=== PATIENT | male | born 1975 | race African-American/Black ===

== ENCOUNTER 2017-01-20 18:45 | Inpatient (IN) | payer MEDICARE, OTHER ==
[2017-01-20] VITALS (7 sets, daily range): BP systolic 115–130; BP diastolic 58–69; PULSE 110–127; RESP 22–30; TEMP 99–102.4; O2SAT 85–98
[~2017-01-20] VITALS: Ht 188 cm; Wt 56.2 kg
[~2017-01-20 18:45] MED LIST: ALBU8I INH; AMOX875 PO; DICL75 PO; ELVITAB; HYDR-3533 PO; HYDR-3535 PO; LISI2.5T3 PO; MEDR4PAK3 PO; NAPR40TA PO; NEUR300C PO; OFLO.3%A EACH EAR; PREG100; ZITH250T PO
[2017-01-20] MEDS ORDERED: methylPREDNISolone SOD SUCC 125 MG/2 ML VIAL IM ONE (19:30)
--- NOTE | 2017-01-20 19:32 | PD ---
HPI Chief Complaint: Pain: Acute or Chronic Time Seen by Provider: 19:31 Travel History International Travel<30 days: No Contact w/Intl Traveler<30days: No Traveled to known affect area: No History of Present Illness HPI Patient comes in complaining of asthma exacerbation began 2 days ago. Patient states he has not had an inhaler approximately a month. Patient denies anything making it better feels it is getting progressively getting worse. Feels similar previous asthma exacerbations. Patient reports he has been feeling short of breath and coughing up yellow phlegm. Denies any chest pain, headaches, fevers, nausea, vomiting, diarrhea, or abdominal pain. PFSH Past Medical History Asthma: Yes Autoimmune Disease: Yes (HIV) Anxiety: Yes Depression: Yes Cancer: Yes (BRAIN TUMOR RESECTION 2008) Cardiovascular Problems: No Chemotherapy: Yes Cerebrovascular Accident: No Diabetes: No Diminished Hearing: No Gastrointestinal Disorders: No Genitourinary: No Immune Disorder: Yes (HIV/LUPUS) Implanted Vascular Access Dvce: No Musculoskeletal: No Psychiatric: Yes Reproductive: No Respiratory: No Migraines: No Radiation Therapy: Yes Seizures: No Past Surgical History Abdominal Surgery: No Cardiac Surgery: No Ear Surgery: No Endocrine Surgery: No Eye Surgery: No Genitourinary Surgery: No Neurologic Surgery: Yes (CERVICAL BACK 2010,BRAIN TUMOR RESECTION 2008) Thoracic Surgery: No Other Surgery: Yes Social History Alcohol Use: No Tobacco Use: Yes (1/2 ppd) Substance Use: No Allergies-Medications (Allergen,Severity, Reaction): Coded Allergies: No Known Allergies (Verified , 06/11/16) Reported Meds & Prescriptions Reported Meds & Active Scripts Active Naproxen Sodium 550 Mg Tab 550 Mg PO BID Diclofenac Sodium 75 Mg Tab 75 Mg PO BID PRN Floxin (Ofloxacin) 0.3 % Soln 5 Drop EACH EAR BID 7 Days Amoxil (Amoxicillin) 875 Mg Tab 875 Mg PO BID 10 Days Zithromax Z-Chris (Azithromycin) 250 Mg Tab 250 Mg PO DIRECTED 5 Days 500 MG (2 TABLETS) PO ON DAY 1, THEN 250 MG (1 TABLET) PO ON DAYS 2 TO 5. Medrol Dosepak (Methylprednisolone) 4 Mg Chris 4 Mg PO DIRECTED TAKE DIRECTED Ventolin Hfa (Albuterol Sulfate) 8 Gm Aero 1 Puff INH Q4H PRN * SHAKE WELL BEFORE USE * Lortab 5 mg/325 mg (Hydrocodone/Acetaminophen 5 mg/325 mg) 1 Tab 1 Tab PO Q6H PRN Neurontin (Gabapentin) 300 Mg Cap 300 Mg PO TID Reported Lisinopril 2.5 mg (Lisinopril) 2.5 Mg Tab 1 Tab PO DAILY Stribild (Ojljeedflpeq-Zzjuidgsqh-Gqwqyd) Tab Lortab 10 mg/325 mg (Hydrocodone/Acetaminophen 10 mg/325 mg) 1 Tab 1 Tab PO TID PRN Lyrica (Pregabalin) 100 Mg Cap Review of Systems Except as stated in HPI: all other systems reviewed are Neg Physical Exam Narrative GENERAL: Well-developed, well nourished, in no acute distress, and ill appearing , but nontoxic. SKIN: Focused skin assessment warm and dry. HEAD: Atraumatic. Normocephalic. EYES: Pupils equal and round. EOMI. No scleral icterus. No injection or drainage. ENT: No nasal bleeding or discharge. Mucous membranes pink and moist. NECK: Trachea midline. Supple. No nuclear rigidity. CARDIOVASCULAR: Regular rate and rhythm. No murmur appreciated. RESPIRATORY: No accessory muscle use. No respiratory distress. Wheezing and crackles noted throughout greatest in bilateral lower lobes GASTROINTESTINAL: Abdomen soft, non-tender, nondistended, and no guarding. Hepatic and splenic margins not palpable. No pulsatile mass. MUSCULOSKELETAL: No obvious deformities. No clubbing. No cyanosis. No edema. Full range of motion. NEUROLOGICAL: Awake and alert. No obvious cranial nerve deficits. Motor grossly within normal limits. Normal speech. PSYCHIATRIC: Appropriate mood and affect; insight and judgment normal. Data Data Last Documented VS Vital Signs Date Time Temp Pulse Resp B/P Pulse Ox O2 Delivery O2 Flow Rate FiO2 01/20/17 20:05 93 Nasal Cannula 3.00 01/20/17 19:45 127 22 115/58 01/20/17 18:51 102.4 Orders Albuterol-Ipratropium Neb (Duoneb Neb) (01/20/17 19:30) Methylprednisolone So Succ Inj (Solumedr (01/20/17 19:30) Chest, Single Ap (01/20/17 ) Electrocardiogram (01/20/17 19:54) Basic Metabolic Panel (Bmp) (01/20/17 19:54) Complete Blood Count With Diff (01/20/17 19:54) Lactic Acid Sepsis Protocol (01/20/17 19:54) Urinalysis - C+S If Indicated (01/20/17 19:54) Blood Culture (01/20/17 19:54) Iv Access Insert/Monitor (01/20/17 19:54) Oximetry (01/20/17 19:54) Oxygen Administration (01/20/17 19:54) Sodium Chloride 0.9% Flush (Ns Flush) (01/20/17 20:00) Cefepime Inj (Maxipime Inj) (01/20/17 20:00) Azithromycin Inj (Zithromax Inj) (01/20/17 20:00) Shoulder, Complete (>2vws) (01/20/17 ) Sodium Chlor 0.9% 1000 Ml Inj (Ns 1000 M (01/20/17 20:00) Sodium Chlor 0.9% 1000 Ml Inj (Ns 1000 M (01/20/17 21:30) Ibuprofen (Motrin) (01/20/17 21:45) Admit Order (Ed Use Only) (01/20/17 22:01) Labs Laboratory Tests Test 01/20/17 20:30 White Blood Count 18.9 TH/MM3 Red Blood Count 4.46 MIL/MM3 Hemoglobin 13.2 GM/DL Hematocrit 40.1 % Mean Corpuscular Volume 89.8 FL Mean Corpuscular Hemoglobin 29.5 PG Mean Corpuscular Hemoglobin 32.8 % Concent Red Cell Distribution Width 14.1 % Platelet Count 400 TH/MM3 Mean Platelet Volume 7.0 FL Neutrophils (%) (Auto) 94.0 % Lymphocytes (%) (Auto) 3.1 % Monocytes (%) (Auto) 2.8 % Eosinophils (%) (Auto) 0.0 % Basophils (%) (Auto) 0.1 % Neutrophils # (Auto) 17.8 TH/MM3 Lymphocytes # (Auto) 0.6 TH/MM3 Monocytes # (Auto) 0.5 TH/MM3 Eosinophils # (Auto) 0.0 TH/MM3 Basophils # (Auto) 0.0 TH/MM3 CBC Comment DIFF FINAL Differential Comment Urine Color DARK-YELLOW Urine Turbidity CLEAR Urine pH 6.5 Urine Specific [place] 1.028 Urine Protein 30 mg/dL Urine Glucose (UA) NEG mg/dL Urine Ketones 10 mg/dL Urine Occult Blood NEG Urine Nitrite NEG Urine Bilirubin NEG Urine Urobilinogen GREATER THAN 12.0 MG/DL Urine Leukocyte Esterase NEG Urine RBC 2 /hpf Urine WBC 1 /hpf Urine Squamous Epithelial <1 /hpf Cells Urine Mucus FEW /lpf Microscopic Urinalysis Comment CULT NOT INDICATED Sodium Level 132 MEQ/L Potassium Level 3.5 MEQ/L Chloride Level 97 MEQ/L Carbon Dioxide Level 25.4 MEQ/L Anion Gap 10 MEQ/L Blood Urea Nitrogen 8 MG/DL Creatinine 0.90 MG/DL Estimat Glomerular Filtration 114 ML/MIN Rate Random Glucose 134 MG/DL Lactic Acid Level 1.8 mmol/L Calcium Level 9.5 MG/DL MDM Medical Decision Making Medical Screen Exam Complete: Yes Emergency Medical Condition: Yes Interpretation(s) Chest x-ray read by the radiologist shows: 1. Bibasilar consolidation could be atelectasis or pneumonia. 2. Irregularity right humeral head with sclerosis could be avascular necrosis and fracture. Right shoulder x-ray read by the radiologist shows: Avascular necrosis with subchondral fracture. Differential Diagnosis Asthma exacerbation, pneumonia, pneumothorax, electrolyte abnormally, dehydration, other Narrative Course Patient seen and examined. IV was established patient with clinical research monitor. Labs were obtained and reviewed. Patient is given IV fluids, IV antibiotics, ibuprofen. Discussed patient with Dr. Loza, who is agreeable with plan of care and disposition. Discussed all findings plan of care with patient who is agreeable for admission. All questions were answered. Patient remained stable throughout ED course. Sepsis Criteria SIRS Criteria (2 or more): Temp > 100.9 or < 96.8, Heart rate over 90, RR > 20 or PaCO2 < 32, WBC > 42322, < 4000 or > 10% bands Sepsis Criteria (SIRS+source): Infect source susp/known Physician Communication Physician Communication [id number] Shah, who is agreeable to this patient. Diagnosis Primary Impression: Sepsis Qualified Code: A41.9 - Sepsis, due to unspecified organism Additional Impressions: Pneumonia Qualified Code: J18.9 - Pneumonia of both lungs due to infectious organism, unspecified part of lung Avascular necrosis HIV (human immunodeficiency virus infection) Admitting Information Admitting Physician Requests: Admit Condition: Stable Robe Larose Jan 20, 2017 19:32
--- NOTE | 2017-01-20 19:48 | RADRPT ---
EXAM DATE/TIME: 01/20/2017 19:40 [facility] COMPARISON: No previous studies available for comparison. INDICATIONS : Wheezing. MEDICAL HISTORY : None. SURGICAL HISTORY : None. ENCOUNTER: Initial ACUITY: 2 days PAIN SCORE: 0/10 LOCATION: Bilateral chest FINDINGS: A single view of the chest demonstrates bibasilar airspace disease. Heart normal in size.. Osseous s tructures are intact. Irregularity right humeral head. Sclerosis of the humeral head. CONCLUSION: 1. Bibasilar consolidation could be atelectasis or pneumonia. 2. Irregularity right humeral head with sclerosis could be avascular necrosis and fracture. David Jenkins MD on January 20, 2017 at 19:45 Board Certified Radiologist. This report was verified electronically.
[2017-01-20] MEDS ORDERED: AZITHROMYCIN INJ 500 MG in SODIUM CHLOR 0.9% 250 ML INJ 250 ML IV ONE (20:00)
[2017-01-20] MEDS ORDERED: SODIUM CHLOR 0.9% 1000 ML INJ 1,000 ML IV ONE ×2 (20:00→21:30)
[2017-01-20] MEDS ORDERED: CEFEPIME INJ 2,000 MG in SODIUM CHLORIDE 0.9% INJ 100 ML IV ONE (20:00)
[2017-01-20] MEDS ORDERED: SODIUM CHLORIDE 0.9% FLUSH 10 ML FLUSH IVF PRN (20:00)
[2017-01-20] MEDS: RESP: ALBUTEROL 2.5 MG/IPRATROPIUM 0.5 MG NEB (SCH) INH ×2 (20:01→23:26)
--- NOTE | 2017-01-20 21:11 | RADRPT ---
EXAM DATE/TIME: 01/20/2017 20:45 [facility] COMPARISON: No previous studies available for comparison. INDICATIONS : Right shoulder pain after fall. MEDICAL HISTORY : None. SURGICAL HISTORY : None. ENCOUNTER: Initial ACUITY: 1 day PAIN SCORE: 7/10 LOCATION: Right shoulder FINDINGS: Multiple view examination of the right shoulder demonstrates avascular necrosis with subchondral frac ture. The glenohumeral and acromioclavicular joints are maintained. There is normal range of motion between internal and external rotation. Bony mineralization is normal. CONCLUSION: Avascular necrosis with subchondral fracture. David Jenkins MD on January 20, 2017 at 21:06 Board Certified Radiologist. This report was verified electronically.
[2017-01-20 21:18] LABS: AUTOMATED NEUTROPHIL # 17.8 TH/MM3 (1.8-7.7); BASOPHIL % 0.1 % (0.0-2.0); HEMATOCRIT 40.1 % (39.0-51.0); HEMO FLAGS DIFF FINAL; LYMPH % 3.1 % (9.0-44.0); LYMPHOCYTE # 0.6 TH/MM3 (1.0-4.8); MEAN CELL VOLUME 89.8 FL (80.0-100.0); MEAN CORPUSCULAR HEMOGLOBIN 29.5 PG (27.0-34.0); MEAN CORPUSCULAR HGB CONC 32.8 % (32.0-36.0); MONO % 2.8 % (0.0-8.0); PLATELET COUNT 400 TH/MM3 (150-450); RED BLOOD COUNT 4.46 MIL/MM3 (4.50-5.90); RED CELL DISTRIBUTION WIDTH 14.1 % (11.6-17.2); WHITE BLOOD COUNT 18.9 TH/MM3 (4.0-11.0)
[2017-01-20 21:22] LABS: BLOOD, URINE NEG (NEG); COMMENT (UR) CULT NOT INDICATED; CULTURE IF INDICATED CULT NOT INDICATED; GLUCOSE,URINE NEG (NEG); KETONE, URINE 10 mg/dL (NEG); MUCUS URINE FEW /lpf (OCC); NITRITE,URINE NEG (NEG); PH, URINE 6.5 (5.0-8.5); SQUAMOUS EPITHELIAL CELL URINE <1 /hpf (0-5); URINE COLOR DARK-YELLOW (YELLW/STRAW)
[2017-01-20 21:32] LABS: BICARBONATE 25.4 MEQ/L (21.0-32.0); POTASSIUM 3.5 MEQ/L (3.5-5.1)
[2017-01-20] MEDS ORDERED: IBUPROFEN 800 MG TAB PO ONE (21:45)
[2017-01-20] MEDS ORDERED: NALOXONE HCL 0.4 MG/ML AMP IV PRN (22:30)
[2017-01-20] MEDS ORDERED: SODIUM CHLORIDE 0.9% FLUSH 10 ML FLUSH IV FLUSH PRN (22:30)
[2017-01-20 22:57] LABS: BLOOD GAS BASE EXCESS 0.4 mmol/L (-2-2); BLOOD GAS CARBOXYHEMOGLOBIN 1.2 % (0-4); BLOOD GAS HCO3 24 mmol/L (22-26); BLOOD GAS METHEMOGLOBIN 0.6 % (0-2); BLOOD GAS O2 HGB SATURATION 86 % (90-100); BLOOD GAS OXYGEN CONTENT 16.3 Vol % (12.0-20.0); BLOOD GAS PCO2 31 mmHg (38-42); BLOOD GAS PO2 51 mmHG (61-120); BLOOD GAS TOTAL HGB 13.5 G/DL (12.0-16.0); TEMP CORR TO 98.6
[2017-01-20 22:59] LABS: DRAW SITE RT RADIAL; LITER FLOW 3 L/M; NUMBER OF ARTERIAL PUNCTURES 1; OXYGEN DEVICE NASAL CANNULA
[2017-01-20 23:00] LABS: STAT YES; ULNAR PULSE PRESENT
[2017-01-21] VITALS (16 sets, daily range): BP systolic 108–130; BP diastolic 59–76; PULSE 80–108; RESP 15–28; TEMP 97.6–98.2; O2SAT 96–100
[2017-01-21 01:11] LABS: BLOOD GAS BASE EXCESS -0.9 mmol/L (-2-2); BLOOD GAS CARBOXYHEMOGLOBIN 0.9 % (0-4); BLOOD GAS HCO3 23 mmol/L (22-26); BLOOD GAS METHEMOGLOBIN 0.8 % (0-2); BLOOD GAS O2 HGB SATURATION 96 % (90-100); BLOOD GAS OXYGEN CONTENT 19.9 Vol % (12.0-20.0); BLOOD GAS PCO2 34 mmHg (38-42); BLOOD GAS PO2 96 mmHg (61-120); BLOOD GAS TOTAL HGB 14.7 G/DL (12.0-16.0); CRITICAL VALUE NO; DRAW SITE RT RADIAL; FIO2 50 %; NUMBER OF ARTERIAL PUNCTURES 1; OXYGEN DEVICE BiPAP; STAT YES; TEMP CORR TO 98.6; ULNAR PULSE PRESENT; VENT SETTINGS IPAP12/EPAP5
--- NOTE | 2017-01-21 02:03 | HHI.HP ---
[facility] Service [facility] Primary Care Physician Braeden Sands MD Admission Diagnosis sepsis, pneumonia, avascular necrosis, HIV Diagnoses: Travel History International Travel<30 Days: No Contact w/Intl Traveler <30 Da: No Traveled to Known Affected Are: No History of Present Illness hx from patient and ER PA communication and review of medical records. Patient was on BiPAP at the time of my exam. Patient is awake and alert. However is quite tired from his acute illness and would only answer yes or no questions. However he was much more alert prior to my arrival and was given complaining about not having his dinner. He tells me that he came to hospital because he was short of breath. He denies other symptoms though. Specifically, he denies any chest pain/ palpitations/nausea/vomiting/diarrhea/urinary burning or pain on urination. He answers no when asked about cough and sputum production. Again, he seems that he is just not interested in answering questions. He denies fever. He does however have documented fever while in emergency room of 102.4. He denies any blood in his stool or his urine. He does report that he has HIV. He does not know his CD4 count. Does not know his medications names. But tells me that he does take his medications regularly and that he [facility] up with [facility]. When asked about AIDS defining illnesses, he denies everything. Again, patient is quite poor historian. In the emergency room, patient initially arrived with acute respiratory distress and was stating of history of asthma. However on his examination by ER PA, his lungs were sounding more of congestion/ pulmonary edema. He was given nebulizer treatments, steroids, with not much improvement. He was then given antibiotics broad-spectrum. Nursing staff then called me with patient's status because he was not improving much and that his O2 saturations would easily go down and she was requiring nonrebreather. He was again still looking tachycardic, with significant work of breathing. However has placed him on BiPAP prior to my arrival. Review of Systems ROS Limitations: Poor Historian Except as stated in HPI: all other systems reviewed are Neg Past Family Social History Past Medical History Asthma Bronchitis Past Surgical History none Reported Medications hiv meds, but cant remember Allergies: Coded Allergies: No Known Allergies (Verified , 06/11/16) Family History none per patient Social History denies smoking/ etoh abuse/ drug abuse Physical Exam Vital Signs Vital Signs Date Time Temp Pulse Resp B/P Pulse Ox O2 Delivery O2 Flow Rate FiO2 01/20/17 23:58 97 BiPAP 50 01/20/17 23:54 98 50 01/20/17 23:28 98 Partial Rebreather 15.00 01/20/17 22:57 95 Nasal Cannula 2 01/20/17 22:57 95 Nasal Cannula 2 01/20/17 22:57 99.0 115 30 124/69 95 Nasal Cannula 2 01/20/17 20:05 93 Nasal Cannula 3.00 01/20/17 19:45 127 22 115/58 93 3 01/20/17 18:51 102.4 110 28 130/69 85 01/20/17 18:48 102.4 112 28 130/69 85 Room Air Physical Exam GENERAL: This is a well-nourished, well-developed patient, in moderate distress from illness SKIN: No rashes, ecchymoses or lesions. Cool and dry. HEAD: Atraumatic. Normocephalic. No temporal or scalp tenderness. EYES: No scleral icterus. No injection or drainage. ENT: Nose without bleeding, purulent drainage or septal hematoma. Airway patent. NECK: Trachea midline. +JVD CARDIOVASCULAR: tachycardic, regular rhythm without murmurs, gallops, or rubs. RESPIRATORY: bilateral coarse crepitations GASTROINTESTINAL: Abdomen soft, non-tender, nondistended. No hepato-splenomegaly , or palpable masses. No guarding. MUSCULOSKELETAL: Extremities without clubbing, cyanosis, or edema. No calf tenderness. NEUROLOGICAL: Awake and alert. Motor and sensory grossly within normal limits. Normal speech. Laboratory Laboratory Tests Test 01/20/17 01/20/17 01/21/17 20:30 22:43 00:57 White Blood Count 18.9 Red Blood Count 4.46 Hemoglobin 13.2 Hematocrit 40.1 Mean Corpuscular Volume 89.8 Mean Corpuscular Hemoglobin 29.5 Mean Corpuscular Hemoglobin 32.8 Concent Red Cell Distribution Width 14.1 Platelet Count 400 Mean Platelet Volume 7.0 Neutrophils (%) (Auto) 94.0 Lymphocytes (%) (Auto) 3.1 Monocytes (%) (Auto) 2.8 Eosinophils (%) (Auto) 0.0 Basophils (%) (Auto) 0.1 Neutrophils # (Auto) 17.8 Lymphocytes # (Auto) 0.6 Monocytes # (Auto) 0.5 Eosinophils # (Auto) 0.0 Basophils # (Auto) 0.0 CBC Comment DIFF FINAL Differential Comment Urine Color DARK-YELLOW Urine Turbidity CLEAR Urine pH 6.5 Urine Specific [place] 1.028 Urine Protein 30 Urine Glucose (UA) NEG Urine Ketones 10 Urine Occult Blood NEG Urine Nitrite NEG Urine Bilirubin NEG Urine Urobilinogen GREATER THAN 12.0 Urine Leukocyte Esterase NEG Urine RBC 2 Urine WBC 1 Urine Squamous Epithelial <1 Cells Urine Mucus FEW Microscopic Urinalysis Comment CULT NOT INDICATED Sodium Level 132 Potassium Level 3.5 Chloride Level 97 Carbon Dioxide Level 25.4 Anion Gap 10 Blood Urea Nitrogen 8 Creatinine 0.90 Estimat Glomerular Filtration 114 Rate Random Glucose 134 Lactic Acid Level 1.8 Calcium Level 9.5 Lactate Dehydrogenase 211 Blood Gas Puncture Site RT RADIAL RT RADIAL Blood Gas Patient Temperature 98.6 98.6 Blood Gas HCO3 24 23 Blood Gas Base Excess 0.4 -0.9 Blood Gas Oxygen Saturation 86 96 Arterial Blood pH 7.49 7.44 Arterial Blood Partial 31 34 Pressure CO2 Arterial Blood Partial 51 96 Pressure O2 Arterial Blood Oxygen Content 16.3 19.9 Arterial Blood 1.2 0.9 Carboxyhemoglobin Arterial Blood Methemoglobin 0.6 0.8 Blood Gas Hemoglobin 13.5 14.7 Oxygen Delivery Device NASAL CANNULA BiPAP Blood Gas Liter Flow 3 Blood Gas Ventilator Setting [id number] Blood Gas Inspired Oxygen 50 Date/Time Procedure Status Source Growth 01/20/17 20:30 Aerobic Blood Culture Received Blood Peripheral Pending 01/20/17 20:30 Anaerobic Blood Culture Received Blood Peripheral Pending Result Diagram: 01/20/17202901/20/172029 Imaging Last 48 hours Impressions Shoulder X-Ray 01/20/17 0000 Signed Impressions: Service Date/Time: Friday, January 20, 2017 20:45 - CONCLUSION: Avascular necrosis with subchondral fracture. David Jenkins MD Chest X-Ray 01/20/17 0000 Signed Impressions: Service Date/Time: Friday, January 20, 2017 19:40 - CONCLUSION: 1. Bibasilar consolidation could be atelectasis or pneumonia. 2. Irregularity right humeral head with sclerosis could be avascular necrosis and fracture. David Jenkins MD Assessment and Plan Assessment and Plan Impression: Bilateral air space disease - pneumonia in HIV pt possible PCP pneumonia sepsis- with tachycadia, tachypnea, fever hypoxic respiratory failure hx of asthma hx of HIV Plan: bipap to decrease effort of breathing cefepime 2g iv q12hrs bactrim pcp therapeutic dose abg stat - for Aa gradient LDH nebs prn steroids iv ID consult CD4 profile admit to ICU for close monitoring DVT prophylaxis on lovenox critical care time 30min Discussed Condition With Patient, ER PA, ER nurse Physician Certification 2 Midnight Certification Type: Admission for Inpatient Services Order for Inpatient Services The services are ordered in accordance with Medicare regulations or non- Medicare payer requirements, as applicable. In the case of services not specified as inpatient-only, they are appropriately provided as inpatient services in accordance with the 2-midnight benchmark. Estimated LOS (days): 3 days is the estimated time the patient will need to remain in the hospital, assuming treatment plan goals are met and no additional complications. Post-Hospital Plan: Home Salvador Shah MD Jan 21, 2017 02:03
[2017-01-21 02:11] LABS: CRITICAL VALUE YES
[2017-01-21] MEDS: PANTOPRAZOLE SODIUM 40 MG VIAL IV PUSH SCH ×2 (02:16→14:40)
[2017-01-21] MEDS ORDERED: SULFAMETHOX IV SCH ×2 (03:00)
[2017-01-21] MEDS ORDERED: TRIMETHOPRIM IV SCH ×2 (03:00)
[2017-01-21] MEDS ORDERED: WATE IV SCH ×2 (03:00)
[2017-01-21] MEDS ORDERED: DEXTROSE 5% IV SCH ×2 (03:00)
[2017-01-21] MEDS: RESP: ALBUTEROL 2.5 MG/IPRATROPIUM 0.5 MG NEB (SCH) NEB ×4 (03:15→21:33)
[2017-01-21] MEDS: methylPREDNISolone SOD SUCC 40 MG/1 ML VIAL IV PUSH SCH ×4 (05:24→23:46)
[2017-01-21 07:22] LABS: AUTOMATED NEUTROPHIL # 18.1 TH/MM3 (1.8-7.7); HEMATOCRIT 34.4 % (39.0-51.0); HEMO FLAGS DIFF FINAL; LYMPH % 4.8 % (9.0-44.0); LYMPHOCYTE # 0.9 TH/MM3 (1.0-4.8); MEAN CELL VOLUME 88.5 FL (80.0-100.0); MEAN CORPUSCULAR HEMOGLOBIN 30.3 PG (27.0-34.0); MEAN CORPUSCULAR HGB CONC 34.2 % (32.0-36.0); MONO % 3.8 % (0.0-8.0); NEUT % 91.4 % (16.0-70.0); PLATELET COUNT 348 TH/MM3 (150-450); RED BLOOD COUNT 3.89 MIL/MM3 (4.50-5.90); RED CELL DISTRIBUTION WIDTH 14.1 % (11.6-17.2); WHITE BLOOD COUNT 19.8 TH/MM3 (4.0-11.0)
[2017-01-21 07:50] LABS: BICARBONATE 23.1 MEQ/L (21.0-32.0)
[2017-01-21 07:57] LABS: POTASSIUM 2.9 MEQ/L (3.5-5.1)
[2017-01-21] MEDS ORDERED: POTASSIUM CHLOR 20 MEQ PREMIX 100 ML IV PRN ×2 (08:30)
[2017-01-21] MEDS ORDERED: POTASSIUM CHLOR 40 MEQ PREMIX 100 ML IV PRN ×2 (08:30)
[2017-01-21] MEDS ORDERED: POTASSIUM PHOSPHATE MONOBASIC 500 MG TAB PO PRN (08:30)
[2017-01-21] MEDS ORDERED: POTASSIUM PHOSPHATE MONOBASIC 500 MG TAB PO/TUBE PRN (08:30)
[2017-01-21] MEDS ORDERED: POTASSIUM CHLORIDE 25 MEQ EFFERVESCENT TAB PO PRN (08:30)
[2017-01-21] MEDS ORDERED: MAGNESIUM SULFATE INJ 4 GM in SODIUM CHLORIDE 0.9% INJ 92 ML IV PRN (08:30)
[2017-01-21] MEDS ORDERED: MAGNESIUM OXIDE 400 MG TAB PO PRN (08:30)
[2017-01-21] MEDS ORDERED: SODIUM PHOSPHATE INJ 30 MMOL in SODIUM CHLOR 0.9% 250 ML INJ 240 ML IV PRN (08:30)
[2017-01-21] MEDS ORDERED: MAGNESIUM SULFATE INJ 2 GM in SODIUM CHLORIDE 0.9% INJ 96 ML IV PRN (08:30)
[2017-01-21] MEDS ORDERED: POTASSIUM PHOSPHATE INJ 30 MMOL in SODIUM CHLOR 0.9% 250 ML INJ 250 ML IV PRN (08:30)
[2017-01-21] MEDS: SODIUM CHLORIDE 0.9% FLUSH 10 ML FLUSH IV FLUSH SCH ×2 (09:00→21:26)
[2017-01-21] MEDS: CEFEPIME INJ 2,000 MG in SODIUM CHLORIDE 0.9% INJ 100 ML IV SCH ×2 (09:06→20:06)
[2017-01-21] MEDS: ENOXAPARIN SODIUM 40 MG/0.4 ML SYRINGE SQ SCH (09:07)
[2017-01-21] MEDS: SULFAMETHOX IV SCH ×6 (10:13→21:49)
[2017-01-21] MEDS: DEXTROSE 5% IV SCH ×6 (10:13→21:49)
[2017-01-21] MEDS: WATE IV SCH ×6 (10:13→21:49)
[2017-01-21] MEDS: TRIMETHOPRIM IV SCH ×6 (10:13→21:49)
[2017-01-21] MEDS ORDERED: IOHEXOL 350 MG/ML 10 ML VIAL (for RAD DIAG) IV ONE (10:41)
--- NOTE | 2017-01-21 11:02 | RADRPT ---
EXAM DATE/TIME: 01/21/2017 10:30 [facility] COMPARISON: No previous studies available for comparison. INDICATIONS : Short of breath for 3 days. IV CONTRAST: 60 cc Omnipaque 350 (iohexol) IV RADIATION DOSE: 23.19 CTDIvol (mGy) MEDICAL HISTORY : Brain tumor. Asthma. SURGICAL HISTORY : Brain tumor removed. ENCOUNTER: Initial ACUITY: 3 days PAIN SCALE: 2/10 LOCATION: chest TECHNIQUE: Volumetric scanning of the chest was performed using a pulmonary embolism protocol MIP images were re constructed. Using automated exposure control and adjustment of the mA and/or kV according to patien t size, radiation dose was kept as low as reasonably achievable to obtain optimal diagnostic quality images. DICOM format image data is available electronically for review and comparison. Follow-up recommendations for incidentally detected pulmonary nodules are based at a minimum on nodul e size and patient risk factors according to Fleischner Society Guidelines. FINDINGS: Alveolar consolidations are noted within the lower lobes bilaterally and to a much lesser extent left upper lobe. The findings are suggestive of pneumonia until proven otherwise. Clinical correlation is recommended . No pulmonary embolism is noted. No pulmonary nodule or mass is noted. No mediastinal, hilar or axillar y lymphadenopathy is noted. There is a tiny left pleural effusion. Degenerative changes and scoliosis of the thoracic spine are noted CONCLUSION: 1. Alveolar consolidations involving lower lobes bilaterally and to a much lesser extent left upper lobe suggesting probable bilateral pneumonia. Clinical correlation is recommended. 2. No evidence of pulmonary embolism. 3. Tiny left pleural effusion. Alexandre Stewart MD on January 21, 2017 at 10:49 Board Certified Radiologist. This report was verified electronically.
[2017-01-21] MEDS ORDERED: POTASSIUM CHLORIDE 10 MEQ CONTROLLED RELEASE TAB PO ONE (11:15)
[2017-01-21] MEDS ORDERED: POTASSIUM CHLORIDE 20 MEQ CONTROLLED RELEASE TAB PO ONE (11:45)
--- NOTE | 2017-01-21 11:45 | HHI.PR ---
Subjective Remarks f/u B/L PNA and respiratory failure Patient denies any shortness of breathing. He stated that he is doing well. Patient seems to not like to answer questions. He stated that his HIV physician is Dr. Perez. Otherwise he has no complaints. Objective Vitals Vital Signs Date Time Temp Pulse Resp B/P Pulse Ox O2 Delivery O2 Flow Rate FiO2 01/21/17 11:39 100 Nasal Cannula 6.00 01/21/17 10:00 89 01/21/17 08:44 100 40 01/21/17 08:00 82 01/21/17 08:00 97.6 80 22 108/59 100 01/21/17 07:00 100 Bi-Pap 40 01/21/17 06:00 91 01/21/17 06:00 96 Bi-Pap 50 01/21/17 06:00 98.0 91 25 114/68 98 01/21/17 05:36 97 40 01/21/17 04:00 103 18 130/76 98 BiPAP 40 01/21/17 03:17 100 40 01/21/17 03:15 97 BiPAP 40 01/21/17 02:20 97 18 121/75 97 BiPAP 50 01/20/17 23:58 97 BiPAP 50 01/20/17 23:54 98 50 01/20/17 23:28 98 Partial Rebreather 15.00 01/20/17 22:57 95 Nasal Cannula 2 01/20/17 22:57 95 Nasal Cannula 2 01/20/17 22:57 99.0 115 30 124/69 95 Nasal Cannula 2 01/20/17 20:05 93 Nasal Cannula 3.00 01/20/17 19:45 127 22 115/58 93 3 01/20/17 18:51 102.4 110 28 130/69 85 01/20/17 18:48 102.4 112 28 130/69 85 Room Air I/O 01/20/17 01/20/17 01/20/17 01/21/17 01/21/17 01/21/17 07:00 15:00 23:00 07:00 15:00 23:00 Intake Total 0 ml Balance 0 ml Intake Oral 0 ml # Voids 1 Result Diagram: 01/21/17 0652 01/21/17 [address] Angiography 01/21/17 0000 Signed Impressions: Service Date/Time: Saturday, January 21, 2017 10:30 - CONCLUSION: 1. Alveolar consolidations involving lower lobes bilaterally and to a much lesser extent left upper lobe suggesting probable bilateral pneumonia. Clinical correlation is recommended. 2. No evidence of pulmonary embolism. 3. Tiny left pleural effusion. Alexandre Stewart MD Shoulder X-Ray 01/20/17 0000 Signed Impressions: Service Date/Time: Friday, January 20, 2017 20:45 - CONCLUSION: Avascular necrosis with subchondral fracture. David Jenkins MD Chest X-Ray 01/20/17 0000 Signed Impressions: Service Date/Time: Friday, January 20, 2017 19:40 - CONCLUSION: 1. Bibasilar consolidation could be atelectasis or pneumonia. 2. Irregularity right humeral head with sclerosis could be avascular necrosis and fracture. David Jenkins MD Objective Remarks GENERAL: in NAD SKIN: Warm and dry. HEAD: Normocephalic. EYES: No scleral icterus. No injection or drainage. NECK: Supple, trachea midline. No JVD or lymphadenopathy. CARDIOVASCULAR: Regular rate and rhythm without murmurs, gallops, or rubs. RESPIRATORY: Bilateral mid to lower lobe course lung sounds. No accessory muscle use. GASTROINTESTINAL: Abdomen soft, non-tender, nondistended. MUSCULOSKELETAL: No cyanosis, or edema. BACK: Nontender without obvious deformity. No CVA tenderness. Medications and IVs Current Medications Albuterol/ Ipratropium (Duoneb Neb) 1 ampule Q15M INH Last administered on 01/20 23:26; Start 01/20/17 at 19:30; Stop 01/20/17 at 20:01; Status DC Methylprednisolone Sodium Succinate (SoluMEDROL INJ) 125 mg ONCE ONCE IM Last administered on 01/20/17 19:30; Start 01/20/17 at 19:30; Stop 01/20/17 at 19:31 ; Status DC Sodium Chloride 2 ml 2 ml UNSCH PRN IVF FLUSH AFTER USING IV ACCESS; Start at 20:00; Stop 01/20/17 at 22:21; Status DC Cefepime HCl 2000 mg/Sodium Chloride 100 ml @ 200 mls/hr ONCE ONCE IV Last administered on 01/20/17 22:48; Start 01/20/17 at 20:00; Stop 01/20/17 at 20:29 ; Status DC Azithromycin 500 mg/Sodium Chloride 250 ml @ 250 mls/hr ONCE ONCE IV Last administered on 01/20/17 21:40; Start 01/20/17 at 20:00; Stop 01/20/17 at 20:59 ; Status DC Sodium Chloride 1,000 ml @ 999 mls/hr BOLUS ONCE IV Last administered on 01/20 21:40; Start 01/20/17 at 20:00; Stop 01/20/17 at 21:00; Status DC Sodium Chloride (NS 1000 ml Inj) 1,000 ml @ 999 mls/hr BOLUS ONCE IV Last administered on 01/20/17 22:49; Start 01/20/17 at 21:30; Stop 01/20/17 at 22:30 ; Status DC Ibuprofen (Motrin) 800 mg ONCE ONCE PO Last administered on 01/20/17 22:36; Start 01/20/17 at 21:45; Stop 01/20/17 at 21:46; Status DC Sodium Chloride (NS Flush) 2 ml UNSCH PRN IV FLUSH FLUSH AFTER USING IV ACCESS ; Start 01/20/17 at 22:30 Sodium Chloride (NS Flush) 2 ml BID IV FLUSH Last administered on 01/21/17 09: 00; Start 01/21/17 at 09:00 Naloxone HCl (Narcan Inj) 0.4 mg UNSCH PRN IV SEE LABEL COMMENTS; Start at 22:30 Albuterol/ Ipratropium (Duoneb Neb) 1 ampule Q6HR NEB NEB Last administered on 01/21/17 08:48; Start 01/21/17 at 04:00 Albuterol/ Ipratropium 1 ampule 1 ampule Q2HR NEB PRN NEB wheezing; Start 01/20 at 22:30 Cefepime HCl/ Sodium Chloride (Maxipime Inj/NS Inj) 100 ml @ 200 mls/hr Q12H IV Last administered on 01/21/17 09:06; Start 01/21/17 at 09:00 Methylprednisolone Sodium Succinate (SoluMEDROL INJ) 40 mg Q6HR IV PUSH Last administered on 01/21/17 11:52; Start 01/21/17 at 06:00 Pantoprazole Sodium 40 mg 40 mg Q12H IV PUSH Last administered on 01/21/17 02: 16; Start 01/21/17 at 02:00 Trimethoprim/ Sulfamethoxazole 400 mg/Dextrose 525 ml @ 350 mls/hr Q6H IV Last administered on 01/21/17 02:56; Start 01/21/17 at 03:00; Stop 01/21/17 at 08:10; Status DC Trimethoprim/ Sulfamethoxazole/ Dextrose (Bactrim Inj/D5W 500 ml Inj) 499.75 ml @ 333.167 mls/hr Q6H IV Last administered on 01/21/17 10:13; Start 01/21/17 at 10:00 Influenza Virus Vaccine (Flu (Quadrivalent) Vaccine Inj) 0.5 ml ONCE ONCE IM ; Start 01/22/17 at 10:00; Stop 01/22/17 at 10:00; Status DC Enoxaparin Sodium 40 mg 40 mg Q24H SQ Last administered on 01/21/17 09:07; Start 01/21/17 at 09:00 Potassium Chloride 100 ml @ 50 mls/hr Q2H PRN IV For Potassium 2.8 - 3.2 mEq/L ; Start 01/21/17 at 08:30 Potassium Chloride (KCl 20 Meq Premix Inj) 100 ml @ 50 mls/hr Q2H PRN IV For Potassium 2.8 - 3.2 mEq/L; Start 01/21/17 at 08:30 Potassium Bicarb/ Potassium Chloride 50 meq 50 meq UNSCH PRN PO For Potassium 3.3 - 3.5 mEq/L Last administered on 01/21/17 09:09; Start 01/21/17 at 08:30 Potassium Chloride 100 ml @ 25 mls/hr UNSCH PRN IV For Potassium 3.3 - 3.5 mEq /L; Start 01/21/17 at 08:30 Potassium Chloride 100 ml @ 50 mls/hr Q2H PRN IV For Potassium 3.3 - 3.5 mEq/L ; Start 01/21/17 at 08:30 Magnesium Sulfate/ Sodium Chloride (Magnesium Sulfate Inj/NS Inj) 100 ml @ 50 mls/hr UNSCH PRN IV For Magnesium 0.9 - 1.1 mg/dL; Start 01/21/17 at 08:30 Magnesium Oxide 800 mg 800 mg UNSCH PRN PO For Magnesium 1.2 - 1.6 mg/dL; Start 01/21/17 at 08:30 Magnesium Sulfate/ Sodium Chloride (Magnesium Sulfate Inj/NS Inj) 100 ml @ 50 mls/hr UNSCH PRN IV For Magnesium 1.2 - 1.6 mg/dL; Start 01/21/17 at 08:30 Potassium Phosphate 2000 mg 2,000 mg Q4H PRN PO For Phosphorus < 2.5 mg/dL; Start 01/21/17 at 08:30 Sodium Phosphate/ Sodium Chloride (Sodium Phosphate Inj/NS 250 ml Inj) 250 ml @ 42 mls/hr UNSCH PRN IV For Phosphorus < 2.5 mg/dL; Start 01/21/17 at 08:30 Potassium Phosphate 2000 mg 2,000 mg UNSCH PRN PO/TUBE SEE LABEL COMMENTS; Start 01/21/17 at 08:30 Potassium Phosphate/Sodium Chloride (Potassium Phosphate Inj/NS 250 ml Inj) 260 ml @ 42 mls/hr UNSCH PRN IV SEE LABEL COMMENTS; Start 01/21/17 at 08:30 Iohexol (Omnipaque 350 Inj) 60 ml STK-MED ONCE IV Last administered on 10:41; Start 01/21/17 at 10:41; Stop 01/21/17 at 10:42; Status DC Potassium Chloride (KCl) 60 meq ONCE ONCE PO Last administered on 01/21/17 11 :52; Start 01/21/17 at 11:15; Stop 01/21/17 at 11:26; Status DC Potassium Chloride (KCl) 60 meq ONCE ONCE PO ; Start 01/21/17 at 11:45; Stop at 11:46; Status DC A/P Assessment and Plan 41-year-old male with history of HIV Respiratory failure with hypoxia -Chest x-ray to suggest pneumonia. CT scan of chest showed alveolar consolidations involving lower lobes bilaterally and to a much lesser extent left upper lobe suggesting probable bilateral pneumonia. -Improving. Patient is now off of BiPAP. See treatment as below. -Patient was put on steroids. Bilateral pneumonia -Pending CD4 count. -Infectious disease consulted. -Patient on cefepime. He is also on Bactrim. -Continue management per infectious disease. hx of HIV -will have nurse call pharmacy to see what medication he was on. -ID consulted and ff. DVT prophylaxis -TERRIEs Remedios Pavon MD Jan 21, 2017 11:45 Remedios Pavon MD Jan 21, 2017 11:45
--- NOTE | 2017-01-21 11:55 | PD.ID.CON ---
History of Present Illness Service ID Consult Requested By Dr Lacy Reason for Consult HIV /PNA Primary Care Physician Braeden Sands MD Diagnoses: History of Present Illness Pt is non cooperative on interview and refused to answer any questions All history obtained from the chart 41 yo male with HIV dz (apparentlyon HAART, Tribilt, pt of Dr Rodriguez, CD4/VL unknown) presents yday with hypoxia Per chart pt has been haavingf asthma exacerbation began 2 days ago and it is getting progressively getting worse He is c/o short of breath and cough with yellow phlegm. He was foud hypoxic on presentation, with WBC in 18-19 K range and fever of 102.4 He requires BIPAP He was started on IV bactrim, Solumedrol and cefepime He improved clinically and now is on 6 L of NC O2 It also shows on the home meds records that pt was on augentin/ aszithro prior to admission Review of Systems ROS Limitations: Uncooperative Past Family Social History Allergies: Coded Allergies: No Known Allergies (Verified , 06/11/16) Past Medical History HIV dz Asthma Bronchitis Past Surgical History none Reported Medications Elvitegravir, cobicistat, emtricitabine, and tenofovir disoproxil fumarate ( Stribild) augmentin azithro Active Ordered Medications cefepime TS Family History none per patient Social History denies smoking/ etoh abuse/ drug abuse Physical Exam Vital Signs Vital Signs Date Time Temp Pulse Resp B/P Pulse Ox O2 Delivery O2 Flow Rate FiO2 01/21/17 11:39 100 Nasal Cannula 6.00 01/21/17 10:00 89 01/21/17 08:44 100 40 01/21/17 08:00 82 01/21/17 08:00 97.6 80 22 108/59 100 01/21/17 07:00 100 Bi-Pap 40 01/21/17 06:00 91 01/21/17 06:00 96 Bi-Pap 50 01/21/17 06:00 98.0 91 25 114/68 98 01/21/17 05:36 97 40 01/21/17 04:00 103 18 130/76 98 BiPAP 40 01/21/17 03:17 100 40 01/21/17 03:15 97 BiPAP 40 01/21/17 02:20 97 18 121/75 97 BiPAP 50 7/24/17 23:58 97 BiPAP 50 01/20/17 23:54 98 50 01/20/17 23:28 98 Partial Rebreather 15.00 01/20/17 22:57 95 Nasal Cannula 2 01/20/17 22:57 95 Nasal Cannula 2 01/20/17 22:57 99.0 115 30 124/69 95 Nasal Cannula 2 01/20/17 20:05 93 Nasal Cannula 3.00 01/20/17 19:45 127 22 115/58 93 3 01/20/17 18:51 102.4 110 28 130/69 85 01/20/17 18:48 102.4 112 28 130/69 85 Room Air Physical Exam CONSTITUTIONAL/GENERAL: This is a thin young male patient, in no apparent distress. TUBES/LINES/DRAINS: SKIN: No jaundice, rashes, or lesions. Skin temperature appropriate. Not diaphoretic. HEAD: Atraumatic. Normocephalic. EYES: Pupils equal and round and reactive. Extraocular motions intact. No scleral icterus. No injection or drainage. Fundi not examined. ENT: Hearing grossly normal. Oral mucosae without visible erythema, exudates, masses, or lesions. NECK: Trachea midline. Supple, nontender. CARDIOVASCULAR: Regular rate and rhythm without murmurs, gallops, or rubs. No JVD. Peripheral pulses symmetric. RESPIRATORY/CHEST: Symmetric, unlabored respirations. Clear to auscultation. Breath sounds equal bilaterally. No wheezes, rales, or rhonchi. GASTROINTESTINAL: Abdomen soft, non-tender, nondistended. No hepato-splenomegaly , or palpable masses. No guarding. Bowel sounds present. GENITOURINARY: Without palpable bladder distension. condom catheter in place with clear yellow urine MUSCULOSKELETAL: Extremities without clubbing, cyanosis, or edema. No joint tenderness or effusion noted. No calf tenderness. No mottling or clubbing. LYMPHATICS: No palpable cervical or supraclavicular adenopathy. NEUROLOGICAL: Awake and alert. Motor and sensory grossly within normal limits. Follows commands. Speech clear. Moves all extremities. PSYCHIATRIC: No obvious anxiety/depression. no apparent hallucinations or other psychotic thought process. He is uncooperative and refuses to talk to staff Laboratory Laboratory Tests Test 01/20/17 01/20/17 01/21/17 01/21/17 20:30 22:43 00:57 06:52 White Blood Count 18.9 19.8 Red Blood Count 4.46 3.89 Hemoglobin 13.2 11.8 Hematocrit 40.1 34.4 Mean Corpuscular Volume 89.8 88.5 Mean Corpuscular Hemoglobin 29.5 30.3 Mean Corpuscular Hemoglobin 32.8 34.2 Concent Red Cell Distribution Width 14.1 14.1 Platelet Count 400 348 Mean Platelet Volume 7.0 7.1 Neutrophils (%) (Auto) 94.0 91.4 Lymphocytes (%) (Auto) 3.1 4.8 Monocytes (%) (Auto) 2.8 3.8 Eosinophils (%) (Auto) 0.0 0.0 Basophils (%) (Auto) 0.1 0.0 Neutrophils # (Auto) 17.8 18.1 Lymphocytes # (Auto) 0.6 0.9 Monocytes # (Auto) 0.5 0.8 Eosinophils # (Auto) 0.0 0.0 Basophils # (Auto) 0.0 0.0 CBC Comment DIFF FINAL DIFF FINAL Differential Comment Urine Color DARK-YELLOW Urine Turbidity CLEAR Urine pH 6.5 Urine Specific [place] 1.028 Urine Protein 30 Urine Glucose (UA) NEG Urine Ketones 10 Urine Occult Blood NEG Urine Nitrite NEG Urine Bilirubin NEG Urine Urobilinogen GREATER THAN 12.0 Urine Leukocyte Esterase NEG Urine RBC 2 Urine WBC 1 Urine Squamous Epithelial <1 Cells Urine Mucus FEW Microscopic Urinalysis Comment CULT NOT INDICATED Sodium Level 132 136 Potassium Level 3.5 2.9 Chloride Level 97 104 Carbon Dioxide Level 25.4 23.1 Anion Gap 10 9 Blood Urea Nitrogen 8 7 Creatinine 0.90 0.69 Estimat Glomerular Filtration 114 155 Rate Random Glucose 134 178 Lactic Acid Level 1.8 Calcium Level 9.5 9.0 Lactate Dehydrogenase 211 B-Type Natriuretic Peptide 34 Blood Gas Puncture Site RT RADIAL RT RADIAL Blood Gas Patient Temperature 98.6 98.6 Blood Gas HCO3 24 23 Blood Gas Base Excess 0.4 -0.9 Blood Gas Oxygen Saturation 86 96 Arterial Blood pH 7.49 7.44 Arterial Blood Partial 31 34 Pressure CO2 Arterial Blood Partial 51 96 Pressure O2 Arterial Blood Oxygen Content 16.3 19.9 Arterial Blood 1.2 0.9 Carboxyhemoglobin Arterial Blood Methemoglobin 0.6 0.8 Blood Gas Hemoglobin 13.5 14.7 Oxygen Delivery Device NASAL CANNULA BiPAP Blood Gas Liter Flow 3 Blood Gas Ventilator Setting IPAP12/[id number] Blood Gas Inspired Oxygen 50 Date/Time Procedure Status Source Growth 01/20/17 20:30 Aerobic Blood Culture - Preliminary Resulted Blood Peripheral NO GROWTH IN 1 DAY 01/20/17 20:30 Anaerobic Blood Culture - Preliminary Resulted Blood Peripheral NO GROWTH IN 1 DAY Result Diagram: 01/21/17 0652 01/21/17 [address] Angiography 01/21/17 0000 Signed Impressions: Service Date/Time: Saturday, January 21, 2017 10:30 - CONCLUSION: 1. Alveolar consolidations involving lower lobes bilaterally and to a much lesser extent left upper lobe suggesting probable bilateral pneumonia. Clinical correlation is recommended. 2. No evidence of pulmonary embolism. 3. Tiny left pleural effusion. Alexandre Stewart MD Shoulder X-Ray 01/20/17 0000 Signed Impressions: Service Date/Time: Friday, January 20, 2017 20:45 - CONCLUSION: Avascular necrosis with subchondral fracture. David Jenkins MD Chest X-Ray 01/20/17 0000 Signed Impressions: Service Date/Time: Friday, January 20, 2017 19:40 - CONCLUSION: 1. Bibasilar consolidation could be atelectasis or pneumonia. 2. Irregularity right humeral head with sclerosis could be avascular necrosis and fracture. David Jenkins MD Assessment and Plan Assessment and Plan HIV dz, on HAART per records, compliance is unknown - - degree of immunosupression is unknkown PNA (infiltrates, fever, leukocytosis, hypoxia), severe, multilobar - improved on current abx and higfh dose stereroids - pt reports subacute presentation, has bodyn weight deficit REC's; [facility] sputum for [facility]B/ro TB x 3 leg/pneumococcal PNA chk influenza add azithro restart Stribild Discussed Condition With RN Carli Lund MD Jan 21, 2017 11:55
--- NOTE | 2017-01-21 12:13 | EKG ---
Date Performed: 01/20/2017 Time Performed: 23:29:08 PTAGE: 41 years EKG: SINUS TACHYCARDIA Early repolarization in less prominent from the prior tracing ABNORMAL RH YT ECG PREVIOUS TRACING : 05/24/2012 22.39 DOCTOR: Hugo Barcenas Interpretating Date/Time 01/21/2017 12:12:02
[2017-01-21] MEDS ORDERED: ELVI1TAB3 PO (13:14)
[2017-01-21] MEDS: ELVIT/COBI/EMTR/TENOF 150/150/200/300 MG TABLETS PO SCH (13:52)
[2017-01-21] MEDS: IBUPROFEN 600 MG TAB PO PRN (17:54)
[2017-01-21] MEDS: AZITHROMYCIN INJ 500 MG in SODIUM CHLOR 0.9% 250 ML INJ 250 ML IV SCH (20:05)
[2017-01-22] VITALS (8 sets, daily range): BP systolic 111–121; BP diastolic 58–67; PULSE 83–106; RESP 18–24; TEMP 97.8–98.6; O2SAT 93–96
[2017-01-22] MEDS: PANTOPRAZOLE SODIUM 40 MG VIAL IV PUSH SCH ×2 (01:11→13:13)
[2017-01-22] MEDS: SULFAMETHOX IV SCH ×8 (04:37→23:47)
[2017-01-22] MEDS: DEXTROSE 5% IV SCH ×8 (04:37→23:47)
[2017-01-22] MEDS: methylPREDNISolone SOD SUCC 40 MG/1 ML VIAL IV PUSH SCH ×3 (04:37→16:47)
[2017-01-22] MEDS: TRIMETHOPRIM IV SCH ×8 (04:37→23:47)
[2017-01-22] MEDS: WATE IV SCH ×8 (04:37→23:47)
[2017-01-22] MEDS ORDERED: [UNRECOGNIZED DRUG - OTHER] PO SCH (09:00)
[2017-01-22] MEDS ORDERED: GENVOYA PO SCH (09:00)
[2017-01-22] MEDS ORDERED: EMTRICITABINE PO SCH (09:00)
[2017-01-22] MEDS ORDERED: COBICISTAT PO SCH (09:00)
--- NOTE | 2017-01-22 09:13 | MB ---
cc: JOSE CHAN DATE OF CONSULTATION 01/22/2017 CHIEF COMPLAINT Right shoulder pain. HISTORY OF PRESENT ILLNESS The patient is a 41-year-old -[place] male with significant history of HIV, pneumonia, respiratory issues and multiple medical problems. He was admitted through the emergency department on 01/21/2017 for shortness of breath. He was then found to have a bilateral pneumonia and being treated by Infectious Disease and the medical team. He does have a history of HIV. He states his right shoulder has been bothering him for a very long time. He is unable to give me a specific date or time frame. He is a very poor historian. He seems uninterested in answering questions but will communicate with me. He states his shoulder hurts all the time. He states is hurts with any kind of movement. He denies pain in any other joint or body part. He states his elbow and wrist are fine. He states he has not taken anything or sought any treatment for it. Denies any numbness, tingling or radiation of symptoms. REVIEW OF SYSTEMS Positive for shortness of breath and weakness. The remaining review of systems is negative except for what is in the HPI. PAST MEDICAL HISTORY Positive for asthma and bronchitis as well as HIV. PAST SURGICAL HISTORY None. REPORTED MEDICATIONS HIV medications but he cannot remember them. ALLERGIES No known allergies. FAMILY HISTORY None per patient. SOCIAL HISTORY Denies smoking or alcohol abuse or drug abuse. PHYSICAL EXAMINATION VITAL SIGNS: Temperature 98 degrees, pulse 96, respiratory rate 20, blood pressure 112/59. O2 saturation 93 on room air. GENERAL: Slightly underweight, somewhat cachectic-looking -[place] male in no acute distress. D HEAD: Normocephalic, atraumatic. EARS: Hearing intact bilaterally. EYES: Extraocular motions intact. Pupils equal, round, reactive to light. CRANIAL NERVES II-XII: Grossly intact. NECK: Supple with no evidence of lymphadenopathy. LUNGS: No use of accessory muscles while breathing. HEART: No grade 4 murmur appreciated. ABDOMEN: Soft, nontender. MUSCULOSKELETAL: Right shoulder with significant discomfort and pain with movement of the right shoulder. I am able to passively flex him to approximately 50 degrees before he informs me to stop. He has full motion of his elbow, wrist and fingers both passively and actively. He has full sensation of the median and ulnar nerve distribution and good radial nerve function. Left arm with full motion of shoulder, elbow, wrist and fingers and no painful sensation distally. Strength 5/5. Bilateral lower extremities with full motion of the hips, knees, ankles and toes and no pain. Full sensation distally with strength 5/5. IMAGING STUDIES X-rays reviewed from [facility] which showed no acute bony abnormality. No fracture is seen. It does show developing avascular necrosis of the right humeral head. Overall the glenohumeral joint is well reduced. ASSESSMENT 1. Avascular necrosis right humeral head. 2. HIV. 3. Bilateral pneumonia. DISCUSSION AND PLAN I had a discussion with the patient in regards to his treatment options. This is nothing that needs to be dealt with surgically at this time. This is something that can be dealt with on an outpatient basis. This is a chronic condition. I informed him that ultimately his vascular necrosis of the humeral head will likely progress. The only way to definitely treat this would be with surgery for a hemiarthroplasty versus total shoulder arthroplasty. However, given his HIV and multiple medical problems, he is not a surgical candidate. Another possible treatment plan would be a steroid injection of his right shoulder. However, again, with his HIV and multiple medical conditions, I would be hesitant to give him a shoulder injection due to potentially reducing any new bacteria for potential infection. I would defer to Infectious Disease and the medical team to give any kind of clearance before proceeding with any kind of injection due to his significant history of HIV. Otherwise, he can weight-bear as tolerated with no restrictions and is only limited by that of pain. I informed him that, in the future of he every decided that he wanted to get something done about this shoulder, any surgical treatment, that he could follow up with Dr. Moises Davis or Dr. Jhonatan Celaya at the [facility]. Otherwise, orthopedics will be signing off. If any other further developments, please reconsult to orthopedics. Thank you this consultation. The above patient was discussed and reviewed with Dr. Chan and he does agree with the above dictation. Dictated by: Eliazar Skinner PA-C Jose MD BOBBI Bee/ELVIA /7:50 AM /7:56 AM History, past medical history, social history, review of systems, physical exam , radiographs, assessment, and plan were also reviewed. Plan on nonoperative treatment. A mid-level provider in my office (nurse practitioner or physician personalized living assistant) may see this patient on follow-up visits and continue to implement the objectives of this plan including: Starting or adjusting medications, injections, cast application, orthotics, brace application, physical therapy, radiological studies (including x-ray, MRI, CT, ultrasound, bone scan), vascular studies, neurologic studies, specialist consultation, and proceeding with surgical management, as appropriate. UZMA
[2017-01-22] MEDS: CEFEPIME INJ 2,000 MG in SODIUM CHLORIDE 0.9% INJ 100 ML IV SCH ×2 (10:00→21:53)
[2017-01-22] MEDS: ENOXAPARIN SODIUM 40 MG/0.4 ML SYRINGE SQ SCH (10:00)
[2017-01-22] MEDS ORDERED: INFLUENZA VIRUS VACCINE (QUADRIVALENT) 0.5 ML SYR IM ONE (10:00)
[2017-01-22] MEDS: SODIUM CHLORIDE 0.9% FLUSH 10 ML FLUSH IV FLUSH SCH ×2 (10:01→21:54)
[2017-01-22] MEDS: ELVIT/COBI/EMTR/TENOF 150/150/200/300 MG TABLETS PO SCH (10:01)
[2017-01-22] MEDS: IBUPROFEN 600 MG TAB PO PRN (10:03)
[2017-01-22] MEDS: RESP: ALBUTEROL 2.5 MG/IPRATROPIUM 0.5 MG NEB (SCH) NEB ×3 (11:31→20:40)
--- NOTE | 2017-01-22 12:32 | HHI.PR ---
Subjective Remarks in no acute distress. no fever this morning. complaining of generalized bodyache. d/w the RN. Objective Vitals Vital Signs Date Time Temp Pulse Resp B/P Pulse Ox O2 Delivery O2 Flow Rate FiO2 01/22/17 12:00 98.3 86 18 121/64 95 01/22/17 11:31 21 01/22/17 08:00 98.6 83 18 121/67 96 01/22/17 08:00 Room Air 01/22/17 08:00 87 01/22/17 04:00 98.0 96 20 112/59 93 01/22/17 03:42 Room Air 01/22/17 02:00 97 01/22/17 00:00 97.8 106 24 111/63 96 01/22/17 00:00 106 01/22/17 00:00 98.1 101 18 112/59 93 01/21/17 22:00 100 01/21/17 20:00 97.7 100 28 109/63 96 01/21/17 20:00 100 01/21/17 19:00 94 Room Air 01/21/17 18:00 108 01/21/17 16:20 99 Room Air 01/21/17 16:12 96 01/21/17 16:00 98.2 92 16 112/67 98 01/21/17 16:00 86 01/21/17 15:00 100 Nasal Cannula 2.00 01/21/17 14:00 100 Nasal Cannula 3.00 01/21/17 14:00 95 I/O 01/21/17 01/21/17 01/21/17 01/22/17 01/22/17 01/22/17 06:59 14:59 22:59 06:59 14:59 22:59 Intake Total 0 ml 939 ml 909 ml Output Total 500 ml 600 ml Balance 0 ml 439 ml 309 ml Intake Oral 0 ml 320 ml 120 ml IV Total 619 ml 789 ml Output Urine Total 500 ml 600 ml # Voids 1 # Bowel Movements 0 Result Diagram: 01/21/17 0652 01/21/17 [address] Angiography 01/21/17 0000 Signed Impressions: Service Date/Time: Saturday, January 21, 2017 10:30 - CONCLUSION: 1. Alveolar consolidations involving lower lobes bilaterally and to a much lesser extent left upper lobe suggesting probable bilateral pneumonia. Clinical correlation is recommended. 2. No evidence of pulmonary embolism. 3. Tiny left pleural effusion. Alexandre Stewart MD Shoulder X-Ray 01/20/17 0000 Signed Impressions: Service Date/Time: Friday, January 20, 2017 20:45 - CONCLUSION: Avascular necrosis with subchondral fracture. David Jenkins MD Chest X-Ray 01/20/17 0000 Signed Impressions: Service Date/Time: Friday, January 20, 2017 19:40 - CONCLUSION: 1. Bibasilar consolidation could be atelectasis or pneumonia. 2. Irregularity right humeral head with sclerosis could be avascular necrosis and fracture. David Jenkins MD Objective Remarks GENERAL: This is a well-nourished, well-developed patient, in no apparent distress. CARDIOVASCULAR: Regular rate and regular rhythm without murmurs, gallops, or rubs. RESPIRATORY: bilateral rhonchi GASTROINTESTINAL: Abdomen soft, non-tender, nondistended. Normal, active bowel sounds MUSCULOSKELETAL: Extremities without clubbing, cyanosis, or edema. NEURO: Alert & Oriented x4 to person, place, time, situation. Moves all ext x4 Medications and IVs Current Medications Albuterol/ Ipratropium (Duoneb Neb) 1 ampule Q15M INH Last administered on 01/20 23:26; Start 01/20/17 at 19:30; Stop 01/20/17 at 20:01; Status DC Methylprednisolone Sodium Succinate (SoluMEDROL INJ) 125 mg ONCE ONCE IM Last administered on 01/20/17 19:30; Start 01/20/17 at 19:30; Stop 01/20/17 at 19:31 ; Status DC Sodium Chloride 2 ml 2 ml UNSCH PRN IVF FLUSH AFTER USING IV ACCESS; Start at 20:00; Stop 01/20/17 at 22:21; Status DC Cefepime HCl 2000 mg/Sodium Chloride 100 ml @ 200 mls/hr ONCE ONCE IV Last administered on 01/20/17 22:48; Start 01/20/17 at 20:00; Stop 01/20/17 at 20:29 ; Status DC Azithromycin 500 mg/Sodium Chloride 250 ml @ 250 mls/hr ONCE ONCE IV Last administered on 01/20/17 21:40; Start 01/20/17 at 20:00; Stop 01/20/17 at 20:59 ; Status DC Sodium Chloride 1,000 ml @ 999 mls/hr BOLUS ONCE IV Last administered on 01/20 21:40; Start 01/20/17 at 20:00; Stop 01/20/17 at 21:00; Status DC Sodium Chloride (NS 1000 ml Inj) 1,000 ml @ 999 mls/hr BOLUS ONCE IV Last administered on 01/20/17 22:49; Start 01/20/17 at 21:30; Stop 01/20/17 at 22:30 ; Status DC Ibuprofen (Motrin) 800 mg ONCE ONCE PO Last administered on 01/20/17 22:36; Start 01/20/17 at 21:45; Stop 01/20/17 at 21:46; Status DC Sodium Chloride (NS Flush) 2 ml UNSCH PRN IV FLUSH FLUSH AFTER USING IV ACCESS ; Start 01/20/17 at 22:30 Sodium Chloride (NS Flush) 2 ml BID IV FLUSH Last administered on 01/22/17 10: 01; Start 01/21/17 at 09:00 Naloxone HCl (Narcan Inj) 0.4 mg UNSCH PRN IV SEE LABEL COMMENTS; Start at 22:30 Albuterol/ Ipratropium (Duoneb Neb) 1 ampule Q6HR NEB NEB Last administered on 01/22/17 11:31; Start 01/21/17 at 04:00 Albuterol/ Ipratropium 1 ampule 1 ampule Q2HR NEB PRN NEB wheezing; Start 01/20 at 22:30 Cefepime HCl/ Sodium Chloride (Maxipime Inj/NS Inj) 100 ml @ 200 mls/hr Q12H IV Last administered on 01/22/17 10:00; Start 01/21/17 at 09:00 Methylprednisolone Sodium Succinate (SoluMEDROL INJ) 40 mg Q6HR IV PUSH Last administered on 01/22/17 11:46; Start 01/21/17 at 06:00 Pantoprazole Sodium 40 mg 40 mg Q12H IV PUSH Last administered on 01/22/17 01: 11; Start 01/21/17 at 02:00 Trimethoprim/ Sulfamethoxazole 400 mg/Dextrose 525 ml @ 350 mls/hr Q6H IV Last administered on 01/21/17 02:56; Start 01/21/17 at 03:00; Stop 01/21/17 at 08:10; Status DC Trimethoprim/ Sulfamethoxazole/ Dextrose (Bactrim Inj/D5W 500 ml Inj) 499.75 ml @ 333.167 mls/hr Q6H IV Last administered on 01/22/17 11:06; Start 01/21/17 at 10:00 Influenza Virus Vaccine (Flu (Quadrivalent) Vaccine Inj) 0.5 ml ONCE ONCE IM ; Start 01/22/17 at 10:00; Stop 01/22/17 at 10:00; Status DC Enoxaparin Sodium 40 mg 40 mg Q24H SQ Last administered on 01/22/17 10:00; Start 01/21/17 at 09:00 Potassium Chloride 100 ml @ 50 mls/hr Q2H PRN IV For Potassium 2.8 - 3.2 mEq/L ; Start 01/21/17 at 08:30 Potassium Chloride (KCl 20 Meq Premix Inj) 100 ml @ 50 mls/hr Q2H PRN IV For Potassium 2.8 - 3.2 mEq/L; Start 01/21/17 at 08:30 Potassium Bicarb/ Potassium Chloride 50 meq 50 meq UNSCH PRN PO For Potassium 3.3 - 3.5 mEq/L Last administered on 01/21/17 09:09; Start 01/21/17 at 08:30 Potassium Chloride 100 ml @ 25 mls/hr UNSCH PRN IV For Potassium 3.3 - 3.5 mEq /L; Start 01/21/17 at 08:30 Potassium Chloride 100 ml @ 50 mls/hr Q2H PRN IV For Potassium 3.3 - 3.5 mEq/L ; Start 01/21/17 at 08:30 Magnesium Sulfate/ Sodium Chloride (Magnesium Sulfate Inj/NS Inj) 100 ml @ 50 mls/hr UNSCH PRN IV For Magnesium 0.9 - 1.1 mg/dL; Start 01/21/17 at 08:30 Magnesium Oxide 800 mg 800 mg UNSCH PRN PO For Magnesium 1.2 - 1.6 mg/dL; Start 01/21/17 at 08:30 Magnesium Sulfate/ Sodium Chloride (Magnesium Sulfate Inj/NS Inj) 100 ml @ 50 mls/hr UNSCH PRN IV For Magnesium 1.2 - 1.6 mg/dL; Start 01/21/17 at 08:30 Potassium Phosphate 2000 mg 2,000 mg Q4H PRN PO For Phosphorus < 2.5 mg/dL; Start 01/21/17 at 08:30 Sodium Phosphate/ Sodium Chloride (Sodium Phosphate Inj/NS 250 ml Inj) 250 ml @ 42 mls/hr UNSCH PRN IV For Phosphorus < 2.5 mg/dL; Start 01/21/17 at 08:30 Potassium Phosphate 2000 mg 2,000 mg UNSCH PRN PO/TUBE SEE LABEL COMMENTS; Start 01/21/17 at 08:30 Potassium Phosphate/Sodium Chloride (Potassium Phosphate Inj/NS 250 ml Inj) 260 ml @ 42 mls/hr UNSCH PRN IV SEE LABEL COMMENTS; Start 01/21/17 at 08:30 Iohexol (Omnipaque 350 Inj) 60 ml STK-MED ONCE IV Last administered on 10:41; Start 01/21/17 at 10:41; Stop 01/21/17 at 10:42; Status DC Potassium Chloride (KCl) 60 meq ONCE ONCE PO Last administered on 01/21/17 11 :52; Start 01/21/17 at 11:15; Stop 01/21/17 at 11:26; Status DC Potassium Chloride (KCl) 60 meq ONCE ONCE PO ; Start 01/21/17 at 11:45; Stop at 11:46; Status DC Elvitegravir/ Cobicis/Emtricit/ Tenof 1 tab 1 tab DAILY PO Last administered on 01/22/17 10:01; Start 01/21/17 at 14:00 Azithromycin/ Sodium Chloride (Zithromax Inj/ NS 250 ml Inj) 250 ml @ 250 mls/ hr Q24H IV Last administered on 01/21/17 20:05; Start 01/21/17 at 21:00 Patient Own Medication PT OWN MED: GENVOYA (Elvitegrav... DAILY PO ; Start 01/22 at 09:00; Status Hold Ibuprofen (Motrin) 600 mg Q8H PRN PO pain 1-10 Last administered on 01/22/17 10:03; Start 01/21/17 at 17:30 A/P Assessment and Plan A/p Respiratory failure with hypoxia -Chest x-ray to suggest pneumonia. CT scan of chest showed alveolar consolidations involving lower lobes bilaterally and to a much lesser extent left upper lobe suggesting probable bilateral pneumonia. -Improving. See treatment as below. -Patient was put on steroids. Bilateral pneumonia -Pending CD4 count. -Infectious disease consulted. -Patient on cefepime,bactrim and zithromax. -Continue management per infectious disease. hx of HIV -continue Stribild -ID consulted and ff. Edward Baires MD Jan 22, 2017 12:32
--- NOTE | 2017-01-22 12:37 | HHI.PR ---
Addendum to Inpatient Note Additional Information Awaiting records If MTB PCR negative can dc isolation anticipate d/c soon if cont to improve and no TB Carli Card MD Jan 22, 2017 12:37
[2017-01-22] MEDS: oxyCODONE/ACETAMINOPHEN 10 MG/325 MG TAB PO PRN ×2 (13:13→18:40)
[2017-01-22] MEDS: NICOTINE 21 MG/24 HR PATCH T-DERMAL SCH (13:13)
[2017-01-22 15:06] LABS: HEMATOCRIT 33.8 % (39.0-51.0); MEAN CELL VOLUME 88.2 FL (80.0-100.0); MEAN CORPUSCULAR HEMOGLOBIN 31.3 PG (27.0-34.0); MEAN CORPUSCULAR HGB CONC 35.5 % (32.0-36.0); PLATELET COUNT 401 TH/MM3 (150-450); RED BLOOD COUNT 3.83 MIL/MM3 (4.50-5.90); RED CELL DISTRIBUTION WIDTH 14.4 % (11.6-17.2); REVIEW FLAG FINAL
[2017-01-22 15:28] LABS: BICARBONATE 20.7 MEQ/L (21.0-32.0); POTASSIUM 3.8 MEQ/L (3.5-5.1)
[2017-01-22] MEDS: AZITHROMYCIN INJ 500 MG in SODIUM CHLOR 0.9% 250 ML INJ 250 ML IV SCH (21:53)
[2017-01-23] VITALS (10 sets, daily range): BP systolic 111–120; BP diastolic 57–72; PULSE 86–97; RESP 17–19; TEMP 97.7–98.6; O2SAT 93–95
[2017-01-23] MEDS: PANTOPRAZOLE SODIUM 40 MG VIAL IV PUSH SCH ×2 (00:33→13:01)
[2017-01-23] MEDS: methylPREDNISolone SOD SUCC 40 MG/1 ML VIAL IV PUSH SCH ×4 (00:33→23:01)
[2017-01-23] MEDS: diphenhydrAMINE HCL 50 MG CAP PO PRN ×2 (00:38→21:40)
[2017-01-23] MEDS: oxyCODONE/ACETAMINOPHEN 10 MG/325 MG TAB PO PRN ×4 (00:38→21:29)
[2017-01-23 03:49] LABS: CD4/CD8 RATIO 0.4 (0.86-5.00)
[2017-01-23] MEDS: RESP: ALBUTEROL 2.5 MG/IPRATROPIUM 0.5 MG NEB (SCH) NEB ×4 (03:57→19:59)
[2017-01-23] MEDS: TRIMETHOPRIM IV SCH ×8 (05:01→22:59)
[2017-01-23] MEDS: SULFAMETHOX IV SCH ×8 (05:01→22:59)
[2017-01-23] MEDS: WATE IV SCH ×8 (05:01→22:59)
[2017-01-23] MEDS: DEXTROSE 5% IV SCH ×8 (05:01→22:59)
[2017-01-23] MEDS: SODIUM CHLORIDE 0.9% FLUSH 10 ML FLUSH IV FLUSH SCH ×2 (09:00→20:39)
[2017-01-23] MEDS: NICOTINE 21 MG/24 HR PATCH T-DERMAL SCH (09:31)
[2017-01-23] MEDS: ENOXAPARIN SODIUM 40 MG/0.4 ML SYRINGE SQ SCH (09:31)
[2017-01-23] MEDS: ELVIT/COBI/EMTR/TENOF 150/150/200/300 MG TABLETS PO SCH (09:31)
[2017-01-23] MEDS: CEFEPIME INJ 2,000 MG in SODIUM CHLORIDE 0.9% INJ 100 ML IV SCH ×2 (09:31→20:38)
--- NOTE | 2017-01-23 11:37 | HHI.PR ---
Subjective Remarks in no acute distress. pain is better controlled today. afebrile. Objective Vitals Vital Signs Date Time Temp Pulse Resp B/P Pulse Ox O2 Delivery O2 Flow Rate FiO2 01/23/17 10:15 93 01/23/17 10:15 Room Air 01/23/17 08:06 94 01/23/17 08:00 98.1 93 18 113/57 94 01/23/17 04:00 98.0 91 18 111/58 94 01/23/17 03:58 93 21 01/23/17 00:00 98.0 94 18 112/71 93 01/22/17 20:42 96 21 01/22/17 20:00 98.2 99 18 119/58 94 01/22/17 20:00 Room Air 01/22/17 20:00 100 01/22/17 16:00 98.0 105 18 117/65 95 01/22/17 12:00 98.3 86 18 121/64 95 I/O 01/22/17 01/22/17 01/22/17 01/23/17 01/23/17 01/23/17 06:59 14:59 22:59 06:59 14:59 22:59 Intake Total 1850 ml 360 ml 1900 ml Output Total 750 ml 700 ml Balance 1850 ml -390 ml 1200 ml Intake Oral 360 ml 480 ml IV Total 1850 ml 1420 ml Output Urine Total 750 ml 700 ml # Bowel Movements 0 0 Result Diagram: 01/22/17 1252 01/22/17 [address] Angiography 01/21/17 0000 Signed Impressions: Service Date/Time: Saturday, January 21, 2017 10:30 - CONCLUSION: 1. Alveolar consolidations involving lower lobes bilaterally and to a much lesser extent left upper lobe suggesting probable bilateral pneumonia. Clinical correlation is recommended. 2. No evidence of pulmonary embolism. 3. Tiny left pleural effusion. Alexandre Stewart MD Shoulder X-Ray 01/20/17 0000 Signed Impressions: Service Date/Time: Friday, January 20, 2017 20:45 - CONCLUSION: Avascular necrosis with subchondral fracture. David Jenkins MD Chest X-Ray 01/20/17 0000 Signed Impressions: Service Date/Time: Friday, January 20, 2017 19:40 - CONCLUSION: 1. Bibasilar consolidation could be atelectasis or pneumonia. 2. Irregularity right humeral head with sclerosis could be avascular necrosis and fracture. David Jenkins MD Objective Remarks GENERAL: This is a well-nourished, well-developed patient, in no apparent distress. CARDIOVASCULAR: Regular rate and regular rhythm without murmurs, gallops, or rubs. RESPIRATORY: bilateral rhonchi GASTROINTESTINAL: Abdomen soft, non-tender, nondistended. Normal, active bowel sounds MUSCULOSKELETAL: Extremities without clubbing, cyanosis, or edema. NEURO: Alert & Oriented x4 to person, place, time, situation. Moves all ext x4 Medications and IVs Current Medications Albuterol/ Ipratropium (Duoneb Neb) 1 ampule Q15M INH Last administered on 01/20 23:26; Start 01/20/17 at 19:30; Stop 01/20/17 at 20:01; Status DC Methylprednisolone Sodium Succinate (SoluMEDROL INJ) 125 mg ONCE ONCE IM Last administered on 01/20/17 19:30; Start 01/20/17 at 19:30; Stop 01/20/17 at 19:31 ; Status DC Sodium Chloride 2 ml 2 ml UNSCH PRN IVF FLUSH AFTER USING IV ACCESS; Start at 20:00; Stop 01/20/17 at 22:21; Status DC Cefepime HCl 2000 mg/Sodium Chloride 100 ml @ 200 mls/hr ONCE ONCE IV Last administered on 01/20/17 22:48; Start 01/20/17 at 20:00; Stop 01/20/17 at 20:29 ; Status DC Azithromycin 500 mg/Sodium Chloride 250 ml @ 250 mls/hr ONCE ONCE IV Last administered on 01/20/17 21:40; Start 01/20/17 at 20:00; Stop 01/20/17 at 20:59 ; Status DC Sodium Chloride 1,000 ml @ 999 mls/hr BOLUS ONCE IV Last administered on 01/20 21:40; Start 01/20/17 at 20:00; Stop 01/20/17 at 21:00; Status DC Sodium Chloride (NS 1000 ml Inj) 1,000 ml @ 999 mls/hr BOLUS ONCE IV Last administered on 01/20/17 22:49; Start 01/20/17 at 21:30; Stop 01/20/17 at 22:30 ; Status DC Ibuprofen (Motrin) 800 mg ONCE ONCE PO Last administered on 01/20/17 22:36; Start 01/20/17 at 21:45; Stop 01/20/17 at 21:46; Status DC Sodium Chloride (NS Flush) 2 ml UNSCH PRN IV FLUSH FLUSH AFTER USING IV ACCESS ; Start 01/20/17 at 22:30 Sodium Chloride (NS Flush) 2 ml BID IV FLUSH Last administered on 01/22/17 21: 54; Start 01/21/17 at 09:00 Naloxone HCl (Narcan Inj) 0.4 mg UNSCH PRN IV SEE LABEL COMMENTS; Start at 22:30 Albuterol/ Ipratropium (Duoneb Neb) 1 ampule Q6HR NEB NEB Last administered on 01/23/17 08:05; Start 01/21/17 at 04:00 Albuterol/ Ipratropium 1 ampule 1 ampule Q2HR NEB PRN NEB wheezing; Start 01/20 at 22:30 Cefepime HCl/ Sodium Chloride (Maxipime Inj/NS Inj) 100 ml @ 200 mls/hr Q12H IV Last administered on 01/23/17 09:31; Start 01/21/17 at 09:00 Methylprednisolone Sodium Succinate (SoluMEDROL INJ) 40 mg Q6HR IV PUSH Last administered on 01/23/17 05:01; Start 01/21/17 at 06:00 Pantoprazole Sodium 40 mg 40 mg Q12H IV PUSH Last administered on 01/23/17 00: 33; Start 01/21/17 at 02:00 Trimethoprim/ Sulfamethoxazole 400 mg/Dextrose 525 ml @ 350 mls/hr Q6H IV Last administered on 01/21/17 02:56; Start 01/21/17 at 03:00; Stop 01/21/17 at 08:10; Status DC Trimethoprim/ Sulfamethoxazole/ Dextrose (Bactrim Inj/D5W 500 ml Inj) 499.75 ml @ 333.167 mls/hr Q6H IV Last administered on 01/23/17 10:27; Start 01/21/17 at 10:00 Influenza Virus Vaccine (Flu (Quadrivalent) Vaccine Inj) 0.5 ml ONCE ONCE IM ; Start 01/22/17 at 10:00; Stop 01/22/17 at 10:00; Status DC Enoxaparin Sodium 40 mg 40 mg Q24H SQ Last administered on 01/23/17 09:31; Start 01/21/17 at 09:00 Potassium Chloride 100 ml @ 50 mls/hr Q2H PRN IV For Potassium 2.8 - 3.2 mEq/L ; Start 01/21/17 at 08:30 Potassium Chloride (KCl 20 Meq Premix Inj) 100 ml @ 50 mls/hr Q2H PRN IV For Potassium 2.8 - 3.2 mEq/L; Start 01/21/17 at 08:30 Potassium Bicarb/ Potassium Chloride 50 meq 50 meq UNSCH PRN PO For Potassium 3.3 - 3.5 mEq/L Last administered on 01/21/17 09:09; Start 01/21/17 at 08:30 Potassium Chloride 100 ml @ 25 mls/hr UNSCH PRN IV For Potassium 3.3 - 3.5 mEq /L; Start 01/21/17 at 08:30 Potassium Chloride 100 ml @ 50 mls/hr Q2H PRN IV For Potassium 3.3 - 3.5 mEq/L ; Start 01/21/17 at 08:30 Magnesium Sulfate/ Sodium Chloride (Magnesium Sulfate Inj/NS Inj) 100 ml @ 50 mls/hr UNSCH PRN IV For Magnesium 0.9 - 1.1 mg/dL; Start 01/21/17 at 08:30 Magnesium Oxide 800 mg 800 mg UNSCH PRN PO For Magnesium 1.2 - 1.6 mg/dL; Start 01/21/17 at 08:30 Magnesium Sulfate/ Sodium Chloride (Magnesium Sulfate Inj/NS Inj) 100 ml @ 50 mls/hr UNSCH PRN IV For Magnesium 1.2 - 1.6 mg/dL; Start 01/21/17 at 08:30 Potassium Phosphate 2000 mg 2,000 mg Q4H PRN PO For Phosphorus < 2.5 mg/dL; Start 01/21/17 at 08:30 Sodium Phosphate/ Sodium Chloride (Sodium Phosphate Inj/NS 250 ml Inj) 250 ml @ 42 mls/hr UNSCH PRN IV For Phosphorus < 2.5 mg/dL; Start 01/21/17 at 08:30 Potassium Phosphate 2000 mg 2,000 mg UNSCH PRN PO/TUBE SEE LABEL COMMENTS; Start 01/21/17 at 08:30 Potassium Phosphate/Sodium Chloride (Potassium Phosphate Inj/NS 250 ml Inj) 260 ml @ 42 mls/hr UNSCH PRN IV SEE LABEL COMMENTS; Start 01/21/17 at 08:30 Iohexol (Omnipaque 350 Inj) 60 ml STK-MED ONCE IV Last administered on 10:41; Start 01/21/17 at 10:41; Stop 01/21/17 at 10:42; Status DC Potassium Chloride (KCl) 60 meq ONCE ONCE PO Last administered on 01/21/17 11 :52; Start 01/21/17 at 11:15; Stop 01/21/17 at 11:26; Status DC Potassium Chloride (KCl) 60 meq ONCE ONCE PO ; Start 01/21/17 at 11:45; Stop at 11:46; Status DC Elvitegravir/ Cobicis/Emtricit/ Tenof 1 tab 1 tab DAILY PO Last administered on 01/23/17 09:31; Start 01/21/17 at 14:00 Azithromycin/ Sodium Chloride (Zithromax Inj/ NS 250 ml Inj) 250 ml @ 250 mls/ hr Q24H IV Last administered on 01/22/17 21:53; Start 01/21/17 at 21:00 Patient Own Medication PT OWN MED: GENVOYA (Elvitegrav... DAILY PO ; Start 01/22 at 09:00; Status Hold Ibuprofen (Motrin) 600 mg Q8H PRN PO pain 1-10 Last administered on 01/22/17 10:03; Start 01/21/17 at 17:30; Status Hold Oxycodone/ Acetaminophen (Percocet 10-325 Mg) 1 tab Q6H PRN PO PAIN 1-10 Last administered on 01/23/17 09:31; Start 01/22/17 at 12:45 Nicotine (Habitrol 21 Mg Patch.24 Hr) 1 patch DAILY T-DERMAL Last administered on 01/23/17 09:31; Start 01/22/17 at 13:00 Diphenhydramine HCl (Benadryl) 50 mg HS PRN PO INSOMNIA Last administered on 00:38; Start 01/22/17 at 12:45 A/P Assessment and Plan A/p Respiratory failure with hypoxia -Chest x-ray to suggest pneumonia. CT scan of chest showed alveolar consolidations involving lower lobes bilaterally and to a much lesser extent left upper lobe suggesting probable bilateral pneumonia. -Improving. See treatment as below. -Patient was put on steroids; start to taper down the IV steroid. Bilateral pneumonia -CD4 189. -Infectious disease consulted. -Patient on cefepime,bactrim and zithromax. -follow the [facility] PCR. -Continue management per infectious disease. hx of HIV -continue Stribild -ID consulted and ff. Discharge Planning when cleared by ID. Edward Baires MD Jan 23, 2017 11:37
[2017-01-23 12:52] LABS: M. TUBERCULOSIS PCR NOT DETECTED (NOT DETECT)
[2017-01-23] MEDS: RESP: ALBUTEROL 2.5 MG/IPRATROPIUM 0.5 MG NEB (PRN) NEB (18:34)
[2017-01-23] MEDS: AZITHROMYCIN INJ 500 MG in SODIUM CHLOR 0.9% 250 ML INJ 250 ML IV SCH (20:40)
[2017-01-24] VITALS (13 sets, daily range): BP systolic 115–132; BP diastolic 58–82; PULSE 81–98; RESP 18–24; TEMP 97.7–98.5; O2SAT 92–100
[2017-01-24] MEDS: PANTOPRAZOLE SODIUM 40 MG VIAL IV PUSH SCH ×2 (02:08→16:03)
[2017-01-24] MEDS: WATE IV SCH ×8 (04:01→21:56)
[2017-01-24] MEDS: SULFAMETHOX IV SCH ×8 (04:01→21:56)
[2017-01-24] MEDS: DEXTROSE 5% IV SCH ×8 (04:01→21:56)
[2017-01-24] MEDS: oxyCODONE/ACETAMINOPHEN 10 MG/325 MG TAB PO PRN ×4 (04:01→21:55)
[2017-01-24] MEDS: TRIMETHOPRIM IV SCH ×8 (04:01→21:56)
[2017-01-24] MEDS: RESP: ALBUTEROL 2.5 MG/IPRATROPIUM 0.5 MG NEB (SCH) NEB ×3 (05:07→21:14)
[2017-01-24] MEDS: methylPREDNISolone SOD SUCC 40 MG/1 ML VIAL IV PUSH SCH ×3 (05:53→21:56)
[2017-01-24] MEDS: CEFEPIME INJ 2,000 MG in SODIUM CHLORIDE 0.9% INJ 100 ML IV SCH ×2 (09:54→23:28)
[2017-01-24] MEDS: ELVIT/COBI/EMTR/TENOF 150/150/200/300 MG TABLETS PO SCH (09:55)
[2017-01-24] MEDS: ENOXAPARIN SODIUM 40 MG/0.4 ML SYRINGE SQ SCH (09:55)
[2017-01-24] MEDS: SODIUM CHLORIDE 0.9% FLUSH 10 ML FLUSH IV FLUSH SCH ×2 (09:55→21:56)
[2017-01-24] MEDS: NICOTINE 21 MG/24 HR PATCH T-DERMAL SCH (10:04)
--- NOTE | 2017-01-24 12:47 | HHI.PR ---
Subjective Remarks in no acute distress. remains afebrile. pain is controlled. no new complaints. Objective Vitals Vital Signs Date Time Temp Pulse Resp B/P Pulse Ox O2 Delivery O2 Flow Rate FiO2 01/24/17 10:00 87 115/71 01/24/17 09:20 93 Nasal Cannula 2.00 01/24/17 08:00 98.3 90 18 115/58 92 01/24/17 04:00 97.7 81 20 118/74 92 01/24/17 04:00 Room Air 01/24/17 00:00 97.9 88 20 116/71 96 01/24/17 00:00 Room Air 01/23/17 20:03 97.7 97 19 115/72 94 01/23/17 20:00 91 01/23/17 20:00 Room Air 01/23/17 16:00 98.6 86 18 120/69 93 I/O 01/23/17 01/23/17 01/23/17 01/24/17 01/24/17 01/24/17 07:00 15:00 23:00 07:00 15:00 23:00 Intake Total 1900 ml 480 ml 380 ml 220 ml 100 ml Output Total 700 ml 1450 ml 800 ml 1500 ml 300 ml Balance 1200 ml -970 ml -420 ml -1280 ml -200 ml Intake Oral 480 ml 480 ml 380 ml 220 ml IV Total 1420 ml 100 ml Output Urine Total 700 ml 1450 ml 800 ml 1500 ml 300 ml # Bowel Movements 0 0 0 Result Diagram: 01/22/17 1252 01/22/17 [address] Angiography 01/21/17 0000 Signed Impressions: Service Date/Time: Saturday, January 21, 2017 10:30 - CONCLUSION: 1. Alveolar consolidations involving lower lobes bilaterally and to a much lesser extent left upper lobe suggesting probable bilateral pneumonia. Clinical correlation is recommended. 2. No evidence of pulmonary embolism. 3. Tiny left pleural effusion. Alexandre Stewart MD Shoulder X-Ray 01/20/17 0000 Signed Impressions: Service Date/Time: Friday, January 20, 2017 20:45 - CONCLUSION: Avascular necrosis with subchondral fracture. David Jenkins MD Chest X-Ray 01/20/17 0000 Signed Impressions: Service Date/Time: Friday, January 20, 2017 19:40 - CONCLUSION: 1. Bibasilar consolidation could be atelectasis or pneumonia. 2. Irregularity right humeral head with sclerosis could be avascular necrosis and fracture. David Jenkins MD Objective Remarks GENERAL: This is a well-nourished, well-developed patient, in no apparent distress. CARDIOVASCULAR: Regular rate and regular rhythm without murmurs, gallops, or rubs. RESPIRATORY: bilateral rhonchi GASTROINTESTINAL: Abdomen soft, non-tender, nondistended. Normal, active bowel sounds MUSCULOSKELETAL: Extremities without clubbing, cyanosis, or edema. NEURO: Alert & Oriented x4 to person, place, time, situation. Moves all ext x4 Medications and IVs Current Medications Albuterol/ Ipratropium (Duoneb Neb) 1 ampule Q15M INH Last administered on 01/20 23:26; Start 01/20/17 at 19:30; Stop 01/20/17 at 20:01; Status DC Methylprednisolone Sodium Succinate (SoluMEDROL INJ) 125 mg ONCE ONCE IM Last administered on 01/20/17 19:30; Start 01/20/17 at 19:30; Stop 01/20/17 at 19:31 ; Status DC Sodium Chloride 2 ml 2 ml UNSCH PRN IVF FLUSH AFTER USING IV ACCESS; Start at 20:00; Stop 01/20/17 at 22:21; Status DC Cefepime HCl 2000 mg/Sodium Chloride 100 ml @ 200 mls/hr ONCE ONCE IV Last administered on 01/20/17 22:48; Start 01/20/17 at 20:00; Stop 01/20/17 at 20:29 ; Status DC Azithromycin 500 mg/Sodium Chloride 250 ml @ 250 mls/hr ONCE ONCE IV Last administered on 01/20/17 21:40; Start 01/20/17 at 20:00; Stop 01/20/17 at 20:59 ; Status DC Sodium Chloride 1,000 ml @ 999 mls/hr BOLUS ONCE IV Last administered on 01/20 21:40; Start 01/20/17 at 20:00; Stop 01/20/17 at 21:00; Status DC Sodium Chloride (NS 1000 ml Inj) 1,000 ml @ 999 mls/hr BOLUS ONCE IV Last administered on 01/20/17 22:49; Start 01/20/17 at 21:30; Stop 01/20/17 at 22:30 ; Status DC Ibuprofen (Motrin) 800 mg ONCE ONCE PO Last administered on 01/20/17 22:36; Start 01/20/17 at 21:45; Stop 01/20/17 at 21:46; Status DC Sodium Chloride (NS Flush) 2 ml UNSCH PRN IV FLUSH FLUSH AFTER USING IV ACCESS ; Start 01/20/17 at 22:30 Sodium Chloride (NS Flush) 2 ml BID IV FLUSH Last administered on 01/24/17 09: 55; Start 01/21/17 at 09:00 Naloxone HCl (Narcan Inj) 0.4 mg UNSCH PRN IV SEE LABEL COMMENTS; Start at 22:30 Albuterol/ Ipratropium (Duoneb Neb) 1 ampule Q6HR NEB NEB Last administered on 01/24/17 09:19; Start 01/21/17 at 04:00 Albuterol/ Ipratropium 1 ampule 1 ampule Q2HR NEB PRN NEB wheezing Last administered on 01/23/17 18:34; Start 01/20/17 at 22:30 Cefepime HCl/ Sodium Chloride (Maxipime Inj/NS Inj) 100 ml @ 200 mls/hr Q12H IV Last administered on 01/24/17 09:54; Start 01/21/17 at 09:00 Methylprednisolone Sodium Succinate (SoluMEDROL INJ) 40 mg Q6HR IV PUSH Last administered on 01/23/17 05:01; Start 01/21/17 at 06:00; Stop 01/23/17 at 11:39 ; Status DC Pantoprazole Sodium 40 mg 40 mg Q12H IV PUSH Last administered on 01/24/17 02: 08; Start 01/21/17 at 02:00 Trimethoprim/ Sulfamethoxazole 400 mg/Dextrose 525 ml @ 350 mls/hr Q6H IV Last administered on 01/21/17 02:56; Start 01/21/17 at 03:00; Stop 01/21/17 at 08:10; Status DC Trimethoprim/ Sulfamethoxazole/ Dextrose (Bactrim Inj/D5W 500 ml Inj) 499.75 ml @ 333.167 mls/hr Q6H IV Last administered on 01/24/17 11:46; Start 01/21/17 at 10:00 Influenza Virus Vaccine (Flu (Quadrivalent) Vaccine Inj) 0.5 ml ONCE ONCE IM ; Start 01/22/17 at 10:00; Stop 01/22/17 at 10:00; Status DC Enoxaparin Sodium 40 mg 40 mg Q24H SQ Last administered on 01/24/17 09:55; Start 01/21/17 at 09:00 Potassium Chloride 100 ml @ 50 mls/hr Q2H PRN IV For Potassium 2.8 - 3.2 mEq/L ; Start 01/21/17 at 08:30; Stop 01/24/17 at 07:46; Status DC Potassium Chloride (KCl 20 Meq Premix Inj) 100 ml @ 50 mls/hr Q2H PRN IV For Potassium 2.8 - 3.2 mEq/L; Start 01/21/17 at 08:30; Stop 01/24/17 at 07:46; Status DC Potassium Bicarb/ Potassium Chloride 50 meq 50 meq UNSCH PRN PO For Potassium 3.3 - 3.5 mEq/L Last administered on 01/21/17 09:09; Start 01/21/17 at 08:30; Stop 01/24/17 at 07:46; Status DC Potassium Chloride 100 ml @ 25 mls/hr UNSCH PRN IV For Potassium 3.3 - 3.5 mEq /L; Start 01/21/17 at 08:30; Stop 01/24/17 at 07:46; Status DC Potassium Chloride 100 ml @ 50 mls/hr Q2H PRN IV For Potassium 3.3 - 3.5 mEq/L ; Start 01/21/17 at 08:30; Stop 01/24/17 at 07:46; Status DC Magnesium Sulfate/ Sodium Chloride (Magnesium Sulfate Inj/NS Inj) 100 ml @ 50 mls/hr UNSCH PRN IV For Magnesium 0.9 - 1.1 mg/dL; Start 01/21/17 at 08:30; Stop 01/24/17 at 07:46; Status DC Magnesium Oxide 800 mg 800 mg UNSCH PRN PO For Magnesium 1.2 - 1.6 mg/dL; Start 01/21/17 at 08:30; Stop 01/24/17 at 07:46; Status DC Magnesium Sulfate/ Sodium Chloride (Magnesium Sulfate Inj/NS Inj) 100 ml @ 50 mls/hr UNSCH PRN IV For Magnesium 1.2 - 1.6 mg/dL; Start 01/21/17 at 08:30; Stop 01/24/17 at 07:46; Status DC Potassium Phosphate 2000 mg 2,000 mg Q4H PRN PO For Phosphorus < 2.5 mg/dL; Start 01/21/17 at 08:30; Stop 01/24/17 at 07:46; Status DC Sodium Phosphate/ Sodium Chloride (Sodium Phosphate Inj/NS 250 ml Inj) 250 ml @ 42 mls/hr UNSCH PRN IV For Phosphorus < 2.5 mg/dL; Start 01/21/17 at 08:30; Stop 01/24/17 at 07:46; Status DC Potassium Phosphate 2000 mg 2,000 mg UNSCH PRN PO/TUBE SEE LABEL COMMENTS; Start 01/21/17 at 08:30; Stop 01/24/17 at 07:46; Status DC Potassium Phosphate/Sodium Chloride (Potassium Phosphate Inj/NS 250 ml Inj) 260 ml @ 42 mls/hr UNSCH PRN IV SEE LABEL COMMENTS; Start 01/21/17 at 08:30; Stop 01/24/17 at 07:46; Status DC Iohexol (Omnipaque 350 Inj) 60 ml STK-MED ONCE IV Last administered on 10:41; Start 01/21/17 at 10:41; Stop 01/21/17 at 10:42; Status DC Potassium Chloride (KCl) 60 meq ONCE ONCE PO Last administered on 01/21/17 11 :52; Start 01/21/17 at 11:15; Stop 01/21/17 at 11:26; Status DC Potassium Chloride (KCl) 60 meq ONCE ONCE PO ; Start 01/21/17 at 11:45; Stop at 11:46; Status DC Elvitegravir/ Cobicis/Emtricit/ Tenof 1 tab 1 tab DAILY PO Last administered on 01/24/17 09:55; Start 01/21/17 at 14:00 Azithromycin/ Sodium Chloride (Zithromax Inj/ NS 250 ml Inj) 250 ml @ 250 mls/ hr Q24H IV Last administered on 01/23/17 20:40; Start 01/21/17 at 21:00 Patient Own Medication PT OWN MED: GENVOYA (Elvitegrav... DAILY PO ; Start 01/22 at 09:00; Status Hold Ibuprofen (Motrin) 600 mg Q8H PRN PO pain 1-10 Last administered on 01/22/17 10:03; Start 01/21/17 at 17:30; Status Hold Oxycodone/ Acetaminophen (Percocet 10-325 Mg) 1 tab Q6H PRN PO PAIN 1-10 Last administered on 01/24/17 09:55; Start 01/22/17 at 12:45 Nicotine (Habitrol 21 Mg Patch.24 Hr) 1 patch DAILY T-DERMAL Last administered on 01/24/17 10:04; Start 01/22/17 at 13:00 Diphenhydramine HCl (Benadryl) 50 mg HS PRN PO INSOMNIA Last administered on 21:40; Start 01/22/17 at 12:45 Methylprednisolone Sodium Succinate (SoluMEDROL INJ) 20 mg Q8HR IV PUSH Last administered on 01/24/17 05:53; Start 01/23/17 at 14:00 A/P Assessment and Plan A/p Respiratory failure with hypoxia -Chest x-ray to suggest pneumonia. CT scan of chest showed alveolar consolidations involving lower lobes bilaterally and to a much lesser extent left upper lobe suggesting probable bilateral pneumonia. -Improving. See treatment as below. -Patient was put on steroids; continue to taper down the IV steroid. Bilateral pneumonia -CD4 189. -Infectious disease consulted. -Patient on cefepime,bactrim and zithromax. - MTB PCR negative. -Continue management per infectious disease. hx of HIV -continue Stribild -ID consulted and ff. consult PT. Discharge Planning when cleared by ID. Edward Baires MD Jan 24, 2017 12:47
[2017-01-24 14:38] LABS: BLOOD GAS BASE EXCESS -2.9 mmol/L (-2-2); BLOOD GAS HCO3 20 mmol/L (22-26); BLOOD GAS O2 HGB SATURATION 89 % (90-100); BLOOD GAS OXYGEN CONTENT 15.9 Vol % (12.0-20.0); BLOOD GAS PCO2 26 mmHg (38-42); BLOOD GAS PO2 61 mmHg (61-120); BLOOD GAS TOTAL HGB 12.7 G/DL (12.0-16.0); TEMP CORR TO 98.6
[2017-01-24 14:39] LABS: CRITICAL VALUE YES
[2017-01-24 14:40] LABS: DRAW SITE LT RADIAL; LITER FLOW 15 L/M; NUMBER OF ARTERIAL PUNCTURES 1; STAT YES; ULNAR PULSE PRESENT
--- NOTE | 2017-01-24 14:45 | HHI.PR ---
Addendum To [facility] Progress Not Reason for addendum: Additonal documentation (notified by the RN that his O2 sat dropped to 70's- now on oxygen via mask- patient will be transferred to ICU - case was d/w - will consult principal systems engineer.) Edward Baires MD Jan 24, 2017 14:45
--- NOTE | 2017-01-24 14:58 | RADRPT ---
EXAM DATE/TIME: 01/24/2017 14:42 [facility] COMPARISON: CHEST SINGLE AP, January 20, 2017, 19:40. INDICATIONS : Increased shortness of breath. MEDICAL HISTORY : None. SURGICAL HISTORY : None. ENCOUNTER: Initial ACUITY: 1 day PAIN SCORE: 0/10 LOCATION: Bilateral chest FINDINGS: There is collapse of right middle lobe and lower lobe not present previously. There is also slight co nsolidation left lung base, however overall left lung base aeration has improved. There is irregular flattening of the right humeral head may represent avascular necrosis.. CONCLUSION: Right middle lobe and lower lobe collapse not present previously with improvement in aeration of the left lung. Sneha Elizabeth MD on January 24, 2017 at 14:55 Board Certified Radiologist. This report was verified electronically.
--- NOTE | 2017-01-24 15:23 | PD.CONS ---
HPI Service Critical Care Medicine Consult Requested By [facility]. Reason for Consult Respiratory Failure, Hypoxemic Primary Care Physician Braeden Sands MD History of Present Illness 41 y/o patient HIV positive current with antiretroviral medications presented 5 days ago to ED with worsening SOB. Low grade temp initially. CD4 189. Negative for Flu A,B. Neg Strep, Legionella, Mycobacterium. Presently on Cefepime, Azithromycin, Bactrim per ID service. All cults negative so far. CT chest no PE but dense consolidation both lower lobes and RML. Sats 70s during PT walk, now 94% on NRBM. Also has avascular necrosis right humeral head, seen by Dr. Sarabia. No surgery planned due to current medical condition. Eventually may need shoulder surgery. Review of Systems Constitutional: COMPLAINS OF: Weight loss Eyes: DENIES: Blurred vision, Diplopia, Eye inflammation, Eye pain, Vision loss , Photosensitivity, Double Vision Ears, nose, mouth, throat: DENIES: Tinnitus, Hearing loss, Vertigo, Nasal discharge, Oral lesions, Throat pain, Hoarseness, Ear Pain, Running Nose, Epistaxis, Sinus Pain, Toothache, Odynophagia Respiratory: COMPLAINS OF: Cough, Sputum production Cardiovascular: COMPLAINS OF: Dyspnea on Exertion, DENIES: Chest pain, Palpitations, Syncope, PND, Lower Extremity Edema, Orthopnea, Claudication Gastrointestinal: DENIES: Abdominal pain, Black stools, Bloody stools, Constipation, Diarrhea, Nausea, Vomiting, Difficulty Swallowing, Anorexia Genitourinary: DENIES: Sexual dysfunction, Urinary frequency, Urinary incontinence, Urgency, Hematuria, Dysuria, Nocturia, Penile Discharge, Testicular Pain, Testicular Swelling Musculoskeletal: COMPLAINS OF: Joint pain Integumentary: DENIES: Abnormal pigmentation, Nail changes, Pruritus, Rash Past Family Social History Allergies: Coded Allergies: No Known Allergies (Verified , 06/11/16) Past Medical History Past Medical History Asthma Bronchitis Past Surgical History none Reported Medications hiv meds (Genvoya) Allergies: Coded Allergies: No Known Allergies (Verified , 06/11/16) Family History none per patient Social History denies smoking/ etoh abuse/ drug abuse Physical Exam Vital Signs Vital Signs Date Time Temp Pulse Resp B/P Pulse Ox O2 Delivery O2 Flow Rate FiO2 01/24/17 14:20 94 15.00 01/24/17 12:00 98.3 83 18 115/75 92 01/24/17 10:30 Nasal Cannula 2.00 01/24/17 10:00 87 115/71 01/24/17 09:20 93 Nasal Cannula 2.00 01/24/17 08:00 98.3 90 18 115/58 92 01/24/17 04:00 97.7 81 20 118/74 92 01/24/17 04:00 Room Air 01/24/17 00:00 97.9 88 20 116/71 96 01/24/17 00:00 Room Air 01/23/17 20:03 97.7 97 19 115/72 94 01/23/17 20:00 91 01/23/17 20:00 Room Air 01/23/17 16:00 98.6 86 18 120/69 93 Physical Exam Meds: Cefepime Day 4 Azithromycin Day 4 Bactrim Day 4 Genvoya continuous Gen: Ill-appearing, cachectic man Head: Atraumatic. Neck: Supple, very light stridor. No significant obstruction. Several small, nontender lymph nodes anterior triangle neck jaya. Lungs: Diffuse coarse sounds, absent bases. Diffuse crackles and rhonchi. Moderately labored. Heart: NL S1S2, rate 82, no m,r. No JVD. Abdomen: Soft, nontender, no guarding or tenderness. No peritoneal irritation. Extremities: Warm, well perfused. No edema. Neuro: O X 3, alert, pensive/quiet. Moves 4 limbs to command. Laboratory Laboratory Tests Test 01/24/17 14:23 Blood Gas Puncture Site LT RADIAL Blood Gas Patient Temperature 98.6 Blood Gas HCO3 20 Blood Gas Base Excess -2.9 Blood Gas Oxygen Saturation 89 Arterial Blood pH 7.49 Arterial Blood Partial 26 Pressure CO2 Arterial Blood Partial 61 Pressure O2 Arterial Blood Oxygen Content 15.9 Arterial Blood 1.0 Carboxyhemoglobin Arterial Blood Methemoglobin 1.0 Blood Gas Hemoglobin 12.7 Oxygen Delivery Device Non-Rebreathing Mask Blood Gas Liter Flow 15 Date/Time Procedure Status Source Growth 01/22/17 17:08 Gram Stain - Final Complete Sputum Expectorated Sputum 01/22/17 17:08 Sputum Culture - Final Complete Sputum Expectorated Sputum HEAVY GROWTH NORMAL RESPIRATORY JEEVAN 01/22/17 17:08 Acid Fast Stain - Final Resulted Sputum Expectorated Sputum NO ACID FAST BACILLI SEEN 01/22/17 17:08 Mycobacterial Culture Resulted Sputum Expectorated Sputum Pending 01/22/17 12:37 Gram Stain Received Sputum Expectorated Sputum Pending 01/22/17 12:37 Sputum Culture Received Sputum Expectorated Sputum Pending 01/21/17 14:50 Acid Fast Stain Ordered Sputum Expectorated Sputum Pending 01/21/17 14:50 Mycobacterial Culture Ordered Sputum Expectorated Sputum Pending 01/21/17 14:50 Cancelled Sputum Expectorated Sputum 01/21/17 12:40 Influenza Types A,B Antigen (EMANUEL) - Final Complete Nasal Washing NEGATIVE FOR FLU A AND B ANTIGEN.... 01/20/17 20:30 Legionella Antigen - Final Complete Urine Random Urine PRESUMPTIVE NEGATIVE FOR LEGIONELLA P... 01/20/17 20:30 Streptococcus pneumoniae Antigen (M - Final Complete Urine Random Urine PRESUMPTIVE NEGATIVE FOR STREPTOCOCCU... 01/20/17 20:30 Aerobic Blood Culture - Preliminary Resulted Blood Peripheral NO GROWTH IN 4 DAYS 01/20/17 20:30 Anaerobic Blood Culture - Preliminary Resulted Blood Peripheral NO GROWTH IN 4 DAYS Result Diagram: 01/22/17 1252 01/22/17 1252 Assessment and Plan Problem List: (1) Acute hypoxemic respiratory failure ICD Code: J96.01 Status: Acute (2) Pneumonia ICD Code: J18.9 Status: Acute (3) HIV (human immunodeficiency virus infection) ICD Code: B20 Status: Acute (4) Avascular necrosis ICD Code: M87.00 Status: Acute Assessment and Plan Plan: 1. Respiratory Failure -- NRBM -- Bronchodilators -- IS -- CTA chest negative for PE. 2. Pneumonia, bilateral, consolidative -- ID service. --Sputum pending. -- May need bronch for dx. 3. HIV --ARV continued. 4. Prophylaxis --Protonix. --Lovenox Overall impression: Patient is critically ill with deteriorating respiratory function manifesting as severe hypoxemia due to bilateral pneumonia. Critical care 45 mins. Problem Qualifiers (1) Pneumonia: Qualified Code: J18.9 - Pneumonia of both lungs due to infectious organism, unspecified part of lung Delfino Valencia MD Jan 24, 2017 15:23
--- NOTE | 2017-01-24 17:11 | HHI.IDPN ---
Subjective Subjective Remarks events noted Pt was doing well, was on RA, but developped suddent onset hypoxia requiring NRB use and was transferred to + productive cough no fever no chest pain no hemoptysis CD4 189 cytology not available, MTB neg/ AFB smear neg CXR showed Right middle lobe and lower lobe collapse currently on NRB but sats are 100% looks well Antibiotics azithro cefepime TS Allergies: Coded Allergies: No Known Allergies (Verified , 06/11/16) Objective . Vital Signs Date Time Temp Pulse Resp B/P Pulse Ox O2 Delivery O2 Flow Rate FiO2 01/24/17 16:00 98.2 92 24 132/82 100 01/24/17 14:20 94 15.00 01/24/17 12:00 98.3 83 18 115/75 92 01/24/17 10:30 Nasal Cannula 2.00 01/24/17 10:00 87 115/71 01/24/17 09:20 93 Nasal Cannula 2.00 01/24/17 08:05 84 01/24/17 08:00 98.3 90 18 115/58 92 01/24/17 04:00 97.7 81 20 118/74 92 01/24/17 04:00 Room Air 01/24/17 00:00 97.9 88 20 116/71 96 01/24/17 00:00 Room Air 01/23/17 20:03 97.7 97 19 115/72 94 01/23/17 20:00 91 01/23/17 20:00 Room Air 01/23/17 01/23/17 01/24/17 14:59 22:59 06:59 Intake Total 480 ml 380 ml 220 ml Output Total 1450 ml 800 ml 1500 ml Balance -970 ml -420 ml -1280 ml Intake Oral 480 ml 380 ml 220 ml Output Urine Total 1450 ml 800 ml 1500 ml # Bowel Movements 0 0 . Microbiology Date/Time Procedure Status Source Growth 01/22/17 12:37 Gram Stain Received Sputum Expectorated Sputum Pending 01/22/17 12:37 Sputum Culture Received Sputum Expectorated Sputum Pending 01/22/17 17:08 Acid Fast Stain - Final Resulted Sputum Expectorated Sputum NO ACID FAST BACILLI SEEN 01/22/17 17:08 Mycobacterial Culture Resulted Sputum Expectorated Sputum Pending 01/22/17 17:08 Gram Stain - Final Complete Sputum Expectorated Sputum 01/22/17 17:08 Sputum Culture - Final Complete Sputum Expectorated Sputum HEAVY GROWTH NORMAL RESPIRATORY JEEVAN Imaging Last Impressions Chest X-Ray 01/24/17 0000 Signed Impressions: Service Date/Time: Tuesday, January 24, 2017 14:42 - CONCLUSION: Right middle lobe and lower lobe collapse not present previously with improvement in aeration of the left lung. Sneha Elizabeth MD CT Angiography 01/21/17 0000 Signed Impressions: Service Date/Time: Saturday, January 21, 2017 10:30 - CONCLUSION: 1. Alveolar consolidations involving lower lobes bilaterally and to a much lesser extent left upper lobe suggesting probable bilateral pneumonia. Clinical correlation is recommended. 2. No evidence of pulmonary embolism. 3. Tiny left pleural effusion. Alexandre Stewart MD Shoulder X-Ray 01/20/17 0000 Signed Impressions: Service Date/Time: Friday, January 20, 2017 20:45 - CONCLUSION: Avascular necrosis with subchondral fracture. David Jenkins MD Physical Exam CONSTITUTIONAL/GENERAL: This is a thin young male patient, in no apparent distress on MRB TUBES/LINES/DRAINS: SKIN: No jaundice, rashes, or lesions. Skin temperature appropriate. Not diaphoretic. HEAD: Atraumatic. Normocephalic. EYES: Pupils equal and round and reactive. Extraocular motions intact. No scleral icterus. No injection or drainage. Fundi not examined. ENT: Hearing grossly normal. Oral mucosae with thick white patches cw thrush NECK: Trachea midline. Supple, nontender. CARDIOVASCULAR: Regular rate and rhythm without murmurs, gallops, or rubs. No JVD. Peripheral pulses symmetric. RESPIRATORY/CHEST: Symmetric, unlabored respirations. Diffuse rhonchi on R lung filed to auscultation. No wheezes GASTROINTESTINAL: Abdomen soft, non-tender, nondistended. No hepato-splenomegaly , or palpable masses. No guarding. Bowel sounds present. GENITOURINARY: Without palpable bladder distension MUSCULOSKELETAL: Extremities without clubbing, cyanosis, or edema. No joint tenderness or effusion noted. No calf tenderness. No mottling or clubbing. NEUROLOGICAL: Awake and alert. Motor and sensory grossly within normal limits. Follows commands. Speech clear. Moves all extremities. PSYCHIATRIC: No obvious anxiety/depression. no apparent hallucinations or other psychotic thought process. He is uncooperative and refuses to talk to staff Assessment & Plan Remarks HIV dz, on HAART per records, compliance is unknown - - degree of immunosupression is unknkown PNA (infiltrates, fever, leukocytosis, hypoxia), severe, multilobar - now with R lung 2 lobes collapse - MTB PCR neg - improved on current abx and higfh dose stereroids initially - pt reports subacute presentation, has bodyn weight deficit - neg leg/pneumococcal/ influenza antigens oral thrush REC's; [facility] PCP cont azithro add zyvox cont Stribild - repeat sputum clx fluconazole for oral thrush kodi mariee RN Carli Card MD Jan 24, 2017 17:11
[2017-01-24 18:16] LABS: AUTOMATED NEUTROPHIL # 13.3 TH/MM3 (1.8-7.7); BASOPHIL % 0.1 % (0.0-2.0); LYMPH % 10.6 % (9.0-44.0); LYMPHOCYTE # 1.7 TH/MM3 (1.0-4.8); MEAN CELL VOLUME 88.5 FL (80.0-100.0); MEAN CORPUSCULAR HEMOGLOBIN 29.6 PG (27.0-34.0); MEAN CORPUSCULAR HGB CONC 33.5 % (32.0-36.0); NEUT % 82.3 % (16.0-70.0); PLATELET COUNT 505 TH/MM3 (150-450); RED BLOOD COUNT 4.07 MIL/MM3 (4.50-5.90); RED CELL DISTRIBUTION WIDTH 14.4 % (11.6-17.2); WHITE BLOOD COUNT 16.1 TH/MM3 (4.0-11.0)
[2017-01-24 18:28] LABS: HEMO FLAGS AUTO DIFF
[2017-01-24 18:34] LABS: BICARBONATE 20.8 MEQ/L (21.0-32.0); POTASSIUM 4.2 MEQ/L (3.5-5.1)
[2017-01-24 19:06] LABS: BANDS 4 % (0-6); METAMYELOCYTES 3 % (0-1); NEUTROPHIL # MANUAL DIFF 12.1 TH/MM3 (1.8-7.7); POLYS (SEG NEUTROPHILS) 68 % (16-70); WBC DIFF SAMPLE 100
[2017-01-24 19:07] LABS: PLATELET ESTIMATE SMEAR HIGH (NORMAL); PLATELET MORPHOLOGY NORMAL (NORMAL); SCAN/DIFF FINAL DIFF MANUAL
[2017-01-24] MEDS: AZITHROMYCIN INJ 500 MG in SODIUM CHLOR 0.9% 250 ML INJ 250 ML IV SCH (21:55)
[2017-01-24] MEDS: diphenhydrAMINE HCL 50 MG CAP PO PRN (23:28)
[2017-01-25] VITALS (10 sets, daily range): BP systolic 108–126; BP diastolic 67–78; PULSE 73–88; RESP 16–20; TEMP 97.6–98.6; O2SAT 93–96
[2017-01-25] MEDS: PANTOPRAZOLE SODIUM 40 MG VIAL IV PUSH SCH ×2 (02:42→14:42)
[2017-01-25] MEDS: oxyCODONE/ACETAMINOPHEN 10 MG/325 MG TAB PO PRN ×4 (04:08→23:51)
[2017-01-25] MEDS: RESP: ALBUTEROL 2.5 MG/IPRATROPIUM 0.5 MG NEB (PRN) NEB ×3 (04:18→21:43)
[2017-01-25] MEDS: SULFAMETHOX IV SCH ×10 (05:14→22:28)
[2017-01-25] MEDS: DEXTROSE 5% IV SCH ×10 (05:14→22:28)
[2017-01-25] MEDS: TRIMETHOPRIM IV SCH ×10 (05:14→22:28)
[2017-01-25] MEDS: WATE IV SCH ×10 (05:14→22:28)
[2017-01-25] MEDS: methylPREDNISolone SOD SUCC 40 MG/1 ML VIAL IV PUSH SCH ×3 (05:15→21:41)
[2017-01-25] MEDS: ELVIT/COBI/EMTR/TENOF 150/150/200/300 MG TABLETS PO SCH (08:21)
[2017-01-25] MEDS: SODIUM CHLORIDE 0.9% FLUSH 10 ML FLUSH IV FLUSH SCH ×2 (08:21→20:13)
[2017-01-25] MEDS: CEFEPIME INJ 2,000 MG in SODIUM CHLORIDE 0.9% INJ 100 ML IV SCH ×2 (08:21→20:13)
[2017-01-25] MEDS: ENOXAPARIN SODIUM 40 MG/0.4 ML SYRINGE SQ SCH (08:24)
[2017-01-25] MEDS: NICOTINE 21 MG/24 HR PATCH T-DERMAL SCH (08:24)
[2017-01-25] MEDS: FLUCONAZOLE 200 MG TAB PO SCH ×2 (08:24→08:25)
[2017-01-25 10:02] LABS: BASOPHIL # 0.1 TH/MM3 (0-0.2); BASOPHIL % 0.8 % (0.0-2.0); EOSINOPHIL % 0.1 % (0.0-4.0); HEMATOCRIT 35.7 % (39.0-51.0); HEMO FLAGS DIFF FINAL; LYMPH % 9.9 % (9.0-44.0); LYMPHOCYTE # 1.5 TH/MM3 (1.0-4.8); MEAN CELL VOLUME 88.1 FL (80.0-100.0); MEAN CORPUSCULAR HEMOGLOBIN 29.9 PG (27.0-34.0); MEAN CORPUSCULAR HGB CONC 33.9 % (32.0-36.0); MONO % 4.8 % (0.0-8.0); NEUT % 84.4 % (16.0-70.0); PLATELET COUNT 471 TH/MM3 (150-450); RED BLOOD COUNT 4.06 MIL/MM3 (4.50-5.90); RED CELL DISTRIBUTION WIDTH 14.6 % (11.6-17.2); WHITE BLOOD COUNT 15.5 TH/MM3 (4.0-11.0)
--- NOTE | 2017-01-25 11:27 | HHI.PR ---
Subjective Remarks Follow-up for pneumonia Patient denies any shortness of breathing or cough. He stated that he is feeling well and wants to go home. When I asked patient if he can sit up so I can listen to his lungs he stated that he is not able to. When I made a statement that if patient is too weak to sit up how is he supposed to go home, he stated that she is able to go home. He remains afebrile. Patient has no other complaints. Dealt with patient's nurse. Objective Vitals Vital Signs Date Time Temp Pulse Resp B/P Pulse Ox O2 Delivery O2 Flow Rate FiO2 01/25/17 08:00 97.6 79 16 123/69 96 01/25/17 04:15 94 Nasal Cannula 4.00 01/25/17 04:00 98.4 82 16 126/78 96 01/25/17 00:00 98.4 85 16 120/67 95 01/24/17 23:00 Nasal Cannula 4.00 01/24/17 21:14 96 Nasal Cannula 2.00 01/24/17 20:48 98 01/24/17 20:00 98.5 83 18 127/74 96 01/24/17 20:00 92 Nasal Cannula 4.00 01/24/17 18:00 97 01/24/17 16:00 98.2 92 24 132/82 100 01/24/17 16:00 84 01/24/17 14:20 94 15.00 01/24/17 12:00 98.3 83 18 115/75 92 I/O 01/24/17 01/24/17 01/24/17 01/25/17 01/25/17 01/25/17 07:00 15:00 23:00 07:00 15:00 23:00 Intake Total 220 ml 848 ml 320 ml 530 ml Output Total 1500 ml 1700 ml 450 ml 1750 ml Balance -1280 ml -852 ml -130 ml -1220 ml Intake Oral 220 ml 240 ml 320 ml 530 ml IV Total 608 ml Output Urine Total 1500 ml 1700 ml 450 ml 1750 ml # Bowel Movements 0 0 0 Result Diagram: 01/25/17 0820 01/24/17 1637 Imaging Last Impressions Chest X-Ray 01/24/17 0000 Signed Impressions: Service Date/Time: Tuesday, January 24, 2017 14:42 - CONCLUSION: Right middle lobe and lower lobe collapse not present previously with improvement in aeration of the left lung. Sneha Elizabeth MD CT Angiography 01/21/17 0000 Signed Impressions: Service Date/Time: Saturday, January 21, 2017 10:30 - CONCLUSION: 1. Alveolar consolidations involving lower lobes bilaterally and to a much lesser extent left upper lobe suggesting probable bilateral pneumonia. Clinical correlation is recommended. 2. No evidence of pulmonary embolism. 3. Tiny left pleural effusion. Alexandre Stewart MD Shoulder X-Ray 01/20/17 0000 Signed Impressions: Service Date/Time: Friday, January 20, 2017 20:45 - CONCLUSION: Avascular necrosis with subchondral fracture. David Jenkins MD Objective Remarks GENERAL: in NAD SKIN: Warm and dry. HEAD: Normocephalic. EYES: No scleral icterus. No injection or drainage. NECK: Supple, trachea midline. No JVD or lymphadenopathy. CARDIOVASCULAR: Regular rate and rhythm without murmurs, gallops, or rubs. RESPIRATORY: Bilateral diffuse wheezing. Normal respiratory rate. No cough noted during the exam. No accessory muscle use. GASTROINTESTINAL: Abdomen soft, non-tender, nondistended. MUSCULOSKELETAL: No cyanosis, or edema. BACK: Nontender without obvious deformity. No CVA tenderness. Medications and IVs Current Medications Albuterol/ Ipratropium (Duoneb Neb) 1 ampule Q15M INH Last administered on 01/20 23:26; Start 01/20/17 at 19:30; Stop 01/20/17 at 20:01; Status DC Methylprednisolone Sodium Succinate (SoluMEDROL INJ) 125 mg ONCE ONCE IM Last administered on 01/20/17 19:30; Start 01/20/17 at 19:30; Stop 01/20/17 at 19:31 ; Status DC Sodium Chloride 2 ml 2 ml UNSCH PRN IVF FLUSH AFTER USING IV ACCESS; Start at 20:00; Stop 01/20/17 at 22:21; Status DC Cefepime HCl 2000 mg/Sodium Chloride 100 ml @ 200 mls/hr ONCE ONCE IV Last administered on 01/20/17 22:48; Start 01/20/17 at 20:00; Stop 01/20/17 at 20:29 ; Status DC Azithromycin 500 mg/Sodium Chloride 250 ml @ 250 mls/hr ONCE ONCE IV Last administered on 01/20/17 21:40; Start 01/20/17 at 20:00; Stop 01/20/17 at 20:59 ; Status DC Sodium Chloride 1,000 ml @ 999 mls/hr BOLUS ONCE IV Last administered on 01/20 21:40; Start 01/20/17 at 20:00; Stop 01/20/17 at 21:00; Status DC Sodium Chloride (NS 1000 ml Inj) 1,000 ml @ 999 mls/hr BOLUS ONCE IV Last administered on 01/20/17 22:49; Start 01/20/17 at 21:30; Stop 01/20/17 at 22:30 ; Status DC Ibuprofen (Motrin) 800 mg ONCE ONCE PO Last administered on 01/20/17 22:36; Start 01/20/17 at 21:45; Stop 01/20/17 at 21:46; Status DC Sodium Chloride (NS Flush) 2 ml UNSCH PRN IV FLUSH FLUSH AFTER USING IV ACCESS ; Start 01/20/17 at 22:30 Sodium Chloride (NS Flush) 2 ml BID IV FLUSH Last administered on 01/25/17 08: 21; Start 01/21/17 at 09:00 Naloxone HCl (Narcan Inj) 0.4 mg UNSCH PRN IV SEE LABEL COMMENTS; Start at 22:30 Albuterol/ Ipratropium (Duoneb Neb) 1 ampule Q6HR NEB NEB Last administered on 01/24/17 21:14; Start 01/21/17 at 04:00; Stop 01/25/17 at 04:00; Status DC Albuterol/ Ipratropium 1 ampule 1 ampule Q2HR NEB PRN NEB wheezing Last administered on 01/25/17 04:18; Start 01/20/17 at 22:30 Cefepime HCl/ Sodium Chloride (Maxipime Inj/NS Inj) 100 ml @ 200 mls/hr Q12H IV Last administered on 01/25/17 08:21; Start 01/21/17 at 09:00 Methylprednisolone Sodium Succinate (SoluMEDROL INJ) 40 mg Q6HR IV PUSH Last administered on 01/23/17 05:01; Start 01/21/17 at 06:00; Stop 01/23/17 at 11:39 ; Status DC Pantoprazole Sodium 40 mg 40 mg Q12H IV PUSH Last administered on 01/25/17 02: 42; Start 01/21/17 at 02:00 Trimethoprim/ Sulfamethoxazole 400 mg/Dextrose 525 ml @ 350 mls/hr Q6H IV Last administered on 01/21/17 02:56; Start 01/21/17 at 03:00; Stop 01/21/17 at 08:10; Status DC Trimethoprim/ Sulfamethoxazole/ Dextrose (Bactrim Inj/D5W 500 ml Inj) 499.75 ml @ 333.167 mls/hr Q6H IV Last administered on 01/25/17 10:58; Start 01/21/17 at 10:00 Influenza Virus Vaccine (Flu (Quadrivalent) Vaccine Inj) 0.5 ml ONCE ONCE IM ; Start 01/22/17 at 10:00; Stop 01/22/17 at 10:00; Status DC Enoxaparin Sodium 40 mg 40 mg Q24H SQ Last administered on 01/25/17 08:24; Start 01/21/17 at 09:00 Potassium Chloride 100 ml @ 50 mls/hr Q2H PRN IV For Potassium 2.8 - 3.2 mEq/L ; Start 01/21/17 at 08:30; Stop 01/24/17 at 07:46; Status DC Potassium Chloride (KCl 20 Meq Premix Inj) 100 ml @ 50 mls/hr Q2H PRN IV For Potassium 2.8 - 3.2 mEq/L; Start 01/21/17 at 08:30; Stop 01/24/17 at 07:46; Status DC Potassium Bicarb/ Potassium Chloride 50 meq 50 meq UNSCH PRN PO For Potassium 3.3 - 3.5 mEq/L Last administered on 01/21/17 09:09; Start 01/21/17 at 08:30; Stop 01/24/17 at 07:46; Status DC Potassium Chloride 100 ml @ 25 mls/hr UNSCH PRN IV For Potassium 3.3 - 3.5 mEq /L; Start 01/21/17 at 08:30; Stop 01/24/17 at 07:46; Status DC Potassium Chloride 100 ml @ 50 mls/hr Q2H PRN IV For Potassium 3.3 - 3.5 mEq/L ; Start 01/21/17 at 08:30; Stop 01/24/17 at 07:46; Status DC Magnesium Sulfate/ Sodium Chloride (Magnesium Sulfate Inj/NS Inj) 100 ml @ 50 mls/hr UNSCH PRN IV For Magnesium 0.9 - 1.1 mg/dL; Start 01/21/17 at 08:30; Stop 01/24/17 at 07:46; Status DC Magnesium Oxide 800 mg 800 mg UNSCH PRN PO For Magnesium 1.2 - 1.6 mg/dL; Start 01/21/17 at 08:30; Stop 01/24/17 at 07:46; Status DC Magnesium Sulfate/ Sodium Chloride (Magnesium Sulfate Inj/NS Inj) 100 ml @ 50 mls/hr UNSCH PRN IV For Magnesium 1.2 - 1.6 mg/dL; Start 01/21/17 at 08:30; Stop 01/24/17 at 07:46; Status DC Potassium Phosphate 2000 mg 2,000 mg Q4H PRN PO For Phosphorus < 2.5 mg/dL; Start 01/21/17 at 08:30; Stop 01/24/17 at 07:46; Status DC Sodium Phosphate/ Sodium Chloride (Sodium Phosphate Inj/NS 250 ml Inj) 250 ml @ 42 mls/hr UNSCH PRN IV For Phosphorus < 2.5 mg/dL; Start 01/21/17 at 08:30; Stop 01/24/17 at 07:46; Status DC Potassium Phosphate 2000 mg 2,000 mg UNSCH PRN PO/TUBE SEE LABEL COMMENTS; Start 01/21/17 at 08:30; Stop 01/24/17 at 07:46; Status DC Potassium Phosphate/Sodium Chloride (Potassium Phosphate Inj/NS 250 ml Inj) 260 ml @ 42 mls/hr UNSCH PRN IV SEE LABEL COMMENTS; Start 01/21/17 at 08:30; Stop 01/24/17 at 07:46; Status DC Iohexol (Omnipaque 350 Inj) 60 ml STK-MED ONCE IV Last administered on t 10:41; Start 01/21/17 at 10:41; Stop 01/21/17 at 10:42; Status DC Potassium Chloride (KCl) 60 meq ONCE ONCE PO Last administered on 01/21/17 11 :52; Start 01/21/17 at 11:15; Stop 01/21/17 at 11:26; Status DC Potassium Chloride (KCl) 60 meq ONCE ONCE PO ; Start 01/21/17 at 11:45; Stop at 11:46; Status DC Elvitegravir/ Cobicis/Emtricit/ Tenof 1 tab 1 tab DAILY PO Last administered on 01/25/17 08:21; Start 01/21/17 at 14:00 Azithromycin/ Sodium Chloride (Zithromax Inj/ NS 250 ml Inj) 250 ml @ 250 mls/ hr Q24H IV Last administered on 01/24/17 21:55; Start 01/21/17 at 21:00 Patient Own Medication PT OWN MED: GENVOYA (Elvitegrav... DAILY PO ; Start 01/22 at 09:00; Status Hold Ibuprofen (Motrin) 600 mg Q8H PRN PO pain 1-10 Last administered on 01/22/17 10:03; Start 01/21/17 at 17:30; Status Hold Oxycodone/ Acetaminophen (Percocet 10-325 Mg) 1 tab Q6H PRN PO PAIN 1-10 Last administered on 01/25/17 10:58; Start 01/22/17 at 12:45 Nicotine (Habitrol 21 Mg Patch.24 Hr) 1 patch DAILY T-DERMAL Last administered on 01/25/17 08:24; Start 01/22/17 at 13:00 Diphenhydramine HCl (Benadryl) 50 mg HS PRN PO INSOMNIA Last administered on 23:28; Start 01/22/17 at 12:45 Methylprednisolone Sodium Succinate (SoluMEDROL INJ) 20 mg Q8HR IV PUSH Last administered on 01/25/17 05:15; Start 01/23/17 at 14:00 Fluconazole (Diflucan) 200 mg DAILY PO Last administered on 01/25/17 08:25; Start 01/24/17 at 19:30 A/P Assessment and Plan Respiratory failure with hypoxia -Chest x-ray to suggest pneumonia. CT scan of chest showed alveolar consolidations involving lower lobes bilaterally and to a much lesser extent left upper lobe suggesting probable bilateral pneumonia. -Improving. See treatment as below. -Patient was put on steroids; continue to taper down the IV steroid. Bilateral pneumonia -CD4 189. -Infectious disease consulted. -Patient on cefepime,bactrim and zithromax. - MTB PCR negative. -Continue management per infectious disease. hx of HIV -continue Stribild -ID consulted and ff. Decondition -Patient is very weak. He was assessed by physical therapist they recommended acute rehabilitation. Patient decline acute rehabilitation. Discharge Planning The patient was examined by physical therapist and recommend an acute rehabilitation. Patient declined acute rehabilitation and wants to go home. Once patient medically stable can be discharged home with home health. Remedios Pavon MD Jan 25, 2017 11:27
--- NOTE | 2017-01-25 19:56 | HHI.IDPN ---
Subjective Subjective Remarks transferred to floor remains on NC O2 denies SOB' No expectoration: uanbel to submit sputumu No ever Antibiotics azithro cefepime TS Allergies: Coded Allergies: No Known Allergies (Verified , 06/11/16) Objective . Vital Signs Date Time Temp Pulse Resp B/P Pulse Ox O2 Delivery O2 Flow Rate FiO2 01/25/17 16:00 Nasal Cannula 4.00 01/25/17 16:00 98.4 82 18 108/67 93 01/25/17 12:00 98.6 79 18 119/71 95 01/25/17 12:00 Room Air 4.00 01/25/17 09:00 94 Nasal Cannula 4.00 01/25/17 09:00 73 01/25/17 08:00 Nasal Cannula 4.00 01/25/17 08:00 97.6 79 16 123/69 96 01/25/17 08:00 Nasal Cannula 4.00 01/25/17 04:15 94 Nasal Cannula 4.00 01/25/17 04:00 98.4 82 16 126/78 96 01/25/17 00:00 98.4 85 16 120/67 95 01/24/17 23:00 Nasal Cannula 4.00 01/24/17 21:14 96 Nasal Cannula 2.00 01/24/17 20:48 98 01/24/17 20:00 98.5 83 18 127/74 96 01/24/17 20:00 92 Nasal Cannula 4.00 01/24/17 01/24/17 01/25/17 14:59 22:59 06:59 Intake Total 848 ml 320 ml 530 ml Output Total 1700 ml 450 ml 1750 ml Balance -852 ml -130 ml -1220 ml Intake Oral 240 ml 320 ml 530 ml IV Total 608 ml Output Urine Total 1700 ml 450 ml 1750 ml # Bowel Movements 0 0 . Laboratory Tests Test 01/24/17 01/25/17 16:37 08:20 White Blood Count 16.1 TH/MM3 15.5 TH/MM3 Red Blood Count 4.07 MIL/MM3 4.06 MIL/MM3 Hemoglobin 12.0 GM/DL 12.1 GM/DL Hematocrit 36.0 % 35.7 % Mean Corpuscular Volume 88.5 FL 88.1 FL Mean Corpuscular Hemoglobin 29.6 PG 29.9 PG Mean Corpuscular Hemoglobin 33.5 % 33.9 % Concent Red Cell Distribution Width 14.4 % 14.6 % Platelet Count 505 TH/MM3 471 TH/MM3 Mean Platelet Volume 7.6 FL 7.5 FL Neutrophils (%) (Auto) 82.3 % 84.4 % Lymphocytes (%) (Auto) 10.6 % 9.9 % Monocytes (%) (Auto) 7.0 % 4.8 % Eosinophils (%) (Auto) 0.0 % 0.1 % Basophils (%) (Auto) 0.1 % 0.8 % Neutrophils # (Auto) 13.3 TH/MM3 13.0 TH/MM3 Lymphocytes # (Auto) 1.7 TH/MM3 1.5 TH/MM3 Monocytes # (Auto) 1.1 TH/MM3 0.7 TH/MM3 Eosinophils # (Auto) 0.0 TH/MM3 0.0 TH/MM3 Basophils # (Auto) 0.0 TH/MM3 0.1 TH/MM3 CBC Comment AUTO DIFF DIFF FINAL Differential Total Cells 100 Counted Neutrophils % (Manual) 68 % Band Neutrophils % 4 % Lymphocytes % 18 % Monocytes % 7 % Neutrophils # (Manual) 12.1 TH/MM3 Metamyelocytes 3 % Differential Comment FINAL DIFF MANUAL Platelet Estimate HIGH Platelet Morphology Comment NORMAL Laboratory Tests Test 01/24/17 16:37 Sodium Level 133 MEQ/L Potassium Level 4.2 MEQ/L Chloride Level 101 MEQ/L Carbon Dioxide Level 20.8 MEQ/L Anion Gap 11 MEQ/L Blood Urea Nitrogen 8 MG/DL Creatinine 0.82 MG/DL Estimat Glomerular Filtration 127 ML/MIN Rate Random Glucose 104 MG/DL Calcium Level 8.7 MG/DL Imaging Last Impressions Chest X-Ray 01/24/17 0000 Signed Impressions: Service Date/Time: Tuesday, January 24, 2017 14:42 - CONCLUSION: Right middle lobe and lower lobe collapse not present previously with improvement in aeration of the left lung. Sneha Elizabeth MD CT Angiography 01/21/17 0000 Signed Impressions: Service Date/Time: Saturday, January 21, 2017 10:30 - CONCLUSION: 1. Alveolar consolidations involving lower lobes bilaterally and to a much lesser extent left upper lobe suggesting probable bilateral pneumonia. Clinical correlation is recommended. 2. No evidence of pulmonary embolism. 3. Tiny left pleural effusion. Alexandre Stewart MD Shoulder X-Ray 01/20/17 0000 Signed Impressions: Service Date/Time: Friday, January 20, 2017 20:45 - CONCLUSION: Avascular necrosis with subchondral fracture. David Jenkins MD Physical Exam CONSTITUTIONAL/GENERAL: This is a thin young male patient, in no apparent distress on MRB TUBES/LINES/DRAINS: SKIN: No jaundice, rashes, or lesions. Skin temperature appropriate. Not diaphoretic. EYES: Pupils equal and round and reactive. Extraocular motions intact. No scleral icterus. No injection or drainage. Fundi not examined. ENT: Hearing grossly normal. Oral mucosae with thick white patches cw thrush CARDIOVASCULAR: Regular rate and rhythm without murmurs, gallops, or rubs. No JVD. Peripheral pulses symmetric. RESPIRATORY/CHEST: Symmetric, unlabored respirations. Few rhonchi on R lung filed to auscultation. No wheezes GASTROINTESTINAL: Abdomen soft, non-tender, nondistended. No hepato-splenomegaly , or palpable masses. No guarding. Bowel sounds present. MUSCULOSKELETAL: Extremities without clubbing, cyanosis, or edema. No joint tenderness or effusion noted. NEUROLOGICAL: Awake and alert. Motor and sensory grossly within normal limits. Follows commands. Speech clear. Moves all extremities. PSYCHIATRIC: calm and cooperative Assessment & Plan Remarks HIV dz, on HAART per records, compliance is unknown - - degree of immunosupression is unknkown PNA (infiltrates, fever, leukocytosis, hypoxia), severe, multilobar - now with R lung 2 lobes collapse - MTB PCR neg - improved on current abx and higfh dose stereroids initially - pt reports subacute presentation, has bodyn weight deficit - neg leg/pneumococcal/ influenza antigens oral thrush REC's; [facility] - pt is unable to expectorate cont azithro add zyvox if worse and/or MRSA in new sputum specimen cont Stribild - repeat sputum clx cont fluconazole for oral thrush consult facilities operations technician repeat CXR dw Carli Stock MD Jan 25, 2017 19:56
[2017-01-25] MEDS: AZITHROMYCIN INJ 500 MG in SODIUM CHLOR 0.9% 250 ML INJ 250 ML IV SCH (20:13)
[2017-01-25] MEDS: diphenhydrAMINE HCL 50 MG CAP PO PRN (21:48)
[2017-01-26] VITALS (11 sets, daily range): BP systolic 114–130; BP diastolic 68–82; PULSE 71–91; RESP 17–20; TEMP 98.3–99.5; O2SAT 76–100
[2017-01-26] MEDS: PANTOPRAZOLE SODIUM 40 MG VIAL IV PUSH SCH ×2 (01:09→13:42)
[2017-01-26] MEDS: DEXTROSE 5% IV SCH ×8 (03:38→22:17)
[2017-01-26] MEDS: WATE IV SCH ×8 (03:38→22:17)
[2017-01-26] MEDS: TRIMETHOPRIM IV SCH ×8 (03:38→22:17)
[2017-01-26] MEDS: SULFAMETHOX IV SCH ×8 (03:38→22:17)
[2017-01-26] MEDS: oxyCODONE/ACETAMINOPHEN 10 MG/325 MG TAB PO PRN ×3 (05:22→18:26)
[2017-01-26] MEDS: methylPREDNISolone SOD SUCC 40 MG/1 ML VIAL IV PUSH SCH ×3 (05:23→21:12)
--- NOTE | 2017-01-26 06:18 | RADRPT ---
EXAM DATE/TIME: 01/26/2017 05:28 [facility] COMPARISON: CHEST SINGLE AP, January 24, 2017, 14:42. INDICATIONS : Shortness of breath. MEDICAL HISTORY : Brain tumor. Asthma SURGICAL HISTORY : Brain tumor removed ENCOUNTER: Subsequent ACUITY: 4 - 6 days PAIN SCORE: 5/10 LOCATION: Bilateral chest FINDINGS: A single view of the chest demonstrates persistent increased density right lung base better aerated t lazcano on the previous film. Persistent consolidation left lower lobe retrocardiac region unchanged The cardiomediastinal contours are unremarkable. Osseous structures are intact. CONCLUSION: Better aeration the right lung base today's previous study. Retrocardiac infiltrate persists. Yordan Smith MD on January 26, 2017 at 6:16 Board Certified Radiologist. This report was verified electronically.
[2017-01-26] MEDS: SODIUM CHLORIDE 0.9% FLUSH 10 ML FLUSH IV FLUSH SCH ×2 (09:02→20:33)
[2017-01-26] MEDS: ELVIT/COBI/EMTR/TENOF 150/150/200/300 MG TABLETS PO SCH (09:02)
[2017-01-26] MEDS: ENOXAPARIN SODIUM 40 MG/0.4 ML SYRINGE SQ SCH (09:02)
[2017-01-26] MEDS: NICOTINE 21 MG/24 HR PATCH T-DERMAL SCH (09:03)
[2017-01-26] MEDS: FLUCONAZOLE 200 MG TAB PO SCH (09:07)
[2017-01-26] MEDS: CEFEPIME INJ 2,000 MG in SODIUM CHLORIDE 0.9% INJ 100 ML IV SCH ×2 (09:08→20:32)
--- NOTE | 2017-01-26 11:00 | HHI.PR ---
Subjective Remarks Follow-up for pneumonia and generalized weakness Patient was found sleeping and weak. When I woke patient up I asked him if any concerns. He stated no. He denies any shortness of breathing. When I try to ask further question he would go back to sleep. When I would wake him up again , he continued to stated that he has no concerns and that he just wants to sleep. Objective Vitals Vital Signs Date Time Temp Pulse Resp B/P Pulse Ox O2 Delivery O2 Flow Rate FiO2 01/26/17 08:33 94 Nasal Cannula 4.00 01/26/17 08:00 98.4 71 18 124/78 97 01/26/17 04:00 98.3 71 19 127/76 96 01/26/17 04:00 Nasal Cannula 4.00 01/26/17 00:00 Nasal Cannula 4.00 01/26/17 00:00 98.4 81 20 121/74 95 01/25/17 21:44 96 Nasal Cannula 4.00 01/25/17 20:09 88 01/25/17 20:00 Nasal Cannula 4.00 01/25/17 20:00 98.2 88 20 123/74 95 01/25/17 16:00 Nasal Cannula 4.00 01/25/17 16:00 98.4 82 18 108/67 93 01/25/17 12:00 98.6 79 18 119/71 95 01/25/17 12:00 Room Air 4.00 I/O 01/25/17 01/25/17 01/25/17 01/26/17 01/26/17 01/26/17 07:00 15:00 23:00 07:00 15:00 23:00 Intake Total 530 ml 600 ml 250 ml 1258 ml Output Total 1750 ml 1750 ml 550 ml Balance -1220 ml -1150 ml 250 ml 708 ml Intake Oral 530 ml 600 ml 240 ml IV Total 250 ml 1018 ml Output Urine Total 1750 ml 1750 ml 550 ml # Bowel Movements 0 0 Result Diagram: 01/25/17 0820 01/24/17 1637 Imaging Last Impressions Chest X-Ray 01/26/17 0600 Signed Impressions: Service Date/Time: Thursday, January 26, 2017 05:28 - CONCLUSION: Better aeration the right lung base today's previous study. Retrocardiac infiltrate persists. Yordan Smith MD CT Angiography 01/21/17 0000 Signed Impressions: Service Date/Time: Saturday, January 21, 2017 10:30 - CONCLUSION: 1. Alveolar consolidations involving lower lobes bilaterally and to a much lesser extent left upper lobe suggesting probable bilateral pneumonia. Clinical correlation is recommended. 2. No evidence of pulmonary embolism. 3. Tiny left pleural effusion. Alexandre Stewart MD Shoulder X-Ray 01/20/17 0000 Signed Impressions: Service Date/Time: Friday, January 20, 2017 20:45 - CONCLUSION: Avascular necrosis with subchondral fracture. David Jenkins MD Objective Remarks GENERAL: in NAD with wants to sleep and would not stay up for the interview or exam. CARDIOVASCULAR: Regular rate and rhythm without murmurs, gallops, or rubs. RESPIRATORY: Clear to station bilaterally. Normal respiratory rate. No cough noted during the exam. No accessory muscle use. GASTROINTESTINAL: Abdomen soft, non-tender, nondistended. MUSCULOSKELETAL: No cyanosis, or edema. BACK: Nontender without obvious deformity. No CVA tenderness. Medications and IVs Current Medications Albuterol/ Ipratropium (Duoneb Neb) 1 ampule Q15M INH Last administered on 01/20 23:26; Start 01/20/17 at 19:30; Stop 01/20/17 at 20:01; Status DC Methylprednisolone Sodium Succinate (SoluMEDROL INJ) 125 mg ONCE ONCE IM Last administered on 01/20/17 19:30; Start 01/20/17 at 19:30; Stop 01/20/17 at 19:31 ; Status DC Sodium Chloride 2 ml 2 ml UNSCH PRN IVF FLUSH AFTER USING IV ACCESS; Start at 20:00; Stop 01/20/17 at 22:21; Status DC Cefepime HCl 2000 mg/Sodium Chloride 100 ml @ 200 mls/hr ONCE ONCE IV Last administered on 01/20/17 22:48; Start 01/20/17 at 20:00; Stop 01/20/17 at 20:29 ; Status DC Azithromycin 500 mg/Sodium Chloride 250 ml @ 250 mls/hr ONCE ONCE IV Last administered on 01/20/17 21:40; Start 01/20/17 at 20:00; Stop 01/20/17 at 20:59 ; Status DC Sodium Chloride 1,000 ml @ 999 mls/hr BOLUS ONCE IV Last administered on 01/20 21:40; Start 01/20/17 at 20:00; Stop 01/20/17 at 21:00; Status DC Sodium Chloride (NS 1000 ml Inj) 1,000 ml @ 999 mls/hr BOLUS ONCE IV Last administered on 01/20/17 22:49; Start 01/20/17 at 21:30; Stop 01/20/17 at 22:30 ; Status DC Ibuprofen (Motrin) 800 mg ONCE ONCE PO Last administered on 01/20/17 22:36; Start 01/20/17 at 21:45; Stop 01/20/17 at 21:46; Status DC Sodium Chloride (NS Flush) 2 ml UNSCH PRN IV FLUSH FLUSH AFTER USING IV ACCESS ; Start 01/20/17 at 22:30 Sodium Chloride (NS Flush) 2 ml BID IV FLUSH Last administered on 01/26/17 09: 02; Start 01/21/17 at 09:00 Naloxone HCl (Narcan Inj) 0.4 mg UNSCH PRN IV SEE LABEL COMMENTS; Start at 22:30 Albuterol/ Ipratropium (Duoneb Neb) 1 ampule Q6HR NEB NEB Last administered on 01/24/17 21:14; Start 01/21/17 at 04:00; Stop 01/25/17 at 04:00; Status DC Albuterol/ Ipratropium 1 ampule 1 ampule Q2HR NEB PRN NEB wheezing Last administered on 01/25/17 21:43; Start 01/20/17 at 22:30 Cefepime HCl/ Sodium Chloride (Maxipime Inj/NS Inj) 100 ml @ 200 mls/hr Q12H IV Last administered on 01/26/17 09:08; Start 01/21/17 at 09:00 Methylprednisolone Sodium Succinate (SoluMEDROL INJ) 40 mg Q6HR IV PUSH Last administered on 01/23/17 05:01; Start 01/21/17 at 06:00; Stop 01/23/17 at 11:39 ; Status DC Pantoprazole Sodium 40 mg 40 mg Q12H IV PUSH Last administered on 01/26/17 01: 09; Start 01/21/17 at 02:00 Trimethoprim/ Sulfamethoxazole 400 mg/Dextrose 525 ml @ 350 mls/hr Q6H IV Last administered on 01/21/17 02:56; Start 01/21/17 at 03:00; Stop 01/21/17 at 08:10; Status DC Trimethoprim/ Sulfamethoxazole/ Dextrose (Bactrim Inj/D5W 500 ml Inj) 499.75 ml @ 333.167 mls/hr Q6H IV Last administered on 01/26/17 09:03; Start 01/21/17 at 10:00 Influenza Virus Vaccine (Flu (Quadrivalent) Vaccine Inj) 0.5 ml ONCE ONCE IM ; Start 01/22/17 at 10:00; Stop 01/22/17 at 10:00; Status DC Enoxaparin Sodium 40 mg 40 mg Q24H SQ Last administered on 01/26/17 09:02; Start 01/21/17 at 09:00 Potassium Chloride 100 ml @ 50 mls/hr Q2H PRN IV For Potassium 2.8 - 3.2 mEq/L ; Start 01/21/17 at 08:30; Stop 01/24/17 at 07:46; Status DC Potassium Chloride (KCl 20 Meq Premix Inj) 100 ml @ 50 mls/hr Q2H PRN IV For Potassium 2.8 - 3.2 mEq/L; Start 01/21/17 at 08:30; Stop 01/24/17 at 07:46; Status DC Potassium Bicarb/ Potassium Chloride 50 meq 50 meq UNSCH PRN PO For Potassium 3.3 - 3.5 mEq/L Last administered on 01/21/17 09:09; Start 01/21/17 at 08:30; Stop 01/24/17 at 07:46; Status DC Potassium Chloride 100 ml @ 25 mls/hr UNSCH PRN IV For Potassium 3.3 - 3.5 mEq /L; Start 01/21/17 at 08:30; Stop 01/24/17 at 07:46; Status DC Potassium Chloride 100 ml @ 50 mls/hr Q2H PRN IV For Potassium 3.3 - 3.5 mEq/L ; Start 01/21/17 at 08:30; Stop 01/24/17 at 07:46; Status DC Magnesium Sulfate/ Sodium Chloride (Magnesium Sulfate Inj/NS Inj) 100 ml @ 50 mls/hr UNSCH PRN IV For Magnesium 0.9 - 1.1 mg/dL; Start 01/21/17 at 08:30; Stop 01/24/17 at 07:46; Status DC Magnesium Oxide 800 mg 800 mg UNSCH PRN PO For Magnesium 1.2 - 1.6 mg/dL; Start 01/21/17 at 08:30; Stop 01/24/17 at 07:46; Status DC Magnesium Sulfate/ Sodium Chloride (Magnesium Sulfate Inj/NS Inj) 100 ml @ 50 mls/hr UNSCH PRN IV For Magnesium 1.2 - 1.6 mg/dL; Start 01/21/17 at 08:30; Stop 01/24/17 at 07:46; Status DC Potassium Phosphate 2000 mg 2,000 mg Q4H PRN PO For Phosphorus < 2.5 mg/dL; Start 01/21/17 at 08:30; Stop 01/24/17 at 07:46; Status DC Sodium Phosphate/ Sodium Chloride (Sodium Phosphate Inj/NS 250 ml Inj) 250 ml @ 42 mls/hr UNSCH PRN IV For Phosphorus < 2.5 mg/dL; Start 01/21/17 at 08:30; Stop 01/24/17 at 07:46; Status DC Potassium Phosphate 2000 mg 2,000 mg UNSCH PRN PO/TUBE SEE LABEL COMMENTS; Start 01/21/17 at 08:30; Stop 01/24/17 at 07:46; Status DC Potassium Phosphate/Sodium Chloride (Potassium Phosphate Inj/NS 250 ml Inj) 260 ml @ 42 mls/hr UNSCH PRN IV SEE LABEL COMMENTS; Start 01/21/17 at 08:30; Stop 01/24/17 at 07:46; Status DC Iohexol (Omnipaque 350 Inj) 60 ml STK-MED ONCE IV Last administered on t 10:41; Start 01/21/17 at 10:41; Stop 01/21/17 at 10:42; Status DC Potassium Chloride (KCl) 60 meq ONCE ONCE PO Last administered on 01/21/17 11 :52; Start 01/21/17 at 11:15; Stop 01/21/17 at 11:26; Status DC Potassium Chloride (KCl) 60 meq ONCE ONCE PO ; Start 01/21/17 at 11:45; Stop at 11:46; Status DC Elvitegravir/ Cobicis/Emtricit/ Tenof 1 tab 1 tab DAILY PO Last administered on 01/26/17 09:02; Start 01/21/17 at 14:00 Azithromycin/ Sodium Chloride (Zithromax Inj/ NS 250 ml Inj) 250 ml @ 250 mls/ hr Q24H IV Last administered on 01/25/17 20:13; Start 01/21/17 at 21:00 Patient Own Medication PT OWN MED: GENVOYA (Elvitegrav... DAILY PO ; Start 01/22 at 09:00; Status Hold Ibuprofen (Motrin) 600 mg Q8H PRN PO pain 1-10 Last administered on 01/22/17 10:03; Start 01/21/17 at 17:30; Status Hold Oxycodone/ Acetaminophen (Percocet 10-325 Mg) 1 tab Q6H PRN PO PAIN 1-10 Last administered on 01/26/17 05:22; Start 01/22/17 at 12:45 Nicotine (Habitrol 21 Mg Patch.24 Hr) 1 patch DAILY T-DERMAL Last administered on 01/26/17 09:03; Start 01/22/17 at 13:00 Diphenhydramine HCl (Benadryl) 50 mg HS PRN PO INSOMNIA Last administered on 21:48; Start 01/22/17 at 12:45 Methylprednisolone Sodium Succinate (SoluMEDROL INJ) 20 mg Q8HR IV PUSH Last administered on 01/26/17 05:23; Start 01/23/17 at 14:00 Fluconazole (Diflucan) 200 mg DAILY PO Last administered on 01/26/17 09:07; Start 01/24/17 at 19:30 A/P Assessment and Plan Respiratory failure with hypoxia -Chest x-ray to suggest pneumonia. CT scan of chest showed alveolar consolidations involving lower lobes bilaterally and to a much lesser extent left upper lobe suggesting probable bilateral pneumonia. -Improving. See treatment as below. -Patient was put on steroids; continue to taper down the IV steroid. -Sputum culture negative. -Auto Body Painter was consulted. Bilateral pneumonia -CD4 189. -Infectious disease consulted. -Patient on cefepime,bactrim and zithromax. - MTB PCR negative. -Continue management per infectious disease. hx of HIV -continue Stribild -ID consulted and ff. Decondition -Patient is very weak. He was assessed by physical therapist they recommended acute rehabilitation. Patient decline acute rehabilitation. Discharge Planning The patient was examined by physical therapist and recommend an acute rehabilitation. Patient declined acute rehabilitation and wants to go home. Once patient medically stable can be discharged home with home health. Remedios Pavon MD Jan 26, 2017 11:00
--- NOTE | 2017-01-26 13:58 | MB ---
cc: ANIKA PERKINS,SARI Collazo MD DATE OF CONSULTATION: 01/26/2017. REASON FOR CONSULTATION: Lung infiltrate and right middle and lower lobe consolidation. REQUESTING PHYSICIAN: Dr. Sari Card. HISTORY OF PRESENT ILLNESS: This is a 41-year-old -[place] male with history of HIV and AIDS. He follows with Dr. Buchanan. He also has history of bronchial asthma. The patient came to the hospital with worsening of his shortness of breath. He did not have any fever or chills. No chest pain. No nausea or vomiting. He was found to be hypoxic on non-rebreather mask and now he is weaned down to nasal cannula. He had a workup done. His WBC count is 15.5, hemoglobin 12.1, hematocrit 35.7, MCH 88, platelet count 471,000. His sodium is 133, potassium 4.2, chloride 101, carbon dioxide 20.8, BUN 8, creatinine is 0.82. Blood gas done two days ago on a nonrebreather mask showed pH 7.49, pC02 of 26, p02 of 61, now he is weaned down to nasal cannula. His lactic acid level is 1.8. LDH is 211. He had a CTA of the chest done which does not show any pulmonary embolism. He has alveolar consolidation bilaterally, more so in the right middle lobe and right lower lobe. His sputum shows normal growth of heavy john. AFB is negative. Influenza A and B are negative. Pneumococcal antigen and other antigens are negative. Blood cultures so far is negative. PAST MEDICAL HISTORY: His past medical history is significant for: 1. History of bronchial asthma. 2. HIV disease. MEDICATIONS: He is currently takin. Diflucan 200 milligrams a day. 2. Solu-Medrol 20 milligrams q. 8 hours. 3. Nicotine patch. 4. Oxycodone for pain. 5. Zithromax 500 milligrams a day. 6. Stribild one tablet daily. 7. Bactrim q. 6 hours IV. 8. Cefepime 2 grams q. 12 hours. 9. Lovenox 40 milligrams a day. 10. Protonix 40 milligrams a day. 11. Albuterol and Atrovent nebulizer treatments. ALLERGIES: NO KNOWN DRUG ALLERGIES. SOCIAL HISTORY: He is single. 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 He has a history of smoking. No alcohol abuse. He has had homosexual contacts. FAMILY HISTORY: Noncontributory. REVIEW OF SYSTEMS: He has lost weight and feels weak. No fever or chills. No night sweats. No chest pain. PHYSICAL EXAMINATION: GENERAL: A moderately built and moderately nourished male mild shortness of breath. He looks clinically depressed. VITAL SIGNS: Blood pressure 116/68, heart rate 74, respirations 18, temperature 98.4. HEAD, EYES, EARS, NOSE, THROAT: Pupils are equal and reactive. Oral mucosa normal. No thrush. NECK: The neck is supple. JVP not raised. CHEST: Air entry equal bilaterally. He has a few basal rales. CARDIOVASCULAR: S1-S2 normal. ABDOMEN: Abdomen soft and nondistended. Bowel sounds are present. EXTREMITIES: No edema. IMPRESSION: 1. Bronchial asthma. 2. Bilateral dense lung infiltrates, likely pneumonic process, less likely PCP. 3. HIV disease. 4. AIDS. 5. Anxiety and depression. 6. Avascular necrosis of the shoulder. PLAN: I discussed with the patient that we will continue with antibiotics, wean his oxygen, continue aerosol treatments and supplement his oxygen. I will discuss this with Dr. Sari Card. If PCP is still a concern, he will need bronchoscopy. Further treatment will depend on the course in the hospital. Thank you, Dr. Card, for this consult. MD YELITZA Garcia/JCC /1:33 PM /1:39 PM UZMA
--- NOTE | 2017-01-26 16:39 | HHI.FPPN ---
Addendum to progress note ADDENDUM Reason for addendum: Additonal documentation Additional information Subjective: I was called to [facility] and immediately rushed to the pt room alongside senior resident . Upon entering [facility] the patient was sitting in a chair with multiple staff bedside. The patient had an oxygen mask over his face and vitals were being reported. The patient seemed comfortable and did not seem to be in any acute distress. The oxygen saturation was widely variable however remained within the range of 80 and 95. Nurse states that the patient got up to go to the bathroom and started to feel weak. When the nurse put his him on the monitor his oxygen saturation was 78. Patient is talking through his oxygen mask in stating that he is fine and requesting that we not transfer him to a different room. Patient likes this room and he says that we are overreacting Vital Signs Date Time Temp Pulse Resp B/P Pulse Ox O2 Delivery O2 Flow Rate FiO2 01/26/17 17:00 99.5 84 17 130/82 90 01/26/17 12:00 Nasal Cannula 4.00 01/23/17 03:58 21 GENERAL: sitting in chair comfortably, in no acute distress, oxygen mask in place SKIN: Warm and dry. CARDIOVASCULAR: Regular rate and rhythm without murmurs, gallops, or rubs. RESPIRATORY: Breath sounds equal bilaterally. No accessory muscle use. Poor air movement, with wheezing Assessment: 41-year-old male currently being treated for severe COPD is decompensating. Patient is in no acute distress and stable at this time. Physical exam does not indicate any acute pulmonary incidents have occurred. - CXR STAT - EKG STAT - ABG STAT - cont monitor - cont oxygen mask - transfer to ICU - attending of pt is aware and agrees with plan - pt seen and examined with Maribel Villanueva MD Jan 26, 2017 16:39
[2017-01-26] MEDS: RESP: ALBUTEROL 2.5 MG/IPRATROPIUM 0.5 MG NEB (PRN) NEB ×2 (16:42→22:59)
--- NOTE | 2017-01-26 17:02 | RADRPT ---
EXAM DATE/TIME: 01/26/2017 16:40 [facility] COMPARISON: CHEST SINGLE AP, January 26, 2017, 5:28. INDICATIONS : Short of breath MEDICAL HISTORY : Brain tumor. Asthma SURGICAL HISTORY : Brain tumor removed ENCOUNTER: Subsequent ACUITY: 4 - 6 days PAIN SCORE: 0/10 LOCATION: Bilateral chest FINDINGS: Bibasilar alveolar consolidations are noted consistent with atelectasis and/or pneumonia. Clinical c orrelation is recommended. The heart is stable. The pulmonary vascular pattern is normal. Degenera tive changes and scoliosis of the thoracic spine are noted. CONCLUSION: 1. Bibasilar alveolar consolidations consistent with atelectasis and/or pneumonia. Clinical correlat ion is recommended. 2. Degenerative changes and scoliosis of the thoracic spine. Alexandre Stewart MD on January 26, 2017 at 16:47 Board Certified Radiologist. This report was verified electronically.
[2017-01-26 17:03] LABS: BLOOD GAS BASE EXCESS -2.5 mmol/L (-2-2); BLOOD GAS CARBOXYHEMOGLOBIN 0.7 % (0-4); BLOOD GAS HCO3 21 mmol/L (22-26); BLOOD GAS METHEMOGLOBIN 0.9 % (0-2); BLOOD GAS O2 HGB SATURATION 97 % (90-100); BLOOD GAS PCO2 32 mmHg (38-42); BLOOD GAS PO2 139 mmHg (61-120); BLOOD GAS TOTAL HGB 13.8 G/DL (12.0-16.0); CRITICAL VALUE NO; TEMP CORR TO 98.6
[2017-01-26 17:04] LABS: DRAW SITE LT RADIAL; LITER FLOW 15 L/M; NUMBER OF ARTERIAL PUNCTURES 1; STAT YES; ULNAR PULSE PRESENT
--- NOTE | 2017-01-26 17:39 | HHI.FPPN ---
Addendum to progress note ADDENDUM Reason for addendum: Additonal documentation Additional information NOTE entered in error Maribel Jacobson MD Jan 26, 2017 17:39 is concerned that she will suffer from pulmonary edema. He states she does not appear to currently be in pain right now but he is concerned she will be. The pt regularly takes Lortab q6 scheduled at her home. A/P: - We have advised that many of her PO medications are not pertinent at this time, and she can wait until the G-tube is replaced tomorrow to continue them. - Add Maribel Jacobson MD Jan 26, 2017 17:39
--- NOTE | 2017-01-26 17:45 | RADRPT ---
EXAM DATE/TIME: 01/26/2017 17:21 [facility] COMPARISON: CT PULMONARY ANGIOGRAM, January 21, 2017, 10:30. CHEST SINGLE AP, January 24, 2017, 14:42. CHEST SINGLE A P, January 26, 2017, 5:28. CHEST SINGLE AP, January 26, 2017, 16:40. INDICATIONS : Shortness of breath. Cough. MEDICAL HISTORY : Brain tumor. Asthma SURGICAL HISTORY : Brain tumor removed ENCOUNTER: Subsequent ACUITY: 1 week PAIN SCORE: 3/10 LOCATION: Bilateral chest FINDINGS: Persistent consolidation in the lower lungs bilaterally, similar in configuration to prior chest x-ra ys. There is loss of delineation of the Zen[place] of the right hemidiaphragm and the medial one third o f the left hemidiaphragm. In the upper lungs remain clear. The heart is normal in size. CONCLUSION: Stable persistent bilateral lower lobe consolidation. Wicho Grady MD on January 26, 2017 at 17:39 Board Certified Radiologist. This report was verified electronically.
[2017-01-26] MEDS: AZITHROMYCIN INJ 500 MG in SODIUM CHLOR 0.9% 250 ML INJ 250 ML IV SCH (21:11)
[2017-01-26] MEDS: diphenhydrAMINE HCL 50 MG CAP PO PRN (22:19)
[2017-01-27] VITALS (13 sets, daily range): BP systolic 112–138; BP diastolic 63–94; PULSE 69–92; RESP 16–25; TEMP 97.1–98.7; O2SAT 93–100
[2017-01-27] MEDS: oxyCODONE/ACETAMINOPHEN 10 MG/325 MG TAB PO PRN ×4 (00:27→19:47)
[2017-01-27] MEDS: PANTOPRAZOLE SODIUM 40 MG VIAL IV PUSH SCH ×3 (01:30→23:17)
[2017-01-27] MEDS: WATE IV SCH ×4 (04:03→12:19)
[2017-01-27] MEDS: SULFAMETHOX IV SCH ×4 (04:03→12:19)
[2017-01-27] MEDS: DEXTROSE 5% IV SCH ×4 (04:03→12:19)
[2017-01-27] MEDS: TRIMETHOPRIM IV SCH ×4 (04:03→12:19)
[2017-01-27 04:50] LABS: HEMATOCRIT 37.9 % (39.0-51.0); MEAN CELL VOLUME 88.5 FL (80.0-100.0); MEAN CORPUSCULAR HEMOGLOBIN 29.7 PG (27.0-34.0); MEAN CORPUSCULAR HGB CONC 33.6 % (32.0-36.0); PLATELET COUNT 589 TH/MM3 (150-450); RED BLOOD COUNT 4.28 MIL/MM3 (4.50-5.90); RED CELL DISTRIBUTION WIDTH 14.1 % (11.6-17.2); REVIEW FLAG FINAL; WHITE BLOOD COUNT 15.2 TH/MM3 (4.0-11.0)
[2017-01-27 05:14] LABS: BICARBONATE 21.8 MEQ/L (21.0-32.0); POTASSIUM 4.8 MEQ/L (3.5-5.1)
[2017-01-27] MEDS: methylPREDNISolone SOD SUCC 40 MG/1 ML VIAL IV PUSH SCH ×2 (05:47→13:37)
[2017-01-27] MEDS: SODIUM CHLORIDE 0.9% FLUSH 10 ML FLUSH IV FLUSH SCH ×2 (09:00→19:48)
[2017-01-27] MEDS: ENOXAPARIN SODIUM 40 MG/0.4 ML SYRINGE SQ SCH (09:11)
[2017-01-27] MEDS: CEFEPIME INJ 2,000 MG in SODIUM CHLORIDE 0.9% INJ 100 ML IV SCH (09:11)
[2017-01-27] MEDS: ELVIT/COBI/EMTR/TENOF 150/150/200/300 MG TABLETS PO SCH (09:12)
[2017-01-27] MEDS: FLUCONAZOLE 200 MG TAB PO SCH (09:12)
[2017-01-27] MEDS: NICOTINE 21 MG/24 HR PATCH T-DERMAL SCH (09:17)
--- NOTE | 2017-01-27 14:41 | HHI.IDPN ---
Subjective Subjective Remarks ID COVERAGE Notes reviewed Breathing problems earlier - states a little better now On nasal O2 Not bringing up any phlegm Temps ok CD4 189 LDH normal Pulmonary notes reviewed Sputum C/S normal john transferred to floor remains on NC O2 denies SOB' No expectoration: uanbel to submit sputumu No ever Antibiotics azithro cefepime TS Lines PIV Past Medical History Reviewed Allergies: Coded Allergies: No Known Allergies (Verified , 06/11/16) Objective . Vital Signs Date Time Temp Pulse Resp B/P Pulse Ox O2 Delivery O2 Flow Rate FiO2 01/27/17 13:48 100 Nasal Cannula 3.00 01/27/17 12:00 97.1 75 18 138/94 100 01/27/17 10:00 83 01/27/17 08:00 80 01/27/17 08:00 97.7 80 25 112/70 97 01/27/17 07:00 96 Nasal Cannula 2.00 01/27/17 06:00 69 01/27/17 04:00 98.7 80 18 113/64 99 01/27/17 04:00 70 01/27/17 02:00 77 01/27/17 00:00 83 01/27/17 00:00 98.4 83 22 112/63 96 01/26/17 23:00 100 Nasal Cannula 1.00 01/26/17 22:00 87 01/26/17 20:00 98.7 82 19 114/70 94 01/26/17 20:00 84 01/26/17 19:00 94 Nasal Cannula 2.00 01/26/17 18:00 91 01/26/17 17:00 99.5 84 17 130/82 90 01/26/17 17:00 84 01/26/17 16:10 98.4 81 130/72 76 01/26/17 01/26/17 01/27/17 15:00 23:00 07:00 Intake Total 728 ml 1460 ml 1295 ml Output Total 650 ml 350 ml 800 ml Balance 78 ml 1110 ml 495 ml Intake Oral 120 ml 360 ml 120 ml IV Total 608 ml 1100 ml 1175 ml Output Urine Total 650 ml 350 ml 800 ml Stool Total 0 ml # Bowel Movements 0 . Laboratory Tests Test 01/27/17 03:58 White Blood Count 15.2 TH/MM3 Red Blood Count 4.28 MIL/MM3 Hemoglobin 12.7 GM/DL Hematocrit 37.9 % Mean Corpuscular Volume 88.5 FL Mean Corpuscular Hemoglobin 29.7 PG Mean Corpuscular Hemoglobin 33.6 % Concent Red Cell Distribution Width 14.1 % Platelet Count 589 TH/MM3 Mean Platelet Volume 6.9 FL Laboratory Tests Test 01/27/17 03:58 Sodium Level 131 MEQ/L Potassium Level 4.8 MEQ/L Chloride Level 99 MEQ/L Carbon Dioxide Level 21.8 MEQ/L Anion Gap 10 MEQ/L Blood Urea Nitrogen 11 MG/DL Creatinine 0.65 MG/DL Estimat Glomerular Filtration 166 ML/MIN Rate Random Glucose 103 MG/DL Calcium Level 8.6 MG/DL Imaging Last Impressions Chest X-Ray 01/24/17 0000 Signed Impressions: Service Date/Time: Tuesday, January 24, 2017 14:42 - CONCLUSION: Right middle lobe and lower lobe collapse not present previously with improvement in aeration of the left lung. Sneha Elizabeth MD CT Angiography 01/21/17 0000 Signed Impressions: Service Date/Time: Saturday, January 21, 2017 10:30 - CONCLUSION: 1. Alveolar consolidations involving lower lobes bilaterally and to a much lesser extent left upper lobe suggesting probable bilateral pneumonia. Clinical correlation is recommended. 2. No evidence of pulmonary embolism. 3. Tiny left pleural effusion. Alexandre Stewart MD Shoulder X-Ray 01/20/17 0000 Signed Impressions: Service Date/Time: Friday, January 20, 2017 20:45 - CONCLUSION: Avascular necrosis with subchondral fracture. David Jenkins MD Physical Exam GENERAL: This is a thin young male patient, in no apparent distress on nasal O2 SKIN: No jaundice, rashes, or lesions. Skin temperature appropriate. Not diaphoretic. EYES: Pupils equal and round and reactive. Extraocular motions intact. No scleral icterus. No injection or drainage. Fundi not examined. ENT: Hearing grossly normal. Oral mucosae with thick white patches cw thrush CARDIOVASCULAR: Regular rate and rhythm without murmurs, gallops, or rubs. No JVD. Peripheral pulses symmetric. RESPIRATORY/CHEST: Symmetric, unlabored respirations. Few rhonchi on R lung filed to auscultation. No wheezes GASTROINTESTINAL: Abdomen soft, non-tender, nondistended. No hepato-splenomegaly , or palpable masses. No guarding. Bowel sounds present. MUSCULOSKELETAL: Extremities without clubbing, cyanosis, or edema. No joint tenderness or effusion noted. NEUROLOGICAL: Non-focal PSYCHIATRIC: calm and cooperative LINE: NO evidence of infection Assessment & Plan Remarks HIV dz, on HAART per records, compliance is unknown - CD4 189 PNA (infiltrates, fever, leukocytosis, hypoxia), severe, multilobar - C/S normal resp john - MTB PCR neg - improved on current abx - neg leg/pneumococcal/ influenza antigens - Initial LDH normal Oral thrush REC's; Continue Zithromax - change to po Change cefepime to Rocephin Change bactrim to po Also on steroids Repeat LDH, if normal, consider stopping Also on Diflucan for oral thrush Continue Stribild Monitor progress pulmonary following Veena Rogers MD Jan 27, 2017 14:41
[2017-01-27] MEDS ORDERED: cefTRIAXone INJ 2,000 MG in SODIUM CHLORIDE 0.9% INJ 100 ML IV SCH (15:00)
--- NOTE | 2017-01-27 15:35 | HHI.PR ---
Subjective Remarks Follow-up for pneumonia Patient denies any shortness of breathing or cough. He also denies any depression. He is now on 1 L of oxygen. Objective Vitals Vital Signs Date Time Temp Pulse Resp B/P Pulse Ox O2 Delivery O2 Flow Rate FiO2 01/27/17 13:48 100 Nasal Cannula 3.00 01/27/17 12:00 97.1 75 18 138/94 100 01/27/17 10:00 83 01/27/17 08:00 80 01/27/17 08:00 97.7 80 25 112/70 97 01/27/17 07:00 96 Nasal Cannula 2.00 01/27/17 06:00 69 01/27/17 04:00 98.7 80 18 113/64 99 01/27/17 04:00 70 01/27/17 02:00 77 01/27/17 00:00 83 01/27/17 00:00 98.4 83 22 112/63 96 01/26/17 23:00 100 Nasal Cannula 1.00 01/26/17 22:00 87 01/26/17 20:00 98.7 82 19 114/70 94 01/26/17 20:00 84 01/26/17 19:00 94 Nasal Cannula 2.00 01/26/17 18:00 91 01/26/17 17:00 99.5 84 17 130/82 90 01/26/17 17:00 84 01/26/17 16:10 98.4 81 130/72 76 I/O 01/26/17 01/26/17 01/26/17 01/27/17 01/27/17 01/27/17 06:59 14:59 22:59 06:59 14:59 22:59 Intake Total 1258 ml 728 ml 1460 ml 1295 ml Output Total 550 ml 650 ml 350 ml 800 ml Balance 708 ml 78 ml 1110 ml 495 ml Intake Oral 240 ml 120 ml 360 ml 120 ml IV Total 1018 ml 608 ml 1100 ml 1175 ml Output Urine Total 550 ml 650 ml 350 ml 800 ml Stool Total 0 ml # Bowel Movements 0 Result Diagram: 01/27/17 0358 01/27/17 0358 Imaging Last Impressions Chest X-Ray 01/26/17 0600 Signed Impressions: Service Date/Time: Thursday, January 26, 2017 05:28 - CONCLUSION: Better aeration the right lung base today's previous study. Retrocardiac infiltrate persists. Yordan Smith MD CT Angiography 01/21/17 0000 Signed Impressions: Service Date/Time: Saturday, January 21, 2017 10:30 - CONCLUSION: 1. Alveolar consolidations involving lower lobes bilaterally and to a much lesser extent left upper lobe suggesting probable bilateral pneumonia. Clinical correlation is recommended. 2. No evidence of pulmonary embolism. 3. Tiny left pleural effusion. Alexandre Stewart MD Shoulder X-Ray 01/20/17 0000 Signed Impressions: Service Date/Time: Friday, January 20, 2017 20:45 - CONCLUSION: Avascular necrosis with subchondral fracture. David Jenkins MD Objective Remarks GENERAL: in NAD CARDIOVASCULAR: Regular rate and rhythm without murmurs, gallops, or rubs. RESPIRATORY: Clear to station bilaterally. Normal respiratory rate. No cough noted during the exam. No accessory muscle use. GASTROINTESTINAL: Abdomen soft, non-tender, nondistended. MUSCULOSKELETAL: No cyanosis, or edema. BACK: Nontender without obvious deformity. No CVA tenderness. Psych: flat affect Medications and IVs Current Medications Albuterol/ Ipratropium (Duoneb Neb) 1 ampule Q15M INH Last administered on 01/20 23:26; Start 01/20/17 at 19:30; Stop 01/20/17 at 20:01; Status DC Methylprednisolone Sodium Succinate (SoluMEDROL INJ) 125 mg ONCE ONCE IM Last administered on 01/20/17 19:30; Start 01/20/17 at 19:30; Stop 01/20/17 at 19:31 ; Status DC Sodium Chloride 2 ml 2 ml UNSCH PRN IVF FLUSH AFTER USING IV ACCESS; Start at 20:00; Stop 01/20/17 at 22:21; Status DC Cefepime HCl 2000 mg/Sodium Chloride 100 ml @ 200 mls/hr ONCE ONCE IV Last administered on 01/20/17 22:48; Start 01/20/17 at 20:00; Stop 01/20/17 at 20:29 ; Status DC Azithromycin 500 mg/Sodium Chloride 250 ml @ 250 mls/hr ONCE ONCE IV Last administered on 01/20/17 21:40; Start 01/20/17 at 20:00; Stop 01/20/17 at 20:59 ; Status DC Sodium Chloride 1,000 ml @ 999 mls/hr BOLUS ONCE IV Last administered on 01/20 21:40; Start 01/20/17 at 20:00; Stop 01/20/17 at 21:00; Status DC Sodium Chloride (NS 1000 ml Inj) 1,000 ml @ 999 mls/hr BOLUS ONCE IV Last administered on 01/20/17 22:49; Start 01/20/17 at 21:30; Stop 01/20/17 at 22:30 ; Status DC Ibuprofen (Motrin) 800 mg ONCE ONCE PO Last administered on 01/20/17 22:36; Start 01/20/17 at 21:45; Stop 01/20/17 at 21:46; Status DC Sodium Chloride (NS Flush) 2 ml UNSCH PRN IV FLUSH FLUSH AFTER USING IV ACCESS ; Start 01/20/17 at 22:30 Sodium Chloride (NS Flush) 2 ml BID IV FLUSH Last administered on 01/27/17 09: 00; Start 01/21/17 at 09:00 Naloxone HCl (Narcan Inj) 0.4 mg UNSCH PRN IV SEE LABEL COMMENTS; Start at 22:30 Albuterol/ Ipratropium (Duoneb Neb) 1 ampule Q6HR NEB NEB Last administered on 01/24/17 21:14; Start 01/21/17 at 04:00; Stop 01/25/17 at 04:00; Status DC Albuterol/ Ipratropium 1 ampule 1 ampule Q2HR NEB PRN NEB wheezing Last administered on 01/26/17 22:59; Start 01/20/17 at 22:30 Cefepime HCl/ Sodium Chloride (Maxipime Inj/NS Inj) 100 ml @ 200 mls/hr Q12H IV Last administered on 01/27/17 09:11; Start 01/21/17 at 09:00; Stop at 14:32; Status DC Methylprednisolone Sodium Succinate (SoluMEDROL INJ) 40 mg Q6HR IV PUSH Last administered on 01/23/17 05:01; Start 01/21/17 at 06:00; Stop 01/23/17 at 11:39 ; Status DC Pantoprazole Sodium 40 mg 40 mg Q12H IV PUSH Last administered on 01/27/17 13: 37; Start 01/21/17 at 02:00 Trimethoprim/ Sulfamethoxazole 400 mg/Dextrose 525 ml @ 350 mls/hr Q6H IV Last administered on 01/21/17 02:56; Start 01/21/17 at 03:00; Stop 01/21/17 at 08:10; Status DC Trimethoprim/ Sulfamethoxazole/ Dextrose (Bactrim Inj/D5W 500 ml Inj) 499.75 ml @ 333.167 mls/hr Q6H IV Last administered on 01/27/17 12:19; Start 01/21/17 at 10:00; Stop 01/27/17 at 14:39; Status DC Influenza Virus Vaccine (Flu (Quadrivalent) Vaccine Inj) 0.5 ml ONCE ONCE IM ; Start 01/22/17 at 10:00; Stop 01/22/17 at 10:00; Status DC Enoxaparin Sodium 40 mg 40 mg Q24H SQ Last administered on 01/27/17 09:11; Start 01/21/17 at 09:00 Potassium Chloride 100 ml @ 50 mls/hr Q2H PRN IV For Potassium 2.8 - 3.2 mEq/L ; Start 01/21/17 at 08:30; Stop 01/24/17 at 07:46; Status DC Potassium Chloride (KCl 20 Meq Premix Inj) 100 ml @ 50 mls/hr Q2H PRN IV For Potassium 2.8 - 3.2 mEq/L; Start 01/21/17 at 08:30; Stop 01/24/17 at 07:46; Status DC Potassium Bicarb/ Potassium Chloride 50 meq 50 meq UNSCH PRN PO For Potassium 3.3 - 3.5 mEq/L Last administered on 01/21/17 09:09; Start 01/21/17 at 08:30; Stop 01/24/17 at 07:46; Status DC Potassium Chloride 100 ml @ 25 mls/hr UNSCH PRN IV For Potassium 3.3 - 3.5 mEq /L; Start 01/21/17 at 08:30; Stop 01/24/17 at 07:46; Status DC Potassium Chloride 100 ml @ 50 mls/hr Q2H PRN IV For Potassium 3.3 - 3.5 mEq/L ; Start 01/21/17 at 08:30; Stop 01/24/17 at 07:46; Status DC Magnesium Sulfate/ Sodium Chloride (Magnesium Sulfate Inj/NS Inj) 100 ml @ 50 mls/hr UNSCH PRN IV For Magnesium 0.9 - 1.1 mg/dL; Start 01/21/17 at 08:30; Stop 01/24/17 at 07:46; Status DC Magnesium Oxide 800 mg 800 mg UNSCH PRN PO For Magnesium 1.2 - 1.6 mg/dL; Start 01/21/17 at 08:30; Stop 01/24/17 at 07:46; Status DC Magnesium Sulfate/ Sodium Chloride (Magnesium Sulfate Inj/NS Inj) 100 ml @ 50 mls/hr UNSCH PRN IV For Magnesium 1.2 - 1.6 mg/dL; Start 01/21/17 at 08:30; Stop 01/24/17 at 07:46; Status DC Potassium Phosphate 2000 mg 2,000 mg Q4H PRN PO For Phosphorus < 2.5 mg/dL; Start 01/21/17 at 08:30; Stop 01/24/17 at 07:46; Status DC Sodium Phosphate/ Sodium Chloride (Sodium Phosphate Inj/NS 250 ml Inj) 250 ml @ 42 mls/hr UNSCH PRN IV For Phosphorus < 2.5 mg/dL; Start 01/21/17 at 08:30; Stop 01/24/17 at 07:46; Status DC Potassium Phosphate 2000 mg 2,000 mg UNSCH PRN PO/TUBE SEE LABEL COMMENTS; Start 01/21/17 at 08:30; Stop 01/24/17 at 07:46; Status DC Potassium Phosphate/Sodium Chloride (Potassium Phosphate Inj/NS 250 ml Inj) 260 ml @ 42 mls/hr UNSCH PRN IV SEE LABEL COMMENTS; Start 01/21/17 at 08:30; Stop 01/24/17 at 07:46; Status DC Iohexol (Omnipaque 350 Inj) 60 ml STK-MED ONCE IV Last administered on t 10:41; Start 01/21/17 at 10:41; Stop 01/21/17 at 10:42; Status DC Potassium Chloride (KCl) 60 meq ONCE ONCE PO Last administered on 01/21/17 11 :52; Start 01/21/17 at 11:15; Stop 01/21/17 at 11:26; Status DC Potassium Chloride (KCl) 60 meq ONCE ONCE PO ; Start 01/21/17 at 11:45; Stop at 11:46; Status DC Elvitegravir/ Cobicis/Emtricit/ Tenof 1 tab 1 tab DAILY PO Last administered on 01/27/17 09:12; Start 01/21/17 at 14:00 Azithromycin/ Sodium Chloride (Zithromax Inj/ NS 250 ml Inj) 250 ml @ 250 mls/ hr Q24H IV Last administered on 01/26/17 21:11; Start 01/21/17 at 21:00; Stop 01/27/17 at 14:36; Status DC Patient Own Medication PT OWN MED: GENVOYA (Elvitegrav... DAILY PO ; Start 01/22 at 09:00; Status Hold Ibuprofen (Motrin) 600 mg Q8H PRN PO pain 1-10 Last administered on 01/22/17 10:03; Start 01/21/17 at 17:30; Status Hold Oxycodone/ Acetaminophen (Percocet 10-325 Mg) 1 tab Q6H PRN PO PAIN 1-10 Last administered on 01/27/17 13:46; Start 01/22/17 at 12:45 Nicotine (Habitrol 21 Mg Patch.24 Hr) 1 patch DAILY T-DERMAL Last administered on 01/27/17 09:17; Start 01/22/17 at 13:00 Diphenhydramine HCl (Benadryl) 50 mg HS PRN PO INSOMNIA Last administered on 22:19; Start 01/22/17 at 12:45 Methylprednisolone Sodium Succinate (SoluMEDROL INJ) 20 mg Q8HR IV PUSH Last administered on 01/27/17 13:37; Start 01/23/17 at 14:00 Fluconazole 200 mg 200 mg DAILY PO Last administered on 01/27/17 09:12; Start 01/24/17 at 19:30 Ceftriaxone Sodium/Sodium Chloride (Rocephin Inj/NS Inj) 100 ml @ 200 mls/hr Q24H IV ; Start 01/27/17 at 15:00 Azithromycin (Zithromax) 500 mg Q24H PO ; Start 01/27/17 at 21:00 Trimethoprim/ Sulfamethoxazole (Bactrim Ds 800-160 Mg) 2 tab Q6HR PO ; Start at 18:00 A/P Assessment and Plan Respiratory failure with hypoxia -Chest x-ray to suggest pneumonia. CT scan of chest showed alveolar consolidations involving lower lobes bilaterally and to a much lesser extent left upper lobe suggesting probable bilateral pneumonia. -Improving. See treatment as below. -Patient was put on steroids will transition to oral steroids. -Sputum culture negative. -Supervisor [employer] was consulted and stated if suspecting PCP will need bronchoscopy.. Bilateral pneumonia -CD4 189. -Infectious disease following. -Patient on cefepime,bactrim and zithromax. Cefepime was discontinued today and now on Rocephin. Bactrim and Zithromax were switched to oral. - MTB PCR negative. -Continue management per infectious disease. hx of HIV -continue Stribild -ID consulted and ff. Decondition -Patient is very weak. He was assessed by physical therapist they recommended acute rehabilitation. Patient decline acute rehabilitation. Discharge Planning Patient refused inpatient rehabilitation. He wants to go home but home health. Once patient is medically stable he can go home with home health. Remedios Pavon MD Jan 27, 2017 15:35
[2017-01-27] MEDS: RESP: ALBUTEROL 2.5 MG/IPRATROPIUM 0.5 MG NEB (PRN) NEB ×2 (17:00→21:32)
[2017-01-27] MEDS: SULFAMETHOXAZOLE-TRIMETHOPRIM DS 800-160 MG TAB PO SCH ×2 (17:13→23:18)
--- NOTE | 2017-01-27 17:25 | HHI.PR ---
Subjective Remarks 41 YOAA amle with HIv, Br asthma, Bilat infilt Breathing better No Fever Sister at BS Objective Vital Signs Vital Signs Date Time Temp Pulse Resp B/P Pulse Ox O2 Delivery O2 Flow Rate FiO2 01/27/17 17:00 97 Nasal Cannula 4.00 01/27/17 16:00 97.9 84 18 129/80 97 01/27/17 13:48 100 Nasal Cannula 3.00 01/27/17 12:00 97.1 75 18 138/94 100 01/27/17 10:00 83 01/27/17 08:00 80 01/27/17 08:00 97.7 80 25 112/70 97 01/27/17 07:00 96 Nasal Cannula 2.00 01/27/17 06:00 69 01/27/17 04:00 98.7 80 18 113/64 99 01/27/17 04:00 70 01/27/17 02:00 77 01/27/17 00:00 83 01/27/17 00:00 98.4 83 22 112/63 96 01/26/17 23:00 100 Nasal Cannula 1.00 01/26/17 22:00 87 01/26/17 20:00 98.7 82 19 114/70 94 01/26/17 20:00 84 01/26/17 19:00 94 Nasal Cannula 2.00 01/26/17 18:00 91 I/O 01/26/17 01/26/17 01/26/17 01/27/17 01/27/17 01/27/17 07:00 15:00 23:00 07:00 15:00 23:00 Intake Total 1258 ml 728 ml 1460 ml 1295 ml Output Total 550 ml 650 ml 350 ml 800 ml Balance 708 ml 78 ml 1110 ml 495 ml Intake Oral 240 ml 120 ml 360 ml 120 ml IV Total 1018 ml 608 ml 1100 ml 1175 ml Output Urine Total 550 ml 650 ml 350 ml 800 ml Stool Total 0 ml # Bowel Movements 0 Result Diagram: 01/27/178 01/27/17 0358 Objective Remarks GENERAL: WBWN AA male NAD SKIN: Warm and dry. HEAD: Normocephalic. EYES: No scleral icterus. No injection or drainage. NECK: Supple, trachea midline. No JVD or lymphadenopathy. CARDIOVASCULAR: Regular rate and rhythm without murmurs, gallops, or rubs. RESPIRATORY: Breath sounds equal bilaterally. No accessory muscle use. GASTROINTESTINAL: Abdomen soft, non-tender, nondistended. MUSCULOSKELETAL: No cyanosis, or edema. BACK: Nontender without obvious deformity. No CVA tenderness. A/P Assessment and Plan Bilat Lung infilt HIV Bronchial asthma Nicotine use Anxiety, depression PLAN: Cont Abx per ID Aerosol nebs Supplement 02 PO Prednisone Dw pt and his sister at [facility] Milagro,Danial Ramírez MD Jan 27, 2017 17:25
[2017-01-27] MEDS: AZITHROMYCIN 250 MG TAB PO SCH (19:48)
[2017-01-27] MEDS: diphenhydrAMINE HCL 50 MG CAP PO PRN (23:18)
[2017-01-28] VITALS (12 sets, daily range): BP systolic 117–133; BP diastolic 63–85; PULSE 64–87; RESP 16–18; TEMP 96.4–97.9; O2SAT 94–98
[2017-01-28] MEDS: oxyCODONE/ACETAMINOPHEN 10 MG/325 MG TAB PO PRN ×4 (01:49→22:14)
[2017-01-28] MEDS: SULFAMETHOXAZOLE-TRIMETHOPRIM DS 800-160 MG TAB PO SCH (06:07)
--- NOTE | 2017-01-28 07:59 | HHI.PR ---
Subjective Remarks resting comfortably with no distress. denies pain. no fever. Objective Vitals Vital Signs Date Time Temp Pulse Resp B/P Pulse Ox O2 Delivery O2 Flow Rate FiO2 01/28/17 04:15 64 01/28/17 04:00 96.4 67 16 119/78 98 01/28/17 00:30 71 01/28/17 00:00 96.5 74 16 127/80 95 01/27/17 21:33 93 Nasal Cannula 4.00 01/27/17 21:19 18 01/27/17 21:03 100 Nasal Cannula 2.00 01/27/17 20:30 76 01/27/17 20:00 97.4 77 16 123/75 99 01/27/17 18:30 92 01/27/17 17:00 97 Nasal Cannula 4.00 01/27/17 16:00 97.9 84 18 129/80 97 01/27/17 13:48 100 Nasal Cannula 3.00 01/27/17 12:00 97.1 75 18 138/94 100 01/27/17 10:00 83 01/27/17 08:00 80 01/27/17 08:00 97.7 80 25 112/70 97 I/O 01/27/17 01/27/17 01/27/17 01/28/17 01/28/17 01/28/17 07:00 15:00 23:00 07:00 15:00 23:00 Intake Total 1295 ml 240 ml 655 ml 800 ml Output Total 800 ml 300 ml 500 ml 1050 ml Balance 495 ml -60 ml 155 ml -250 ml Intake Oral 120 ml 240 ml 800 ml IV Total 1175 ml 655 ml Output Urine Total 800 ml 300 ml 500 ml 1050 ml # Voids 0 # Bowel Movements 0 0 Result Diagram: 01/27/17 0358 01/27/17 0358 Imaging Last Impressions Chest X-Ray 01/26/17 0600 Signed Impressions: Service Date/Time: Thursday, January 26, 2017 05:28 - CONCLUSION: Better aeration the right lung base today's previous study. Retrocardiac infiltrate persists. Yordan Smith MD CT Angiography 01/21/17 0000 Signed Impressions: Service Date/Time: Saturday, January 21, 2017 10:30 - CONCLUSION: 1. Alveolar consolidations involving lower lobes bilaterally and to a much lesser extent left upper lobe suggesting probable bilateral pneumonia. Clinical correlation is recommended. 2. No evidence of pulmonary embolism. 3. Tiny left pleural effusion. Alexandre Stewart MD Shoulder X-Ray 01/20/17 0000 Signed Impressions: Service Date/Time: Friday, January 20, 2017 20:45 - CONCLUSION: Avascular necrosis with subchondral fracture. David Jenkins MD Objective Remarks GENERAL: in no apparent distress. CARDIOVASCULAR: Regular rate and regular rhythm without murmurs, gallops, or rubs. RESPIRATORY: bilateral rhonchi GASTROINTESTINAL: Abdomen soft, non-tender, nondistended. Normal, active bowel sounds MUSCULOSKELETAL: Extremities without clubbing, cyanosis, or edema. NEURO: Alert & Oriented x4 to person, place, time, situation. Moves all ext x4 Medications and IVs Current Medications Albuterol/ Ipratropium (Duoneb Neb) 1 ampule Q15M INH Last administered on 01/20 23:26; Start 01/20/17 at 19:30; Stop 01/20/17 at 20:01; Status DC Methylprednisolone Sodium Succinate (SoluMEDROL INJ) 125 mg ONCE ONCE IM Last administered on 01/20/17 19:30; Start 01/20/17 at 19:30; Stop 01/20/17 at 19:31 ; Status DC Sodium Chloride 2 ml 2 ml UNSCH PRN IVF FLUSH AFTER USING IV ACCESS; Start at 20:00; Stop 01/20/17 at 22:21; Status DC Cefepime HCl 2000 mg/Sodium Chloride 100 ml @ 200 mls/hr ONCE ONCE IV Last administered on 01/20/17 22:48; Start 01/20/17 at 20:00; Stop 01/20/17 at 20:29 ; Status DC Azithromycin 500 mg/Sodium Chloride 250 ml @ 250 mls/hr ONCE ONCE IV Last administered on 01/20/17 21:40; Start 01/20/17 at 20:00; Stop 01/20/17 at 20:59 ; Status DC Sodium Chloride 1,000 ml @ 999 mls/hr BOLUS ONCE IV Last administered on 01/20 21:40; Start 01/20/17 at 20:00; Stop 01/20/17 at 21:00; Status DC Sodium Chloride (NS 1000 ml Inj) 1,000 ml @ 999 mls/hr BOLUS ONCE IV Last administered on 01/20/17 22:49; Start 01/20/17 at 21:30; Stop 01/20/17 at 22:30 ; Status DC Ibuprofen (Motrin) 800 mg ONCE ONCE PO Last administered on 01/20/17 22:36; Start 01/20/17 at 21:45; Stop 01/20/17 at 21:46; Status DC Sodium Chloride (NS Flush) 2 ml UNSCH PRN IV FLUSH FLUSH AFTER USING IV ACCESS ; Start 01/20/17 at 22:30 Sodium Chloride (NS Flush) 2 ml BID IV FLUSH Last administered on 01/27/17 19: 48; Start 01/21/17 at 09:00 Naloxone HCl (Narcan Inj) 0.4 mg UNSCH PRN IV SEE LABEL COMMENTS; Start at 22:30 Albuterol/ Ipratropium (Duoneb Neb) 1 ampule Q6HR NEB NEB Last administered on 01/24/17 21:14; Start 01/21/17 at 04:00; Stop 01/25/17 at 04:00; Status DC Albuterol/ Ipratropium 1 ampule 1 ampule Q2HR NEB PRN NEB wheezing Last administered on 01/27/17 21:32; Start 01/20/17 at 22:30 Cefepime HCl/ Sodium Chloride (Maxipime Inj/NS Inj) 100 ml @ 200 mls/hr Q12H IV Last administered on 01/27/17 09:11; Start 01/21/17 at 09:00; Stop at 14:32; Status DC Methylprednisolone Sodium Succinate (SoluMEDROL INJ) 40 mg Q6HR IV PUSH Last administered on 01/23/17 05:01; Start 01/21/17 at 06:00; Stop 01/23/17 at 11:39 ; Status DC Pantoprazole Sodium 40 mg 40 mg Q12H IV PUSH Last administered on 01/27/17 23: 17; Start 01/21/17 at 02:00 Trimethoprim/ Sulfamethoxazole 400 mg/Dextrose 525 ml @ 350 mls/hr Q6H IV Last administered on 01/21/17 02:56; Start 01/21/17 at 03:00; Stop 01/21/17 at 08:10; Status DC Trimethoprim/ Sulfamethoxazole/ Dextrose (Bactrim Inj/D5W 500 ml Inj) 499.75 ml @ 333.167 mls/hr Q6H IV Last administered on 01/27/17 12:19; Start 01/21/17 at 10:00; Stop 01/27/17 at 14:39; Status DC Influenza Virus Vaccine (Flu (Quadrivalent) Vaccine Inj) 0.5 ml ONCE ONCE IM ; Start 01/22/17 at 10:00; Stop 01/22/17 at 10:00; Status DC Enoxaparin Sodium 40 mg 40 mg Q24H SQ Last administered on 01/27/17 09:11; Start 01/21/17 at 09:00 Potassium Chloride 100 ml @ 50 mls/hr Q2H PRN IV For Potassium 2.8 - 3.2 mEq/L ; Start 01/21/17 at 08:30; Stop 01/24/17 at 07:46; Status DC Potassium Chloride (KCl 20 Meq Premix Inj) 100 ml @ 50 mls/hr Q2H PRN IV For Potassium 2.8 - 3.2 mEq/L; Start 01/21/17 at 08:30; Stop 01/24/17 at 07:46; Status DC Potassium Bicarb/ Potassium Chloride 50 meq 50 meq UNSCH PRN PO For Potassium 3.3 - 3.5 mEq/L Last administered on 01/21/17 09:09; Start 01/21/17 at 08:30; Stop 01/24/17 at 07:46; Status DC Potassium Chloride 100 ml @ 25 mls/hr UNSCH PRN IV For Potassium 3.3 - 3.5 mEq /L; Start 01/21/17 at 08:30; Stop 01/24/17 at 07:46; Status DC Potassium Chloride 100 ml @ 50 mls/hr Q2H PRN IV For Potassium 3.3 - 3.5 mEq/L ; Start 01/21/17 at 08:30; Stop 01/24/17 at 07:46; Status DC Magnesium Sulfate/ Sodium Chloride (Magnesium Sulfate Inj/NS Inj) 100 ml @ 50 mls/hr UNSCH PRN IV For Magnesium 0.9 - 1.1 mg/dL; Start 01/21/17 at 08:30; Stop 01/24/17 at 07:46; Status DC Magnesium Oxide 800 mg 800 mg UNSCH PRN PO For Magnesium 1.2 - 1.6 mg/dL; Start 01/21/17 at 08:30; Stop 01/24/17 at 07:46; Status DC Magnesium Sulfate/ Sodium Chloride (Magnesium Sulfate Inj/NS Inj) 100 ml @ 50 mls/hr UNSCH PRN IV For Magnesium 1.2 - 1.6 mg/dL; Start 01/21/17 at 08:30; Stop 01/24/17 at 07:46; Status DC Potassium Phosphate 2000 mg 2,000 mg Q4H PRN PO For Phosphorus < 2.5 mg/dL; Start 01/21/17 at 08:30; Stop 01/24/17 at 07:46; Status DC Sodium Phosphate/ Sodium Chloride (Sodium Phosphate Inj/NS 250 ml Inj) 250 ml @ 42 mls/hr UNSCH PRN IV For Phosphorus < 2.5 mg/dL; Start 01/21/17 at 08:30; Stop 01/24/17 at 07:46; Status DC Potassium Phosphate 2000 mg 2,000 mg UNSCH PRN PO/TUBE SEE LABEL COMMENTS; Start 01/21/17 at 08:30; Stop 01/24/17 at 07:46; Status DC Potassium Phosphate/Sodium Chloride (Potassium Phosphate Inj/NS 250 ml Inj) 260 ml @ 42 mls/hr UNSCH PRN IV SEE LABEL COMMENTS; Start 01/21/17 at 08:30; Stop 01/24/17 at 07:46; Status DC Iohexol (Omnipaque 350 Inj) 60 ml STK-MED ONCE IV Last administered on 10:41; Start 01/21/17 at 10:41; Stop 01/21/17 at 10:42; Status DC Potassium Chloride (KCl) 60 meq ONCE ONCE PO Last administered on 01/21/17 11 :52; Start 01/21/17 at 11:15; Stop 01/21/17 at 11:26; Status DC Potassium Chloride (KCl) 60 meq ONCE ONCE PO ; Start 01/21/17 at 11:45; Stop at 11:46; Status DC Elvitegravir/ Cobicis/Emtricit/ Tenof 1 tab 1 tab DAILY PO Last administered on 01/27/17 09:12; Start 01/21/17 at 14:00 Azithromycin/ Sodium Chloride (Zithromax Inj/ NS 250 ml Inj) 250 ml @ 250 mls/ hr Q24H IV Last administered on 01/26/17 21:11; Start 01/21/17 at 21:00; Stop 01/27/17 at 14:36; Status DC Patient Own Medication PT OWN MED: GENVOYA (Elvitegrav... DAILY PO ; Start 01/22 at 09:00; Status Hold Ibuprofen (Motrin) 600 mg Q8H PRN PO pain 1-10 Last administered on 01/22/17 10:03; Start 01/21/17 at 17:30; Status Hold Oxycodone/ Acetaminophen (Percocet 10-325 Mg) 1 tab Q6H PRN PO PAIN 1-10 Last administered on 01/28/17 01:49; Start 01/22/17 at 12:45 Nicotine (Habitrol 21 Mg Patch.24 Hr) 1 patch DAILY T-DERMAL Last administered on 01/27/17 09:17; Start 01/22/17 at 13:00 Diphenhydramine HCl (Benadryl) 50 mg HS PRN PO INSOMNIA Last administered on 23:18; Start 01/22/17 at 12:45 Methylprednisolone Sodium Succinate (SoluMEDROL INJ) 20 mg Q8HR IV PUSH Last administered on 01/27/17 13:37; Start 01/23/17 at 14:00; Stop 01/27/17 at 15:43 ; Status DC Fluconazole 200 mg 200 mg DAILY PO Last administered on 01/27/17 09:12; Start 01/24/17 at 19:30 Ceftriaxone Sodium/Sodium Chloride (Rocephin Inj/NS Inj) 100 ml @ 200 mls/hr Q24H IV Last administered on 01/27/17 16:21; Start 01/27/17 at 15:00 Azithromycin (Zithromax) 500 mg Q24H PO Last administered on 01/27/17 19:48; Start 01/27/17 at 21:00 Trimethoprim/ Sulfamethoxazole (Bactrim Ds 800-160 Mg) 2 tab Q6HR PO Last administered on 01/28/17 06:07; Start 7/31/17 at 18:00 Prednisone (Deltasone) 20 mg DAILY PO ; Start 01/28/17 at 09:00 A/P Assessment and Plan A/p Respiratory failure with hypoxia -Chest x-ray to suggest pneumonia. CT scan of chest showed alveolar consolidations involving lower lobes bilaterally and to a much lesser extent left upper lobe suggesting probable bilateral pneumonia. -Improving. See treatment as below. -Patient was put on steroids will transition to oral steroids. -Sputum culture negative. -Risk Assessment Consultant was consulted and stated if suspecting PCP will need bronchoscopy.. Bilateral pneumonia -CD4 189. -Infectious disease following. -Patient currently on IV Rocephin, PO zithromax and Bactrim. - MTB PCR negative. -Continue management per infectious disease. Oral thrush; continue Diflucan hx of HIV -continue Stribild -ID consulted and ff. Decondition -Patient is very weak. He was assessed by physical therapist they recommended acute rehabilitation. Patient still declining acute rehabilitation. Discharge Planning when cleared by ID. Edward Baires MD Jan 28, 2017 07:58
[2017-01-28] MEDS: predniSONE 20 MG TAB PO SCH (09:42)
[2017-01-28] MEDS: FLUCONAZOLE 200 MG TAB PO SCH (09:42)
[2017-01-28] MEDS: ENOXAPARIN SODIUM 40 MG/0.4 ML SYRINGE SQ SCH (09:42)
[2017-01-28] MEDS: NICOTINE 21 MG/24 HR PATCH T-DERMAL SCH (09:42)
[2017-01-28] MEDS: ELVIT/COBI/EMTR/TENOF 150/150/200/300 MG TABLETS PO SCH (09:42)
[2017-01-28] MEDS: SODIUM CHLORIDE 0.9% FLUSH 10 ML FLUSH IV FLUSH SCH ×2 (09:43→22:14)
[2017-01-28] MEDS: RESP: ALBUTEROL 2.5 MG/IPRATROPIUM 0.5 MG NEB (PRN) NEB ×2 (12:22→20:11)
--- NOTE | 2017-01-28 12:48 | HHI.IDPN ---
Subjective Subjective Remarks ID COVERAGE Notes reviewed Breathing problems earlier - states a little better now On nasal O2, decreased requirement Not bringing up any phlegm Temps ok CD4 189 LDH normal; repeat LDH mornal Pulmonary notes reviewed Sputum C/S normal john Antibiotics rolando Naranjo TS Lines PIV Past Medical History Reviewed Allergies: Coded Allergies: No Known Allergies (Verified , 06/11/16) Objective . Vital Signs Date Time Temp Pulse Resp B/P Pulse Ox O2 Delivery O2 Flow Rate FiO2 01/28/17 10:30 94 Room Air 01/28/17 08:00 67 01/28/17 08:00 97.9 67 18 119/83 97 01/28/17 07:53 96 Nasal Cannula 1.00 01/28/17 04:15 64 01/28/17 04:00 96.4 67 16 119/78 98 01/28/17 00:30 71 01/28/17 00:00 96.5 74 16 127/80 95 01/27/17 21:33 93 Nasal Cannula 4.00 01/27/17 21:19 18 01/27/17 21:03 100 Nasal Cannula 2.00 01/27/17 20:30 76 01/27/17 20:00 97.4 77 16 123/75 99 01/27/17 18:30 92 01/27/17 17:00 97 Nasal Cannula 4.00 01/27/17 16:00 97.9 84 18 129/80 97 01/27/17 13:48 100 Nasal Cannula 3.00 01/27/17 01/27/17 01/28/17 15:00 23:00 07:00 Intake Total 240 ml 655 ml 800 ml Output Total 300 ml 500 ml 1050 ml Balance -60 ml 155 ml -250 ml Intake Oral 240 ml 800 ml IV Total 655 ml Output Urine Total 300 ml 500 ml 1050 ml # Voids 0 # Bowel Movements 0 . Laboratory Tests Test 01/27/17 03:58 White Blood Count 15.2 TH/MM3 Red Blood Count 4.28 MIL/MM3 Hemoglobin 12.7 GM/DL Hematocrit 37.9 % Mean Corpuscular Volume 88.5 FL Mean Corpuscular Hemoglobin 29.7 PG Mean Corpuscular Hemoglobin 33.6 % Concent Red Cell Distribution Width 14.1 % Platelet Count 589 TH/MM3 Mean Platelet Volume 6.9 FL Laboratory Tests Test 01/27/17 01/28/17 03:58 07:18 Sodium Level 131 MEQ/L Potassium Level 4.8 MEQ/L Chloride Level 99 MEQ/L Carbon Dioxide Level 21.8 MEQ/L Anion Gap 10 MEQ/L Blood Urea Nitrogen 11 MG/DL Creatinine 0.65 MG/DL Estimat Glomerular Filtration 166 ML/MIN Rate Random Glucose 103 MG/DL Calcium Level 8.6 MG/DL Lactate Dehydrogenase 201 U/L Imaging Last Impressions Chest X-Ray 01/24/17 0000 Signed Impressions: Service Date/Time: Tuesday, January 24, 2017 14:42 - CONCLUSION: Right middle lobe and lower lobe collapse not present previously with improvement in aeration of the left lung. Sneha Elizabeth MD CT Angiography 01/21/17 0000 Signed Impressions: Service Date/Time: Saturday, January 21, 2017 10:30 - CONCLUSION: 1. Alveolar consolidations involving lower lobes bilaterally and to a much lesser extent left upper lobe suggesting probable bilateral pneumonia. Clinical correlation is recommended. 2. No evidence of pulmonary embolism. 3. Tiny left pleural effusion. Alexandre Stewart MD Shoulder X-Ray 01/20/17 0000 Signed Impressions: Service Date/Time: Friday, January 20, 2017 20:45 - CONCLUSION: Avascular necrosis with subchondral fracture. David Jenkins MD Physical Exam GENERAL: This is a thin young male patient, in no apparent distress on nasal O2 SKIN: No jaundice, rashes, or lesions. Skin temperature appropriate. Not diaphoretic. EYES: Pupils equal and round and reactive. Extraocular motions intact. No scleral icterus. No injection or drainage. Fundi not examined. ENT: Hearing grossly normal. Oral mucosae with thick white patches cw thrush CARDIOVASCULAR: Regular rate and rhythm without murmurs, gallops, or rubs. No JVD. Peripheral pulses symmetric. RESPIRATORY/CHEST: Symmetric, unlabored respirations. Few rhonchi on R lung filed to auscultation. No wheezes GASTROINTESTINAL: Abdomen soft, non-tender, nondistended. No hepato-splenomegaly , or palpable masses. No guarding. Bowel sounds present. MUSCULOSKELETAL: Extremities without clubbing, cyanosis, or edema. No joint tenderness or effusion noted. NEUROLOGICAL: Non-focal PSYCHIATRIC: calm and cooperative LINE: NO evidence of infection Assessment & Plan Remarks HIV dz, on HAART per records, compliance is unknown - CD4 189 PNA (infiltrates, fever, leukocytosis, hypoxia), severe, multilobar - C/S normal resp john - MTB PCR neg - neg leg/pneumococcal/ influenza antigens - LDH normal; PCP less likely Oral thrush REC's; Continue Zithromax - change to po Change Rocephin to Ceftin Give 7 more days of oral Abx Stop Bactrim Also on steroids If stable, ok to D/C tomorrow and complete PNA Rx Give 7 days Diflucan for thrush Continue HAART - Rehan D/W Veena Tucker MD Jan 28, 2017 12:48
[2017-01-28] MEDS: PANTOPRAZOLE SODIUM 40 MG VIAL IV PUSH SCH (13:32)
[2017-01-28] MEDS: CEFUROXIME AXETIL 500 MG TAB PO SCH ×2 (13:32→22:13)
[2017-01-28] MEDS ORDERED: CEFU1TAB20 PO (15:50)
[2017-01-28] MEDS ORDERED: DIFL200T PO (15:50)
[2017-01-28] MEDS ORDERED: PRED5TAB PO (15:50)
--- NOTE | 2017-01-28 19:17 | HHI.PR ---
Subjective Remarks 41 YOAA amle with HIv, Br asthma, Bilat infilt Breathing better No Fever anxious to go homme Changed to PO Abx Objective Vital Signs Vital Signs Date Time Temp Pulse Resp B/P Pulse Ox O2 Delivery O2 Flow Rate FiO2 01/28/17 17:08 97 Nasal Cannula 2.00 01/28/17 16:00 97.8 87 18 133/63 95 01/28/17 12:00 97.6 87 18 117/69 94 01/28/17 10:30 94 Room Air 01/28/17 08:00 67 01/28/17 08:00 97.9 67 18 119/83 97 01/28/17 07:53 96 Nasal Cannula 1.00 01/28/17 04:15 64 01/28/17 04:00 96.4 67 16 119/78 98 01/28/17 00:30 71 01/28/17 00:00 96.5 74 16 127/80 95 01/27/17 21:33 93 Nasal Cannula 4.00 01/27/17 21:19 18 01/27/17 21:03 100 Nasal Cannula 2.00 01/27/17 20:30 76 01/27/17 20:00 97.4 77 16 123/75 99 I/O 01/27/17 01/27/17 01/27/17 01/28/17 01/28/17 01/28/17 06:59 14:59 22:59 06:59 14:59 22:59 Intake Total 1295 ml 895 ml 800 ml 480 ml Output Total 800 ml 800 ml 1050 ml 600 ml Balance 495 ml 95 ml -250 ml -120 ml Intake Oral 120 ml 240 ml 800 ml 480 ml IV Total 1175 ml 655 ml Output Urine Total 800 ml 800 ml 1050 ml 600 ml # Voids 0 # Bowel Movements 0 0 Result Diagram: 01/27/17 0358 01/27/17 0358 Objective Remarks GENERAL: WBWN AA male NAD SKIN: Warm and dry. HEAD: Normocephalic. EYES: No scleral icterus. No injection or drainage. NECK: Supple, trachea midline. No JVD or lymphadenopathy. CARDIOVASCULAR: Regular rate and rhythm without murmurs, gallops, or rubs. RESPIRATORY: Breath sounds equal bilaterally. No accessory muscle use. GASTROINTESTINAL: Abdomen soft, non-tender, nondistended. MUSCULOSKELETAL: No cyanosis, or edema. BACK: Nontender without obvious deformity. No CVA tenderness. A/P Assessment and Plan Bilat Lung infilt HIV Bronchial asthma Nicotine use Anxiety, depression PLAN: Cont Abx per ID Aerosol nebs PO Prednisone DC Plans for home Stable on RA Danial Humphrey MD Jan 28, 2017 19:17
[2017-01-28] MEDS: diphenhydrAMINE HCL 50 MG CAP PO PRN (22:13)
[2017-01-28] MEDS: AZITHROMYCIN 250 MG TAB PO SCH (22:13)
[2017-01-29] VITALS (12 sets, daily range): BP systolic 116–134; BP diastolic 71–98; PULSE 66–97; RESP 14–18; TEMP 96.3–97.5; O2SAT 95–100
[2017-01-29] MEDS ORDERED: DOCUSATE SODIUM 100 MG CAP PO ONE (05:00)
[2017-01-29] MEDS ORDERED: LACTULOSE SYRUP 20 GM/30 ML CUP PO PRN (05:00)
[2017-01-29] MEDS: PANTOPRAZOLE SODIUM 40 MG VIAL IV PUSH SCH ×2 (05:03→13:02)
[2017-01-29] MEDS: oxyCODONE/ACETAMINOPHEN 10 MG/325 MG TAB PO PRN ×3 (05:03→19:07)
--- NOTE | 2017-01-29 07:46 | HHI.PR ---
Subjective Remarks resting comfortably with no distress. remains afebrile. no new complaints. awaiting walk test. d/w the RN. Objective Vitals Vital Signs Date Time Temp Pulse Resp B/P Pulse Ox O2 Delivery O2 Flow Rate FiO2 01/29/17 05:10 100 Nasal Cannula 2.00 01/29/17 05:09 97.1 79 16 118/76 99 01/29/17 04:00 66 01/29/17 00:00 96.3 74 16 123/76 99 01/28/17 21:29 77 01/28/17 20:05 80 01/28/17 20:00 96.7 87 16 127/85 94 01/28/17 17:08 97 Nasal Cannula 2.00 01/28/17 16:00 97.8 87 18 133/63 95 01/28/17 12:00 97.6 87 18 117/69 94 01/28/17 10:30 94 Room Air 01/28/17 08:00 67 01/28/17 08:00 97.9 67 18 119/83 97 01/28/17 07:53 96 Nasal Cannula 1.00 I/O 01/28/17 01/28/17 01/28/17 01/29/17 01/29/17 01/29/17 07:00 15:00 23:00 07:00 15:00 23:00 Intake Total 800 ml 480 ml 350 ml 360 ml Output Total 1050 ml 600 ml 400 ml Balance -250 ml -120 ml 350 ml -40 ml Intake Oral 800 ml 480 ml 350 ml 360 ml Output Urine Total 1050 ml 600 ml 400 ml # Voids 1 # Bowel Movements 0 0 0 Result Diagram: 01/27/17 0358 01/27/17 0358 Imaging Last Impressions Chest X-Ray 01/26/17 0600 Signed Impressions: Service Date/Time: Thursday, January 26, 2017 05:28 - CONCLUSION: Better aeration the right lung base today's previous study. Retrocardiac infiltrate persists. Yordan Smith MD CT Angiography 01/21/17 0000 Signed Impressions: Service Date/Time: Saturday, January 21, 2017 10:30 - CONCLUSION: 1. Alveolar consolidations involving lower lobes bilaterally and to a much lesser extent left upper lobe suggesting probable bilateral pneumonia. Clinical correlation is recommended. 2. No evidence of pulmonary embolism. 3. Tiny left pleural effusion. Alexandre Stewart MD Shoulder X-Ray 01/20/17 0000 Signed Impressions: Service Date/Time: Friday, January 20, 2017 20:45 - CONCLUSION: Avascular necrosis with subchondral fracture. David Jenkins MD Objective Remarks GENERAL: in no apparent distress. CARDIOVASCULAR: Regular rate and regular rhythm without murmurs, gallops, or rubs. RESPIRATORY: bilateral rhonchi GASTROINTESTINAL: Abdomen soft, non-tender, nondistended. Normal, active bowel sounds MUSCULOSKELETAL: Extremities without clubbing, cyanosis, or edema. NEURO: Alert & Oriented x4 to person, place, time, situation. Moves all ext x4 Procedures none Medications and IVs Current Medications Albuterol/ Ipratropium (Duoneb Neb) 1 ampule Q15M INH Last administered on 01/20 23:26; Start 01/20/17 at 19:30; Stop 01/20/17 at 20:01; Status DC Methylprednisolone Sodium Succinate (SoluMEDROL INJ) 125 mg ONCE ONCE IM Last administered on 01/20/17 19:30; Start 01/20/17 at 19:30; Stop 01/20/17 at 19:31 ; Status DC Sodium Chloride 2 ml 2 ml UNSCH PRN IVF FLUSH AFTER USING IV ACCESS; Start at 20:00; Stop 01/20/17 at 22:21; Status DC Cefepime HCl 2000 mg/Sodium Chloride 100 ml @ 200 mls/hr ONCE ONCE IV Last administered on 01/20/17 22:48; Start 01/20/17 at 20:00; Stop 01/20/17 at 20:29 ; Status DC Azithromycin 500 mg/Sodium Chloride 250 ml @ 250 mls/hr ONCE ONCE IV Last administered on 01/20/17 21:40; Start 01/20/17 at 20:00; Stop 01/20/17 at 20:59 ; Status DC Sodium Chloride 1,000 ml @ 999 mls/hr BOLUS ONCE IV Last administered on 01/20 21:40; Start 01/20/17 at 20:00; Stop 01/20/17 at 21:00; Status DC Sodium Chloride (NS 1000 ml Inj) 1,000 ml @ 999 mls/hr BOLUS ONCE IV Last administered on 01/20/17 22:49; Start 01/20/17 at 21:30; Stop 01/20/17 at 22:30 ; Status DC Ibuprofen (Motrin) 800 mg ONCE ONCE PO Last administered on 01/20/17 22:36; Start 01/20/17 at 21:45; Stop 01/20/17 at 21:46; Status DC Sodium Chloride (NS Flush) 2 ml UNSCH PRN IV FLUSH FLUSH AFTER USING IV ACCESS ; Start 01/20/17 at 22:30 Sodium Chloride (NS Flush) 2 ml BID IV FLUSH Last administered on 01/28/17 22: 14; Start 01/21/17 at 09:00 Naloxone HCl (Narcan Inj) 0.4 mg UNSCH PRN IV SEE LABEL COMMENTS; Start at 22:30 Albuterol/ Ipratropium (Duoneb Neb) 1 ampule Q6HR NEB NEB Last administered on 01/24/17 21:14; Start 01/21/17 at 04:00; Stop 01/25/17 at 04:00; Status DC Albuterol/ Ipratropium 1 ampule 1 ampule Q2HR NEB PRN NEB wheezing Last administered on 01/28/17 20:11; Start 01/20/17 at 22:30 Cefepime HCl/ Sodium Chloride (Maxipime Inj/NS Inj) 100 ml @ 200 mls/hr Q12H IV Last administered on 01/27/17 09:11; Start 01/21/17 at 09:00; Stop at 14:32; Status DC Methylprednisolone Sodium Succinate (SoluMEDROL INJ) 40 mg Q6HR IV PUSH Last administered on 01/23/17 05:01; Start 01/21/17 at 06:00; Stop 01/23/17 at 11:39 ; Status DC Pantoprazole Sodium 40 mg 40 mg Q12H IV PUSH Last administered on 01/29/17 05: 03; Start 01/21/17 at 02:00 Trimethoprim/ Sulfamethoxazole 400 mg/Dextrose 525 ml @ 350 mls/hr Q6H IV Last administered on 01/21/17 02:56; Start 01/21/17 at 03:00; Stop 01/21/17 at 08:10; Status DC Trimethoprim/ Sulfamethoxazole/ Dextrose (Bactrim Inj/D5W 500 ml Inj) 499.75 ml @ 333.167 mls/hr Q6H IV Last administered on 01/27/17 12:19; Start 01/21/17 at 10:00; Stop 01/27/17 at 14:39; Status DC Influenza Virus Vaccine (Flu (Quadrivalent) Vaccine Inj) 0.5 ml ONCE ONCE IM ; Start 01/22/17 at 10:00; Stop 01/22/17 at 10:00; Status DC Enoxaparin Sodium 40 mg 40 mg Q24H SQ Last administered on 01/28/17 09:42; Start 01/21/17 at 09:00 Potassium Chloride 100 ml @ 50 mls/hr Q2H PRN IV For Potassium 2.8 - 3.2 mEq/L ; Start 01/21/17 at 08:30; Stop 01/24/17 at 07:46; Status DC Potassium Chloride (KCl 20 Meq Premix Inj) 100 ml @ 50 mls/hr Q2H PRN IV For Potassium 2.8 - 3.2 mEq/L; Start 01/21/17 at 08:30; Stop 01/24/17 at 07:46; Status DC Potassium Bicarb/ Potassium Chloride 50 meq 50 meq UNSCH PRN PO For Potassium 3.3 - 3.5 mEq/L Last administered on 01/21/17 09:09; Start 01/21/17 at 08:30; Stop 01/24/17 at 07:46; Status DC Potassium Chloride 100 ml @ 25 mls/hr UNSCH PRN IV For Potassium 3.3 - 3.5 mEq /L; Start 01/21/17 at 08:30; Stop 01/24/17 at 07:46; Status DC Potassium Chloride 100 ml @ 50 mls/hr Q2H PRN IV For Potassium 3.3 - 3.5 mEq/L ; Start 01/21/17 at 08:30; Stop 01/24/17 at 07:46; Status DC Magnesium Sulfate/ Sodium Chloride (Magnesium Sulfate Inj/NS Inj) 100 ml @ 50 mls/hr UNSCH PRN IV For Magnesium 0.9 - 1.1 mg/dL; Start 01/21/17 at 08:30; Stop 01/24/17 at 07:46; Status DC Magnesium Oxide 800 mg 800 mg UNSCH PRN PO For Magnesium 1.2 - 1.6 mg/dL; Start 01/21/17 at 08:30; Stop 01/24/17 at 07:46; Status DC Magnesium Sulfate/ Sodium Chloride (Magnesium Sulfate Inj/NS Inj) 100 ml @ 50 mls/hr UNSCH PRN IV For Magnesium 1.2 - 1.6 mg/dL; Start 01/21/17 at 08:30; Stop 01/24/17 at 07:46; Status DC Potassium Phosphate 2000 mg 2,000 mg Q4H PRN PO For Phosphorus < 2.5 mg/dL; Start 01/21/17 at 08:30; Stop 01/24/17 at 07:46; Status DC Sodium Phosphate/ Sodium Chloride (Sodium Phosphate Inj/NS 250 ml Inj) 250 ml @ 42 mls/hr UNSCH PRN IV For Phosphorus < 2.5 mg/dL; Start 01/21/17 at 08:30; Stop 01/24/17 at 07:46; Status DC Potassium Phosphate 2000 mg 2,000 mg UNSCH PRN PO/TUBE SEE LABEL COMMENTS; Start 01/21/17 at 08:30; Stop 01/24/17 at 07:46; Status DC Potassium Phosphate/Sodium Chloride (Potassium Phosphate Inj/NS 250 ml Inj) 260 ml @ 42 mls/hr UNSCH PRN IV SEE LABEL COMMENTS; Start 01/21/17 at 08:30; Stop 01/24/17 at 07:46; Status DC Iohexol (Omnipaque 350 Inj) 60 ml STK-MED ONCE IV Last administered on 10:41; Start 01/21/17 at 10:41; Stop 01/21/17 at 10:42; Status DC Potassium Chloride (KCl) 60 meq ONCE ONCE PO Last administered on 01/21/17 11 :52; Start 01/21/17 at 11:15; Stop 01/21/17 at 11:26; Status DC Potassium Chloride (KCl) 60 meq ONCE ONCE PO ; Start 01/21/17 at 11:45; Stop at 11:46; Status DC Elvitegravir/ Cobicis/Emtricit/ Tenof 1 tab 1 tab DAILY PO Last administered on 01/28/17 09:42; Start 01/21/17 at 14:00 Azithromycin/ Sodium Chloride (Zithromax Inj/ NS 250 ml Inj) 250 ml @ 250 mls/ hr Q24H IV Last administered on 01/26/17 21:11; Start 01/21/17 at 21:00; Stop 01/27/17 at 14:36; Status DC Patient Own Medication PT OWN MED: GENVOYA (Elvitegrav... DAILY PO ; Start 01/22 at 09:00; Status Hold Ibuprofen (Motrin) 600 mg Q8H PRN PO pain 1-10 Last administered on 01/22/17 10:03; Start 01/21/17 at 17:30; Status Hold Oxycodone/ Acetaminophen (Percocet 10-325 Mg) 1 tab Q6H PRN PO PAIN 1-10 Last administered on 01/29/17 05:03; Start 01/22/17 at 12:45 Nicotine (Habitrol 21 Mg Patch.24 Hr) 1 patch DAILY T-DERMAL Last administered on 01/28/17 09:42; Start 01/22/17 at 13:00 Diphenhydramine HCl (Benadryl) 50 mg HS PRN PO INSOMNIA Last administered on 22:13; Start 01/22/17 at 12:45 Methylprednisolone Sodium Succinate (SoluMEDROL INJ) 20 mg Q8HR IV PUSH Last administered on 01/27/17 13:37; Start 01/23/17 at 14:00; Stop 01/27/17 at 15:43 ; Status DC Fluconazole 200 mg 200 mg DAILY PO Last administered on 01/28/17 09:42; Start 01/24/17 at 19:30 Ceftriaxone Sodium/Sodium Chloride (Rocephin Inj/NS Inj) 100 ml @ 200 mls/hr Q24H IV Last administered on 01/27/17 16:21; Start 01/27/17 at 15:00; Stop 01/28/17 at 12:50; Status DC Azithromycin (Zithromax) 500 mg Q24H PO Last administered on 01/28/17 22:13; Start 01/27/17 at 21:00; Stop 02/03/17 at 12:00 Trimethoprim/ Sulfamethoxazole (Bactrim Ds 800-160 Mg) 2 tab Q6HR PO Last administered on 01/28/17 06:07; Start 01/27/17 at 18:00; Stop 01/28/17 at 10:17; Status DC Prednisone (Deltasone) 20 mg DAILY PO Last administered on 01/28/17 09:42; Start 01/28/17 at 09:00 Cefuroxime Axetil (Ceftin) 500 mg Q12HR PO Last administered on 01/28/17 22:13 ; Start 01/28/17 at 13:00; Stop 02/03/17 at 12:00 Docusate Sodium (Colace) 100 mg TID PO ; Start 01/29/17 at 09:00 Docusate Sodium (Colace) 100 mg ONCE ONCE PO Last administered on 01/29/17 05: 02; Start 01/29/17 at 05:00; Stop 01/29/17 at 05:01; Status DC Lactulose (Lactulose Liq) 30 ml ONCE PRN PO constipation; Start 01/29/17 at 05: 00; Stop 01/30/17 at 04:59 A/P Assessment and Plan A/p Respiratory failure with hypoxia- improved. -Chest x-ray to suggest pneumonia. CT scan of chest showed alveolar consolidations involving lower lobes bilaterally and to a much lesser extent left upper lobe suggesting probable bilateral pneumonia. -Improving. See treatment as below. -Patient was put on steroids will transition to oral steroids. -Sputum culture negative. -[employer] follow-up appreciated. -walk test today. Bilateral pneumonia -CD4 189. -Infectious disease following. -Patient switched to po ceftin and zithromax. - MTB PCR negative. Oral thrush; continue Diflucan hx of HIV -continue Stribild -ID consulted and ff. 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 Decondition -Patient is very weak. He was assessed by physical therapist they recommended acute rehabilitation. Patient still declining acute rehabilitation. Discharge Planning dc home- likely later today- pending the walk test. see med list. f/u; pcp,ortho. d/w the patient and RN. previously d/w . time spent 35 min. Edward Baires MD Jan 29, 2017 07:46
--- NOTE | 2017-01-29 07:53 | HHI.DCPOC ---
Discharge Care Plan Diagnosis: (1) Acute hypoxemic respiratory failure Your Health Problems Are: Cough Shortness of Breath Goals to Promote Your Health * To prevent worsening of your condition and complications * To maintain your health at the optimal level Directions to Meet Your Goals Take your medications as prescribed Follow your dietary instruction Follow activity as directed Keep your appointments as scheduled Take your immunizations and boosters as scheduled If your symptoms worsen call your PCP, if no PCP go to Urgent Care Center or Emergency Room Smoking is Dangerous to Your Health. Avoid second hand smoke Call the 24-hour hour crisis hotline for domestic abuse at Edward Baires MD Jan 29, 2017 07:53
--- NOTE | 2017-01-29 07:55 | HHI.DS ---
Discharge Summary Admission Date Jan 20, 2017 at 22:03 Discharge Date: Jan 29, 2017 Admitting Diagnosis sepsis, pneumonia, avascular necrosis, HIV (1) Acute hypoxemic respiratory failure ICD Code: J96.01 Diagnosis: Principal (2) Avascular necrosis ICD Code: M87.00 Diagnosis: Secondary (3) Pneumonia ICD Code: J18.9 Diagnosis: Principal (4) HIV (human immunodeficiency virus infection) ICD Code: B20 Diagnosis: Secondary Procedures none Brief History - From Admission hx from patient and ER PA communication and review of medical records. Patient was on BiPAP at the time of my exam. Patient is awake and alert. However is quite tired from his acute illness and would only answer yes or no questions. However he was much more alert prior to my arrival and was given complaining about not having his dinner. He tells me that he came to hospital because he was short of breath. He denies other symptoms though. Specifically, he denies any chest pain/ palpitations/nausea/vomiting/diarrhea/urinary burning or pain on urination. He answers no when asked about cough and sputum production. Again, he seems that he is just not interested in answering questions. He denies fever. He does however have documented fever while in emergency room of 102.4. He denies any blood in his stool or his urine. He does report that he has HIV. He does not know his CD4 count. Does not know his medications names. But tells me that he does take his medications regularly and that he follows up with Dr. Olivo at [facility]. When asked about AIDS defining illnesses, he denies everything. Again, patient is quite poor historian. In the emergency room, patient initially arrived with acute respiratory distress and was stating of history of asthma. However on his examination by ER PA, his lungs were sounding more of congestion/ pulmonary edema. He was given nebulizer treatments, steroids, with not much improvement. He was then given antibiotics broad-spectrum. Nursing staff then called me with patient's status because he was not improving much and that his O2 saturations would easily go down and she was requiring nonrebreather. He was again still looking tachycardic, with significant work of breathing. However has placed him on BiPAP prior to my arrival. CBC/BMP: 01/27/17 0358 01/27/17 0358 Significant Findings Laboratory Tests Test 01/26/17 01/27/17 16:49 03:58 Blood Gas HCO3 21 mmol/L (22-26) Blood Gas Base Excess -2.5 mmol/L (-2-2) Arterial Blood pH 7.44 (7.380-7.420) Arterial Blood Partial 32 mmHg (38-42) Pressure CO2 Arterial Blood Partial 139 mmHg Pressure O2 (61-120) White Blood Count 15.2 TH/MM3 (4.0-11.0) Red Blood Count 4.28 MIL/MM3 (4.50-5.90) Hemoglobin 12.7 GM/DL (13.0-17.0) Hematocrit 37.9 % (39.0-51.0) Platelet Count 589 TH/MM3 (150-450) Mean Platelet Volume 6.9 FL (7.0-11.0) Sodium Level 131 MEQ/L (136-145) Imaging Last Impressions Chest X-Ray 01/26/17 0600 Signed Impressions: Service Date/Time: Thursday, January 26, 2017 05:28 - CONCLUSION: Better aeration the right lung base today's previous study. Retrocardiac infiltrate persists. Yordan Smith MD CT Angiography 01/21/17 0000 Signed Impressions: Service Date/Time: Saturday, January 21, 2017 10:30 - CONCLUSION: 1. Alveolar consolidations involving lower lobes bilaterally and to a much lesser extent left upper lobe suggesting probable bilateral pneumonia. Clinical correlation is recommended. 2. No evidence of pulmonary embolism. 3. Tiny left pleural effusion. Alexandre Stewart MD Shoulder X-Ray 01/20/17 0000 Signed Impressions: Service Date/Time: Friday, January 20, 2017 20:45 - CONCLUSION: Avascular necrosis with subchondral fracture. David Jenkins MD PE at Discharge GENERAL: in no apparent distress. CARDIOVASCULAR: Regular rate and regular rhythm without murmurs, gallops, or rubs. RESPIRATORY: bilateral rhonchi GASTROINTESTINAL: Abdomen soft, non-tender, nondistended. Normal, active bowel sounds MUSCULOSKELETAL: Extremities without clubbing, cyanosis, or edema. NEURO: Alert & Oriented x4 to person, place, time, situation. Moves all ext x4 Hospital Course Respiratory failure with hypoxia- improved. -Chest x-ray to suggest pneumonia. CT scan of chest showed alveolar consolidations involving lower lobes bilaterally and to a much lesser extent left upper lobe suggesting probable bilateral pneumonia. -Improving. See treatment as below. -Patient was put on steroids will transition to oral steroids. -Sputum culture negative. -Anesthesiology Physician follow-up appreciated. Bilateral pneumonia -CD4 189. -Infectious disease following. -Patient switched to po ceftin and zithromax. - MTB PCR negative. Oral thrush; continue Diflucan hx of HIV -continue Stribild -ID consulted and ff. 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 Decondition -Patient is very weak. He was assessed by physical therapist they recommended acute rehabilitation. Patient still declining acute rehabilitation. Pt Condition on Discharge: Fair Discharge Disposition: Rehab Inpatient Discharge Time: > 30 minutes Discharge Instructions DIET: Follow Instructions for: Heart Healthy Diet Activities you can perform: Regular-No Restrictions Follow up Referrals: Orthopedics PCP Follow-up New Medications: Azithromycin (Zithromax) 500 Mg Tab 500 MG PO DAILY Infection Days 7 Ref 0 TAB Prednisone (Prednisone) 5 Mg Tab 5 MG PO DIRECTED 10 mg po daily for two days then 5 mg po daily for two days then stop. Shortness of Breath Days 4 Ref 0 TAB Cefuroxime (Cefuroxime) 500 Mg Tab 500 MG PO Q12HR pneumonia Days 7 Ref 0 TAB Fluconazole (Diflucan) 200 Mg Tab 200 MG PO DAILY thrush Days 7 Ref 0 TAB Continued Medications: Albuterol Sulfate 8 GM Inhaler (Ventolin Hfa) 8 Gm Aero 1 PUFF INH Q4H * SHAKE WELL BEFORE USE * PRN SOB/WHEEZING #1 Ref 1 BOX Tttfnobbxsdv-Hdovehduee-Axovum (Stribild) Tab Sxlohiskkvgf-Dlnximnhjk-Xgisgeenrhcz-Tenofvir (Genvoya) [phone] Mg Tab 1 TAB PO DAILY Mgmt Viral Infection #30 Ref 0 TAB Gabapentin (Neurontin) 300 Mg Cap 300 MG PO TID #30 CAP Hydrocodone/Acetaminophen 10 mg/325 mg (Lortab 10 mg/325 mg) 1 Tab 1 TAB PO TID PRN PAIN TAB Hydrocodone/Acetaminophen 5 mg/325 mg (Lortab 5 mg/325 mg) 1 Tab 1 TAB PO Q6H PRN PAIN #15 TAB Ofloxacin (Floxin) 0.3 % Soln 5 DROP EACH EAR BID Days 7 ML Pregabalin (Lyrica) 100 Mg Cap Discontinued Medications: Amoxicillin (Amoxicillin) 875 Mg Tab 875 MG PO BID Days 10 TAB Azithromycin (Zithromax Z-Chris) 250 Mg Tab 250 MG PO DIRECTED 500 MG (2 TABLETS) PO ON DAY 1, THEN 250 MG (1 TABLET) PO ON DAYS 2 TO 5. Days 5 TAB Diclofenac Sod (Diclofenac Sodium Dr) 75 Mg Tab 75 MG PO BID PRN PAIN #14 TAB Lisinopril 2.5 mg (Lisinopril 2.5 mg) 2.5 Mg Tab 1 TAB PO DAILY TAB Methylprednisolone (Medrol Dosepak) 4 Mg Chris 4 MG PO DIRECTED TAKE DIRECTED #1 CHRIS Naproxen Sodium (Naproxen Sodium Ds) 550 Mg Tab 550 MG PO BID #20 TAB Edward Baires MD Jan 29, 2017 07:55
--- NOTE | 2017-01-29 07:56 | HHI.FF ---
Face to Face Verification Diagnosis: (1) Acute hypoxemic respiratory failure (2) Pneumonia Physical Therapy Order: Evaluate and Treat Home Health Nursing Order: Medical education Signs/symptoms of disease process Medication education-adverse effect Nursing assessment with vital signs I have seen patient Shane Vega on 01/29/17. My clinical findings support the need for the requested home health care services because: Ltd mobility - disease progression I certify that my clinical findings support that this patient is homebound because: Unsteady gait/balance Edward Baires MD Jan 29, 2017 07:56
[2017-01-29] MEDS: DOCUSATE SODIUM 100 MG CAP PO SCH ×3 (08:51→17:44)
[2017-01-29] MEDS: FLUCONAZOLE 200 MG TAB PO SCH (08:52)
[2017-01-29] MEDS: ELVIT/COBI/EMTR/TENOF 150/150/200/300 MG TABLETS PO SCH (08:52)
[2017-01-29] MEDS: CEFUROXIME AXETIL 500 MG TAB PO SCH ×2 (08:52→20:35)
[2017-01-29] MEDS: ENOXAPARIN SODIUM 40 MG/0.4 ML SYRINGE SQ SCH (08:52)
[2017-01-29] MEDS: predniSONE 20 MG TAB PO SCH (08:52)
[2017-01-29] MEDS: NICOTINE 21 MG/24 HR PATCH T-DERMAL SCH (08:53)
[2017-01-29] MEDS: SODIUM CHLORIDE 0.9% FLUSH 10 ML FLUSH IV FLUSH SCH ×2 (08:53→20:36)
[2017-01-29] MEDS: RESP: ALBUTEROL 2.5 MG/IPRATROPIUM 0.5 MG NEB (PRN) NEB ×2 (10:16→20:49)
--- NOTE | 2017-01-29 13:09 | HHI.PR ---
Addendum To [facility] Progress Not Reason for addendum: Additonal documentation (patient failed the walk test- easily desaturates with minimal exertion- not ready for discharge yet- will continue to monitor closely and trial of tapering down the oxygen.) Edward Baires MD Jan 29, 2017 13:09
--- NOTE | 2017-01-29 20:05 | HHI.PR ---
Subjective Remarks 41 YOAA amle with HIv, Br asthma, Bilat infilt Breathing better No Fever Changed to PO Abx Desaturates, on 02 Wants to go to rehab Objective Vital Signs Vital Signs Date Time Temp Pulse Resp B/P Pulse Ox O2 Delivery O2 Flow Rate FiO2 01/29/17 18:07 Nasal Cannula 5.00 01/29/17 16:45 87 01/29/17 16:00 97.5 97 18 134/98 97 01/29/17 12:31 91 01/29/17 12:00 97 Nasal Cannula 5.00 01/29/17 11:45 97.4 90 14 127/89 98 01/29/17 11:00 95 Nasal Cannula 5.00 01/29/17 08:55 97 Nasal Cannula 1.00 01/29/17 08:00 96.9 75 16 121/77 98 01/29/17 08:00 73 01/29/17 05:10 100 Nasal Cannula 2.00 01/29/17 05:09 97.1 79 16 118/76 99 01/29/17 04:00 66 01/29/17 00:00 96.3 74 16 123/76 99 01/28/17 21:29 77 01/28/17 20:05 80 I/O 01/28/17 01/28/17 01/28/17 01/29/17 01/29/17 01/29/17 07:00 15:00 23:00 07:00 15:00 23:00 Intake Total 800 ml 480 ml 350 ml 360 ml 360 ml Output Total 1050 ml 600 ml 400 ml 350 ml Balance -250 ml -120 ml 350 ml -40 ml 10 ml Intake Oral 800 ml 480 ml 350 ml 360 ml 360 ml Output Urine Total 1050 ml 600 ml 400 ml 350 ml # Voids 1 # Bowel Movements 0 0 0 0 Result Diagram: 01/27/17 0358 01/27/17 0358 Objective Remarks GENERAL: WBWN AA male NAD SKIN: Warm and dry. HEAD: Normocephalic. EYES: No scleral icterus. No injection or drainage. NECK: Supple, trachea midline. No JVD or lymphadenopathy. CARDIOVASCULAR: Regular rate and rhythm without murmurs, gallops, or rubs. RESPIRATORY: Breath sounds equal bilaterally. No accessory muscle use. GASTROINTESTINAL: Abdomen soft, non-tender, nondistended. MUSCULOSKELETAL: No cyanosis, or edema. BACK: Nontender without obvious deformity. No CVA tenderness. A/P Assessment and Plan Bilat Lung infilt HIV Bronchial asthma Nicotine use Anxiety, depression PLAN: Cont Abx per ID Aerosol nebs PO Prednisone DC Plans for home Supplement 02 to keep sat >90% Danial Humphrey MD Jan 29, 2017 20:05
[2017-01-29] MEDS: AZITHROMYCIN 250 MG TAB PO SCH (20:35)
[2017-01-30] VITALS (8 sets, daily range): BP systolic 115–129; BP diastolic 73–78; PULSE 71–93; RESP 16–20; TEMP 96.1–97.7; O2SAT 96–100
[2017-01-30] MEDS: oxyCODONE/ACETAMINOPHEN 10 MG/325 MG TAB PO PRN ×4 (05:22→23:18)
[2017-01-30] MEDS: PANTOPRAZOLE SODIUM 40 MG VIAL IV PUSH SCH ×2 (05:22→12:37)
[2017-01-30] MEDS: CEFUROXIME AXETIL 500 MG TAB PO SCH ×2 (07:54→20:53)
[2017-01-30] MEDS: NICOTINE 21 MG/24 HR PATCH T-DERMAL SCH (07:54)
[2017-01-30] MEDS: predniSONE 20 MG TAB PO SCH (07:54)
[2017-01-30] MEDS: ENOXAPARIN SODIUM 40 MG/0.4 ML SYRINGE SQ SCH (07:54)
[2017-01-30] MEDS: DOCUSATE SODIUM 100 MG CAP PO SCH ×3 (07:54→17:44)
[2017-01-30] MEDS: FLUCONAZOLE 200 MG TAB PO SCH (07:55)
[2017-01-30] MEDS: ELVIT/COBI/EMTR/TENOF 150/150/200/300 MG TABLETS PO SCH (07:55)
[2017-01-30] MEDS: SODIUM CHLORIDE 0.9% FLUSH 10 ML FLUSH IV FLUSH SCH ×2 (07:56→21:00)
[2017-01-30] MEDS: RESP: ALBUTEROL 2.5 MG/IPRATROPIUM 0.5 MG NEB (PRN) NEB ×3 (08:05→23:31)
--- NOTE | 2017-01-30 11:16 | HHI.PR ---
Subjective Remarks in no acute distress. afebrile. no new complaints. d/w the RN and no acute issues over night. Objective Vitals Vital Signs Date Time Temp Pulse Resp B/P Pulse Ox O2 Delivery O2 Flow Rate FiO2 01/30/17 08:06 96 Nasal Cannula 2.00 01/30/17 08:00 96.9 93 18 122/73 99 01/30/17 04:00 96.1 80 16 124/78 100 01/30/17 03:14 Nasal Cannula 3.00 01/30/17 00:00 96.4 71 16 115/74 100 01/29/17 20:09 88 01/29/17 20:00 96.9 89 16 116/71 99 01/29/17 18:07 Nasal Cannula 5.00 01/29/17 16:45 87 01/29/17 16:00 97.5 97 18 134/98 97 01/29/17 12:31 91 01/29/17 12:00 97 Nasal Cannula 5.00 01/29/17 11:45 97.4 90 14 127/89 98 I/O 01/29/17 01/29/17 01/29/17 01/30/17 01/30/17 01/30/17 07:00 15:00 23:00 07:00 15:00 23:00 Intake Total 360 ml 360 ml 660 ml Output Total 400 ml 350 ml 300 ml Balance -40 ml 10 ml 360 ml Intake Oral 360 ml 360 ml 660 ml Output Urine Total 400 ml 350 ml 300 ml # Voids 1 # Bowel Movements 0 0 0 Result Diagram: 01/27/17 0358 01/27/17 0358 Imaging Last Impressions Chest X-Ray 01/26/17 0600 Signed Impressions: Service Date/Time: Thursday, January 26, 2017 05:28 - CONCLUSION: Better aeration the right lung base today's previous study. Retrocardiac infiltrate persists. Yordan Smith MD CT Angiography 01/21/17 0000 Signed Impressions: Service Date/Time: Saturday, January 21, 2017 10:30 - CONCLUSION: 1. Alveolar consolidations involving lower lobes bilaterally and to a much lesser extent left upper lobe suggesting probable bilateral pneumonia. Clinical correlation is recommended. 2. No evidence of pulmonary embolism. 3. Tiny left pleural effusion. Alexandre Stewart MD Shoulder X-Ray 01/20/17 0000 Signed Impressions: Service Date/Time: Friday, January 20, 2017 20:45 - CONCLUSION: Avascular necrosis with subchondral fracture. David Jenkins MD Objective Remarks GENERAL: in no apparent distress. CARDIOVASCULAR: Regular rate and regular rhythm without murmurs, gallops, or rubs. RESPIRATORY: bilateral air entry present. GASTROINTESTINAL: Abdomen soft, non-tender, nondistended. Normal, active bowel sounds MUSCULOSKELETAL: Extremities without clubbing, cyanosis, or edema. NEURO: Alert & Oriented x4 to person, place, time, situation. Moves all ext x4 Procedures none Medications and IVs Current Medications Albuterol/ Ipratropium (Duoneb Neb) 1 ampule Q15M INH Last administered on 01/20 23:26; Start 01/20/17 at 19:30; Stop 01/20/17 at 20:01; Status DC Methylprednisolone Sodium Succinate (SoluMEDROL INJ) 125 mg ONCE ONCE IM Last administered on 01/20/17 19:30; Start 01/20/17 at 19:30; Stop 01/20/17 at 19:31 ; Status DC Sodium Chloride 2 ml 2 ml UNSCH PRN IVF FLUSH AFTER USING IV ACCESS; Start at 20:00; Stop 01/20/17 at 22:21; Status DC Cefepime HCl 2000 mg/Sodium Chloride 100 ml @ 200 mls/hr ONCE ONCE IV Last administered on 01/20/17 22:48; Start 01/20/17 at 20:00; Stop 01/20/17 at 20:29 ; Status DC Azithromycin 500 mg/Sodium Chloride 250 ml @ 250 mls/hr ONCE ONCE IV Last administered on 01/20/17 21:40; Start 01/20/17 at 20:00; Stop 01/20/17 at 20:59 ; Status DC Sodium Chloride 1,000 ml @ 999 mls/hr BOLUS ONCE IV Last administered on 01/20 21:40; Start 01/20/17 at 20:00; Stop 01/20/17 at 21:00; Status DC Sodium Chloride (NS 1000 ml Inj) 1,000 ml @ 999 mls/hr BOLUS ONCE IV Last administered on 01/20/17 22:49; Start 01/20/17 at 21:30; Stop 01/20/17 at 22:30 ; Status DC Ibuprofen (Motrin) 800 mg ONCE ONCE PO Last administered on 01/20/17 22:36; Start 01/20/17 at 21:45; Stop 01/20/17 at 21:46; Status DC Sodium Chloride (NS Flush) 2 ml UNSCH PRN IV FLUSH FLUSH AFTER USING IV ACCESS ; Start 01/20/17 at 22:30 Sodium Chloride (NS Flush) 2 ml BID IV FLUSH Last administered on 01/30/17 07: 56; Start 01/21/17 at 09:00 Naloxone HCl (Narcan Inj) 0.4 mg UNSCH PRN IV SEE LABEL COMMENTS; Start at 22:30 Albuterol/ Ipratropium (Duoneb Neb) 1 ampule Q6HR NEB NEB Last administered on 01/24/17 21:14; Start 01/21/17 at 04:00; Stop 01/25/17 at 04:00; Status DC Albuterol/ Ipratropium 1 ampule 1 ampule Q2HR NEB PRN NEB wheezing Last administered on 01/30/17 08:05; Start 01/20/17 at 22:30 Cefepime HCl/ Sodium Chloride (Maxipime Inj/NS Inj) 100 ml @ 200 mls/hr Q12H IV Last administered on 01/27/17 09:11; Start 01/21/17 at 09:00; Stop at 14:32; Status DC Methylprednisolone Sodium Succinate (SoluMEDROL INJ) 40 mg Q6HR IV PUSH Last administered on 01/23/17 05:01; Start 01/21/17 at 06:00; Stop 01/23/17 at 11:39 ; Status DC Pantoprazole Sodium 40 mg 40 mg Q12H IV PUSH Last administered on 01/30/17 05: 22; Start 01/21/17 at 02:00 Trimethoprim/ Sulfamethoxazole 400 mg/Dextrose 525 ml @ 350 mls/hr Q6H IV Last administered on 01/21/17 02:56; Start 01/21/17 at 03:00; Stop 01/21/17 at 08:10; Status DC Trimethoprim/ Sulfamethoxazole/ Dextrose (Bactrim Inj/D5W 500 ml Inj) 499.75 ml @ 333.167 mls/hr Q6H IV Last administered on 01/27/17 12:19; Start 01/21/17 at 10:00; Stop 01/27/17 at 14:39; Status DC Influenza Virus Vaccine (Flu (Quadrivalent) Vaccine Inj) 0.5 ml ONCE ONCE IM ; Start 01/22/17 at 10:00; Stop 01/22/17 at 10:00; Status DC Enoxaparin Sodium 40 mg 40 mg Q24H SQ Last administered on 01/30/17 07:54; Start 01/21/17 at 09:00 Potassium Chloride 100 ml @ 50 mls/hr Q2H PRN IV For Potassium 2.8 - 3.2 mEq/L ; Start 01/21/17 at 08:30; Stop 01/24/17 at 07:46; Status DC Potassium Chloride (KCl 20 Meq Premix Inj) 100 ml @ 50 mls/hr Q2H PRN IV For Potassium 2.8 - 3.2 mEq/L; Start 01/21/17 at 08:30; Stop 01/24/17 at 07:46; Status DC Potassium Bicarb/ Potassium Chloride 50 meq 50 meq UNSCH PRN PO For Potassium 3.3 - 3.5 mEq/L Last administered on 01/21/17 09:09; Start 01/21/17 at 08:30; Stop 01/24/17 at 07:46; Status DC Potassium Chloride 100 ml @ 25 mls/hr UNSCH PRN IV For Potassium 3.3 - 3.5 mEq /L; Start 01/21/17 at 08:30; Stop 01/24/17 at 07:46; Status DC Potassium Chloride 100 ml @ 50 mls/hr Q2H PRN IV For Potassium 3.3 - 3.5 mEq/L ; Start 01/21/17 at 08:30; Stop 01/24/17 at 07:46; Status DC Magnesium Sulfate/ Sodium Chloride (Magnesium Sulfate Inj/NS Inj) 100 ml @ 50 mls/hr UNSCH PRN IV For Magnesium 0.9 - 1.1 mg/dL; Start 01/21/17 at 08:30; Stop 01/24/17 at 07:46; Status DC Magnesium Oxide 800 mg 800 mg UNSCH PRN PO For Magnesium 1.2 - 1.6 mg/dL; Start 01/21/17 at 08:30; Stop 01/24/17 at 07:46; Status DC Magnesium Sulfate/ Sodium Chloride (Magnesium Sulfate Inj/NS Inj) 100 ml @ 50 mls/hr UNSCH PRN IV For Magnesium 1.2 - 1.6 mg/dL; Start 01/21/17 at 08:30; Stop 01/24/17 at 07:46; Status DC Potassium Phosphate 2000 mg 2,000 mg Q4H PRN PO For Phosphorus < 2.5 mg/dL; Start 01/21/17 at 08:30; Stop 01/24/17 at 07:46; Status DC Sodium Phosphate/ Sodium Chloride (Sodium Phosphate Inj/NS 250 ml Inj) 250 ml @ 42 mls/hr UNSCH PRN IV For Phosphorus < 2.5 mg/dL; Start 01/21/17 at 08:30; Stop 01/24/17 at 07:46; Status DC Potassium Phosphate 2000 mg 2,000 mg UNSCH PRN PO/TUBE SEE LABEL COMMENTS; Start 01/21/17 at 08:30; Stop 01/24/17 at 07:46; Status DC Potassium Phosphate/Sodium Chloride (Potassium Phosphate Inj/NS 250 ml Inj) 260 ml @ 42 mls/hr UNSCH PRN IV SEE LABEL COMMENTS; Start 01/21/17 at 08:30; Stop 01/24/17 at 07:46; Status DC Iohexol (Omnipaque 350 Inj) 60 ml STK-MED ONCE IV Last administered on 10:41; Start 01/21/17 at 10:41; Stop 01/21/17 at 10:42; Status DC Potassium Chloride (KCl) 60 meq ONCE ONCE PO Last administered on 01/21/17 11 :52; Start 01/21/17 at 11:15; Stop 01/21/17 at 11:26; Status DC Potassium Chloride (KCl) 60 meq ONCE ONCE PO ; Start 01/21/17 at 11:45; Stop at 11:46; Status DC Elvitegravir/ Cobicis/Emtricit/ Tenof 1 tab 1 tab DAILY PO Last administered on 01/30/17 07:55; Start 01/21/17 at 14:00 Azithromycin/ Sodium Chloride (Zithromax Inj/ NS 250 ml Inj) 250 ml @ 250 mls/ hr Q24H IV Last administered on 01/26/17 21:11; Start 01/21/17 at 21:00; Stop 01/27/17 at 14:36; Status DC Patient Own Medication PT OWN MED: GENVOYA (Elvitegrav... DAILY PO ; Start 01/22 at 09:00; Status Hold Ibuprofen (Motrin) 600 mg Q8H PRN PO pain 1-10 Last administered on 01/22/17 10:03; Start 01/21/17 at 17:30; Status Hold Oxycodone/ Acetaminophen (Percocet 10-325 Mg) 1 tab Q6H PRN PO PAIN 1-10 Last administered on 01/30/17 05:22; Start 01/22/17 at 12:45 Nicotine (Habitrol 21 Mg Patch.24 Hr) 1 patch DAILY T-DERMAL Last administered on 01/30/17 07:54; Start 01/22/17 at 13:00 Diphenhydramine HCl (Benadryl) 50 mg HS PRN PO INSOMNIA Last administered on 22:13; Start 01/22/17 at 12:45 Methylprednisolone Sodium Succinate (SoluMEDROL INJ) 20 mg Q8HR IV PUSH Last administered on 01/27/17 13:37; Start 01/23/17 at 14:00; Stop 01/27/17 at 15:43 ; Status DC Fluconazole 200 mg 200 mg DAILY PO Last administered on 01/30/17 07:55; Start 01/24/17 at 19:30 Ceftriaxone Sodium/Sodium Chloride (Rocephin Inj/NS Inj) 100 ml @ 200 mls/hr Q24H IV Last administered on 01/27/17 16:21; Start 01/27/17 at 15:00; Stop 01/28/17 at 12:50; Status DC Azithromycin (Zithromax) 500 mg Q24H PO Last administered on 01/29/17 20:35; Start 01/27/17 at 21:00; Stop 02/03/17 at 12:00 Trimethoprim/ Sulfamethoxazole (Bactrim Ds 800-160 Mg) 2 tab Q6HR PO Last administered on 01/28/17 06:07; Start 01/27/17 at 18:00; Stop 01/28/17 at 10:17; Status DC Prednisone (Deltasone) 20 mg DAILY PO Last administered on 01/30/17 07:54; Start 01/28/17 at 09:00 Cefuroxime Axetil (Ceftin) 500 mg Q12HR PO Last administered on 01/30/17 07:54 ; Start 01/28/17 at 13:00; Stop 02/03/17 at 12:00 Docusate Sodium (Colace) 100 mg TID PO Last administered on 01/30/17 07:54; Start 01/29/17 at 09:00 Docusate Sodium (Colace) 100 mg ONCE ONCE PO Last administered on 01/29/17 05: 02; Start 01/29/17 at 05:00; Stop 01/29/17 at 05:01; Status DC Lactulose (Lactulose Liq) 30 ml ONCE PRN PO constipation Last administered on 12:57; Start 01/29/17 at 05:00; Stop 01/30/17 at 04:59; Status DC A/P Assessment and Plan A/p Respiratory failure with hypoxia- improved. -Chest x-ray to suggest pneumonia. CT scan of chest showed alveolar consolidations involving lower lobes bilaterally and to a much lesser extent left upper lobe suggesting probable bilateral pneumonia. -Improving. See treatment as below. -Patient was put on steroids will transition to oral steroids. -Sputum culture negative. -Child Specialist follow-up appreciated. -failed the walk test. Bilateral pneumonia -CD4 189. -Infectious disease following. -Patient switched to po ceftin and zithromax. - MTB PCR negative. Oral thrush; continue Diflucan hx of HIV -continue Stribild -ID consulted and ff. 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 Decondition -Patient is very weak. He was assessed by physical therapist they recommended acute rehabilitation. Patient still declining acute rehabilitation. Discharge Planning dc to inpatient rehab. see med list. f/u; pcp,ortho. d/w the patient and RN. previously d/w . time spent 35 min. Edward Baires MD Jan 30, 2017 11:15
[2017-01-30] MEDS ORDERED: LACTULOSE SYRUP 20 GM/30 ML CUP PO ONE (11:30)
--- NOTE | 2017-01-30 17:49 | RADRPT ---
EXAM DATE/TIME: 01/30/2017 16:46 [facility] COMPARISON: No previous studies available for comparison. INDICATIONS : Obstruction- no bowel movement in 7 days. MEDICAL HISTORY : Brain tumor, Asthma. SURGICAL HISTORY : Brain tumor removed. ENCOUNTER: Subsequent ACUITY: 1 week PAIN SCORE: 0/10 LOCATION: Abdomen. FINDINGS: Stool noted throughout the colon. No significant dilated loops of small bowel. No gross free air or p neumatosis. No abnormal calcifications. Extensive degenerative changes of the hips bilaterally. CONCLUSION: 1. Findings consistent with constipation. Sarwat Walker MD on January 30, 2017 at 17:45 Board Certified Radiologist. This report was verified electronically.
[2017-01-30] MEDS ORDERED: SOD PHOSPHATE/SOD BIPHOSPHATE (ADULT) ENEMA 133ML RECTAL ONE (19:45)
--- NOTE | 2017-01-30 19:54 | HHI.PR ---
Subjective Remarks 41 YOAA amle with HIv, Br asthma, Bilat infilt Breathing better No Fever Changed to PO Abx Desaturates, on 02 Objective Vital Signs Vital Signs Date Time Temp Pulse Resp B/P Pulse Ox O2 Delivery O2 Flow Rate FiO2 01/30/17 16:00 96.5 91 18 129/74 100 01/30/17 12:00 97.0 84 16 120/73 98 01/30/17 09:15 96 Nasal Cannula 2.00 01/30/17 08:26 80 01/30/17 08:06 96 Nasal Cannula 2.00 01/30/17 08:00 96.9 93 18 122/73 99 01/30/17 04:00 96.1 80 16 124/78 100 01/30/17 03:14 Nasal Cannula 3.00 01/30/17 00:00 96.4 71 16 115/74 100 01/29/17 20:09 88 01/29/17 20:00 96.9 89 16 116/71 99 I/O 01/29/17 01/29/17 01/29/17 01/30/17 01/30/17 01/30/17 07:00 15:00 23:00 07:00 15:00 23:00 Intake Total 360 ml 360 ml 660 ml 1320 ml Output Total 400 ml 350 ml 300 ml 350 ml Balance -40 ml 10 ml 360 ml 970 ml Intake Oral 360 ml 360 ml 660 ml 1320 ml Output Urine Total 400 ml 350 ml 300 ml 350 ml # Voids 1 # Bowel Movements 0 0 0 0 Result Diagram: 01/27/17 0358 01/27/17 0358 Objective Remarks GENERAL: WBWN AA male NAD SKIN: Warm and dry. HEAD: Normocephalic. EYES: No scleral icterus. No injection or drainage. NECK: Supple, trachea midline. No JVD or lymphadenopathy. CARDIOVASCULAR: Regular rate and rhythm without murmurs, gallops, or rubs. RESPIRATORY: Breath sounds equal bilaterally. No accessory muscle use. GASTROINTESTINAL: Abdomen soft, non-tender, nondistended. MUSCULOSKELETAL: No cyanosis, or edema. BACK: Nontender without obvious deformity. No CVA tenderness. A/P Assessment and Plan Bilat Lung infilt HIV Bronchial asthma Nicotine use Anxiety, depression PLAN: Cont Abx per ID Aerosol nebs PO Prednisone Supplement to keep sat >90% AneDanial joseph MD Jan 30, 2017 19:54
[2017-01-30] MEDS: AZITHROMYCIN 250 MG TAB PO SCH (20:53)
[2017-01-30] MEDS ORDERED: ZITH500T PO (21:23)
[2017-01-31] MEDS: diphenhydrAMINE HCL 50 MG CAP PO PRN (00:47)
[2017-01-31] MEDS: PANTOPRAZOLE SODIUM 40 MG VIAL IV PUSH SCH (00:48)
[2017-01-31 01:06] VITALS: BP 137/87; PULSE 95; RESP 18; TEMP 98; O2SAT 99
[2017-01-31 04:44] VITALS: BP 135/80; PULSE 98; RESP 18; TEMP 98.2; O2SAT 98
[2017-01-31 05:05] VITALS: PULSE 76
[2017-01-31 08:00] VITALS: BP 124/75; PULSE 81; RESP 18; TEMP 97.1; O2SAT 100
[2017-01-31] MEDS: FLUCONAZOLE 200 MG TAB PO SCH (08:39)
[2017-01-31] MEDS: predniSONE 20 MG TAB PO SCH (08:40)
[2017-01-31] MEDS: ELVIT/COBI/EMTR/TENOF 150/150/200/300 MG TABLETS PO SCH (08:40)
[2017-01-31] MEDS: NICOTINE 21 MG/24 HR PATCH T-DERMAL SCH (08:40)
[2017-01-31] MEDS: CEFUROXIME AXETIL 500 MG TAB PO SCH (08:40)
[2017-01-31] MEDS: ENOXAPARIN SODIUM 40 MG/0.4 ML SYRINGE SQ SCH (08:40)
[2017-01-31] MEDS: DOCUSATE SODIUM 100 MG CAP PO SCH (08:40)
[2017-01-31] MEDS: SODIUM CHLORIDE 0.9% FLUSH 10 ML FLUSH IV FLUSH SCH (08:40)
[2017-01-31] MEDS: oxyCODONE/ACETAMINOPHEN 10 MG/325 MG TAB PO PRN (09:37)
--- NOTE | 2017-01-31 09:45 | HHI.PR ---
Subjective Remarks in no acute distress. no fever. no BM yet. d/w the RN and acute issues over night. Objective Vitals Vital Signs Date Time Temp Pulse Resp B/P Pulse Ox O2 Delivery O2 Flow Rate FiO2 01/31/17 08:00 97.1 81 18 124/75 100 01/31/17 05:05 76 01/31/17 04:44 98.2 98 18 135/80 98 01/31/17 01:06 98.0 95 18 137/87 99 01/31/17 00:56 96 Nasal Cannula 2.00 01/31/17 00:18 18 01/30/17 22:37 Nasal Cannula 3.00 01/30/17 21:29 97.7 82 20 119/74 100 01/30/17 16:00 96.5 91 18 129/74 100 01/30/17 12:00 97.0 84 16 120/73 98 I/O 01/30/17 01/30/17 01/30/17 01/31/17 01/31/17 01/31/17 07:00 15:00 23:00 07:00 15:00 23:00 Intake Total 660 ml 1320 ml Output Total 300 ml 350 ml Balance 360 ml 970 ml Intake Oral 660 ml 1320 ml Output Urine Total 300 ml 350 ml # Voids 1 # Bowel Movements 0 0 Result Diagram: 01/27/17 0358 01/27/17 0358 Imaging Last Impressions Abdomen X-Ray 01/30/17 0000 Signed Impressions: Service Date/Time: January 16:46 - CONCLUSION: 1. Findings consistent with constipation. Sarwat Walker MD Chest X-Ray 01/26/17 0600 Signed Impressions: Service Date/Time: Thursday, January 26, 2017 05:28 - CONCLUSION: Better aeration the right lung base today's previous study. Retrocardiac infiltrate persists. Yordan Smith MD CT Angiography 01/21/17 0000 Signed Impressions: Service Date/Time: Saturday, January 21, 2017 10:30 - CONCLUSION: 1. Alveolar consolidations involving lower lobes bilaterally and to a much lesser extent left upper lobe suggesting probable bilateral pneumonia. Clinical correlation is recommended. 2. No evidence of pulmonary embolism. 3. Tiny left pleural effusion. Alexandre Stewart MD Shoulder X-Ray 01/20/17 0000 Signed Impressions: Service Date/Time: Friday, January 20, 2017 20:45 - CONCLUSION: Avascular necrosis with subchondral fracture. David Jenkins MD Objective Remarks GENERAL: in no apparent distress. CARDIOVASCULAR: Regular rate and regular rhythm without murmurs, gallops, or rubs. RESPIRATORY: bilateral air entry present. GASTROINTESTINAL: Abdomen soft, non-tender, nondistended. Normal, active bowel sounds MUSCULOSKELETAL: Extremities without clubbing, cyanosis, or edema. NEURO: Alert & Oriented x4 to person, place, time, situation. Moves all ext x4 Procedures none Medications and IVs Current Medications Albuterol/ Ipratropium (Duoneb Neb) 1 ampule Q15M INH Last administered on 01/20 23:26; Start 01/20/17 at 19:30; Stop 01/20/17 at 20:01; Status DC Methylprednisolone Sodium Succinate (SoluMEDROL INJ) 125 mg ONCE ONCE IM Last administered on 01/20/17 19:30; Start 01/20/17 at 19:30; Stop 01/20/17 at 19:31 ; Status DC Sodium Chloride 2 ml 2 ml UNSCH PRN IVF FLUSH AFTER USING IV ACCESS; Start at 20:00; Stop 01/20/17 at 22:21; Status DC Cefepime HCl 2000 mg/Sodium Chloride 100 ml @ 200 mls/hr ONCE ONCE IV Last administered on 01/20/17 22:48; Start 01/20/17 at 20:00; Stop 01/20/17 at 20:29 ; Status DC Azithromycin 500 mg/Sodium Chloride 250 ml @ 250 mls/hr ONCE ONCE IV Last administered on 01/20/17 21:40; Start 01/20/17 at 20:00; Stop 01/20/17 at 20:59 ; Status DC Sodium Chloride 1,000 ml @ 999 mls/hr BOLUS ONCE IV Last administered on 01/20 21:40; Start 01/20/17 at 20:00; Stop 01/20/17 at 21:00; Status DC Sodium Chloride (NS 1000 ml Inj) 1,000 ml @ 999 mls/hr BOLUS ONCE IV Last administered on 01/20/17 22:49; Start 01/20/17 at 21:30; Stop 01/20/17 at 22:30 ; Status DC Ibuprofen (Motrin) 800 mg ONCE ONCE PO Last administered on 01/20/17 22:36; Start 01/20/17 at 21:45; Stop 01/20/17 at 21:46; Status DC Sodium Chloride (NS Flush) 2 ml UNSCH PRN IV FLUSH FLUSH AFTER USING IV ACCESS ; Start 01/20/17 at 22:30 Sodium Chloride (NS Flush) 2 ml BID IV FLUSH Last administered on 01/31/17 08: 40; Start 01/21/17 at 09:00 Naloxone HCl (Narcan Inj) 0.4 mg UNSCH PRN IV SEE LABEL COMMENTS; Start at 22:30 Albuterol/ Ipratropium (Duoneb Neb) 1 ampule Q6HR NEB NEB Last administered on 01/24/17 21:14; Start 01/21/17 at 04:00; Stop 01/25/17 at 04:00; Status DC Albuterol/ Ipratropium 1 ampule 1 ampule Q2HR NEB PRN NEB wheezing Last administered on 01/30/17 23:31; Start 01/20/17 at 22:30 Cefepime HCl/ Sodium Chloride (Maxipime Inj/NS Inj) 100 ml @ 200 mls/hr Q12H IV Last administered on 01/27/17 09:11; Start 01/21/17 at 09:00; Stop at 14:32; Status DC Methylprednisolone Sodium Succinate (SoluMEDROL INJ) 40 mg Q6HR IV PUSH Last administered on 01/23/17 05:01; Start 01/21/17 at 06:00; Stop 01/23/17 at 11:39 ; Status DC Pantoprazole Sodium 40 mg 40 mg Q12H IV PUSH Last administered on 01/31/17 00: 48; Start 01/21/17 at 02:00 Trimethoprim/ Sulfamethoxazole 400 mg/Dextrose 525 ml @ 350 mls/hr Q6H IV Last administered on 01/21/17 02:56; Start 01/21/17 at 03:00; Stop 01/21/17 at 08:10; Status DC Trimethoprim/ Sulfamethoxazole/ Dextrose (Bactrim Inj/D5W 500 ml Inj) 499.75 ml @ 333.167 mls/hr Q6H IV Last administered on 01/27/17 12:19; Start 01/21/17 at 10:00; Stop 01/27/17 at 14:39; Status DC Influenza Virus Vaccine (Flu (Quadrivalent) Vaccine Inj) 0.5 ml ONCE ONCE IM ; Start 01/22/17 at 10:00; Stop 01/22/17 at 10:00; Status DC Enoxaparin Sodium 40 mg 40 mg Q24H SQ Last administered on 01/31/17 08:40; Start 01/21/17 at 09:00 Potassium Chloride 100 ml @ 50 mls/hr Q2H PRN IV For Potassium 2.8 - 3.2 mEq/L ; Start 01/21/17 at 08:30; Stop 01/24/17 at 07:46; Status DC Potassium Chloride (KCl 20 Meq Premix Inj) 100 ml @ 50 mls/hr Q2H PRN IV For Potassium 2.8 - 3.2 mEq/L; Start 01/21/17 at 08:30; Stop 01/24/17 at 07:46; Status DC Potassium Bicarb/ Potassium Chloride 50 meq 50 meq UNSCH PRN PO For Potassium 3.3 - 3.5 mEq/L Last administered on 01/21/17 09:09; Start 01/21/17 at 08:30; Stop 01/24/17 at 07:46; Status DC Potassium Chloride 100 ml @ 25 mls/hr UNSCH PRN IV For Potassium 3.3 - 3.5 mEq /L; Start 01/21/17 at 08:30; Stop 01/24/17 at 07:46; Status DC Potassium Chloride 100 ml @ 50 mls/hr Q2H PRN IV For Potassium 3.3 - 3.5 mEq/L ; Start 01/21/17 at 08:30; Stop 01/24/17 at 07:46; Status DC Magnesium Sulfate/ Sodium Chloride (Magnesium Sulfate Inj/NS Inj) 100 ml @ 50 mls/hr UNSCH PRN IV For Magnesium 0.9 - 1.1 mg/dL; Start 01/21/17 at 08:30; Stop 01/24/17 at 07:46; Status DC Magnesium Oxide 800 mg 800 mg UNSCH PRN PO For Magnesium 1.2 - 1.6 mg/dL; Start 01/21/17 at 08:30; Stop 01/24/17 at 07:46; Status DC Magnesium Sulfate/ Sodium Chloride (Magnesium Sulfate Inj/NS Inj) 100 ml @ 50 mls/hr UNSCH PRN IV For Magnesium 1.2 - 1.6 mg/dL; Start 01/21/17 at 08:30; Stop 01/24/17 at 07:46; Status DC Potassium Phosphate 2000 mg 2,000 mg Q4H PRN PO For Phosphorus < 2.5 mg/dL; Start 01/21/17 at 08:30; Stop 01/24/17 at 07:46; Status DC Sodium Phosphate/ Sodium Chloride (Sodium Phosphate Inj/NS 250 ml Inj) 250 ml @ 42 mls/hr UNSCH PRN IV For Phosphorus < 2.5 mg/dL; Start 01/21/17 at 08:30; Stop 01/24/17 at 07:46; Status DC Potassium Phosphate 2000 mg 2,000 mg UNSCH PRN PO/TUBE SEE LABEL COMMENTS; Start 01/21/17 at 08:30; Stop 01/24/17 at 07:46; Status DC Potassium Phosphate/Sodium Chloride (Potassium Phosphate Inj/NS 250 ml Inj) 260 ml @ 42 mls/hr UNSCH PRN IV SEE LABEL COMMENTS; Start 01/21/17 at 08:30; Stop 01/24/17 at 07:46; Status DC Iohexol (Omnipaque 350 Inj) 60 ml STK-MED ONCE IV Last administered on 10:41; Start 01/21/17 at 10:41; Stop 01/21/17 at 10:42; Status DC Potassium Chloride (KCl) 60 meq ONCE ONCE PO Last administered on 01/21/17 11 :52; Start 01/21/17 at 11:15; Stop 01/21/17 at 11:26; Status DC Potassium Chloride (KCl) 60 meq ONCE ONCE PO ; Start 01/21/17 at 11:45; Stop at 11:46; Status DC Elvitegravir/ Cobicis/Emtricit/ Tenof 1 tab 1 tab DAILY PO Last administered on 01/31/17 08:40; Start 01/21/17 at 14:00 Azithromycin/ Sodium Chloride (Zithromax Inj/ NS 250 ml Inj) 250 ml @ 250 mls/ hr Q24H IV Last administered on 01/26/17 21:11; Start 01/21/17 at 21:00; Stop 01/27/17 at 14:36; Status DC Patient Own Medication PT OWN MED: GENVOYA (Elvitegrav... DAILY PO ; Start 01/22 at 09:00; Status Hold Ibuprofen (Motrin) 600 mg Q8H PRN PO pain 1-10 Last administered on 01/22/17 10:03; Start 01/21/17 at 17:30; Status Hold Oxycodone/ Acetaminophen (Percocet 10-325 Mg) 1 tab Q6H PRN PO PAIN 1-10 Last administered on 01/30/17 23:18; Start 01/22/17 at 12:45 Nicotine (Habitrol 21 Mg Patch.24 Hr) 1 patch DAILY T-DERMAL Last administered on 01/31/17 08:40; Start 01/22/17 at 13:00 Diphenhydramine HCl (Benadryl) 50 mg HS PRN PO INSOMNIA Last administered on 00:47; Start 01/22/17 at 12:45 Methylprednisolone Sodium Succinate (SoluMEDROL INJ) 20 mg Q8HR IV PUSH Last administered on 01/27/17 13:37; Start 01/23/17 at 14:00; Stop 01/27/17 at 15:43 ; Status DC Fluconazole 200 mg 200 mg DAILY PO Last administered on 01/31/17 08:39; Start 01/24/17 at 19:30 Ceftriaxone Sodium/Sodium Chloride (Rocephin Inj/NS Inj) 100 ml @ 200 mls/hr Q24H IV Last administered on 01/27/17 16:21; Start 01/27/17 at 15:00; Stop 01/28/17 at 12:50; Status DC Azithromycin (Zithromax) 500 mg Q24H PO Last administered on 01/30/17 20:53; Start 01/27/17 at 21:00; Stop 02/03/17 at 12:00 Trimethoprim/ Sulfamethoxazole (Bactrim Ds 800-160 Mg) 2 tab Q6HR PO Last administered on 01/28/17 06:07; Start 01/27/17 at 18:00; Stop 01/28/17 at 10:17; Status DC Prednisone (Deltasone) 20 mg DAILY PO Last administered on 01/31/17 08:40; Start 01/28/17 at 09:00 Cefuroxime Axetil (Ceftin) 500 mg Q12HR PO Last administered on 01/31/17 08:40 ; Start 01/28/17 at 13:00; Stop 02/03/17 at 12:00 Docusate Sodium (Colace) 100 mg TID PO Last administered on 01/31/17 08:40; Start 01/29/17 at 09:00 Docusate Sodium (Colace) 100 mg ONCE ONCE PO Last administered on 01/29/17 05: 02; Start 01/29/17 at 05:00; Stop 01/29/17 at 05:01; Status DC Lactulose (Lactulose Liq) 30 ml ONCE PRN PO constipation Last administered on 12:57; Start 01/29/17 at 05:00; Stop 01/30/17 at 04:59; Status DC Lactulose (Lactulose Liq) 30 ml ONCE ONCE PO Last administered on 01/30/17 12: 33; Start 01/30/17 at 11:30; Stop 01/30/17 at 12:13; Status DC Sodium Biphosphate/ Sodium Phosphate (Fleets Enema (Adult)) 133 ml ONCE ONCE RECTAL ; Start 01/30/17 at 19:45; Stop 01/30/17 at 19:51; Status DC A/P Assessment and Plan A/p Respiratory failure with hypoxia- improved. -Chest x-ray to suggest pneumonia. CT scan of chest showed alveolar consolidations involving lower lobes bilaterally and to a much lesser extent left upper lobe suggesting probable bilateral pneumonia. -Improving. See treatment as below. -Patient was put on steroids will transition to oral steroids. -Sputum culture negative. -Court Collections Officer follow-up appreciated. -failed the walk test. Bilateral pneumonia -CD4 189. -Infectious disease following. -Patient switched to po ceftin and zithromax. - MTB PCR negative. Oral thrush; continue Diflucan hx of HIV -continue Stribild -ID consulted and ff. 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 Decondition -Patient is very weak. He was assessed by physical therapist they recommended acute rehabilitation. constipation; continue laxatives as needed. KUB with constipation. Discharge Planning dc to inpatient rehab. see med list. f/u; pcp,ortho. d/w the patient and RN. previously d/w . time spent 35 min. Edward Baires MD Jan 31, 2017 09:45
[2017-01-31] MEDS ORDERED: ALBU0.08 NEB (12:20)
[2017-01-31] MEDS ORDERED: HYDR-3583 PO (12:20)
[2017-01-31] MEDS ORDERED: ELVI1TAB3 PO (12:20)
[2017-01-31] MEDS ORDERED: HYDR-3516 PO (12:20)
[2017-01-31] MEDS ORDERED: ELVITAB PO (12:20)
[2017-01-31] MEDS ORDERED: VENTAER INH (12:20)
[2017-01-31] MEDS ORDERED: LYRI100C PO (12:20)
[2017-01-31] MEDS ORDERED: OFLO0.3D9 EACH EAR (12:20)
[2017-01-31] MEDS ORDERED: GABA300C5 PO (12:20)
== END 2017-01-31 10:57 | DRG 974 ==
LOC: NEPD 18:45 → NEDA 22:03 → N03A 01-21 05:33 → N04A 01-22 01:29 → HIMN 01-24 15:30 → N04B 01-24 20:24 → N03B 01-26 16:47 → HOCB 01-27 11:24
PROVIDERS: ADMIT Internal Medicine; ATTEND Internal Medicine
PROC: 5A09357 Assistance with Respiratory Ventilation, Less than 24 Consecutive Hours, Continuous Positive Airway Pressure (ICD-10-PCS; principal; 2017-01-20)
DX: B20 Human immunodeficiency virus [HIV] disease (principal); J96.01 Acute respiratory failure with hypoxia; J18.9 Pneumonia, unspecified organism; B37.0 Candidal stomatitis; J44.0 Chronic obstructive pulmonary disease with (acute) lower respiratory infection; M32.9 Systemic lupus erythematosus, unspecified; J45.901 Unspecified asthma with (acute) exacerbation; M87.9 Osteonecrosis, unspecified; F41.9 Anxiety disorder, unspecified; F32.9 Major depressive disorder, single episode, unspecified; Z92.21 Personal history of antineoplastic chemotherapy; Z72.0 Tobacco use; R00.0 Tachycardia, unspecified; K59.00 Constipation, unspecified
CPT/HCPCS: 36600; 71010; 71275; 73030; 74000; 80048; 81001; 82805; 83605; 83615; 83735; 83880; 84100; 85007; 85025; 85027; 86355; 86357; 86359; 86360; 87015; 87040; 87070; 87116; 87205; 87206; 87449; 87556; 87641; 87798; 87804; 93005; 94002; 94003; 94150; 94640; 94664; 96374; 96375; C9113; J0456; J0692; J0696; J1650; J2920; J2930; J7030; J7050; J7060; J7512; Q0163; Q9967

== ENCOUNTER 2017-03-13 21:16 | Emergency (ER) | payer MEDICARE, OTHER ==
[~2017-03-13] VITALS: Ht 188 cm; Wt 66.0 kg
[~2017-03-13 21:16] MED LIST changes: +ACET1TAB86 PO; -ALBU8I INH; -AMOX875 PO; +COMMODE 3-IN-11 MIS; -DICL75 PO; +ELVI1TAB3 PO; -ELVITAB; +ELVITAB PO; +GETGO ROLLING W1 MI1; -HYDR-3533 PO; -HYDR-3535 PO; -LISI2.5T3 PO; -MEDR4PAK3 PO; -NAPR40TA PO; +NICO21DI25 T-DERMAL; -OFLO.3%A EACH EAR; +OXYC1TAB63 PO; +PANT40TA3 PO; -PREG100; +REST15CA PO; +SENN1TAB PO; +TUB TRANSFER BO1 MIS; +WHEEMIS3; -ZITH250T PO
[2017-03-13 21:20] VITALS: BP 132/89; PULSE 102; RESP 18; TEMP 98.5; O2SAT 99
[2017-03-13] MEDS ORDERED: ACET1TAB86 PO (21:38)
[2017-03-13] MEDS ORDERED: HYDR-3533 PO (21:38)
[2017-03-13] MEDS ORDERED: ACETAMINOPHEN/HYDROcodone 325 MG/5 MG TAB PO ONE (21:45)
--- NOTE | 2017-03-13 21:46 | PD ---
HPI Chief Complaint: Back/ Neck Pain or Injury Time Seen by Provider: 21:30 Travel History International Travel<30 days: No Contact w/Intl Traveler<30days: No Traveled to known affect area: No History of Present Illness HPI 42-year-old black male with history of HIV presents to emergency department for evaluation of back pain. He states that he was just discharged from [facility] 2 weeks ago after being in the hospital for over a month. He has chronic pain. He had ran out of his Percocet last week and has not had any medication. He currently is taking his HIV meds. He has not seen his primary care doctor yet. He denies any recent injury. He normally ambulates with a cane, walker or wheelchair. He denies any shortness of breath or wheezing. No nausea vomiting. States the pain is moderate to severe. Worse with ambulation. PFSH Past Medical History Arthritis: No Asthma: Yes Autoimmune Disease: Yes Anxiety: Yes Depression: Yes Cancer: Yes (BRAIN TUMOR RESECTION 2008) Cardiovascular Problems: No Chemotherapy: Yes COPD: No Cerebrovascular Accident: No Diabetes: No Diminished Hearing: No Endocrine: No Gastrointestinal Disorders: Yes GERD: No Genitourinary: No Headaches: No Hiatal Hernia: No Immune Disorder: Yes (hiv) Implanted Vascular Access Dvce: No Musculoskeletal: Yes Neurologic: Yes Psychiatric: Yes Reproductive: No Respiratory: Yes Migraines: No Radiation Therapy: Yes Seizures: No Sleep Apnea: No Thyroid Disease: No Ulcer: No Tetanus Vaccination: < 5 Years Past Surgical History Abdominal Surgery: No Cardiac Surgery: No Ear Surgery: No Endocrine Surgery: No Eye Surgery: No Genitourinary Surgery: No Neurologic Surgery: Yes (CERVICAL BACK 2010,BRAIN TUMOR RESECTION 2008) Oral Surgery: No Thoracic Surgery: No Other Surgery: Yes (brain tumor) Social History Alcohol Use: No Tobacco Use: Yes (2 ppd stated he quit 2 weeks ago) Substance Use: No Allergies-Medications (Allergen,Severity, Reaction): Coded Allergies: No Known Allergies (Verified , 01/31/17) Reported Meds & Prescriptions Reported Meds & Active Scripts Active Lortab (Hydrocodone-Acetaminophen) 5-325 Mg Tab 1 Tab PO Q6H PRN Eq Acetaminophen (Acetaminophen) 325 Mg Tab 650 Mg PO Q4H PRN Stribild (Nlyiyjnkoqda-Jxyuinbugc-Tvcrqupsvhtx-Tenofvir) [phone] Mg Tab 1 Tab PO DAILY With food Senna Plus 8.6-50 mg (Sennosides-Docusate Sodium) 1 Tab Tab 1 Tab PO BID 30 Days Restoril (Temazepam) 15 Mg Cap 15 Mg PO HS PRN Pantoprazole (Pantoprazole Sodium) 40 Mg Tab 40 Mg PO DAILY 30 Days Oxycodone-Acetaminophen 5-325 mg Tab 1 Tab PO Q8HR PRN Eq Nicotine (Nicotine) 21 Mg/24 Hr Dis 1 Patch T-DERMAL DAILY Neurontin (Gabapentin) 300 Mg Cap 300 Mg PO QID 30 Days Tub Transfer Board (Device) 1 Mis Mis 1 Ea .ROUTE DIRECTED Wheelchair (Device) 1 Mis Mis 1 Ea .ROUTE DIRECTED Commode 3-in-1 (Device) 1 Mis Mis 1 Ea .ROUTE DIRECTED Walker Rolling/GetGo (Device) 1 Mis Mis 1 Ea .ROUTE DIRECTED Reported Genvoya (Grkdqjpmmnhw-Mrbuniawii-Rzoshtiaipxs-Tenofvir) [phone] Mg Tab 1 Tab PO DAILY Review of Systems Except as stated in HPI: all other systems reviewed are Neg Physical Exam Narrative GENERAL: This is a well-nourished, well-developed patient, in no apparent distress. SKIN: No rashes, ecchymoses or lesions. Warm and dry. HEAD: Atraumatic. Normocephalic. EYES: PERRL, EOMI, no discharge or injection. No scleral icterus. EARS: Clear NOSE: Nasal turbinates appear normal. THROAT: Mucosa pink and moist. Airway patent. NECK: Trachea midline. supple, moves head freely. LUNGS: Clear to auscultation. CV: Regular in rhythm. ABDOMEN: Soft nontender. EXT: No clubbing cyanosis or edema. Back: Patient complains of diffuse lower lumbar tenderness. No central bony tenderness. He is able to stand at bedside is usually cane. He is unsteady on his feet. No saddle anesthesia. No gross spasm. Data Data Last Documented VS Vital Signs Date Time Temp Pulse Resp B/P (MAP) Pulse Ox O2 Delivery O2 Flow Rate FiO2 03/13/17 21:20 98.5 102 18 132/89 (103) 99 Room Air Orders Orders Acetamin-Hydrocod 325-5 Mg (Felt 5-325 (9/14/17 21:45) MDM Medical Decision Making Medical Screen Exam Complete: Yes Emergency Medical Condition: Yes Medical Record Reviewed: Yes Differential Diagnosis MDM: High Differential diagnoses: Fracture, sprain, strain, HNP, nerve or vascular injury , epidural abscess, pilonidal cyst Narrative Course Patient is given Lortab 5 mg by mouth for pain. The patient is ambulating with his cane. He is instructed to contact his family to bring his walker. The patient appears chronically ill. He has difficulty with mobility but I do not believe that this is acute. The patient is encouraged to see his primary care doctor this week for recheck. This is chronic back pain, chronic mobility problems Diagnosis Primary Impression: Chronic back pain Qualified Codes: M54.5 - Low back pain; G89.29 - Other chronic pain Patient Instructions: Narcotic given in the ED, General Instructions Additional Instructions: Rest. Usual walker. Follow-up your DrNitin in the next few days for recheck. No refill of chronic pain medications to the ER. Return to the ER for emergencies. Med/Other Pt SpecificInfo: Prescription(s) given Scripts Hydrocodone-Acetaminophen (Lortab) 5-325 Mg Tab 1 TAB PO Q6H Y for PAIN, #20 TAB 0 Refills Prov: Davion Burch MD 03/13/17 Acetaminophen (Eq Acetaminophen) 325 Mg Tab 650 MG PO Q4H Y for pain 1-5, #30 TAB Prov: Davion Burch MD 03/13/17 Disposition: 01 DISCHARGE HOME Condition: Stable Lupillo Nunez Mar 13, 2017 21:46
[2017-03-13] MEDS ORDERED: ACETAMINOPHEN/HYDROcodone 325 MG/5 MG TAB ONE (21:54)
== END 2017-03-13 22:04 | disposition home or self-care (01) ==
LOC: NEPK 21:16
DX: M54.9 Dorsalgia, unspecified (principal); G89.29 Other chronic pain; J45.909 Unspecified asthma, uncomplicated; F41.9 Anxiety disorder, unspecified; F32.9 Major depressive disorder, single episode, unspecified; Z21 Asymptomatic human immunodeficiency virus [HIV] infection status; Z79.899 Other long term (current) drug therapy; Z87.891 Personal history of nicotine dependence
CPT/HCPCS: 99283

== ENCOUNTER 2017-07-20 21:23 | Emergency (ER) | payer MEDICARE, OTHER ==
[2017-07-20 22:31] LABS: AUTOMATED NEUTROPHIL # 4.3 TH/MM3 (1.8-7.7); BASOPHIL % 0.4 % (0.0-2.0); EOSINOPHIL # 0.1 TH/MM3 (0-0.4); EOSINOPHIL % 1.6 % (0.0-4.0); HEMATOCRIT 40.6 % (39.0-51.0); HEMO FLAGS DIFF FINAL; HEMOGLOBIN 13.8 GM/DL (13.0-17.0); LYMPH % 29.8 % (9.0-44.0); LYMPHOCYTE # 2.2 TH/MM3 (1.0-4.8); MEAN CELL VOLUME 92.8 FL (80.0-100.0); MEAN CORPUSCULAR HEMOGLOBIN 31.4 PG (27.0-34.0); MEAN CORPUSCULAR HGB CONC 33.9 % (32.0-36.0); MEAN PLATELET VOLUME 7.1 FL (7.0-11.0); MONO % 9.9 % (0.0-8.0); MONOCYTE # 0.7 TH/MM3 (0-0.9); NEUT % 58.3 % (16.0-70.0); PLATELET COUNT 371 TH/MM3 (150-450); RED BLOOD COUNT 4.37 MIL/MM3 (4.50-5.90); RED CELL DISTRIBUTION WIDTH 14.5 % (11.6-17.2); WHITE BLOOD COUNT 7.4 TH/MM3 (4.0-11.0)
[2017-07-20 22:51] LABS: ALT (GPT) 15 U/L (12-78)
[2017-07-20 22:54] LABS: ALKALINE PHOSPHATASE 117 U/L (45-117); TOTAL BILIRUBIN ADULT 0.7 MG/DL (0.2-1.0); TOTAL PROTEIN 8.1 GM/DL (6.4-8.2)
[2017-07-20 23:11] LABS: ALBUMIN 3.9 GM/DL (3.4-5.0); ANION GAP 5 MEQ/L (5-15); AST (GOT) 17 U/L (15-37); BICARBONATE 28.6 MEQ/L (21.0-32.0); BLOOD UREA NITROGEN 8 MG/DL (7-18); CALCIUM 9.6 MG/DL (8.5-10.1); CHLORIDE 105 MEQ/L (98-107); CREATININE 0.73 MG/DL (0.60-1.30); GLOMERULAR FILTRATION RATE 144 ML/MIN (>89); GLUCOSE,RANDOM 83 MG/DL (74-106); POTASSIUM 4.1 MEQ/L (3.5-5.1); SODIUM (NA) 139 MEQ/L (136-145)
[2017-07-21 00:43] LABS: BLOOD, URINE NEG (NEG); COMMENT (UR) CULT NOT INDICATED; CULTURE IF INDICATED CULT NOT INDICATED; GLUCOSE,URINE NEG (NEG); KETONE, URINE TRACE mg/dL (NEG); MUCUS URINE FEW /lpf (OCC); NITRITE,URINE NEG (NEG); SQUAMOUS EPITHELIAL CELL URINE 1 /hpf (0-5); URINE COLOR YELLOW (YELLW/STRAW); URINE LEUKOCYTE ESTERASE NEG (NEG)
[2017-07-21 00:46] LABS: BILIRUBIN, URINE NEG (NEG)
[2017-07-21] MEDS: NAPROXEN 500 MG TAB PO (01:00)
== END 2017-07-21 01:39 | disposition home or self-care (01) ==
LOC: NEPD 07-21 01:39
DX: M54.9 Dorsalgia, unspecified (principal); G89.29 Other chronic pain; R19.7 Diarrhea, unspecified; G62.9 Polyneuropathy, unspecified; J45.909 Unspecified asthma, uncomplicated; F41.9 Anxiety disorder, unspecified; F32.9 Major depressive disorder, single episode, unspecified; Z79.899 Other long term (current) drug therapy; Z21 Asymptomatic human immunodeficiency virus [HIV] infection status
CPT/HCPCS: 80053; 81001; 85025; 87506; 99283

== ENCOUNTER 2017-10-17 12:41 | Emergency (ER) | payer MEDICARE, OTHER ==
[~2017-10-17] VITALS: Ht 188 cm; Wt 73.0 kg
[~2017-10-17 12:41] MED LIST changes: -ACET1TAB86 PO; -COMMODE 3-IN-11 MIS; +DICL75TA PO; -ELVITAB PO; -PANT40TA3 PO; -SENN1TAB PO
[2017-10-17 13:08] VITALS: BP 129/73; PULSE 79; RESP 16; TEMP 98.1; O2SAT 100
[2017-10-17 14:26] LABS: AUTOMATED NEUTROPHIL # 4.2 TH/MM3 (1.8-7.7); BASOPHIL % 0.5 % (0.0-2.0); EOSINOPHIL # 0.1 TH/MM3 (0-0.4); EOSINOPHIL % 1.5 % (0.0-4.0); HEMATOCRIT 42.5 % (39.0-51.0); HEMOGLOBIN 13.9 GM/DL (13.0-17.0); LYMPH % 25.1 % (9.0-44.0); LYMPHOCYTE # 1.6 TH/MM3 (1.0-4.8); MEAN CORPUSCULAR HEMOGLOBIN 30.1 PG (27.0-34.0); MEAN CORPUSCULAR HGB CONC 32.7 % (32.0-36.0); MONO % 7.6 % (0.0-8.0); MONOCYTE # 0.5 TH/MM3 (0-0.9); NEUT % 65.3 % (16.0-70.0); PLATELET COUNT 297 TH/MM3 (150-450); RED BLOOD COUNT 4.62 MIL/MM3 (4.50-5.90); RED CELL DISTRIBUTION WIDTH 14.7 % (11.6-17.2); WHITE BLOOD COUNT 6.5 TH/MM3 (4.0-11.0)
[2017-10-17 14:44] LABS: INTERNATIONAL NORMALIZED RATIO 1.1 RATIO; PROTHROMBIN TIME - PATIENT 10.8 SEC (9.8-11.6)
[2017-10-17 14:45] LABS: BICARBONATE 27.3 MEQ/L (21.0-32.0); CALCIUM 9.1 MG/DL (8.5-10.1); CREATININE 0.77 MG/DL (0.60-1.30)
[2017-10-17 15:44] VITALS: BP 134/87; PULSE 76; RESP 18
--- NOTE | 2017-10-17 15:52 | PD ---
HPI Chief Complaint: Edema Time Seen by Provider: 15:34 Travel History International Travel<30 days: No Contact w/Intl Traveler<30days: No Traveled to known affect area: No History of Present Illness HPI 42-year-old male presents to the emergency department for evaluation of bilateral lower extremity edema and pain. Patient states that his symptoms started "a minute" ago. Upon further questioning, he states his symptoms started over a month ago. He has not seen his primary care physician for this issue. Patient has past medical history of of HIV, neuropathy, chronic back pain and chronic mobility issues. Patient states that he is currently on Lyrica. He does state that he takes antivirals, but does not know his viral load or CD4 count. Patient states his current pain is 10/10 to the bilateral lower extremities without radiation. Patient denies any exacerbating or alleviating factors. Pain is burning and throbbing. Patient denies any fevers or chills. No chest pain or shortness of breath. No abdominal pain. No vomiting or diarrhea. Patient states that he lives with his uncle. Moderate severity. PFSH Past Medical History Arthritis: No Asthma: Yes Autoimmune Disease: Yes Anxiety: Yes Depression: Yes Cancer: Yes (BRAIN TUMOR RESECTION 2008) Cardiovascular Problems: No Chemotherapy: Yes COPD: No Cerebrovascular Accident: No Diabetes: No Diminished Hearing: No Endocrine: No Gastrointestinal Disorders: Yes GERD: No Genitourinary: No Headaches: No Hiatal Hernia: No Immune Disorder: Yes (hiv) Implanted Vascular Access Dvce: No Musculoskeletal: Yes Neurologic: Yes Psychiatric: Yes Reproductive: No Respiratory: Yes Migraines: No Radiation Therapy: Yes Seizures: No Sleep Apnea: No Thyroid Disease: No Ulcer: No Tetanus Vaccination: > 5 Years Influenza Vaccination: No Past Surgical History Abdominal Surgery: No Cardiac Surgery: No Ear Surgery: No Endocrine Surgery: No Eye Surgery: No Genitourinary Surgery: No Neurologic Surgery: Yes (CERVICAL BACK 2010,BRAIN TUMOR RESECTION 2008) Oral Surgery: No Thoracic Surgery: No Other Surgery: Yes (brain tumor) Social History Alcohol Use: No Tobacco Use: Yes (07/01 ppd stated he quit 2 weeks ago) Substance Use: No Allergies-Medications (Allergen,Severity, Reaction): Coded Allergies: No Known Allergies (Verified Adverse Reaction, Unknown, 10/17/17) Reported Meds & Prescriptions Reported Meds & Active Scripts Active Diclofenac Sodium DR (Diclofenac Sodium) 75 Mg Tabdr 75 Mg PO BID Restoril (Temazepam) 15 Mg Cap 15 Mg PO HS PRN Oxycodone-Acetaminophen 5-325 mg Tab 1 Tab PO Q8HR PRN Eq Nicotine (Nicotine) 21 Mg/24 Hr Dis 1 Patch T-DERMAL DAILY Neurontin (Gabapentin) 300 Mg Cap 300 Mg PO QID 30 Days Tub Transfer Board (Device) 1 Mis Mis 1 Ea .ROUTE DIRECTED Wheelchair (Device) 1 Mis Mis 1 Ea .ROUTE DIRECTED Walker Rolling/GetGo (Device) 1 Mis Mis 1 Ea .ROUTE DIRECTED Reported Genvoya (Mtwqfobcbwtj-Vhrhnklpbd-Gboaeuymkzgf-Tenofvir) [phone] Mg Tab 1 Tab PO DAILY Review of Systems Except as stated in HPI: all other systems reviewed are Neg Physical Exam Narrative GENERAL: Well-nourished, well-developed male patient, afebrile. SKIN: Focused skin assessment warm/dry. HEAD: Normocephalic. Atraumatic. EYES: No scleral icterus. No injection or drainage. NECK: Supple, trachea midline. No JVD or lymphadenopathy. CARDIOVASCULAR: Regular rate and rhythm without murmurs, gallops, or rubs. Bilateral pedal pulses 1+, easily found with Doppler as well. RESPIRATORY: Breath sounds equal bilaterally. No accessory muscle use. Lung sounds are clear to auscultation. GASTROINTESTINAL: Abdomen soft, non-tender, nondistended. MUSCULOSKELETAL: No cyanosis. Patient has 2-3+ bilateral lower extremity edema with tenderness to palpation. No erythema or warmth. BACK: Nontender without obvious deformity. No CVA tenderness. Data Data Last Documented VS Vital Signs Date Time Temp Pulse Resp B/P (MAP) Pulse Ox O2 Delivery O2 Flow Rate FiO2 10/17/17 15:45 18 100 Room Air 10/17/17 15:44 76 134/87 (103) 100 10/17/17 13:08 98.1 Orders Orders Complete Blood Count With Diff (10/17/17 13:11) Basic Metabolic Panel (Bmp) (10/17/17 13:11) Act Partial Throm Time (Ptt) (10/17/17 13:11) Prothrombin Time / Inr (Pt) (10/17/17 13:11) B-Type Natriuretic Peptide (10/17/17 15:47) Us Leg Venous Doppler Bilat (10/17/17 ) Furosemide (Lasix) (10/17/17 18:30) Labs Laboratory Tests Test 10/17/17 13:54 White Blood Count 6.5 TH/MM3 Red Blood Count 4.62 MIL/MM3 Hemoglobin 13.9 GM/DL Hematocrit 42.5 % Mean Corpuscular Volume 92.0 FL Mean Corpuscular Hemoglobin 30.1 PG Mean Corpuscular Hemoglobin Concent 32.7 % Red Cell Distribution Width 14.7 % Platelet Count 297 TH/MM3 Mean Platelet Volume 8.0 FL Neutrophils (%) (Auto) 65.3 % Lymphocytes (%) (Auto) 25.1 % Monocytes (%) (Auto) 7.6 % Eosinophils (%) (Auto) 1.5 % Basophils (%) (Auto) 0.5 % Neutrophils # (Auto) 4.2 TH/MM3 Lymphocytes # (Auto) 1.6 TH/MM3 Monocytes # (Auto) 0.5 TH/MM3 Eosinophils # (Auto) 0.1 TH/MM3 Basophils # (Auto) 0.0 TH/MM3 CBC Comment DIFF FINAL Differential Comment Prothrombin Time 10.8 SEC Prothromb Time International Ratio 1.1 RATIO Activated Partial Thromboplast Time 28.5 SEC Blood Urea Nitrogen 6 MG/DL Creatinine 0.77 MG/DL Random Glucose 76 MG/DL Calcium Level 9.1 MG/DL Sodium Level 139 MEQ/L Potassium Level 4.0 MEQ/L Chloride Level 106 MEQ/L Carbon Dioxide Level 27.3 MEQ/L Anion Gap 6 MEQ/L Estimat Glomerular Filtration Rate 136 ML/MIN B-Type Natriuretic Peptide 23 PG/ML MDM Medical Decision Making Medical Screen Exam Complete: Yes Emergency Medical Condition: Yes Medical Record Reviewed: Yes Interpretation(s) Last Impressions Lower Extremity Ultrasound 10/17/17 0000 Signed Impressions: Service Date/Time: Tuesday, October 17, 2017 17:01 - CONCLUSION: Normal examination. Stephen Salgado MD Differential Diagnosis DVT versus new onset CHF versus edema Narrative Course 42-year-old male presents to the emergency department for bilateral lower extremity edema that started over a month ago. CBC, BMP, BNP, venous Doppler ultrasound bilateral lower extremities are ordered and pending. CBC is unremarkable. BMP is unremarkable. BNP is 23. Coags are unremarkable. Venous Doppler ultrasound of bilateral lower extremities are normal. I discussed results with the patient. He is instructed to elevate, compression stockings. I will discharge him a short-term prescription for Lasix. He is instructed to follow with primary care physician in the next 2-3 days. He verbalizes agreement. The patient was discharged in stable condition with instructions, including return instructions and follow up instructions. Diagnosis Primary Impression: Bilateral edema of lower extremity Referrals: Primary Care Physician call for appointment Patient Instructions: General Instructions, Leg Edema (ED) Additional Instructions: Elevate your lower extremities. Wear compression stockings. Take Lasix as directed. Follow-up with your primary care physician in 2-3 days. Return to the emergency department for any acute worsening of symptoms per Med/Other Pt SpecificInfo: Prescription(s) given Scripts Furosemide (Lasix) 20 Mg Tab 20 MG PO DAILY for 7 Days, #7 TAB 0 Refills Prov: Radha Bran 10/17/17 Disposition: 01 DISCHARGE HOME Condition: Stable Radha Bran Oct 17, 2017 15:52
--- NOTE | 2017-10-17 17:44 | RADRPT ---
EXAM DATE/TIME: 10/17/2017 17:01 [place] COMPARISON: No previous studies available for comparison. INDICATIONS : Bilateral leg swelling. MEDICAL HISTORY : Neck pain. Asthma. Depression. Anxiety. HIV. Chemotherapy. Radiation therapy. Blood transfusions. Shanti ropathy. SURGICAL HISTORY : Brain tumor resection. Cervical surgery. ENCOUNTER: Initial ACUITY: 1 day PAIN SCORE: 6/10 LOCATION: Bilateral legs. TECHNIQUE: Venous ultrasound of the left and right leg was performed from the inguinal ligament to the proximal calf. Real-time, color Doppler and spectral tracing, compression and augmentation techniques were us ed. FINDINGS: RIGHT LEG: There is normal compressibility of the deep venous system from the inguinal region to the proximal ca lf. No echogenic clot is seen in the lumen of the common femoral, femoral, popliteal, and posterior tibial veins. There is a normal response of the venous system to proximal and distal augmentation an d respiration. LEFT LEG: There is normal compressibility of the deep venous system from the inguinal region to the proximal ca lf. No echogenic clot is seen in the lumen of the common femoral, femoral, popliteal, and posterior tibial veins. There is a normal response of the venous system to proximal and distal augmentation an d respiration. CONCLUSION: Normal examination. Stephen Salgado MD on October 17, 2017 at 17:42 Board Certified Radiologist. This report was verified electronically.
[2017-10-17] MEDS ORDERED: FUROSEMIDE 20 MG TAB PO ONE (18:30)
[2017-10-17] MEDS ORDERED: FURO1TAB62 PO (18:33)
== END 2017-10-17 19:27 | disposition home or self-care (01) ==
LOC: NEPC 12:41
DX: B20 Human immunodeficiency virus [HIV] disease (principal); R60.0 Localized edema; F17.200 Nicotine dependence, unspecified, uncomplicated
CPT/HCPCS: 80048; 83880; 85025; 85610; 85730; 93970; 99284

== ENCOUNTER 2017-12-12 03:52 | Inpatient (IN) | payer MEDICARE, OTHER ==
[2017-12-12] VITALS (15 sets, daily range): BP systolic 120–129; BP diastolic 68–78; PULSE 90–114; RESP 18–28; TEMP 97–99.6; O2SAT 92–98
[~2017-12-12] VITALS: Ht 188 cm; Wt 68.6 kg
[~2017-12-12 03:52] MED LIST changes: +FURO1TAB62 PO
--- NOTE | 2017-12-12 04:24 | PD ---
HPI Chief Complaint: Respiratory Symptoms Time Seen by Provider: 03:56 Travel History International Travel<30 days: No Contact w/Intl Traveler<30days: No Traveled to known affect area: No History of Present Illness HPI Patient has a history of CHF he is on Lasix 20 mg at home he has chronic leg edema he is coming in because he was having shortness of breath he is desatting to 80% on room air.. patient was put on CPAP by the paramedics EVAC .. then on the CPAP his saturation goes toward 98% doing much better breathing better. does not appear to be in significant resp distress PFSH Past Medical History Arthritis: No Asthma: Yes Autoimmune Disease: Yes Anxiety: Yes Depression: Yes Cancer: Yes (BRAIN TUMOR RESECTION 2008) Cardiovascular Problems: No Chemotherapy: Yes COPD: No Cerebrovascular Accident: No Diabetes: No Diminished Hearing: No Endocrine: No Gastrointestinal Disorders: Yes GERD: No Genitourinary: No Headaches: No Hiatal Hernia: No Immune Disorder: Yes (hiv) Implanted Vascular Access Dvce: No Musculoskeletal: Yes Neurologic: Yes Psychiatric: Yes Reproductive: No Respiratory: Yes Migraines: No Radiation Therapy: Yes Seizures: No Sleep Apnea: No Thyroid Disease: No Ulcer: No Influenza Vaccination: No Past Surgical History Abdominal Surgery: No Cardiac Surgery: No Ear Surgery: No Endocrine Surgery: No Eye Surgery: No Genitourinary Surgery: No Neurologic Surgery: Yes (CERVICAL BACK 2010,BRAIN TUMOR RESECTION 2008) Oral Surgery: No Thoracic Surgery: No Other Surgery: Yes (brain tumor) Social History Alcohol Use: No Tobacco Use: No (1/2 ppd stated he quit 2 weeks ago) Substance Use: No Allergies-Medications (Allergen,Severity, Reaction): Coded Allergies: No Known Allergies (Verified Adverse Reaction, Unknown, 12/12/17) Reported Meds & Prescriptions Reported Meds & Active Scripts Active Lasix (Furosemide) 20 Mg Tab 20 Mg PO DAILY [address] (Diclofenac Sodium) 75 Mg Tabdr 75 Mg PO BID Restoril (Temazepam) 15 Mg Cap 15 Mg PO HS PRN Oxycodone-Acetaminophen 5-325 mg Tab 1 Tab PO Q8HR PRN Eq Nicotine (Nicotine) 21 Mg/24 Hr Dis 1 Patch T-DERMAL DAILY Neurontin (Gabapentin) 300 Mg Cap 300 Mg PO QID 30 Days Tub Transfer Board (Device) 1 Mis Mis 1 Ea .ROUTE DIRECTED Wheelchair (Device) 1 Mis Mis 1 Ea .ROUTE DIRECTED Walker Rolling/GetGo (Device) 1 Mis Mis 1 Ea .ROUTE DIRECTED Reported Genvoya (Snayvtdnsazh-Bleuandyls-Grvfuciuvixh-Tenofvir) [phone] Mg Tab 1 Tab PO DAILY Physical Exam Narrative GENERAL: pt on CPAP and mild resp distress SKIN: Warm and dry. HEAD: Atraumatic. Normocephalic. EYES: Pupils equal and round. No scleral icterus. No injection or drainage. ENT: No nasal bleeding or discharge. Mucous membranes pink and moist. NECK: Trachea midline. No JVD. CARDIOVASCULAR: Regular rate and rhythm. RESPIRATORY: Pt has rales bilateral and coarse BS in upper beck bilateral mild increased RR GASTROINTESTINAL: Abdomen soft, non-tender, nondistended. Hepatic and splenic margins not palpable. MUSCULOSKELETAL: Extremities lower leg edema bilateral chronic in appearance NEUROLOGICAL: Awake and alert. No obvious cranial nerve deficits. Motor grossly within normal limits. Five out of 5 muscle strength in the arms and legs. Normal speech. PSYCHIATRIC: Appropriate mood and affect; insight and judgment normal. Data Data Last Documented VS Vital Signs Date Time Temp Pulse Resp B/P (MAP) Pulse Ox O2 Delivery O2 Flow Rate FiO2 12/12/17 04:08 99.6 12/12/17 04:01 97 BiPAP 30 12/12/17 03:56 114 28 129/78 (95) Orders Orders Complete Blood Count With Diff (12/12/17 04:24) B-Type Natriuretic Peptide (12/12/17 04:24) Ckmb (Isoenzyme) Profile (12/12/17 04:24) Troponin I (12/12/17 04:24) Urinalysis - C+S If Indicated (12/12/17 04:24) Iv Access Insert/Monitor (12/12/17 04:24) Electrocardiogram (12/12/17 04:24) Ecg Monitoring (12/12/17 04:24) Oximetry (12/12/17 04:24) Oxygen Administration (12/12/17 04:24) Chest, Single Ap (12/12/17 04:24) Sodium Chloride 0.9% Flush (Ns Flush) (12/12/17 04:30) Furosemide Inj (Lasix Inj) (12/12/17 04:30) Comprehensive Metabolic Panel (12/12/17 04:30) Ceftriaxone Inj (Rocephin Inj) (12/12/17 06:00) Resp Bipap / Cpap Non Invas Vt (12/12/17 ) Admit Order (Ed Use Only) (12/12/17 06:10) Albuterol-Ipratropium Neb (Duoneb Neb) (12/12/17 06:15) Furosemide Inj (Lasix Inj) (12/12/17 09:00) Admit To Inpatient (12/12/17 ) Vital Signs (Adult) Q4H (12/12/17 06:04) Activity Oob With Assistance (12/12/17 06:04) Field Insurance Sales Manager / Telemetry .CONTINUOUS (12/12/17 06:04) Intake + Output BRENNAN.QSHIFT (12/12/17 06:04) Sodium Chloride 0.9% Flush (Ns Flush) (12/12/17 06:15) Sodium Chloride 0.9% Flush (Ns Flush) (12/12/17 09:00) Comprehensive Metabolic Panel (12/13/17 06:00) Complete Blood Count With Diff (12/13/17 06:00) Case Management Consult (12/12/17 06:04) Scd Bilateral/Knee High BRENNAN.BID (12/12/17 06:04) William Bilateral/Knee High BRENNAN.QSHIFT (12/12/17 06:30) Naloxone Inj (Narcan Inj) (12/12/17 06:15) Docusate Sodium-Senna (Helen-Colace) (12/12/17 09:00) Magnesium Hydroxide Liq (Milk Of Magnesi (12/12/17 06:15) Sennosides (Senokot) (12/12/17 06:15) Bisacodyl Supp (Dulcolax Supp) (12/12/17 06:15) Lactulose Liq (Lactulose Liq) (12/12/17 06:15) Inpatient Certification (12/12/17 ) Vancomycin Consult Pharmacy (Vancomycin (12/12/17 06:15) Cefepime Inj (Maxipime Inj) (12/12/17 18:00) Labs Laboratory Tests Test 12/12/17 04:30 12/12/17 04:46 White Blood Count 13.4 TH/MM3 Red Blood Count 4.18 MIL/MM3 Hemoglobin 12.2 GM/DL Hematocrit 36.8 % Mean Corpuscular Volume 88.2 FL Mean Corpuscular Hemoglobin 29.1 PG Mean Corpuscular Hemoglobin Concent 33.0 % Red Cell Distribution Width 15.5 % Platelet Count 416 TH/MM3 Mean Platelet Volume 7.3 FL Neutrophils (%) (Auto) 83.9 % Lymphocytes (%) (Auto) 7.6 % Monocytes (%) (Auto) 8.3 % Eosinophils (%) (Auto) 0.1 % Basophils (%) (Auto) 0.1 % Neutrophils # (Auto) 11.2 TH/MM3 Lymphocytes # (Auto) 1.0 TH/MM3 Monocytes # (Auto) 1.1 TH/MM3 Eosinophils # (Auto) 0.0 TH/MM3 Basophils # (Auto) 0.0 TH/MM3 CBC Comment DIFF FINAL Differential Comment Blood Urea Nitrogen 6 MG/DL Creatinine 0.73 MG/DL Random Glucose 93 MG/DL Total Protein 8.3 GM/DL Albumin 3.0 GM/DL Calcium Level 8.9 MG/DL Alkaline Phosphatase 127 U/L Aspartate Amino Transf (AST/SGOT) 23 U/L Alanine Aminotransferase (ALT/SGPT) 20 U/L Total Bilirubin 1.2 MG/DL Sodium Level 136 MEQ/L Potassium Level 3.4 MEQ/L Chloride Level 100 MEQ/L Carbon Dioxide Level 27.1 MEQ/L Anion Gap 9 MEQ/L Estimat Glomerular Filtration Rate 144 ML/MIN Total Creatine Kinase 95 U/L Troponin I LESS THAN 0.02 NG/ML B-Type Natriuretic Peptide 21 PG/ML Urine Color Radha Urine Turbidity CLEAR Urine pH 7.0 Urine Specific [place] 1.026 Urine Protein 100 mg/dL Urine Glucose (UA) NEG mg/dL Urine Ketones NEG mg/dL Urine Occult Blood NEG Urine Nitrite NEG Urine Bilirubin NEG Urine Leukocyte Esterase TRACE Urine RBC 6 /hpf Urine WBC 3 /hpf Urine Squamous Epithelial Cells <1 /hpf Urine Bacteria RARE /hpf Urine Sperm RARE Microscopic Urinalysis Comment CULT NOT INDICATED MDM Medical Decision Making Medical Screen Exam Complete: Yes Emergency Medical Condition: Yes Differential Diagnosis Immunocompromised PNA pt has HIV + , pt is in resp distress PNA vs CHF vs PTX pt is stabilized on CPAP Narrative Course pt xray shows bibasilar consolidations possible infectious and pt is immunocompromised and needs broad spectrum antibioitcs continued CPAP and admit to [facility] step down UNIT for close lung monitoring Diagnosis Primary Impression: Acute hypoxemic respiratory failure Additional Impression: Pneumonia Admitting Information Admitting Physician Requests: Admit Sukh Bishop MD Dec 12, 2017 04:24
[2017-12-12] MEDS ORDERED: SODIUM CHLORIDE 0.9% FLUSH 10 ML FLUSH IVF PRN (04:30)
[2017-12-12] MEDS ORDERED: FUROSEMIDE 40 MG/4 ML VIAL IVP ONE (04:30)
[2017-12-12 04:50] LABS: AUTOMATED NEUTROPHIL # 11.2 TH/MM3 (1.8-7.7); BASOPHIL % 0.1 % (0.0-2.0); EOSINOPHIL % 0.1 % (0.0-4.0); HEMATOCRIT 36.8 % (39.0-51.0); HEMOGLOBIN 12.2 GM/DL (13.0-17.0); LYMPH % 7.6 % (9.0-44.0); MEAN CELL VOLUME 88.2 FL (80.0-100.0); MEAN CORPUSCULAR HEMOGLOBIN 29.1 PG (27.0-34.0); MEAN PLATELET VOLUME 7.3 FL (7.0-11.0); MONO % 8.3 % (0.0-8.0); MONOCYTE # 1.1 TH/MM3 (0-0.9); NEUT % 83.9 % (16.0-70.0); PLATELET COUNT 416 TH/MM3 (150-450); RED BLOOD COUNT 4.18 MIL/MM3 (4.50-5.90); RED CELL DISTRIBUTION WIDTH 15.5 % (11.6-17.2); WHITE BLOOD COUNT 13.4 TH/MM3 (4.0-11.0)
[2017-12-12 05:10] LABS: BACTERIA, URINE RARE /hpf; BILIRUBIN, URINE NEG (NEG); BLOOD, URINE NEG (NEG); GLUCOSE,URINE NEG (NEG); KETONE, URINE NEG (NEG); NITRITE,URINE NEG (NEG); SPERM, URINE RARE; SQUAMOUS EPITHELIAL CELL URINE <1 /hpf (0-5); URINE COLOR Amber (YELLW/STRAW); URINE LEUKOCYTE ESTERASE TRACE (NEG)
--- NOTE | 2017-12-12 05:11 | RADRPT ---
EXAM DATE: 12/12/2017 4:51 AM EDT AGE/SEX: 42 years / Male INDICATIONS: Short of breath. CLINICAL DATA: This is the patient's initial encounter. Patient reports that signs and symptoms have been present for 2 days and indicates a pain score of 0/10. MEDICAL/SURGICAL HISTORY: . brain tumor, asthma . Craniotomy. C-spine. COMPARISON: [facility] – [place], [place], CHEST SINGLE AP, 02/04/2017. . FINDINGS: The heart size is normal. There is increased density at the bases bilaterally. The mid and upper lung s are clear. There is anterior cervical fusion plate present. CONCLUSION: Bibasilar areas of consolidation or atelectasis. Some degree of mild effusion may also be present. Th tiffanie processes appear worse on the current exam. Electronically signed by: Stephen Clayton MD 12/12/2017 5:10 AM EDT
[2017-12-12 05:12] LABS: ALT (GPT) 20 U/L (12-78); AST (GOT) 23 U/L (15-37); BICARBONATE 27.1 MEQ/L (21.0-32.0); BLOOD UREA NITROGEN 6 MG/DL (7-18); CALCIUM 8.9 MG/DL (8.5-10.1); CHLORIDE 100 MEQ/L (98-107); CREATININE 0.73 MG/DL (0.60-1.30); GLOMERULAR FILTRATION RATE 144 ML/MIN (>89); GLUCOSE,RANDOM 93 MG/DL (74-106); SODIUM (NA) 136 MEQ/L (136-145); TROPONIN I LESS THAN 0.02 NG/ML (0.02-0.05)
[2017-12-12 05:14] LABS: ALKALINE PHOSPHATASE 127 U/L (45-117); TOTAL BILIRUBIN ADULT 1.2 MG/DL (0.2-1.0); TOTAL PROTEIN 8.3 GM/DL (6.4-8.2)
[2017-12-12] MEDS ORDERED: cefTRIAXone INJ 1,000 MG in SODIUM CHLORIDE 0.9% INJ 100 ML IV ONE (06:00)
[2017-12-12] MEDS ORDERED: Vancomycin Consult Pharmacy 1 EA OTHER SCH (06:15)
[2017-12-12] MEDS ORDERED: MAGNESIUM HYDROXIDE SUSP 30 ML CUP PO PRN (06:15)
[2017-12-12] MEDS ORDERED: NALOXONE HCL 0.4 MG/ML AMP IV PUSH PRN (06:15)
[2017-12-12] MEDS ORDERED: SENNOSIDES 8.6 MG TAB PO PRN (06:15)
[2017-12-12] MEDS ORDERED: BISACODYL 10 MG SUPP RECTAL PRN (06:15)
[2017-12-12] MEDS ORDERED: SODIUM CHLORIDE 0.9% FLUSH 10 ML FLUSH IV FLUSH PRN (06:15)
[2017-12-12] MEDS ORDERED: VANCOMYCIN INJ 1,000 MG in SODIUM CHLOR 0.9% 250 ML INJ 250 ML IV ONE (06:15)
[2017-12-12] MEDS ORDERED: RESP: ALBUTEROL 2.5 MG/IPRATROPIUM 0.5 MG NEB (PRN) NEB (06:15)
[2017-12-12] MEDS ORDERED: LACTULOSE SYRUP 20 GM/30 ML CUP PO PRN (06:15)
[2017-12-12] MEDS ORDERED: MORPHINE SULFATE 4 MG/ML INJ IV PUSH ONE (06:30)
[2017-12-12] MEDS ORDERED: VANCOMYCIN 1,500 MG/NS 500 ML IV ONE ×2 (06:30)
[2017-12-12] MEDS: FUROSEMIDE 40 MG/4 ML VIAL IV PUSH SCH ×2 (09:01→18:16)
[2017-12-12] MEDS: SODIUM CHLORIDE 0.9% FLUSH 10 ML FLUSH IV FLUSH SCH ×2 (09:01→21:07)
[2017-12-12] MEDS: DOCUSATE SODIUM 50 MG/SENNA 8.6 MG TAB PO SCH ×2 (09:01→21:05)
--- NOTE | 2017-12-12 10:12 | HHI.HP ---
[facility] Service [facility] Primary Care Physician No Primary Care Physician Admission Diagnosis PNA bilateral basal Diagnoses: (1) Pneumonia Diagnosis: Principal (2) Acute hypoxemic respiratory failure Diagnosis: Principal Travel History International Travel<30 Days: No Contact w/Intl Traveler <30 Da: No Traveled to Known Affected Are: No Sepsis Criteria SIRS Criteria (2 or more): Heart rate over 90, RR > 20 or PaCO2 < 32, WBC > 78638, < 4000 or > 10% bands Sepsis Criteria (SIRS+source): Infect source susp/known History of Present Illness Mr. Vega is a 42-year-old male. He has immunocompromise at baseline and has had pneumonia with respiratory failure and hypoxia before. He says that he has had recently an acute onset of respiratory distress and hypoxia. He came into the ER for this. He was discovered to have pneumonia. No other complaints at this time. He is placed on BiPAP in the ER and has been improving on BiPAP. Tachycardia, tachypnea, and leukocytosis qualify patient for sepsis. Review of Systems Constitutional: COMPLAINS OF: Chills, DENIES: Fatigue, Fever Eyes: DENIES: Diplopia, Eye inflammation, Eye pain Ears, nose, mouth, throat: DENIES: Hearing loss, Vertigo, Nasal discharge Respiratory: COMPLAINS OF: Cough, Wheezing, Shortness of breath Cardiovascular: DENIES: Chest pain, Palpitations, Syncope Gastrointestinal: DENIES: Abdominal pain, Black stools, Bloody stools Musculoskeletal: DENIES: Joint pain, Muscle aches, Stiffness, Joint Swelling Integumentary: DENIES: Abnormal pigmentation, Nail changes, Pruritus, Rash Hematologic/lymphatic: DENIES: Bruising, Lymphadenopathy Immunologic/allergic: DENIES: Eczema, Urticaria Neurologic: DENIES: Abnormal gait, Headache, Paresthesias Psychiatric: DENIES: Anxiety, Confusion, Hallucinations Past Family Social History Past Medical History Asthma Bronchitis HIV Past Surgical History None Reported Medications Reported Meds & Active Scripts Active Lasix (Furosemide) 20 Mg Tab 20 Mg PO DAILY [address] (Diclofenac Sodium) 75 Mg Tabdr 75 Mg PO BID Restoril (Temazepam) 15 Mg Cap 15 Mg PO HS PRN Oxycodone-Acetaminophen 5-325 mg Tab 1 Tab PO Q8HR PRN Eq Nicotine (Nicotine) 21 Mg/24 Hr Dis 1 Patch T-DERMAL DAILY Neurontin (Gabapentin) 300 Mg Cap 300 Mg PO QID 30 Days Tub Transfer Board (Device) 1 Mis Mis 1 Ea .ROUTE DIRECTED Wheelchair (Device) 1 Mis Mis 1 Ea .ROUTE DIRECTED Walker Rolling/GetGo (Device) 1 Mis Mis 1 Ea .ROUTE DIRECTED Reported Genvoya (Opeubygbnijc-Tvluwmkzar-Ibovlxyfeycs-Tenofvir) [phone] Mg Tab 1 Tab PO DAILY Allergies: Coded Allergies: No Known Allergies (Verified Adverse Reaction, Unknown, 12/12/17) Active Ordered Medications Administered Medications Medications (Trade) Dose Ordered Sig/Esvin Route PRN Reason Start Time Stop Time Status Last Admin Dose Admin Furosemide (Lasix Inj) 40 mg BID@,18 IV PUSH 12/12/17 09:00 12/12/17 09:01 Sodium Chloride (NS Flush) 2 ml BID IV FLUSH 12/12/17 09:00 12/12/17 09:01 Senna/Docusate Sodium (Helen-Colace) 1 tab BID PO 12/12/17 09:00 12/12/17 09:01 Family History Patient denies any positive family history of medical problems Social History denies smoking/ etoh abuse/ drug abuse Physical Exam Vital Signs Vital Signs Date Time Temp Pulse Resp B/P (MAP) Pulse Ox O2 Delivery O2 Flow Rate FiO2 12/12/17 09:57 111 18 126/72 (90) BiPAP 12/12/17 09:40 92 Nasal Cannula 5.00 12/12/17 07:44 97 30 12/12/17 07:10 110 18 BiPAP 12/12/17 07:05 18 12/12/17 04:08 99.6 12/12/17 04:01 97 BiPAP 30 12/12/17 04:00 97 30 12/12/17 03:56 114 28 129/78 (95) 98 Physical Exam GENERAL: NAD, A&Ox3 HEAD: Normocephalic. NECK: Supple, trachea midline. No lymphadenopathy. EYES: No scleral icterus. No injection or drainage. CARDIOVASCULAR: Regular rate and rhythm without murmurs, gallops, or rubs. RESPIRATORY: Breath sounds equal bilaterally. No accessory muscle use. GASTROINTESTINAL: Abdomen soft, non-tender, nondistended. MUSCULOSKELETAL: No cyanosis, or edema. SKIN: Warm and dry. NEURO: No focal neurological deficitis. Laboratory Laboratory Tests Test 12/12/17 04:30 12/12/17 04:46 White Blood Count 13.4 Red Blood Count 4.18 Hemoglobin 12.2 Hematocrit 36.8 Mean Corpuscular Volume 88.2 Mean Corpuscular Hemoglobin 29.1 Mean Corpuscular Hemoglobin Concent 33.0 Red Cell Distribution Width 15.5 Platelet Count 416 Mean Platelet Volume 7.3 Neutrophils (%) (Auto) 83.9 Lymphocytes (%) (Auto) 7.6 Monocytes (%) (Auto) 8.3 Eosinophils (%) (Auto) 0.1 Basophils (%) (Auto) 0.1 Neutrophils # (Auto) 11.2 Lymphocytes # (Auto) 1.0 Monocytes # (Auto) 1.1 Eosinophils # (Auto) 0.0 Basophils # (Auto) 0.0 CBC Comment DIFF FINAL Differential Comment Blood Urea Nitrogen 6 Creatinine 0.73 Random Glucose 93 Total Protein 8.3 Albumin 3.0 Calcium Level 8.9 Alkaline Phosphatase 127 Aspartate Amino Transf (AST/SGOT) 23 Alanine Aminotransferase (ALT/SGPT) 20 Total Bilirubin 1.2 Sodium Level 136 Potassium Level 3.4 Chloride Level 100 Carbon Dioxide Level 27.1 Anion Gap 9 Estimat Glomerular Filtration Rate 144 Total Creatine Kinase 95 Troponin I LESS THAN 0.02 B-Type Natriuretic Peptide 21 Urine Color Radha Urine Turbidity CLEAR Urine pH 7.0 Urine Specific [place] 1.026 Urine Protein 100 Urine Glucose (UA) NEG Urine Ketones NEG Urine Occult Blood NEG Urine Nitrite NEG Urine Bilirubin NEG Urine Leukocyte Esterase TRACE Urine RBC 6 Urine WBC 3 Urine Squamous Epithelial Cells <1 Urine Bacteria RARE Urine Sperm RARE Microscopic Urinalysis Comment CULT NOT INDICATED Result Diagram: 12/12/17 0430 12/12/17 0430 Septic Shock Reassessment Septic shock perfusion: reassessment completed Caprini VTE Risk Assessment Caprini VTE Risk Assessment: No/Low Risk (score <= 1) Caprini Risk Assessment Model Point Value = 1 Point Value = 2 Point Value = 3 Point Value = 5 Age 41-60 Minor surgery BMI > 25 kg/m2 Swollen legs Varicose veins or History of unexplained or recurrent spontaneous Oral contraceptives or hormone replacement Sepsis (< 1 month) Serious lung disease, including pneumonia (< 1 month) Abnormal pulmonary function Acute myocardial infarction Congestive heart failure (< 1 month) History of inflammatory bowel disease Medical patient at bed rest Age 61-74 Arthroscopic surgery Major open surgery (> 45 min) Laparoscopic surgery (> 45 min) Malignancy Confined to bed (> 72 hours) Immobilizing plaster cast Central venous access Age >= 75 History of VTE Family history of VTE Factor V Leiden Prothrombin [id number] Lupus anticoagulant Anticardiolipin antibodies Elevated serum homocysteine Heparin-induced thrombocytopenia Other congenital or acquired thrombophilia Stroke (< 1 month) Elective arthroplasty Hip, pelvis, or leg fracture Acute spinal cord injury (< 1 month) Prophylaxis Regimen Total Risk Factor Score Risk Level Prophylaxis Regimen 0-1 Low Early ambulation 2 Moderate Order ONE of the following: *Sequential Compression Device (SCD) *Heparin 5000 units SQ BID 3-4 Higher Order ONE of the following medications: *Heparin 5000 units SQ TID *Enoxaparin/Lovenox 40 mg SQ daily (WT < 150 kg, CrCl > 30 mL/min) *Enoxaparin/Lovenox 30 mg SQ daily (WT < 150 kg, CrCl > 10-29 mL/min) *Enoxaparin/Lovenox 30 mg SQ BID (WT < 150 kg, CrCl > 30 mL/min) AND/OR *Sequential Compression Device (SCD) 5 or more Highest Order ONE of the following medications: *Heparin 5000 units SQ TID (Preferred with Epidurals) *Enoxaparin/Lovenox 40 mg SQ daily (WT < 150 kg, CrCl > 30 mL/min) *Enoxaparin/Lovenox 30 mg SQ daily (WT < 150 kg, CrCl > 10-29 mL/min) *Enoxaparin/Lovenox 30 mg SQ BID (WT < 150 kg, CrCl > 30 mL/min) AND *Sequential Compression Device (SCD) Assessment and Plan Problem List: (1) Acute hypoxemic respiratory failure ICD Code: J96.01 - Acute respiratory failure with hypoxia Status: Acute (2) HIV (human immunodeficiency virus infection) ICD Code: B20 - Human immunodeficiency virus [HIV] disease Status: Acute (3) Pneumonia ICD Code: J18.9 - Pneumonia, unspecified organism Status: Acute Assessment and Plan 42-year-old male admitted secondary to respiratory distress and hypoxia, with pneumonia Community-acquired pneumonia Immunocompromise Asthma exacerbation Continue BiPAP support and wean as tolerated Continue oxygen support Nebulized treatments as needed Continue cefepime Continue vancomycin Continue azithromycin Probiotics HIV Continue baseline treatments Increased risks in setting of infection DVT prophylaxis Lovenox Physician Certification 2 Midnight Certification Type: Admission for Inpatient Services Order for Inpatient Services The services are ordered in accordance with Medicare regulations or non- Medicare payer requirements, as applicable. In the case of services not specified as inpatient-only, they are appropriately provided as inpatient services in accordance with the 2-midnight benchmark. Estimated LOS (days): 2 days is the estimated time the patient will need to remain in the hospital, assuming treatment plan goals are met and no additional complications. Post-Hospital Plan: Home Norberto Adrian MD Dec 12, 2017 10:12
--- NOTE | 2017-12-12 10:39 | EKG ---
Date Performed: 12/12/2017 Time Performed: 03:00:40 PTAGE: 42 years EKG: SINUS TACHYCARDIA POSSIBLE RIGHT VENTRICULAR CONDUCTION DELAY ABNORMAL RHYTHM ECG NO PREVIOUS TRACING DOCTOR: Ángel Davenport Interpretating Date/Time 12/12/2017 10:38:00
[2017-12-12] MEDS ORDERED: oxyCODONE/ACETAMINOPHEN 5 MG/325 MG TAB PO PRN (12:00)
[2017-12-12] MEDS: LACTOBACILLUS ACIDOPHILUS TAB PO SCH ×2 (13:56→18:14)
[2017-12-12] MEDS: ENOXAPARIN SODIUM 40 MG/0.4 ML SYRINGE SQ SCH (13:56)
[2017-12-12] MEDS: GABAPENTIN 300 MG CAP PO SCH ×3 (13:56→21:05)
[2017-12-12] MEDS: AZITHROMYCIN INJ 500 MG in SODIUM CHLOR 0.9% 250 ML INJ 250 ML IV SCH (13:57)
[2017-12-12] MEDS: oxyCODONE/ACETAMINOPHEN 10 MG/325 MG TAB PO PRN ×3 (14:00→23:17)
[2017-12-12] MEDS: CEFEPIME INJ 1,000 MG in SODIUM CHLORIDE 0.9% INJ 100 ML IV SCH (18:16)
[2017-12-12] MEDS: DICLOFENAC SODIUM 75 MG DELAYED RELEASE TAB PO SCH (21:05)
[2017-12-12] MEDS: TEMAZEPAM 15 MG CAP PO PRN (21:05)
[2017-12-12] MEDS: VANCOMYCIN INJ 1,500 MG in SODIUM CHLORID 0.9% 500 ML INJ 500 ML IV SCH (21:09)
[2017-12-13] VITALS (23 sets, daily range): BP systolic 91–129; BP diastolic 57–84; PULSE 84–120; RESP 16–20; TEMP 98.1–98.6; O2SAT 90–97
[2017-12-13 04:26] LABS: AUTOMATED NEUTROPHIL # 7.4 TH/MM3 (1.8-7.7); BASOPHIL % 0.3 % (0.0-2.0); EOSINOPHIL # 0.1 TH/MM3 (0-0.4); EOSINOPHIL % 0.7 % (0.0-4.0); LYMPH % 11.8 % (9.0-44.0); LYMPHOCYTE # 1.1 TH/MM3 (1.0-4.8); MEAN CORPUSCULAR HEMOGLOBIN 29.7 PG (27.0-34.0); MEAN CORPUSCULAR HGB CONC 33.4 % (32.0-36.0); MEAN PLATELET VOLUME 7.4 FL (7.0-11.0); MONO % 8.2 % (0.0-8.0); MONOCYTE # 0.8 TH/MM3 (0-0.9); PLATELET COUNT 353 TH/MM3 (150-450); RED BLOOD COUNT 3.71 MIL/MM3 (4.50-5.90); RED CELL DISTRIBUTION WIDTH 15.7 % (11.6-17.2); WHITE BLOOD COUNT 9.3 TH/MM3 (4.0-11.0)
[2017-12-13 04:53] LABS: ALBUMIN 2.3 GM/DL (3.4-5.0); ALKALINE PHOSPHATASE 115 U/L (45-117); ALT (GPT) 15 U/L (12-78); AST (GOT) 19 U/L (15-37); BICARBONATE 27.4 MEQ/L (21.0-32.0); BLOOD UREA NITROGEN 6 MG/DL (7-18); CALCIUM 8.5 MG/DL (8.5-10.1); CHLORIDE 100 MEQ/L (98-107); GLOMERULAR FILTRATION RATE 223 ML/MIN (>89); GLUCOSE,RANDOM 71 MG/DL (74-106); SODIUM (NA) 139 MEQ/L (136-145); TOTAL BILIRUBIN ADULT 1.1 MG/DL (0.2-1.0); TOTAL PROTEIN 6.8 GM/DL (6.4-8.2)
[2017-12-13] MEDS: CEFEPIME INJ 1,000 MG in SODIUM CHLORIDE 0.9% INJ 100 ML IV SCH ×2 (05:52→17:00)
[2017-12-13] MEDS: POTASSIUM CHLORIDE 10 MEQ CONTROLLED RELEASE TAB PO SCH ×2 (05:52→08:16)
[2017-12-13] MEDS: oxyCODONE/ACETAMINOPHEN 10 MG/325 MG TAB PO PRN ×5 (05:53→21:06)
[2017-12-13] MEDS: GABAPENTIN 300 MG CAP PO SCH ×4 (08:16→19:39)
[2017-12-13] MEDS: DICLOFENAC SODIUM 75 MG DELAYED RELEASE TAB PO SCH ×2 (08:16→19:39)
[2017-12-13] MEDS: DOCUSATE SODIUM 50 MG/SENNA 8.6 MG TAB PO SCH ×2 (08:16→19:40)
[2017-12-13] MEDS: VANCOMYCIN INJ 1,500 MG in SODIUM CHLORID 0.9% 500 ML INJ 500 ML IV SCH ×2 (08:16→19:39)
[2017-12-13] MEDS: LACTOBACILLUS ACIDOPHILUS TAB PO SCH ×3 (08:16→17:00)
[2017-12-13] MEDS: SODIUM CHLORIDE 0.9% FLUSH 10 ML FLUSH IV FLUSH SCH ×2 (08:17→19:40)
[2017-12-13] MEDS: FUROSEMIDE 40 MG/4 ML VIAL IV PUSH SCH ×2 (08:17→17:01)
[2017-12-13] MEDS: REMOVE OLD PATCH T-DERMAL SCH (08:28)
[2017-12-13] MEDS: NICOTINE 21 MG/24 HR PATCH T-DERMAL SCH (08:28)
[2017-12-13] MEDS ORDERED: POTASSIUM CHLORIDE 10 MEQ CONTROLLED RELEASE TAB PO ONE (08:45)
[2017-12-13] MEDS ORDERED: FUROSEMIDE 20 MG TAB PO SCH (09:00)
[2017-12-13] MEDS ORDERED: GENVOYA PO SCH (09:00)
[2017-12-13] MEDS: ENOXAPARIN SODIUM 40 MG/0.4 ML SYRINGE SQ SCH (11:07)
[2017-12-13] MEDS: AZITHROMYCIN INJ 500 MG in SODIUM CHLOR 0.9% 250 ML INJ 250 ML IV SCH (11:08)
--- NOTE | 2017-12-13 11:57 | HHI.PR ---
Subjective Remarks Good response thus far. Patient has been weaned from BiPAP. He still remains oxygen dependent which is not his baseline. Objective Vital Signs Date Time Temp Pulse Resp B/P (MAP) Pulse Ox O2 Delivery O2 Flow Rate FiO2 12/13/17 09:47 16 12/13/17 08:00 99 12/13/17 08:00 98.2 93 16 112/68 (83) 90 12/13/17 07:15 Nasal Cannula 4.00 12/13/17 06:00 92 12/13/17 05:00 85 12/13/17 04:00 86 12/13/17 04:00 Nasal Cannula 4.00 12/13/17 04:00 98.4 86 20 95/57 (70) 97 12/13/17 03:00 88 12/13/17 02:00 84 12/13/17 01:00 87 12/13/17 00:00 Nasal Cannula 4.00 12/13/17 00:00 98.6 88 18 129/84 (99) 96 12/13/17 00:00 88 12/12/17 23:00 90 12/12/17 22:00 99 12/12/17 21:00 95 12/12/17 20:17 97 Nasal Cannula 5.00 12/12/17 20:00 96 12/12/17 20:00 Nasal Cannula 4.00 12/12/17 20:00 98.3 96 20 126/76 (93) 96 12/12/17 18:21 12/12/17 14:20 12/12/17 13:09 97.0 112 18 120/68 (85) 96 I/O 12/12/17 12/12/17 12/12/17 12/13/17 12/13/17 12/13/17 07:00 15:00 23:00 07:00 15:00 23:00 Intake Total 615 ml 995 ml Output Total 1000 ml 800 ml Balance -385 ml 195 ml Intake Oral 480 ml IV Total 615 ml 515 ml Output Urine Total 1000 ml 800 ml # Voids 5 # Bowel Movements 1 Result Diagram: 12/13/1731012/13/17310 Objective Remarks GENERAL: NAD, A&Ox3 HEAD: Normocephalic. NECK: Supple, trachea midline. No lymphadenopathy. EYES: No scleral icterus. No injection or drainage. CARDIOVASCULAR: Regular rate and rhythm without murmurs, gallops, or rubs. RESPIRATORY: Breath sounds equal bilaterally. No accessory muscle use. GASTROINTESTINAL: Abdomen soft, non-tender, nondistended. MUSCULOSKELETAL: No cyanosis, or edema. SKIN: Warm and dry. NEURO: No focal neurological deficitis. A/P Problem List: (1) Acute hypoxemic respiratory failure ICD Code: J96.01 - Acute respiratory failure with hypoxia Status: Acute (2) HIV (human immunodeficiency virus infection) ICD Code: B20 - Human immunodeficiency virus [HIV] disease Status: Acute (3) Pneumonia ICD Code: J18.9 - Pneumonia, unspecified organism Status: Acute (4) Impaired mobility and activities of daily living ICD Code: Z74.09 - Other reduced mobility Status: Acute Assessment and Plan 42-year-old male admitted secondary to respiratory distress and hypoxia, with pneumonia Community-acquired pneumonia Immunocompromise Asthma exacerbation Weaned from Bipap now Continue oxygen support Nebulized treatments as needed Continue cefepime Continue vancomycin Continue azithromycin Probiotics Follow for further improvement HIV Continue baseline treatments Increased risks in setting of infection Continue Genvoya Impaired mobility Weakness Some degree is present chronically but he has an acute exacerbation of this related to his pneumonia Continue physical therapy Likely will need [facility] facility at time of discharge DVT prophylaxis Norberto Peña MD Dec 13, 2017 11:57
--- NOTE | 2017-12-13 14:43 | ECHRPT ---
Indication: Heart Failure CONCLUSIONS Normal left ventricular size. Wall thickness is normal. The left ventricular systolic function is normal with an estimated ejection fraction in the range of 50-55%. No regional wall motion abnormalities are present. Trace mitral valve regurgitation. There is mild tricuspid valve regurgitation. The estimated pulmonary arterial pressure is 38 mmHg. BP: / HR: Rhythm: Sinus MEASUREMENTS (Male / Female) Normal Values Technical Quality:Technically difficult study 2D ECHO LV Diastolic Diameter PLAX 4.8 cm 4.2 - 5.9 / 3.9 - 5.3 cm LV Systolic Diameter PLAX 3.9 cm IVS Diastolic Thickness 0.8 cm 0.6 - 1.0 / 0.6 - 0.9 cm LVPW Diastolic Thickness 0.8 cm 0.6 - 1.0 / 0.6 - 0.9 cm LV Relative Wall Thickness 0.3 RV Internal Dim ED PLAX 2.4 cm LVOT Diameter 2.2 cm LA Systolic Diameter LX 3.0 cm 3.0 - 4.0 / 2.7 - 3.8 cm M-MODE Aortic Root Diameter MM 2.7 cm LA Systolic Diameter MM 3.2 cm LA Ao Ratio MM 1.2 AV Cusp Separation MM 2.0 cm DOPPLER AV Peak Velocity 95.4 cm/s AV Peak Gradient 3.6 mmHg LVOT Peak Velocity 68.0 cm/s LVOT Peak Gradient 1.8 mmHg AV Area Cont Eq pk 2.7 cm MV Area PHT 3.2 cm Mitral E Point Velocity 54.6 cm/s Mitral A Point Velocity 74.9 cm/s Mitral E to A Ratio 0.7 LV E' Lateral Velocity 5.9 cm/s Mitral E to LV E' Lateral Ratio 9.3 LV E' Septal Velocity 8.5 cm/s Mitral E to LV E' Septal Ratio 6.4 TR Peak Velocity 289.0 cm/s TR Peak Gradient 33.4 mmHg Right Atrial Pressure 10.0 mmHg Pulmonary Artery Systolic Pressu 43.4 mmHg Right Ventricular Systolic Press 43.4 mmHg FINDINGS LEFT VENTRICLE Normal left ventricular size. Wall thickness is normal. The left ventricular systolic function is normal with an estimated ejection fraction in the range of 50-55%. No regional wall motion abnormalities are present. RIGHT VENTRICLE Normal right ventricular size and systolic function. LEFT ATRIUM The left atrial size is normal. RIGHT ATRIUM The right atrial size is normal. ATRIAL SEPTUM Normal atrial septal thickness without atrial level shunting by limited color doppler interrogation. AORTA The aortic root and proximal ascending aorta are normal in size on limited imaging. MITRAL VALVE Trace mitral valve regurgitation. AORTIC VALVE Trileaflet aortic valve. No aortic valve stenosis or regurgitation. TRICUSPID VALVE Structurally normal tricuspid valve. There is mild tricuspid valve regurgitation. The estimated pulmonary arterial pressure is 38 mmHg. PULMONARY VALVE Trivial pulmonary valve regurgitation. VESSELS The inferior vena cava is normal in size. PERICARDIUM No pericardial effusion. Ángel Davenport MD (Electronically Signed) Final Date:13 December 2017 14:42
[2017-12-13] MEDS: TEMAZEPAM 15 MG CAP PO PRN (19:39)
[2017-12-13] MEDS ORDERED: PHARMACY ORDERED LAB ONE (19:45)
[2017-12-14] VITALS (25 sets, daily range): BP systolic 97–126; BP diastolic 59–78; PULSE 86–114; RESP 16–18; TEMP 97.7–98.1; O2SAT 96–100
[2017-12-14] MEDS: oxyCODONE/ACETAMINOPHEN 10 MG/325 MG TAB PO PRN ×5 (03:05→20:38)
[2017-12-14 04:09] LABS: AUTOMATED NEUTROPHIL # 6.8 TH/MM3 (1.8-7.7); BASOPHIL % 0.1 % (0.0-2.0); EOSINOPHIL # 0.2 TH/MM3 (0-0.4); EOSINOPHIL % 2.4 % (0.0-4.0); HEMATOCRIT 32.1 % (39.0-51.0); HEMOGLOBIN 10.9 GM/DL (13.0-17.0); LYMPH % 13.9 % (9.0-44.0); LYMPHOCYTE # 1.3 TH/MM3 (1.0-4.8); MEAN CELL VOLUME 88.4 FL (80.0-100.0); MEAN CORPUSCULAR HEMOGLOBIN 29.9 PG (27.0-34.0); MEAN CORPUSCULAR HGB CONC 33.8 % (32.0-36.0); MEAN PLATELET VOLUME 7.2 FL (7.0-11.0); MONO % 10.1 % (0.0-8.0); MONOCYTE # 0.9 TH/MM3 (0-0.9); NEUT % 73.5 % (16.0-70.0); PLATELET COUNT 356 TH/MM3 (150-450); RED BLOOD COUNT 3.63 MIL/MM3 (4.50-5.90); RED CELL DISTRIBUTION WIDTH 15.3 % (11.6-17.2); WHITE BLOOD COUNT 9.3 TH/MM3 (4.0-11.0)
[2017-12-14 04:33] LABS: ALBUMIN 2.1 GM/DL (3.4-5.0); AST (GOT) 30 U/L (15-37); BICARBONATE 28.3 MEQ/L (21.0-32.0); BLOOD UREA NITROGEN 9 MG/DL (7-18); CALCIUM 8.5 MG/DL (8.5-10.1); CHLORIDE 100 MEQ/L (98-107); CREATININE 0.73 MG/DL (0.60-1.30); GLOMERULAR FILTRATION RATE 144 ML/MIN (>89); GLUCOSE,RANDOM 89 MG/DL (74-106); SODIUM (NA) 138 MEQ/L (136-145)
[2017-12-14 04:34] LABS: ALT (GPT) 18 U/L (12-78)
[2017-12-14 04:36] LABS: ALKALINE PHOSPHATASE 128 U/L (45-117); TOTAL BILIRUBIN ADULT 0.6 MG/DL (0.2-1.0); TOTAL PROTEIN 6.5 GM/DL (6.4-8.2)
[2017-12-14] MEDS: CEFEPIME INJ 1,000 MG in SODIUM CHLORIDE 0.9% INJ 100 ML IV SCH ×2 (05:22→17:01)
[2017-12-14] MEDS: FUROSEMIDE 40 MG/4 ML VIAL IV PUSH SCH ×2 (08:05→17:01)
[2017-12-14] MEDS: GABAPENTIN 300 MG CAP PO SCH ×4 (08:06→20:37)
[2017-12-14] MEDS: VANCOMYCIN INJ 1,500 MG in SODIUM CHLORID 0.9% 500 ML INJ 500 ML IV SCH ×2 (08:06→20:42)
[2017-12-14] MEDS: DOCUSATE SODIUM 50 MG/SENNA 8.6 MG TAB PO SCH ×2 (08:06→20:39)
[2017-12-14] MEDS: SODIUM CHLORIDE 0.9% FLUSH 10 ML FLUSH IV FLUSH SCH ×2 (08:06→20:39)
[2017-12-14] MEDS: LACTOBACILLUS ACIDOPHILUS TAB PO SCH ×3 (08:06→17:01)
[2017-12-14] MEDS: DICLOFENAC SODIUM 75 MG DELAYED RELEASE TAB PO SCH ×2 (08:06→20:39)
[2017-12-14] MEDS: REMOVE OLD PATCH T-DERMAL SCH (08:06)
[2017-12-14] MEDS: NICOTINE 21 MG/24 HR PATCH T-DERMAL SCH (08:07)
[2017-12-14] MEDS ORDERED: POTASSIUM CHLORIDE 10 MEQ CONTROLLED RELEASE TAB PO ONE (08:30)
--- NOTE | 2017-12-14 09:43 | HHI.PR ---
Subjective Remarks Patient's oxygen level has been weaned down to 2 L/min at this point. He is saturating at 93%. No respiratory distress. At baseline he does not use oxygen. Echocardiogram has resulted and shows no evidence of CHF. Objective Vital Signs Date Time Temp Pulse Resp B/P (MAP) Pulse Ox O2 Delivery O2 Flow Rate FiO2 12/14/17 09:00 22 12/14/17 08:00 86 12/14/17 08:00 97.7 91 16 104/67 (79) 100 12/14/17 07:08 Nasal Cannula 4.00 12/14/17 06:00 92 12/14/17 05:00 100 12/14/17 04:00 Nasal Cannula 4.00 12/14/17 04:00 94 12/14/17 04:00 98.1 94 18 100/62 (75) 96 12/14/17 03:00 100 12/14/17 02:00 96 12/14/17 01:00 111 12/14/17 00:00 104 12/14/17 00:00 Nasal Cannula 4.00 12/14/17 00:00 98.0 104 18 110/59 (76) 98 12/13/17 23:00 100 12/13/17 22:00 99 12/13/17 21:00 98 12/13/17 20:00 99 12/13/17 20:00 Nasal Cannula 4.00 12/13/17 20:00 98.2 99 18 119/78 (92) 97 12/13/17 18:00 120 12/13/17 17:00 94 12/13/17 16:00 98.1 88 20 105/65 (78) 95 12/13/17 16:00 90 12/13/17 15:00 96 12/13/17 14:00 102 12/13/17 13:00 90 12/13/17 12:00 98.1 98 18 91/63 (72) 97 12/13/17 12:00 101 12/13/17 11:00 98 12/13/17 10:00 98 I/O 12/13/17 12/13/17 12/13/17 12/14/17 12/14/17 12/14/17 07:00 15:00 23:00 07:00 15:00 23:00 Intake Total 995 ml 2150 ml 1215 ml Output Total 800 ml 1300 ml 1100 ml Balance 195 ml 850 ml 115 ml Intake Oral 480 ml 1300 ml 700 ml IV Total 515 ml 850 ml 515 ml Output Urine Total 800 ml 1300 ml 1100 ml # Bowel Movements 1 1 0 Result Diagram: 12/14/1731512/14/176 Objective Remarks GENERAL: NAD, A&Ox3 HEAD: Normocephalic. NECK: Supple, trachea midline. No lymphadenopathy. EYES: No scleral icterus. No injection or drainage. CARDIOVASCULAR: Regular rate and rhythm without murmurs, gallops, or rubs. RESPIRATORY: Breath sounds equal bilaterally. No accessory muscle use. GASTROINTESTINAL: Abdomen soft, non-tender, nondistended. MUSCULOSKELETAL: No cyanosis, or edema. SKIN: Warm and dry. NEURO: No focal neurological deficitis. A/P Problem List: (1) Acute hypoxemic respiratory failure ICD Code: J96.01 - Acute respiratory failure with hypoxia Status: Acute (2) HIV (human immunodeficiency virus infection) ICD Code: B20 - Human immunodeficiency virus [HIV] disease Status: Acute (3) Pneumonia ICD Code: J18.9 - Pneumonia, unspecified organism Status: Acute (4) Impaired mobility and activities of daily living ICD Code: Z74.09 - Other reduced mobility Status: Acute Assessment and Plan 42-year-old male admitted secondary to respiratory distress and hypoxia, with pneumonia Community-acquired pneumonia Immunocompromise Asthma exacerbation Weaned from Bipap Continue oxygen wean as tolerated Continue oxygen support Nebulized treatments as needed Continue cefepime Continue vancomycin Continue azithromycin Probiotics Follow for further improvement HIV Continue baseline treatments Increased risks in setting of infection Continue Genvoya Impaired mobility Weakness Some degree is present chronically but he has an acute exacerbation of this related to his pneumonia Continue physical therapy Likely will need fdc facility at time of discharge DVT prophylaxis Lovenox Discharge planning Current plan is for fdc facility at time of discharge Norberto Adrian MD Dec 14, 2017 09:43
[2017-12-14] MEDS: ENOXAPARIN SODIUM 40 MG/0.4 ML SYRINGE SQ SCH (11:23)
[2017-12-14] MEDS: AZITHROMYCIN INJ 500 MG in SODIUM CHLOR 0.9% 250 ML INJ 250 ML IV SCH (11:23)
[2017-12-14] MEDS: GENVOYA PO SCH (17:36)
[2017-12-14] MEDS: TEMAZEPAM 15 MG CAP PO PRN (20:37)
[2017-12-15] VITALS (28 sets, daily range): BP systolic 105–125; BP diastolic 60–78; PULSE 84–123; RESP 16–18; TEMP 97.7–98.4; O2SAT 93–99
[2017-12-15] MEDS: oxyCODONE/ACETAMINOPHEN 10 MG/325 MG TAB PO PRN ×6 (01:41→22:03)
[2017-12-15] MEDS: CEFEPIME INJ 1,000 MG in SODIUM CHLORIDE 0.9% INJ 100 ML IV SCH ×2 (04:35→17:05)
[2017-12-15 07:07] LABS: ALBUMIN 2.1 GM/DL (3.4-5.0); AST (GOT) 20 U/L (15-37); BICARBONATE 29.2 MEQ/L (21.0-32.0); BLOOD UREA NITROGEN 7 MG/DL (7-18); CALCIUM 8.4 MG/DL (8.5-10.1); CHLORIDE 101 MEQ/L (98-107); CREATININE 0.63 MG/DL (0.60-1.30); GLOMERULAR FILTRATION RATE 171 ML/MIN (>89); GLUCOSE,RANDOM 84 MG/DL (74-106); SODIUM (NA) 138 MEQ/L (136-145)
[2017-12-15 07:09] LABS: ALT (GPT) 14 U/L (12-78)
[2017-12-15 07:13] LABS: ALKALINE PHOSPHATASE 115 U/L (45-117); TOTAL BILIRUBIN ADULT 0.5 MG/DL (0.2-1.0); TOTAL PROTEIN 6.5 GM/DL (6.4-8.2)
[2017-12-15 07:31] LABS: AUTOMATED NEUTROPHIL # 5.3 TH/MM3 (1.8-7.7); BASOPHIL % 0.2 % (0.0-2.0); EOSINOPHIL # 0.3 TH/MM3 (0-0.4); EOSINOPHIL % 3.6 % (0.0-4.0); HEMATOCRIT 33.4 % (39.0-51.0); LYMPH % 18.6 % (9.0-44.0); LYMPHOCYTE # 1.5 TH/MM3 (1.0-4.8); MEAN CELL VOLUME 88.4 FL (80.0-100.0); MEAN CORPUSCULAR HGB CONC 32.9 % (32.0-36.0); MEAN PLATELET VOLUME 7.1 FL (7.0-11.0); MONOCYTE # 0.8 TH/MM3 (0-0.9); NEUT % 67.6 % (16.0-70.0); PLATELET COUNT 412 TH/MM3 (150-450); RED BLOOD COUNT 3.78 MIL/MM3 (4.50-5.90); WHITE BLOOD COUNT 7.9 TH/MM3 (4.0-11.0)
[2017-12-15] MEDS ORDERED: PHARMACY ORDERED LAB ONE (07:45)
[2017-12-15] MEDS: VANCOMYCIN INJ 1,500 MG in SODIUM CHLORID 0.9% 500 ML INJ 500 ML IV SCH ×2 (08:33→20:01)
[2017-12-15] MEDS: FUROSEMIDE 40 MG/4 ML VIAL IV PUSH SCH (08:33)
[2017-12-15] MEDS: GABAPENTIN 300 MG CAP PO SCH ×4 (08:33→21:32)
[2017-12-15] MEDS: DICLOFENAC SODIUM 75 MG DELAYED RELEASE TAB PO SCH ×2 (08:33→21:32)
[2017-12-15] MEDS: LACTOBACILLUS ACIDOPHILUS TAB PO SCH ×3 (08:33→17:05)
[2017-12-15] MEDS: DOCUSATE SODIUM 50 MG/SENNA 8.6 MG TAB PO SCH ×2 (08:34→21:00)
[2017-12-15] MEDS: REMOVE OLD PATCH T-DERMAL SCH (08:34)
[2017-12-15] MEDS: NICOTINE 21 MG/24 HR PATCH T-DERMAL SCH (08:34)
[2017-12-15] MEDS: SODIUM CHLORIDE 0.9% FLUSH 10 ML FLUSH IV FLUSH SCH ×2 (08:34→21:31)
[2017-12-15] MEDS: GENVOYA PO SCH (08:37)
[2017-12-15] MEDS ORDERED: POTASSIUM CHLORIDE 10 MEQ CONTROLLED RELEASE TAB PO ONE (09:00)
[2017-12-15] MEDS: ENOXAPARIN SODIUM 40 MG/0.4 ML SYRINGE SQ SCH (10:03)
[2017-12-15] MEDS: AZITHROMYCIN INJ 500 MG in SODIUM CHLOR 0.9% 250 ML INJ 250 ML IV SCH (12:00)
--- NOTE | 2017-12-15 15:27 | HHI.PR ---
Subjective Remarks Patient reports he is still having some difficulty breathing. He denies any chest pain. Objective Vitals Vital Signs Date Time Temp Pulse Resp B/P (MAP) Pulse Ox O2 Delivery O2 Flow Rate FiO2 12/15/17 14:00 114 12/15/17 13:00 110 12/15/17 12:00 102 12/15/17 11:52 97.7 110 18 116/78 (91) 93 12/15/17 11:00 107 12/15/17 10:00 104 12/15/17 09:00 102 12/15/17 08:00 90 12/15/17 07:46 98 Nasal Cannula 4.00 12/15/17 07:17 97 Nasal Cannula 2.00 12/15/17 07:17 98.1 98 18 118/70 (86) 97 12/15/17 07:00 91 12/15/17 06:00 89 12/15/17 05:00 88 12/15/17 04:00 91 12/15/17 03:43 98.0 91 18 105/60 (75) 97 12/15/17 03:43 Nasal Cannula 4.00 12/15/17 03:00 90 12/15/17 02:00 95 12/15/17 01:00 94 12/15/17 00:00 98.3 93 18 114/65 (81) 98 12/15/17 00:00 Nasal Cannula 4.00 12/15/17 00:00 93 12/14/17 23:00 94 12/14/17 22:00 95 12/14/17 21:00 99 12/14/17 20:01 98 Nasal Cannula 2.00 12/14/17 20:00 Nasal Cannula 4.00 12/14/17 20:00 98.1 94 18 126/78 (94) 96 12/14/17 20:00 94 12/14/17 18:00 108 12/14/17 17:00 94 12/14/17 16:37 20 12/14/17 16:00 98 12/14/17 16:00 98.0 97 16 112/71 (85) 97 I/O 12/14/17 12/14/17 12/14/17 12/15/17 12/15/17 12/15/17 07:00 15:00 23:00 07:00 15:00 23:00 Intake Total 1215 ml 1590 ml 700 ml 100 ml Output Total 1100 ml 1250 ml 1000 ml Balance 115 ml 340 ml -300 ml 100 ml Intake Oral 700 ml 1140 ml 700 ml IV Total 515 ml 450 ml 100 ml Output Urine Total 1100 ml 1250 ml 1000 ml # Bowel Movements 0 0 0 Result Diagram: 12/15/1735 12/15/17 0535 Objective Remarks GENERAL: Frail-appearing male in no acute distress. CARDIOVASCULAR: Normal rate and regular rhythm without murmurs, gallops, or rubs. RESPIRATORY: Diffuse rhonchi and expiratory wheezing throughout. Respiratory effort is fair. GASTROINTESTINAL: Abdomen soft, non-tender, non-distended. Normal active bowel sounds MUSCULOSKELETAL: Extremities without cyanosis, or edema. NEURO: Alert & Oriented x4 to person, place, time, situation. Moves all ext x4 PSYCH: Appropriate mood and affect. A/P Problem List: (1) Acute hypoxemic respiratory failure ICD Code: J96.01 - Acute respiratory failure with hypoxia Status: Acute (2) HIV (human immunodeficiency virus infection) ICD Code: B20 - Human immunodeficiency virus [HIV] disease Status: Acute (3) Pneumonia ICD Code: J18.9 - Pneumonia, unspecified organism Status: Acute Assessment and Plan 42-year-old male admitted secondary to respiratory distress and hypoxia, with pneumonia Community-acquired pneumonia Immunocompromise Asthma exacerbation Patient weaned from BiPAP Continue oxygen wean as tolerated Nebulized treatments as needed Continue cefepime Continue vancomycin Continue azithromycin Probiotics Add prednisone, incentive spirometry. Follow for further improvement HIV Continue baseline treatments Increased risks in setting of infection Continue Genvoya Impaired mobility Weakness Some degree is present chronically but he has an acute exacerbation of this related to his pneumonia Continue physical therapy Likely will need shelter facility at time of discharge DVT prophylaxis Lovenox Discharge Planning Follow for improvement of respiratory symptoms. Need SNF placement. Josefina Garcia MD Dec 15, 2017 15:27
[2017-12-15] MEDS: predniSONE 20 MG TAB PO SCH ×2 (17:04→21:32)
[2017-12-15] MEDS: TEMAZEPAM 15 MG CAP PO PRN (23:10)
[2017-12-16] VITALS (13 sets, daily range): BP systolic 120–123; BP diastolic 72; PULSE 74–98; RESP 16–18; TEMP 97.6–98.7; O2SAT 96–100
[2017-12-16] MEDS: oxyCODONE/ACETAMINOPHEN 10 MG/325 MG TAB PO PRN ×2 (03:18→09:24)
[2017-12-16 05:50] LABS: HEMOGLOBIN 11.1 GM/DL (13.0-17.0); MEAN CELL VOLUME 87.8 FL (80.0-100.0); MEAN CORPUSCULAR HEMOGLOBIN 28.7 PG (27.0-34.0); MEAN CORPUSCULAR HGB CONC 32.6 % (32.0-36.0); MEAN PLATELET VOLUME 6.6 FL (7.0-11.0); PLATELET COUNT 468 TH/MM3 (150-450); RED BLOOD COUNT 3.87 MIL/MM3 (4.50-5.90); WHITE BLOOD COUNT 9.6 TH/MM3 (4.0-11.0)
[2017-12-16] MEDS: CEFEPIME INJ 1,000 MG in SODIUM CHLORIDE 0.9% INJ 100 ML IV SCH (06:03)
[2017-12-16 06:24] LABS: BICARBONATE 28.2 MEQ/L (21.0-32.0); CALCIUM 8.7 MG/DL (8.5-10.1); CREATININE 0.82 MG/DL (0.60-1.30)
[2017-12-16] MEDS ORDERED: PHARMACY ORDERED LAB ONE (07:45)
[2017-12-16] MEDS: REMOVE OLD PATCH T-DERMAL SCH (09:00)
[2017-12-16] MEDS: SODIUM CHLORIDE 0.9% FLUSH 10 ML FLUSH IV FLUSH SCH (09:00)
[2017-12-16] MEDS: VANCOMYCIN INJ 1,500 MG in SODIUM CHLORID 0.9% 500 ML INJ 500 ML IV SCH (09:23)
[2017-12-16] MEDS: LACTOBACILLUS ACIDOPHILUS TAB PO SCH ×2 (09:24→12:32)
[2017-12-16] MEDS: DOCUSATE SODIUM 50 MG/SENNA 8.6 MG TAB PO SCH (09:24)
[2017-12-16] MEDS: GABAPENTIN 300 MG CAP PO SCH ×2 (09:24→12:32)
[2017-12-16] MEDS: predniSONE 20 MG TAB PO SCH (09:24)
[2017-12-16] MEDS: NICOTINE 21 MG/24 HR PATCH T-DERMAL SCH (09:25)
[2017-12-16] MEDS: DICLOFENAC SODIUM 75 MG DELAYED RELEASE TAB PO SCH (10:43)
[2017-12-16] MEDS: GENVOYA PO SCH (10:43)
[2017-12-16] MEDS: ENOXAPARIN SODIUM 40 MG/0.4 ML SYRINGE SQ SCH (10:46)
[2017-12-16] MEDS ORDERED: LEVA750T9 PO (11:29)
[2017-12-16] MEDS ORDERED: DICL75TA PO (11:29)
[2017-12-16] MEDS ORDERED: PRED20 PO (11:29)
--- NOTE | 2017-12-16 11:29 | HHI.DS ---
Discharge Summary Admission Date Dec 12, 2017 at 06:12 Discharge Date: Dec 16, 2017 Admitting Diagnosis PNA bilateral basal (1) Acute hypoxemic respiratory failure ICD Code: J96.01 - Acute respiratory failure with hypoxia Status: Acute (2) HIV (human immunodeficiency virus infection) ICD Code: B20 - Human immunodeficiency virus [HIV] disease Status: Acute (3) Pneumonia ICD Code: J18.9 - Pneumonia, unspecified organism Status: Acute (4) Protein-calorie malnutrition ICD Code: E46 - Unspecified protein-calorie malnutrition Procedures None Brief History - From Admission HPI from the admitting physician Mr. Vega is a 42-year-old male. He has immunocompromise at baseline and has had pneumonia with respiratory failure and hypoxia before. He says that he has had recently an acute onset of respiratory distress and hypoxia. He came into the ER for this. He was discovered to have pneumonia. No other complaints at this time. He is placed on BiPAP in the ER and has been improving on BiPAP. Tachycardia, tachypnea, and leukocytosis qualify patient for sepsis. CBC/BMP: 12/16/17 0518 12/16/17 0518 Significant Findings Laboratory Tests Test 12/13/17 19:10 12/14/17 03:16 12/15/17 05:35 12/16/17 05:18 Vancomycin Level Trough 17.9 MCG/ML (5.0-10.0) Red Blood Count 3.63 MIL/MM3 (4.50-5.90) 3.78 MIL/MM3 (4.50-5.90) 3.87 MIL/MM3 (4.50-5.90) Hemoglobin 10.9 GM/DL (13.0-17.0) 11.0 GM/DL (13.0-17.0) 11.1 GM/DL (13.0-17.0) Hematocrit 32.1 % (39.0-51.0) 33.4 % (39.0-51.0) 34.0 % (39.0-51.0) Neutrophils (%) (Auto) 73.5 % (16.0-70.0) Monocytes (%) (Auto) 10.1 % (0.0-8.0) 10.0 % (0.0-8.0) Albumin 2.1 GM/DL (3.4-5.0) 2.1 GM/DL (3.4-5.0) Alkaline Phosphatase 128 U/L (45-117) Potassium Level 3.2 MEQ/L (3.5-5.1) 3.3 MEQ/L (3.5-5.1) Calcium Level 8.4 MG/DL (8.5-10.1) Platelet Count 468 TH/MM3 (150-450) Mean Platelet Volume 6.6 FL (7.0-11.0) Random Glucose 129 MG/DL (74-106) Test 12/16/17 08:47 Vancomycin Level Trough 22.8 MCG/ML (5.0-10.0) Imaging Last Impressions Chest X-Ray 12/12/17 3544 Signed Impressions: CONCLUSION: Bibasilar areas of consolidation or atelectasis. Some degree of mild effusion m ay also be present. These processes appear worse on the current exam. PE at Discharge GENERAL: Frail-appearing male in no acute distress. CARDIOVASCULAR: Normal rate and regular rhythm without murmurs, gallops, or rubs. RESPIRATORY: Breath sounds clear to auscultation bilaterally GASTROINTESTINAL: Abdomen soft, non-tender, non-distended. Normal active bowel sounds MUSCULOSKELETAL: Extremities without cyanosis, or edema. NEURO: Alert & Oriented x4 to person, place, time, situation. Moves all ext x4 PSYCH: Appropriate mood and affect. Pt update on day of discharge Patient reports he is feeling much better. Breathing more comfortably. Anxious to go to rehab. Hospital Course 42-year-old male admitted secondary to respiratory distress and hypoxia, with pneumonia. Evaluation and treatment course detailed below: Community-acquired pneumonia Immunocompromise Asthma exacerbation Patient weaned from BiPAP Continue oxygen wean as tolerated Nebulized treatments as needed Treated with vancomycin, cefepime, and azithromycin. Discharged on Levaquin to complete the course of antibiotics. Probiotics Continue short course of steroids. HIV Continue baseline treatments Increased risks in setting of infection Continue Genvoya Impaired mobility Weakness Some degree is present chronically but he has an acute exacerbation of this related to his pneumonia Continue physical therapy Patient is discharged to rehab facility. Protein calorie malnutrition: -Due to inadequate intake. Regular diet. Patient encouraged to increase oral intake. Pt Condition on Discharge: Good Discharge Disposition: Discharge to SNF Discharge Time: > 30 minutes Discharge Instructions DIET: Follow Instructions for: As Tolerated, No Restrictions Activities you can perform: Regular-No Restrictions Follow up Referrals: PCP Follow-up - 2 Weeks New Medications: Levofloxacin (Levaquin) 750 Mg Tablet 750 MG PO DAILY for Infection, #3 TAB 0 Refills Prednisone (Prednisone) 20 Mg Tab 20 MG PO DAILY, #5 TAB Changed Medications: Diclofenac Sodium DR (Diclofenac Sodium DR) 75 Mg Tabdr 75 MG PO BID PRN for PAIN GREATER THAN 5, #20 TAB 0 Refills (Medication details modified) Continued Medications: Hrgqdajjjbzx-Pnoakzqqqs-Ticdqrcezquc-Tenofvir (Genvoya) [phone] Mg Tab 1 TAB PO DAILY for Mgmt Viral Infection, #30 TAB 0 Refills Gabapentin (Neurontin) 300 Mg Cap 300 MG PO QID for 30 Days, CAP Discontinued Medications: Furosemide (Lasix) 20 Mg Tab 20 MG PO DAILY for 7 Days, #7 TAB 0 Refills Nicotine (Eq Nicotine) 21 Mg/24 Hr Dis 1 PATCH T-DERMAL DAILY, #7 Oxycodone-Acetaminophen (Oxycodone-Acetaminophen) 5-325 mg Tab 1 TAB PO Q8HR PRN for pain 6-10, #30 TAB Temazepam (Restoril) 15 Mg Cap 15 MG PO HS PRN for INSOMNIA, #7 CAP Josefina Garcia MD Dec 16, 2017 11:29
[2017-12-16] MEDS: AZITHROMYCIN INJ 500 MG in SODIUM CHLOR 0.9% 250 ML INJ 250 ML IV SCH (12:32)
[2017-12-16] MEDS ORDERED: PERC5TAB12 PO (15:33)
[2017-12-16] MEDS ORDERED: VANCOMYCIN 1,000 MG/NS 250 ML IV SCH ×2 (23:00)
[2017-12-18] MEDS ORDERED: PHARMACY ORDERED LAB ONE (10:45)
== END 2017-12-16 13:56 | DRG 974 ==
LOC: NEPE 03:52 → NEDA 06:12 → HCIS 12:07
PROVIDERS: ADMIT Family Medicine; ATTEND Family Medicine
PROC: 5A09357 Assistance with Respiratory Ventilation, Less than 24 Consecutive Hours, Continuous Positive Airway Pressure (ICD-10-PCS; principal; 2017-12-12)
DX: B20 Human immunodeficiency virus [HIV] disease (principal); J96.01 Acute respiratory failure with hypoxia; J18.9 Pneumonia, unspecified organism; A41.9 Sepsis, unspecified organism; E46 Unspecified protein-calorie malnutrition; J45.901 Unspecified asthma with (acute) exacerbation; Z68.1 Body mass index [BMI] 19.9 or less, adult; R26.9 Unspecified abnormalities of gait and mobility; F41.9 Anxiety disorder, unspecified; F32.9 Major depressive disorder, single episode, unspecified; Z72.0 Tobacco use; Z85.841 Personal history of malignant neoplasm of brain; Z92.21 Personal history of antineoplastic chemotherapy; Z92.3 Personal history of irradiation
CPT/HCPCS: 71045; 80048; 80053; 80202; 81001; 82550; 83735; 83880; 84132; 84484; 85025; 85027; 93005; 93306; 94002; 94150; 94664; 96374; 96375; J0456; J0692; J0696; J1650; J1940; J2270; J3370; J7040; J7050; J7512

== ENCOUNTER 2018-01-04 00:45 | Inpatient (IN) ==
[2018-01-04] MEDS ORDERED: Sod Chloride 0.9% Inj 1,000 ML IV.SIG ONE (01:02)
--- NOTE | 2018-01-04 01:34 | XR ---
EXAM DATE: 01/04/2018 1:24 AM EDT AGE/SEX: 42 years / Male INDICATIONS: Fever. CLINICAL DATA: This is the patient's initial encounter. Patient reports that signs and symptoms have been present for 1 day and indicates a pain score of 0/10. MEDICAL/SURGICAL HISTORY: HIV. Asthma. Craniotomy. Fusion, cervical. COMPARISON: [facility], CHEST PA & LAT, 12/24/2017. . FINDINGS: Single AP view the chest. Confluent consolidation versus atelectasis is again seen at the left lung b ase with no significant interval change. Minimal patchy opacity at the right lung base also unchanged . No evidence of pleural effusion or pneumothorax. Cardiomediastinal silhouette within normal limits. There is evidence of avascular necrosis of the humeral heads bilaterally. CONCLUSION: 1. No significant interval change with persistent left greater than right lower lung opacity. 2. Chronic humeral head avascular necrosis bilaterally. Electronically signed by: Carlo Cohen MD 01/04/2018 1:32 AM EDT
--- NOTE | 2018-01-04 01:38 | CT ---
EXAM DATE: 01/04/2018 1:27 AM EDT AGE/SEX: 42 years / Male INDICATIONS: Altered mental status. CLINICAL DATA: This is the patient's initial encounter. Patient reports that signs and symptoms have been present for 1 day and indicates a pain score of Nonresponsive. MEDICAL/SURGICAL HISTORY: Non-responsive. . Cervical fusion RADIATION DOSE: 56.35 CTDI (mGy) COMPARISON: No prior exams available for comparison. TECHNIQUE: CT of the head without contrast. Using automated exposure control and adjustment of the mA and/or kV according to patient size, radiation dose was kept as low as reasonably achievable to ob tain optimal diagnostic quality images. DICOM format image data is available electronically for revi ew and comparison. FINDINGS: Cerebrum: The ventricles are normal for age. No evidence of midline shift, mass lesion, hemorrhage or acute infarction. No extraaxial fluid collections are seen. Periventricular white matter hypodens ity likely represents chronic ischemic change. Posterior Fossa: Focal encephalomalacia right cerebellar hemisphere indicating old insult. The cereb ellum and brainstem are otherwise intact. The 4th ventricle is midline. The cerebellopontine angle is unremarkable. Extracranial: The visualized portion of the orbits is intact. Skull: Left parietal grzegorz hole noted. CONCLUSION: 1. No acute intracranial findings identified. 2. Periventricular white matter hypodensity likely represents chronic ischemic change or demyelinati on. 3. 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 Electronically signed by: Carlo Cohen MD 01/04/2018 1:37 AM EDT
[2018-01-04 01:52] LABS: Baso % (Auto) 0.3 % (0.0-2.0); Eos # (Auto) 0.1 th/mm3 (0.0-0.4); Eos % (Auto) 0.5 % (0.0-4.0); Hematocrit 29.3 % (39.0-51.0); Hemoglobin 10.1 gm/dL (13.0-17.0); Lymph % (Auto) 7.5 % (9.0-44.0); Mean Corpuscular HGB Conc 34.3 % (32.0-36.0); Mean Corpuscular Volume 87.5 fL (80.0-100.0); Mean Platelet Volume 6.8 fL (7.0-11.0); Neut # (Auto) 10.7 th/mm3 (1.8-7.7); Neut % (Auto) 83.7 % (16.0-70.0); Platelet Count 239 th/mm3 (150-450); Red Blood Count 3.35 mil/mm3 (4.50-5.90); Red Cell Distribution Width 16.3 % (11.6-17.2); White Blood Count 12.7 th/mm3 (4.0-11.0)
[2018-01-04 02:09] LABS: Alanine Aminotransferase 14 U/L (12-78); Albumin 3.2 g/dL (3.4-5.0); Anion Gap 11 meq/L (5-15); Aspartate Aminotransferase 20 U/L (15-37); Blood Urea Nitrogen 42 mg/dL (7-18); Calcium 8.7 mg/dL (8.5-10.1); Carbon Dioxide 23.6 meq/L (21.0-32.0); Chloride 100 meq/L (98-107); Glomerular Filtration Rate 16 mL/min (>89); Glucose,Random 93 mg/dL (74-106); Potassium 3.6 meq/L (3.5-5.1); Sodium 135 meq/L (136-145)
[2018-01-04 02:12] LABS: Alkaline Phosphatase 99 U/L (45-117); Lactate Dehydrogenase 158 U/L (87-241); Total Protein 7.5 g/dL (6.4-8.2)
--- NOTE | 2018-01-04 03:40 | ED ---
HPI General Chief complaint: Weakness Stated complaint: Medical/Evac Time Seen by Provider: 01/04/18 01:02 History of Present Illness HPI Narrative: Patient is a 42-year-old male presents the emergency department with chief complaint of weakness. He is somewhat of a poor historian because of his condition and also I suspect is somewhat of a language barrier. He is an HIV patient with lymphoma. He is chronically ill However had a severe worsening overnight. Family noticed that he is very weak and almost unable to care for himself so they called paramedics to have him brought to the hospital. Patient has no specific complaints despite being asked several times and several questions he denies cough he denies urinary symptoms he states "I just feel weak". Related Data Previous Rx's Medication Instructions Recorded acidophilus-sporogenes 1 tab PO TID 30 Days #90 tab 01/01/18 [Acidophilus Ex Str (L. sporog)] alprazolam [Xanax] 0.5 mg PO Q8H PRN #60 tab 01/01/18 budesonide-formoterol [Symbicort] 2 puff INH Q12HR 30 Days g 01/01/18 islzfap-oor-lcxnb-tenof alafen 1 tab PO DAILY 30 Days #30 tab 01/01/18 [Genvoya] gabapentin [Neurontin] 1,200 mg PO TID 30 Days #270 cap 01/01/18 guaifenesin [Mucinex] 1,200 mg PO BID 30 Days #120 tab 01/01/18 mirtazapine 15 mg PO HS 30 Days #30 tab 01/01/18 montelukast 10 mg PO HS 30 Days #30 tab 01/01/18 nicotine 1 patch TRANSDERMAL DAILY 30 Days 01/01/18 each oxycodone-acetaminophen 1 tab PO Q6H PRN #60 tab 01/01/18 sennosides [Senna Lax] 17.2 mg PO Q12H PRN 30 Days tab 01/01/18 temazepam 7.5 mg PO HS PRN #30 cap 01/01/18 Allergies Allergy/AdvReac Type Severity Reaction Status Date / Time No Known Allergies Allergy Verified 01/04/18 00:54 Review of Systems Except as stated in HPI: all other systems reviewed are negative [facility] Medical History Medical History Cerebrovascular accident, old (Acute) HIV (human immunodeficiency virus infection) (Acute) Neuropathy (Acute) Social History Social History Substance History: No History of Abuse Second Hand Smoke Exposure: No Smoking Status: Never smoker How Often Do You Have a Drink Containing Alcohol: Never Recent Travel in [facility] within the Last 8 Weeks: No Recent Out of Country Travel within the Last 8 Weeks: No Immunization History Tetanus Immunization: Unsure Hx Influenza Vaccine This Season: No Exam Narrative Exam Narrative: GENERAL: Chronically ill-appearing 42-year-old male in mild distress. SKIN: Focused skin assessment warm/dry. HEAD: Temporal wasting. EYES: Pupils equal and round. No scleral icterus. No injection or drainage. ENT: No nasal bleeding or discharge. Mucous membranes pink and moist. NECK: Trachea midline. Slight JVD. CARDIOVASCULAR: Regular rate and rhythm. No murmur appreciated. RESPIRATORY: Bibasilar rales GASTROINTESTINAL: Abdomen soft, non-tender, nondistended. Hepatic and splenic margins not palpable. MUSCULOSKELETAL: Significant muscle wasting globally NEUROLOGICAL: Awake and alert. No obvious cranial nerve deficits. Motor grossly within normal limits. Normal speech. PSYCHIATRIC: Appropriate mood and affect; insight and judgment normal. Course Initial Documented Vital Signs Temperature 98.0 F 01/04/18 00:48 Pulse Rate 110 H 01/04/18 00:48 Respiratory Rate 20 01/04/18 00:48 Blood Pressure 107/58 L 01/04/18 00:48 Pulse Oximetry 97 01/04/18 00:48 Last Documented Vital Signs Temperature 98.3 F 01/04/18 12:00 Pulse Rate 92 H 01/04/18 12:00 Respiratory Rate 18 01/04/18 12:00 Blood Pressure 124/60 01/04/18 12:00 Pulse Oximetry 100 01/04/18 12:00 Medical Decision Making [facility] Narrative Medical decision making narrative: Patient was seen and evaluated in the emergency department. He meets criteria for sepsis and [facility] Lab Data Result diagrams: 01/04/18 01:00 01/04/18 01:00 Lab Results 01/04/18 01/04/18 01/04/18 Range/Units 01:00 01:00 01:00 WBC 12.7 H (4.0-11.0) th/mm3 RBC 3.35 L (4.50-5.90) mil/mm3 Hgb 10.1 L (13.0-17.0) gm/dL Hct 29.3 L (39.0-51.0) % MCV 87.5 (80.0-100.0) fL MCH 30.0 (27.0-34.0) pg MCHC 34.3 (32.0-36.0) % RDW 16.3 (11.6-17.2) % Plt Count 239 D (150-450) th/mm3 MPV 6.8 L (7.0-11.0) fL Neut % (Auto) 83.7 H (16.0-70.0) % Lymph % (Auto) 7.5 L (9.0-44.0) % [place] % (Auto) 8.0 (0.0-8.0) % Eos % (Auto) 0.5 (0.0-4.0) % Baso % (Auto) 0.3 (0.0-2.0) % Neut # (Auto) 10.7 H (1.8-7.7) th/mm3 Lymph # (Auto) 1.0 (1.0-4.8) th/mm3 [place] # (Auto) 1.0 H (0.0-0.9) th/mm3 Eos # (Auto) 0.1 (0.0-0.4) th/mm3 Baso # (Auto) 0.0 (0.0-0.2) th/mm3 WBC Differential . Differential Comment Auto diff final Sodium 135 L (136-145) meq/L Potassium 3.6 (3.5-5.1) meq/L Chloride 100 (98-107) meq/L Carbon Dioxide 23.6 (21.0-32.0) meq/L Anion Gap 11 (5-15) meq/L BUN 42 H (7-18) mg/dL Creatinine 4.91 H (0.60-1.30) mg/dL Estimated GFR 16 L (>89) mL/min Random Glucose 93 (74-106) mg/dL Lactic Acid 1.0 (0.4-2.0) mmol/L Calcium 8.7 (8.5-10.1) mg/dL Total Bilirubin 0.6 (0.2-1.0) mg/dL AST 20 (15-37) U/L ALT 14 (12-78) U/L Alkaline Phosphatase 99 (45-117) U/L Lactate Dehydrogenase 158 (87-241) U/L Total Protein 7.5 (6.4-8.2) g/dL Albumin 3.2 L (3.4-5.0) g/dL Urine Color (Yellw/Straw) Urine Clarity (Clear) Urine pH (5.0-8.5) Ur Specific [place] (1.002-1.035) Urine Protein (Neg-Trace) mg/dL Urine Glucose (UA) (Negative) mg/dL Urine Ketones (Negative) mg/dL Urine Occult Blood (Negative) Urine Nitrate (Negative) Urine Bilirubin (Negative) Urine Urobilinogen (Less than 2) mg/dL Ur Leukocyte Esterase (Negative) Urine RBC (0-3) /hpf Urine WBC (0-5) /hpf Ur Squamous Epith Cells (0-5) /hpf Ur Transition Epith Cell (None) /hpf Calcium Oxalate Crystal (None) /hpf Urine Bacteria (None) /hpf Hyaline Casts (0-3) /lpf Granular Casts (None) /lpf Urine Mucus (Occasional) /lpf 01/04/18 Range/Units 03:48 WBC (4.0-11.0) th/mm3 RBC (4.50-5.90) mil/mm3 Hgb (13.0-17.0) gm/dL Hct (39.0-51.0) % MCV (80.0-100.0) fL MCH (27.0-34.0) pg MCHC (32.0-36.0) % RDW (11.6-17.2) % Plt Count (150-450) th/mm3 MPV (7.0-11.0) fL Neut % (Auto) (16.0-70.0) % Lymph % (Auto) (9.0-44.0) % [place] % (Auto) (0.0-8.0) % Eos % (Auto) (0.0-4.0) % Baso % (Auto) (0.0-2.0) % Neut # (Auto) (1.8-7.7) th/mm3 Lymph # (Auto) (1.0-4.8) th/mm3 [place] # (Auto) (0.0-0.9) th/mm3 Eos # (Auto) (0.0-0.4) th/mm3 Baso # (Auto) (0.0-0.2) th/mm3 WBC Differential Differential Comment Sodium (136-145) meq/L Potassium (3.5-5.1) meq/L Chloride (98-107) meq/L Carbon Dioxide (21.0-32.0) meq/L Anion Gap (5-15) meq/L BUN (7-18) mg/dL Creatinine (0.60-1.30) mg/dL Estimated GFR (>89) mL/min Random Glucose (74-106) mg/dL Lactic Acid (0.4-2.0) mmol/L Calcium (8.5-10.1) mg/dL Total Bilirubin (0.2-1.0) mg/dL AST (15-37) U/L ALT (12-78) U/L Alkaline Phosphatase (45-117) U/L Lactate Dehydrogenase (87-241) U/L Total Protein (6.4-8.2) g/dL Albumin (3.4-5.0) g/dL Urine Color Yellow (Yellw/Straw) Urine Clarity Cloudy H (Clear) Urine pH 5.0 (5.0-8.5) Ur Specific [place] 1.025 (1.002-1.035) Urine Protein 30 H (Neg-Trace) mg/dL Urine Glucose (UA) Negative (Negative) mg/dL Urine Ketones Negative (Negative) mg/dL Urine Occult Blood Small H (Negative) Urine Nitrate Negative (Negative) Urine Bilirubin Negative (Negative) Urine Urobilinogen Less than 2 (Less than 2) mg/dL Ur Leukocyte Esterase Trace H (Negative) Urine RBC 4 H (0-3) /hpf Urine WBC 13 H (0-5) /hpf Ur Squamous Epith Cells 1 (0-5) /hpf Ur Transition Epith Cell <1 (None) /hpf Calcium Oxalate Crystal Occasional H (None) /hpf Urine Bacteria Rare H (None) /hpf Hyaline Casts Innum (0-3) /lpf Granular Casts 4 (None) /lpf Urine Mucus Many H (Occasional) /lpf Imaging Data Radiologist's impression: ITS Impressions Abdomen/Bladder Ultrasound 01/04/18 00:00 CONCLUSION: 1. Kidneys appear unremarkable. 2. Large pelvic mass. Contrasted CT abdomen/pelvis recommended for further characterization. Chest X-Ray 01/04/18 01:02 CONCLUSION: 1. No significant interval change with persistent left greater than right lower lung opacity. 2. Chronic humeral head avascular necrosis bilaterally. Head CT 01/04/18 01:02 CONCLUSION: 1. No acute intracranial findings identified. 2. Periventricular white matter hypodensity likely represents chronic ischemic change or demyelination. 3. 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 Discharge Plan Discharge Disposition Patient Disposition: 30 Still Patient Discharge Condition Condition: Stable Discharge Details Discharge Problem: HIV (human immunodeficiency virus infection), Fever, Acute renal failure Physicians Team ED Provider: Rubio Varghese Primary Care Provider: Primary Care Magda Reaves Attending Provider: Norberto Adrian Other Providers: Norberto Johnson V Status ED Status: Left Department Discharge Information Discharge Date/Time: 01/04/18 05:08
[2018-01-04] MEDS ORDERED: Bisacodyl 10 MG Supp RECTAL PRN (04:04)
[2018-01-04] MEDS ORDERED: Acetaminophen 325 MG Tablet PO PRN (04:04)
[2018-01-04] MEDS ORDERED: Temazepam 15 MG Capsule PO PRN (04:04)
[2018-01-04 04:14] LABS: Bacteria,Urine Rare /hpf; Bilirubin,Urine Negative (Negative); Calcium Oxalate Crystals,Urine Occasional /hpf; Clarity,Urine Cloudy (Clear); Color,Urine Yellow (Yellw/Straw); Glucose,Urine (UA) Negative (Negative); Hyaline Casts,Urine INNUM /lpf (0-3); Leukocyte Esterase,Urine Trace (Negative); Mucus,Urine Many /lpf (Occasional); Nitrite,Urine Negative (Negative); Specific Gravity,Urine 1.025 (1.002-1.035); Squamous Epithelial Cell,Urine 1 /hpf (0-5); Transitional Epi Cells,Urine <1 /hpf
[2018-01-04] MEDS: Sod Chloride 0.9% Inj 1,000 ML IV.CONT SCH ×2 (04:30→13:58)
[2018-01-04] MEDS: Senna/Docusate Sodium 8.6/50 MG Tablet PO SCH (09:00)
--- NOTE | 2018-01-04 09:42 | US ---
EXAM DATE: 01/04/2018 9:37 AM EDT AGE/SEX: 42 years / Male INDICATIONS: Increased lab values. CLINICAL DATA: This is the patient's initial encounter. Patient reports that signs and symptoms have been present for 1 day and indicates a pain score of 0/10. MEDICAL/SURGICAL HISTORY: . Brain tumor. HIV. Neuropathy. None. COMPARISON: No prior exams available for comparison. MEASUREMENTS: Right Kidney:__11.9 x 5.0 x 5.8 cm Left Kidney:__11.0 x 5.1 x 6.6 cm FINDINGS: Right Kidney: Normal echotexture and cortical thickness. No mass or hydronephrosis. Left Kidney: Normal echotexture and cortical thickness. No mass or hydronephrosis. Bladder: Within normal limits given the degree of distension. Other: There is a mass in the pelvis posterior to the bladder measuring 12.1 x 6.9 x 7.2 cm. CONCLUSION: 1. Kidneys appear unremarkable. 2. Large pelvic mass. Contrasted CT abdomen/pelvis recommended for further characterization. Electronically signed by: David Jenkins MD 01/04/2018 9:41 AM EDT
--- NOTE | 2018-01-04 11:19 | ECG ---
Date Performed: 01/04/2018 Time Performed: 00:50:58 PTAGE: 42 years EKG: SINUS TACHYCARDIA POSSIBLE RIGHT VENTRICULAR CONDUCTION DELAY LATERAL ST ELEVATION, CONSIDE R EARLY REPOLARIZATION, CANNOT RULE OUT ACUTE INJURY PATTERN ABNORMAL RHYTHM ECG PREVIOUS TRACING : 12/12/2017 03.00 Compared to previous tracing, lateral ST elevation is now p resent. DOCTOR: Ángel Davenport Interpretating Date/Time 01/04/2018 11:17:29
--- NOTE | 2018-01-04 11:34 | P.HPIM ---
History of Present Illness Primary Care Physician: No Primary Care Physician History of Present Illness: Mr. Vega is a 42 year old male. He came into the emergency department last night secondary to weakness. Patient is currently lethargic and cannot offer a good history at this time. He has been feeling weak and not himself. Lung infections with respiratory failure have been a problem in the past but at this point he does not appear to have respiratory compromise. He has HIV and is at risk for infections so infectious etiology must be considered. Acute renal failure appears evident on lab work and this could be related to dehydration but could also be a primary or secondary kidney failure. If kidney failure is present toxic encephalopathy could explain his lethargy. Urinalysis is suggestive of urinary tract infection. Urinary tract infection could explain the patient's mental status change along with renal compromise. - Diagnosis (1) Weakness (2) Metabolic encephalopathy (3) Sepsis Inpatient Certification: I certify that the inpatient services were ordered in accordance with Medicare regulations governing the order. This includes certification that hospital inpatient services are reasonable and necessary and in the case of services not specified as inpatient-only under 42 CFR 419.22(n), that they are appropriately provided as inpatient services in accordance to with the 2-midnight benchmark under 43 CFR 412.3(e) Estimated Total Length of Stay (Days): 3 Plans for Post Hospital Care: Not yet determined Review of Systems unobtainable due to mental status PMFSH - History History Provided By: Patient, Services Clerk / EMT - Medical / Surgical Hx Neg / Unobtainable Surgical History: No Previous Surgery - Medical History Medical History: Medical History (Last Updated 01/04/18 @ 11:24 by Norberto Adrian MD) Cerebrovascular accident, old HIV (human immunodeficiency virus infection) Neuropathy - Tobacco History Second Hand Smoke Exposure: No Smoking Status: Never smoker - Alcohol History How Often Do You Have a Drink Containing Alcohol: Never - Substance Use History Substance History: No History of Abuse - Travel History Recent Travel in the [place] Within the Last 8 Weeks: No Recent Travel Out of the Country Within the Last 8 Weeks: No - Immunization History Tetanus Immunization: Unsure Hx Influenza Vaccine This Season: No Medications and Allergies Active Medications: Active Medications Acetaminophen (Tylenol) 650 mg PO Q4H PRN PRN Reason: Temp > 100.4 Al Hydroxide/Mg Hydroxide (Milk Of Magnesia Liq) 30 ml PO Q12H PRN PRN Reason: Mild Constipation Bisacodyl (Dulcolax Supp) 10 mg RECTAL DAILY PRN PRN Reason: SEVERE CONSITIPATION Sodium Chloride (Ns Inj) 1,000 mls @ 100 mls/hr IV.CONT .Q10H [facility] Last Admin: 01/04/18 04:30 Dose: 100 mls/hr Lactulose (Lactulose Liq) 30 ml PO DAILY PRN PRN Reason: SEVERE CONSITIPATION Ondansetron HCl (Zofran Inj) 4 mg IV.PUSH Q6H PRN PRN Reason: NAUSEA OR VOMITING Senna/Docusate Sodium (Helen-Colace) 1 tab PO BID [facility] Last Admin: 01/04/18 09:00 Dose: 1 tab Sennosides (Senokot) 17.2 mg PO Q12H PRN PRN Reason: Moderate Constipation Temazepam (Restoril) 15 mg PO HS PRN PRN Reason: INSOMNIA Allergies Allergy/AdvReac Type Severity Reaction Status Date / Time No Known Allergies Allergy Verified 01/04/18 00:54 Exam Vital signs: Vital Signs 01/04/18 00:48 01/04/18 03:50 01/04/18 05:44 Temperature 98.0 F 97.0 F L Pulse Rate 110 H 110 H 110 H Respiratory Rate 20 18 18 Blood Pressure 107/58 L 110/79 122/105 H Pulse Oximetry 97 100 01/04/18 08:00 Temperature 98.5 F Pulse Rate 112 H Respiratory Rate 16 Blood Pressure 123/58 L Pulse Oximetry 100 Intake & Output 01/03/18 01/04/18 01/04/18 18:59 06:59 18:59 Intake Total 0 / 0 Output Total 300 / 300 Balance -300 / -300 Weight 66.9 kg Intake: Oral 0 / 0 Output: Urine 300 / 300 - Routine HEENT Exam Comments: GENERAL: NAD, A&Ox1, lethargic HEAD: Normocephalic. NECK: Supple, trachea midline. No lymphadenopathy. EYES: No scleral icterus. No injection or drainage. CARDIOVASCULAR: Regular rate and rhythm without murmurs, gallops, or rubs. RESPIRATORY: Breath sounds equal bilaterally. No accessory muscle use. GASTROINTESTINAL: Abdomen soft, non-tender, nondistended. MUSCULOSKELETAL: No cyanosis, or edema. SKIN: Warm and dry. NEURO: No focal neurological deficits. Results - Labs CBC & Chem 7: 01/04/18 01:00 01/04/18 01:00 Labs: Short CBC 01/04/18 Range/Units 01:00 WBC 12.7 H (4.0-11.0) th/mm3 Hgb 10.1 L (13.0-17.0) gm/dL Hct 29.3 L (39.0-51.0) % Plt Count 239 D (150-450) th/mm3 BMP 01/04/18 01:00 Sodium 135 L Potassium 3.6 Chloride 100 Carbon Dioxide 23.6 BUN 42 H Creatinine 4.91 H Calcium 8.7 Liver Function 01/04/18 Range/Units 01:00 Total Bilirubin 0.6 (0.2-1.0) mg/dL AST 20 (15-37) U/L ALT 14 (12-78) U/L Alkaline Phosphatase 99 (45-117) U/L Albumin 3.2 L (3.4-5.0) g/dL Urine 01/04/18 Range/Units 03:48 Urine Color Yellow (Yellw/Straw) Urine Clarity Cloudy H (Clear) Urine pH 5.0 (5.0-8.5) Ur Specific [place] 1.025 (1.002-1.035) Urine Protein 30 H (Neg-Trace) mg/dL Urine Glucose (UA) Negative (Negative) mg/dL - Imaging Impressions Abdomen/Bladder Ultrasound 01/04/18 00:00 CONCLUSION: 1. Kidneys appear unremarkable. 2. Large pelvic mass. Contrasted CT abdomen/pelvis recommended for further characterization. Chest X-Ray 01/04/18 01:02 CONCLUSION: 1. No significant interval change with persistent left greater than right lower lung opacity. 2. Chronic humeral head avascular necrosis bilaterally. Head CT 01/04/18 01:02 CONCLUSION: 1. No acute intracranial findings identified. 2. Periventricular white matter hypodensity likely represents chronic ischemic change or demyelination. 3. 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 Caprini VTE Risk Assessment Caprini VTE Risk Assessment: No/Low Risk (score <= 1) Caprini Risk Assessment Model: Point Value = 1 Point Value = 2 Point Value = 3 Point Value = 5 Age 41-60 Minor surgery BMI > 25 kg/m2 Swollen legs Varicose veins or History of unexplained or recurrent spontaneous Oral contraceptives or hormone replacement Sepsis (< 1 month) Serious lung disease, including pneumonia (< 1 month) Abnormal pulmonary function Acute myocardial infarction Congestive heart failure (< 1 month) History of inflammatory bowel disease Medical patient at bed rest Age 61-74 Arthroscopic surgery Major open surgery (> 45 min) Laparoscopic surgery (> 45 min) Malignancy Confined to bed (> 72 hours) Immobilizing plaster cast Central venous access Age >= 75 History of VTE Family history of VTE Factor V Leiden Prothrombin [id number] Lupus anticoagulant Anticardiolipin antibodies Elevated serum homocysteine Heparin-induced thrombocytopenia Other congenital or acquired thrombophilia Stroke (< 1 month) Elective arthroplasty Hip, pelvis, or leg fracture Acute spinal cord injury (< 1 month) Prophylaxis Regimen: Total Risk Factor Score Risk Level Prophylaxis Regimen 0-1 Low Early ambulation 2 Moderate Order ONE of the following: *Sequential Compression Device (SCD) *Heparin 5000 units SQ BID 3-4 Higher Order ONE of the following medications: *Heparin 5000 units SQ TID *Enoxaparin/Lovenox 40 mg SQ daily (WT < 150 kg, CrCl > 30 mL/min) *Enoxaparin/Lovenox 30 mg SQ daily (WT < 150 kg, CrCl > 10-29 mL/min) *Enoxaparin/Lovenox 30 mg SQ BID (WT < 150 kg, CrCl > 30 mL/min) AND/OR *Sequential Compression Device (SCD) 5 or more Highest Order ONE of the following medications: *Heparin 5000 units SQ TID (Preferred with Epidurals) *Enoxaparin/Lovenox 40 mg SQ daily (WT < 150 kg, CrCl > 30 mL/min) *Enoxaparin/Lovenox 30 mg SQ daily (WT < 150 kg, CrCl > 10-29 mL/min) *Enoxaparin/Lovenox 30 mg SQ BID (WT < 150 kg, CrCl > 30 mL/min) AND *Sequential Compression Device (SCD) Assessment and Plan - Assessment (1) Weakness Code(s): R53.1 - Weakness Status: Acute (2) Metabolic encephalopathy Code(s): G93.41 - Metabolic encephalopathy Status: Acute (3) Sepsis Code(s): A41.9 - Sepsis, unspecified organism Status: Resolved - Plan Mr. Vega is a 42-year-old male with HIV admitted secondary to weakness with metabolic encephalopathy Acute urinary tract infection Sepsis Immunocompromise Rocephin started Follow urine cultures Probiotics Follow vital signs closely IV hydration Telemetry for monitoring of tachycardia Follow CBC Acute renal failure May be related to urinary tract infection IV hydration initiated Avoid nephrotoxins Nephrology consulted Continue to monitor renal function closely Weakness Metabolic encephalopathy Etiology uncertain, but could be related to renal failure, infection, or both Treat infection as above Make attempts to improve renal function Monitor patient's encephalopathy clinically HIV Continue baseline treatments DVT prophylaxis SCDs H&P: Quality - VTE Deep Vein Thrombosis/Pulmonary Embolism Present on Admission: No
[2018-01-04] MEDS: Lactobacillus Acidophilus/L. Spores Tablet PO SCH ×2 (12:30→18:06)
[2018-01-04] MEDS ORDERED: Diatrizoate Meglum/Diatrizoate Sod Liq 9 ML UDC PO ONE (20:24)
--- NOTE | 2018-01-04 21:17 | MB ---
cc: Norberto Johnson MD DATE: 01/04/2018 REASON FOR CONSULTATION: Acute renal failure management. 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 The patient was recently admitted here last month with pneumonia. The patient was admitted to the emergency room last night with generalized weakness and fatigue. The patient has had altered mental status and has been somnolent and lethargic. He has been able to maintain his respiratory status; however, he is unable to give a complete history. History was reviewed from the notes. Apparently, the patient presented with apparent dehydration. He had a creatinine value that was only 0.7 approximately 4 days ago. He presented here with a creatinine of 4.9. The patient was admitted and started on IV fluids. Lab work was performed and urinalysis was suggestive of a UTI. He was started on Rocephin for possible UTI. His altered mental status has been attributed to possible urosepsis; however, it unclear at this point. The patient has underlying HIV. He had a recent CD4 count of 383 in November of this year; he was being followed with Infectious Disease with recent presentation with HIV and pneumonia. In evaluation of his renal failure, an abdominal ultrasound was performed. While it showed relatively normal sized kidneys with normal echogenicity without any hydronephrosis, a 12 cm x 7 cm pelvic mass was found on the renal ultrasound imaging and a CT scan was suggested for further evaluation. At this time, the patient is resting in bed. He is somewhat somnolent; however, his vital signs are otherwise stable. He is receiving IV fluids. Nephrology was consulted for further evaluations. REVIEW OF SYSTEMS: Unobtainable as the patient is lethargic, unable to give full history. History reviewed from the chart. PAST MEDICAL HISTORY: Includes a previous CVA, previous lymphoma with brain lesion resection in 2008, history of HIV previously on antiretrovirals, history of neuropathy, history of asthma, history of recent admission for pneumonia in November of this year, history of C5 and C6 discectomy. FAMILY HISTORY: Mother with history of cerebrovascular accident. Father with colon cancer and in his 70s. SOCIAL HISTORY: No reported recent alcohol, tobacco or drug use; however, the patient does have a positive history of previous cocaine use and previous tobacco use. MEDICATIONS AT HOME: Unknown. ALLERGIES: NO KNOWN DRUG ALLERGIES. LABORATORY DATA: White count 12.7, hemoglobin 10.1, hematocrit 29.3 with a platelet count of 239. Sodium 135, potassium 3.6, chloride 100, bicarbonate 23, BUN 42, creatinine 4.91, glucose of 93, albumin 3.2. Previous creatinine was 0.77 on 12/30/2017. Urinalysis with 30 protein, trace leukocyte esterase, 4 RBCs, 13 WBCs with occasional calcium oxalate and numerous hyaline casts were seen and many urine mucus were seen. 4 granular casts were noted. ASSESSMENT AND PLAN: 1. Acute kidney injury. The patient had relatively normal creatinine level of 0.7 only 4-5 days ago. At this point, he presented with a creatinine of 4.9. He has been started on intravenous fluids. It is presumed that he may have volume depletion and acute kidney injury secondary to dehydration. It is unclear what led to this series of events. The patient is significantly somnolent with generalized weakness and likely has had poor oral intake. Agree with IV fluids as ordered. The patient is on normal saline at 100 mL per hour. Continue with aggressive fluid repletion as tolerated. We will check a urinalysis for fractional excretion of sodium. Also, check urine protein to creatinine ratios. Although there is only 30 protein in the urine, the patient does have some lower extremity edema. His previous urinalysis showed in the range of 30-100 protein. This may be some small element of human immunodeficiency virus nephropathy here; however, his creatinine has been relatively stable up until this admission here with a recent creatinine of 0.7. Continue to closely monitor and continue to follow up urine output and creatinine. 2. Urinary tract infection. Possible urinary tract infection per the urinalysis. Follow the cultures. The patient is on Rocephin. Continue to monitor. 3. Altered mental status, unclear etiology. The patient has a history of cocaine use in the past and we will check a tox screen; however, he may have underlying encephalopathy secondary to infection and possible current illness. Continue to closely monitor with primary team. 4. Human immunodeficiency virus. The patient had a CD4 count of 383 in November of this year, it is unclear what his outpatient compliance has been for his human immunodeficiency virus medications. Continue followup and resume human immunodeficiency virus medicines as needed. 5. Pelvic mass. The patient had a renal ultrasound with relatively normal findings in the kidneys; however, a pelvic mass was found with significant size 12 cm x 7 cm x 7 cm. Given history of lymphoma, this is concerning for possible reoccurrence of lymphoma. At this point, we will go ahead and order a plain CT to further evaluate this. Should his renal function further stabilize, contrast studies may be considered; however, avoid any contrast or nephrotoxins at this point. Continue to closely monitor with primary team. MD MACHO RosaP/SB , 05:22 PM , 09:16 PM
[2018-01-05 01:10] LABS: Protein/Creatinine Ratio,Urine 0.49 (0.00-0.14)
[2018-01-05] MEDS: Senna/Docusate Sodium 8.6/50 MG Tablet PO SCH ×3 (02:42→20:16)
--- NOTE | 2018-01-05 08:38 | P.PNNP ---
Subjective Interval history: Notes were reviewed. Patient's labs are not available from today. He appears to be non oliguric. Physical Exam Vital signs: Vital Signs 01/04/18 12:00 01/04/18 19:45 01/04/18 20:00 Temperature 98.3 F 98.9 F Pulse Rate 92 H 94 H Respiratory Rate 18 18 18 Blood Pressure 124/60 124/61 Pulse Oximetry 100 100 Intake & Output 01/04/18 01/05/18 01/05/18 18:59 06:59 18:59 Intake Total 1100 / 1100 Output Total 1600 / 1600 Balance -500 / -500 Intake: IV 1100 / 1100 NS Inj 1,000 ML @ 100 mls/hr IV 1000 / 1000 .CONT .Q10H TOM Rx#:[id number] Rocephin Inj 1,000 MG In NS Inj 100 / 100 100 ML @ 200 mls/hr IV.SIG Q24H TOM Rx#:[id number] Output: Urine 1600 / 1600 Other: # Voids 5 Date of Last Bowel Movement 01/04/18 01/04/18 # Bowel Movements 0 - Routine HEENT Exam Head: Present: normocephalic, atraumatic ENT: Present: mucous membranes moist - Routine Neck Exam Present: supple, full ROM. Absent: lymphadenopathy - Routine Respiratory Exam Present: CTA bilaterally - Routine Cardiovascular Exam Present: RRR, S1, S2 - Routine Abdominal Exam Present: soft, normoactive bowel sounds - Routine Skin Exam Present: intact Assessment and Plan - Assessment (1) Acute kidney injury Code(s): N17.9 - Acute kidney failure, unspecified Status: Acute Plan: Etiology is unclear. No hydronephrosis is seen, although he does have a pelvic mass. Continue IVF, he appears to be non oliguric. Avoid nephrotoxic agents. Monitor labs. (2) HIV (human immunodeficiency virus infection) Code(s): B20 - Human immunodeficiency virus [HIV] disease Status: Chronic Plan: Patient appears to have been on Genvoya which contains Tenofovir. Tenofovir has been associated with MARCIA and proximal renal tubular acidosis. (3) Encephalopathy acute Code(s): G93.40 - Encephalopathy, unspecified Status: Acute Plan: Etiology needs to be determined. Metabolic? infectious? monitor. (4) Pelvic mass Code(s): R19.00 - Intra-abdominal and pelvic swelling, mass and lump, unspecified site Status: Acute Plan: Has history of lymphoma. Needs additional workup.
[2018-01-05] MEDS: Lactobacillus Acidophilus/L. Spores Tablet PO SCH ×3 (08:50→17:33)
[2018-01-05] MEDS: Sod Chloride 0.9% Inj 1,000 ML IV.CONT SCH ×3 (08:51→20:15)
[2018-01-05 10:01] LABS: Baso % (Auto) 0.4 % (0.0-2.0); Eos # (Auto) 0.1 th/mm3 (0.0-0.4); Eos % (Auto) 1.7 % (0.0-4.0); Hematocrit 28.6 % (39.0-51.0); Hemoglobin 9.6 gm/dL (13.0-17.0); Lymph # (Auto) 1.2 th/mm3 (1.0-4.8); Lymph % (Auto) 14.3 % (9.0-44.0); Mean Corpuscular HGB Conc 33.5 % (32.0-36.0); Mean Corpuscular Hemoglobin 29.3 pg (27.0-34.0); Mean Corpuscular Volume 87.2 fL (80.0-100.0); Mean Platelet Volume 7.2 fL (7.0-11.0); Mono % (Auto) 11.9 % (0.0-8.0); Neut % (Auto) 71.7 % (16.0-70.0); Platelet Count 200 th/mm3 (150-450); Red Blood Count 3.28 mil/mm3 (4.50-5.90); Red Cell Distribution Width 15.7 % (11.6-17.2); White Blood Count 8.4 th/mm3 (4.0-11.0)
[2018-01-05 10:28] LABS: Alanine Aminotransferase 12 U/L (12-78); Albumin 2.5 g/dL (3.4-5.0); Alkaline Phosphatase 80 U/L (45-117); Anion Gap 10 meq/L (5-15); Aspartate Aminotransferase 21 U/L (15-37); Blood Urea Nitrogen 17 mg/dL (7-18); Calcium 9.1 mg/dL (8.5-10.1); Carbon Dioxide 27.1 meq/L (21.0-32.0); Chloride 105 meq/L (98-107); Glomerular Filtration Rate Greater Than 89 mL/min (>89); Glucose,Random 84 mg/dL (74-106); Magnesium 1.8 mg/dL (1.5-2.5); Phosphorus 1.3 mg/dL (2.5-4.9); Potassium 3.4 meq/L (3.5-5.1); Sodium 142 meq/L (136-145); Total Protein 6.7 g/dL (6.4-8.2)
--- NOTE | 2018-01-05 12:43 | P.PNIM ---
Subjective Interval history: Patient has had improvement overnight. Mental status is not yet back to baseline but he has significant improvement in lethargy. His renal function has also significantly improved. Physical Exam Vital signs: Vital Signs 01/04/18 19:45 01/04/18 20:00 Temperature 98.9 F Pulse Rate 94 H Respiratory Rate 18 18 Blood Pressure 124/61 Pulse Oximetry 100 Intake & Output 01/04/18 01/05/18 01/05/18 18:59 06:59 18:59 Intake Total 1100 / 1100 1000 / 1000 Output Total 1600 / 1600 Balance -500 / -500 1000 / 1000 Intake: IV 1100 / 1100 1000 / 1000 NS Inj 1,000 ML @ 100 mls/hr IV 1000 / 1000 1000 / 1000 .CONT .Q10H TOM Rx#:[id number] Rocephin Inj 1,000 MG In NS Inj 100 / 100 100 ML @ 200 mls/hr IV.SIG Q24H TOM Rx#:[id number] Output: Urine 1600 / 1600 Other: # Voids 5 Date of Last Bowel Movement 01/04/18 01/04/18 # Bowel Movements 0 Narrative: GENERAL: NAD, A&Ox3 HEAD: Normocephalic. NECK: Supple, trachea midline. No lymphadenopathy. EYES: No scleral icterus. No injection or drainage. CARDIOVASCULAR: Regular rate and rhythm without murmurs, gallops, or rubs. RESPIRATORY: Breath sounds equal bilaterally. No accessory muscle use. GASTROINTESTINAL: Abdomen soft, non-tender, nondistended. MUSCULOSKELETAL: No cyanosis, or edema. SKIN: Warm and dry. NEURO: No focal neurological deficits. Generalized weakness. Results - Labs CBC & Chem 7: 01/05/18 09:06 01/05/18 09:06 Laboratory Results - last 24 hr 01/04/18 01/05/18 01/05/18 03:48 01:00 09:06 WBC 8.4 RBC 3.28 L Hgb 9.6 L Hct 28.6 L MCV 87.2 MCH 29.3 MCHC 33.5 RDW 15.7 Plt Count 200 MPV 7.2 Neut % (Auto) 71.7 H Lymph % (Auto) 14.3 Mcculloch % (Auto) 11.9 H Eos % (Auto) 1.7 Baso % (Auto) 0.4 Neut # (Auto) 6.0 Lymph # (Auto) 1.2 Mcculloch # (Auto) 1.0 H Eos # (Auto) 0.1 Baso # (Auto) 0.0 WBC Differential . Differential Comment Auto diff final Sodium Potassium Chloride Carbon Dioxide Anion Gap BUN Creatinine Estimated GFR Random Glucose Calcium Phosphorus Magnesium Total Bilirubin AST ALT Alkaline Phosphatase Total Protein Albumin Ur Random Creatinine 193 U Random Total Protein 94.9 H Ur Random Sodium 33 Protein/Creatinin Ratio 0.49 H Stl C.difficile Tox PCR Negative St C. diff Tox Epid 027 Negative 01/05/18 09:06 WBC RBC Hgb Hct MCV MCH MCHC RDW Plt Count MPV Neut % (Auto) Lymph % (Auto) Mcculloch % (Auto) Eos % (Auto) Baso % (Auto) Neut # (Auto) Lymph # (Auto) Mcculloch # (Auto) Eos # (Auto) Baso # (Auto) WBC Differential Differential Comment Sodium 142 Potassium 3.4 L Chloride 105 Carbon Dioxide 27.1 Anion Gap 10 BUN 17 Creatinine 0.76 Estimated GFR Greater than 89 Random Glucose 84 Calcium 9.1 Phosphorus 1.3 L Magnesium 1.8 Total Bilirubin 0.7 AST 21 ALT 12 Alkaline Phosphatase 80 Total Protein 6.7 D Albumin 2.5 L D Ur Random Creatinine U Random Total Protein Ur Random Sodium Protein/Creatinin Ratio Stl C.difficile Tox PCR St C. diff Tox Epid 027 Microbiology 01/04/18 01:00 Blood - Peripheral Aerobic Blood Culture - Preliminary No growth in 1 day 01/04/18 01:00 Blood - Peripheral Anaerobic Blood Culture - Preliminary No growth in 1 day 01/04/18 01:00 Blood - Peripheral Aerobic Blood Culture - Preliminary No growth in 1 day 01/04/18 01:00 Blood - Peripheral Anaerobic Blood Culture - Preliminary No growth in 1 day Assessment and Plan - Assessment (1) Weakness Code(s): R53.1 - Weakness Status: Acute (2) Metabolic encephalopathy Code(s): G93.41 - Metabolic encephalopathy Status: Acute - Plan Mr. Vega is a 42-year-old male with HIV admitted secondary to weakness with metabolic encephalopathy Acute urinary tract infection Sepsis Immunocompromise This condition is improving on treatments continue Rocephin Follow urine cultures Probiotics Follow vital signs closely IV hydration Telemetry for monitoring of tachycardia Follow CBC Acute renal failure This appears to have resolved with IV hydration may have been related to urinary tract infection IV hydration continued Avoid nephrotoxins Nephrology following Continue to monitor renal function closely Weakness Metabolic encephalopathy Start physical therapy could be related to renal failure, infection, or both Treat infection as above Encephalopathy improving HIV Continue baseline treatments DVT prophylaxis SCDs
[2018-01-05] MEDS ORDERED: Diatrizoate Meglum/Diatrizoate Sod Liq 9 ML UDC PO ONE (15:00)
[2018-01-05] MEDS: oxyCODONE/Acetaminophen 10/325 Tablet PO PRN ×2 (16:02→20:14)
--- NOTE | 2018-01-05 21:06 | CT ---
EXAM DATE: 01/05/2018 7:22 PM EDT AGE/SEX: 42 years / Male INDICATIONS: Abdominal pain, general weakness. Evaluate pelvic mass seen in ultrasound. CLINICAL DATA: This is the patient's initial encounter. Patient reports that signs and symptoms have been present for 2 days and indicates a pain score of 7/10. MEDICAL/SURGICAL HISTORY: HIV. Renal failure, chronic. Cerebrovascular disease. None. RADIATION DOSE: 9.54 CTDI (mGy) COMPARISON: [facility] [place], US KIDNEY/RENAL/BLADDER, 01/04/2018. . TECHNIQUE: Multiple contiguous axial images were obtained through the abdomen. Images were obtained using multiple row detector helical technique. Using automated exposure control and adjustment of the mA and/or kV according to patient size, radiation dose was kept as low as reasonably achievable to o btain optimal diagnostic quality images. DICOM format image data is available electronically for rev iew and comparison. FINDINGS: Lower Lungs: There is increased density at the posterior lower lobes bilaterally being more prominent on the left. There is a minimal left pleural effusion. Liver: The liver has a homogeneous density without space-occupying lesion. There is no dilation of th e biliary tree. Spleen: Homogeneous density without enlargement. Pancreas: Unremarkable without mass or calcification. Kidneys: Normal in size and shape. No evidence of mass or hydronephrosis. Adrenal Glands: Unremarkable. Aorta: The aorta and proximal iliac vessels are grossly unremarkable without aneurysmal dilation. Bowel/Mesentery: The bowel loops are grossly unremarkable. The cecum and sigmoid colon have a normal configuration. There is moderate amount stool in the colon including the rectum. Abdominal Wall: Intact. Retroperitoneum: No evidence of adenopathy in the retrocrural, para-aortic, or deep pelvic regions. Bladder: Contours are smooth. Reproductive Organs: No abnormal masses seen. A pelvic mass is not identified. Inguinal: The inguinal region is unremarkable without evidence of adenopathy. Bony Structures: There is severe degenerative change at the hips bilaterally. There appears to be co llapse and remodeling at the superior aspect of the femoral heads likely from prior avascular necrosi s. Bilateral hip joint effusions are present. CONCLUSION: 1. No pelvic mass is seen. The suspected pelvic mass on the prior ultrasound examination is likely s econdary to a large amount stool in the rectum. 2. Bibasilar areas of atelectasis or consolidation with a minimal left pleural effusion. 3. 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 Bilateral hip joint effusions are present. Electronically signed by: Stephen Clayton MD 01/05/2018 9:05 PM EDT
[2018-01-06] MEDS: oxyCODONE/Acetaminophen 10/325 Tablet PO PRN ×3 (00:25→09:04)
[2018-01-06] MEDS: Sod Chloride 0.9% Inj 1,000 ML IV.CONT SCH (05:30)
--- NOTE | 2018-01-06 08:44 | P.PNNP ---
Subjective Interval history: Renal function has normalized. We will sign off. Thanks. Stop IVF. Physical Exam Vital signs: Vital Signs 01/05/18 12:00 01/05/18 16:00 01/05/18 20:00 Temperature 98.7 F 98.5 F Pulse Rate 81 83 79 Respiratory Rate 20 20 Blood Pressure 119/59 L 113/69 Pulse Oximetry 100 100 01/06/18 00:00 01/06/18 04:00 01/06/18 07:20 Temperature 97.4 F L 97.3 F L Pulse Rate 80 82 77 Respiratory Rate 18 16 Blood Pressure 119/67 125/71 Pulse Oximetry 100 99 Intake & Output 01/05/18 01/06/18 01/06/18 18:59 06:59 18:59 Intake Total 1580 / 1580 Output Total 600 / 600 650 / 650 Balance -600 / -600 930 / 930 Weight 66.5 kg Intake: IV 1100 / 1100 NS Inj 1,000 ML @ 100 mls/hr IV 1000 / 1000 .CONT .Q10H TOM Rx#:[id number] Rocephin Inj 1,000 MG In NS Inj 100 / 100 100 ML @ 200 mls/hr IV.SIG Q24H TOM Rx#:[id number] Oral 480 / 480 Output: Urine 600 / 600 650 / 650 Other: # Urine Diapers 3 Date of Last Bowel Movement 01/05/18 01/05/18 # Bowel Movements 2 # Incontinent Bowel Movements 1 Assessment and Plan - Assessment (1) Acute kidney injury Code(s): N17.9 - Acute kidney failure, unspecified Status: Acute Plan: Etiology is unclear. No hydronephrosis is seen, although he does have a pelvic mass. Continue IVF, he appears to be non oliguric. Avoid nephrotoxic agents. Monitor labs. (2) HIV (human immunodeficiency virus infection) Code(s): B20 - Human immunodeficiency virus [HIV] disease Status: Chronic Plan: Patient appears to have been on Genvoya which contains Tenofovir. Tenofovir has been associated with MARCIA and proximal renal tubular acidosis. (3) Encephalopathy acute Code(s): G93.40 - Encephalopathy, unspecified Status: Acute Plan: Etiology needs to be determined. Metabolic? infectious? monitor. (4) Pelvic mass Code(s): R19.00 - Intra-abdominal and pelvic swelling, mass and lump, unspecified site Status: Acute Plan: Has history of lymphoma. Needs additional workup.
[2018-01-06] MEDS: Lactobacillus Acidophilus/L. Spores Tablet PO SCH (09:04)
[2018-01-06] MEDS: Senna/Docusate Sodium 8.6/50 MG Tablet PO SCH (09:04)
--- NOTE | 2018-01-06 10:21 | P.DCO ---
- Physical Therapy Order: Evaluate and treat, Improve ambulation, Strength and gait training - Home Health Nursing Order: Medical education, Nursing assessment with vital signs - Certification I have seen patient Shane Vega on 01/06/18. My clinical findings support the need for the requested home health care services because: Limited mobility due to disease progression, Deconditioned with increased weakness, Limited ability to care for self, Infection with risk of complications I certify that my clinical findings support that this patient is homebound because: Unsteady gait/balance, Unsafe to leave home unassisted, Unable to use public transportation
--- NOTE | 2018-01-06 10:23 | P.DS ---
Date of admission: 01/04/18 03:43 Primary care physician: No Primary Care Physician Brief History from admission: Mr. Vega is a 42 year old male. He came into the emergency department last night secondary to weakness. Patient is currently lethargic and cannot offer a good history at this time. He has been feeling weak and not himself. Lung infections with respiratory failure have been a problem in the past but at this point he does not appear to have respiratory compromise. He has HIV and is at risk for infections so infectious etiology must be considered. Acute renal failure appears evident on lab work and this could be related to dehydration but could also be a primary or secondary kidney failure. If kidney failure is present toxic encephalopathy could explain his lethargy. Urinalysis is suggestive of urinary tract infection. Urinary tract infection could explain the patient's mental status change along with renal compromise. DS: Diagnosis - Discharge Diagnosis (1) Weakness Status: Acute (2) Metabolic encephalopathy Status: Acute DS: Medications - Discharge Medications Prescriptions: ciprofloxacin HCl 500 mg PO BID 7 Days #14 tab Lactobacillus acidophilus 500 mmu cells PO TID 10 Days cap sulfamethoxazole-trimethoprim [Bactrim DS] 1 tab PO Q12H #14 tab DS: Summary Hospital Course: Mr. Vega is a 42 year old male. Via baseline. Clinical findings were partially blunted but he was found to have a urinary tract infection. He had been admitted secondary to acute renal failure and fever. He also had signs of encephalopathy and lethargy. With antibiotic treatments he has returned to his prior baseline through time. Cultures are negative thus far. Patient requests discharge home. He is medically stable and cleared for discharge home today. - Time Spent with Patient Total time spent providing and/or coordinating discharge services: - Quality: VTE Deep Vein Thrombosis/Pulmonary Embolism Present on Admission: No Exam Vital signs: Vital Signs 01/05/18 12:00 01/05/18 16:00 01/05/18 20:00 Temperature 98.7 F 98.5 F Pulse Rate 81 83 79 Respiratory Rate 20 20 Blood Pressure 119/59 L 113/69 Pulse Oximetry 100 100 01/06/18 00:00 01/06/18 04:00 01/06/18 07:20 Temperature 97.4 F L 97.3 F L Pulse Rate 80 82 77 Respiratory Rate 18 16 Blood Pressure 119/67 125/71 Pulse Oximetry 100 99 01/06/18 08:00 Temperature 98.2 F Pulse Rate 75 Respiratory Rate 20 Blood Pressure 125/72 Pulse Oximetry 98 Intake & Output 01/05/18 01/06/18 01/06/18 18:59 06:59 18:59 Intake Total 1580 / 1580 Output Total 600 / 600 650 / 650 Balance -600 / -600 930 / 930 Weight 66.5 kg Intake: IV 1100 / 1100 NS Inj 1,000 ML @ 100 mls/hr IV 1000 / 1000 .CONT .Q10H TOM Rx#:[id number] Rocephin Inj 1,000 MG In NS Inj 100 / 100 100 ML @ 200 mls/hr IV.SIG Q24H TOM Rx#:[id number] Oral 480 / 480 Output: Urine 600 / 600 650 / 650 Other: # Urine Diapers 3 Date of Last Bowel Movement 01/05/18 01/05/18 01/05/18 # Bowel Movements 2 # Incontinent Bowel Movements 1 Results Procedures completed during hospitalization: none Labs on day of discharge: Labs from last 24 hours 01/05/18 09:06 Sodium 142 Potassium 3.4 L Chloride 105 Carbon Dioxide 27.1 Anion Gap 10 BUN 17 Creatinine 0.76 Estimated GFR Greater than 89 Random Glucose 84 Calcium 9.1 Phosphorus 1.3 L Magnesium 1.8 Total Bilirubin 0.7 AST 21 ALT 12 Alkaline Phosphatase 80 Total Protein 6.7 D Albumin 2.5 L D Preliminary micro results at discharge 01/04/18 01:00 Aerobic Blood Culture - Preliminary Blood - Peripheral No growth in 1 day Anaerobic Blood Culture - Preliminary No growth in 1 day 01/04/18 01:00 Aerobic Blood Culture - Preliminary Blood - Peripheral No growth in 1 day Anaerobic Blood Culture - Preliminary No growth in 1 day - Impressions ITS Impressions Abdomen/Bladder Ultrasound 01/04/18 00:00 CONCLUSION: 1. Kidneys appear unremarkable. 2. Large pelvic mass. Contrasted CT abdomen/pelvis recommended for further characterization. Chest X-Ray 01/04/18 01:02 CONCLUSION: 1. No significant interval change with persistent left greater than right lower lung opacity. 2. Chronic humeral head avascular necrosis bilaterally. Head CT 01/04/18 01:02 CONCLUSION: 1. No acute intracranial findings identified. 2. Periventricular white matter hypodensity likely represents chronic ischemic change or demyelination. 3. 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 Abdomen/Pelvis CT 01/05/18 00:00 CONCLUSION: 1. No pelvic mass is seen. The suspected pelvic mass on the prior ultrasound examination is likely secondary to a large amount stool in the rectum. 2. Bibasilar areas of atelectasis or consolidation with a minimal left pleural effusion. 3. 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 Bilateral hip joint effusions are present. Discharge Plan - Discharge Disposition Patient Disposition: /Home Health Service - Discharge Condition Condition: Stable - Discharge Order Discharge Orders: Discharge Order (Routine); Ordered 01/06/18 Ordered By: Norberto Adrian - Discharge Details Anticipated Discharge Date: 01/06/18 - Physicians Team Primary Care Provider: Primary Care Physici,No Attending Provider: Norberto Adrian Other Providers: Norberto Johnson MD
[2018-01-06 11:00] LABS: Baso % (Auto) 0.5 % (0.0-2.0); Eos # (Auto) 0.2 th/mm3 (0.0-0.4); Eos % (Auto) 3.3 % (0.0-4.0); Hemoglobin 9.7 gm/dL (13.0-17.0); Lymph # (Auto) 1.2 th/mm3 (1.0-4.8); Lymph % (Auto) 23.1 % (9.0-44.0); Mean Corpuscular HGB Conc 33.4 % (32.0-36.0); Mean Corpuscular Hemoglobin 29.5 pg (27.0-34.0); Mean Corpuscular Volume 88.1 fL (80.0-100.0); Mean Platelet Volume 7.2 fL (7.0-11.0); Mono # (Auto) 0.5 th/mm3 (0.0-0.9); Mono % (Auto) 9.8 % (0.0-8.0); Neut # (Auto) 3.2 th/mm3 (1.8-7.7); Neut % (Auto) 63.3 % (16.0-70.0); Platelet Count 191 th/mm3 (150-450); Red Blood Count 3.29 mil/mm3 (4.50-5.90); Red Cell Distribution Width 15.6 % (11.6-17.2); White Blood Count 5.1 th/mm3 (4.0-11.0)
[2018-01-06 11:24] LABS: Albumin 2.4 g/dL (3.4-5.0); Anion Gap 10 meq/L (5-15); Aspartate Aminotransferase 14 U/L (15-37); Blood Urea Nitrogen 10 mg/dL (7-18); Calcium 8.9 mg/dL (8.5-10.1); Carbon Dioxide 25.1 meq/L (21.0-32.0); Chloride 105 meq/L (98-107); Glomerular Filtration Rate Greater Than 89 mL/min (>89); Glucose,Random 142 mg/dL (74-106); Magnesium 1.6 mg/dL (1.5-2.5); Potassium 3.1 meq/L (3.5-5.1); Sodium 140 meq/L (136-145)
[2018-01-06 11:25] LABS: Alanine Aminotransferase 11 U/L (12-78); Phosphorus 1.7 mg/dL (2.5-4.9)
[2018-01-06 11:27] LABS: Alkaline Phosphatase 77 U/L (45-117); Total Protein 6.4 g/dL (6.4-8.2)
== END 2018-01-06 12:28 | disposition home health service (06) ==
LOC: NEPC 00:45 → NEDA 03:43 → N05 04:55
PROVIDERS: ADMIT Hospitalist; ATTEND Hospitalist